=== PATIENT | male | born 1935 | race Caucasian/White ===

== ENCOUNTER 2017-11-04 14:54 | Inpatient (IN) | payer MEDICARE, SELFPAY ==
[2017-11-04] VITALS (9 sets, daily range): BP systolic 101–121; BP diastolic 47–55; PULSE 63–74; RESP 11–18; TEMP 36.3–37.2; O2SAT 91–98; BMI 31.4; BMI 31.3
--- NOTE | 2017-11-04 15:20 | EKG12_ITS ---
Test Reason : Blood Pressure : / mmHG Vent. Rate : 065 BPM Atrial Rate : 061 BPM P-R Int : 000 ms QRS Dur : 122 ms QT Int : 484 ms P-R-T Axes : 000 068 094 degrees QTc Int : 503 ms Atrial fibrillation with frequent ventricular-paced complexes T wave abnormality, consider anterior ischemia Abnormal ECG Confirmed by YAJAIRA MAGAÑA, BYRON ([id number]), editor dictionary SCOOTER KRAUS ([id number]) on 11/09/2017 9:04:42 AM Referred By: KIKI Confirmed By:BYRON GATES MD
--- NOTE | 2017-11-04 15:21 | RAD_ITS ---
STUDY: X-RAY CHEST REASON FOR EXAM: Male, 82 years old. Dyspnea. TECHNIQUE: Frontal and lateral views of the chest. COMPARISON: 09/03/2017. FINDINGS: Normal lung volumes. Very slight prominence of interstitial markings some of which was present previously. Possible combination of some fibrosis along with mild congestion/interstitial edema. In the lung bases, there is probable mild atelectasis. Infiltrate is not excluded. Small pleural effusions bilaterally. Moderate cardiomegaly status post CABG. Pacer lead terminates in the right ventricle. Normal mediastinum and zofia. Normal visualized pulmonary arteries. Normal visualized aortic arch and descending thoracic aorta. Degenerative changes seen throughout the skeletal structures. There is no demonstrated abnormality of the visualized soft tissue structures of the upper abdomen. RAD/Chest PA and Lateral IMPRESSION: Probable mild congestion and interstitial edema. Mild bilateral atelectasis and small effusions. Electronically Signed: Matheus Hayden MD at 16:46 EST , Service support ,
--- NOTE | 2017-11-04 15:27 | VDLE_ITS ---
Reason For Study: LEG SWELLING Procedure LEFT Exam performed portable in ED. GSV is normal. A preliminary report was called and/or faxed CFV is compressible, spontaneous, phasic, to Dr. Black. competent, and demonstrates normal augmentation. FV is compressible, spontaneous, phasic, competent and demonstrates normal augmentation. POP V is compressible, spontaneous, phasic, competent and demonstrates normal augmentation. T/P Trunk is compressible. PTV is compressible. LT PerV is compressible. Interpretation Summary There is no evidence of left lower extremity deep vein thrombosis. Left greater saphenous vein appears patent and compressible segmentally. Ordering Physician: Varun Black Referring Physician: Bijan Zheng M.D. Performed By: Nedra Price RVT
[2017-11-04 16:11] LABS: Absolute Lymphocyte Count 0.27 X10^3/ul (0.83-4.51); Absolute Neutrophil Count 4.6 X10^3/uL (2.0-7.7); Basophil% 0.2 % (0-1); Eosinophils% 1.9 % (0-5); Hematocrit 23.2 % (40-54); Hemoglobin 7.4 g/dl (13.0-16.5); Lymphocyte # 0.27 X10^3/ul (4.0); Lymphocyte % 5.1 % (19-41); Mean Corp Hgb Conc 31.9 g/gl (32-36); Mean Corpuscular Hgb 35.7 pg (27.0-32.0); Mean Corpuscular Volume 112.1 fL (80-94); Mean Platelet Vol. 10.4 fl (6.2-12.0); Monocyte# 0.36 X10^3/uL; Monocyte% 6.8 % (0-10); Neutrophil # 4.56 X10^3/uL (2.7-7.7); Neutrophil % 85.4 % (47-70); Platelet Count 108 K/mm3 (150-450); Red Blood Count 2.07 M/mm3 (4.6-6.2); White Blood Count 5.3 K/mm3 (4.4-11.0)
[2017-11-04 16:12] LABS: Basophil# 0.01 X10^3/uL; Differential Indicated SCAN CRITERIA MET; POSITIVE COUNT NO; POSITIVE DIFFERENTIAL YES; POSITIVE MORPHOLOGY YES
[2017-11-04 16:25] LABS: Lactic Acid 0.9 mmol/L (0.4-2.0)
[2017-11-04 16:27] LABS: AST(SGOT) 32 U/L (15-37); Alanine Aminotransfer ALT/SGPT 19 U/L (12-78); Albumin, Serum 3.5 g/dL (3.4-5.0); Alkaline Phosphatase 52 U/L (45-117); Anion Gap 8 (5-15); BUN 92 mg/dL (7-18); BUN/Creat Ratio 31.8 RATIO (10-20); Bilirubin, Direct 0.29 mg/dL (0.00-0.30); Calcium,Total 8.1 mg/dL (8.5-10.1); Chloride 101 mmol/L (98-107); Creatinine, Serum 2.89 mg/dL (0.70-1.30); EST Glomerular Filtration Rate 22 mL/min (>60); Est Glom Filt Rate - Afr Amer 27 mL/min (>60); Estimated Creatinine Clearance 22.38 ml/min; Globulin 3.6 g/dL (2.2-4.2); Glucose 192 mg/dL (70-110); Potassium 3.1 mmol/L (3.5-5.1); Protein, Total 7.1 g/dL (6.4-8.2); Sodium Level 139 mmol/L (136-145)
[2017-11-04 16:32] LABS: Anisocytosis 1+; Differential Comment SCAN; Hypochromasia 1+; Microcytosis 1+; Polychromasia 1+
[2017-11-04] MEDS: Bumetanide 1 MG/4 ML Vial 2 MG IV (16:48)
[2017-11-04 16:50] LABS: International Normalized Ratio 1.4; Prothrombin Time (Protime)PT. 16.5 SECONDS (11.7-14.9)
[2017-11-04 16:52] LABS: BNP,B-Type NATRIURETIC PEPTIDE 317.9 pg/mL (0-100)
--- NOTE | 2017-11-04 17:04 | PCM.HP.STD ---
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 The patient is a 82 year old M who presents to the emergency room lower extremity and abdominal edema, weight gain and shortness of breath which have been ongoing for approximately 1 month. Patient states he has gained approximately 20 pounds in the past month. He went for a routine visit with Dr. 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 He states Dr. aGn completed an echocardiogram and referred him to the emergency room. Patient denies chest pain. Denies fever, chills. Denies other complaints. Patient recently underwent cystoscopy right retrograde pyelogram due to right ureteral stricture obstruction 10/28/[address] Thomas. Stent placement was attempted but not able to be performed. Patient was sent to [place] where patient reports Dr. Fernandez placed right stent and nephrostomy tube. Nephrostomy tube with bloody drainage. He is to have tube removed this coming 11/09/2017. He has a past medical history of type 2 diabetes mellitus, hypertension, BPH, chronic anemia, chronic atrial fibrillation, anxiety, GERD, chronic thrombocytopenia, chronic constipation, hyperlipidemia, gout, CHF, history of CVA/TIA, status post pacemaker, tricuspid valvuloplasty. He was taken off his Coumadin approximately 12 days ago. He was instructed to begin taking aspirin tomorrow and reevaluate continuing Coumadin after nephrostomy tube removal. 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) Constipation (Chronic) Hyperlipidemia (Chronic) Gout (Chronic) Allergies hydrocodone bitartrate [From Vicodin] Allergy (Verified 11/04/17 14:57) Unknown Iodinated Contrast- Oral and IV Dye [DYEE] Allergy (Verified 11/04/17 14:57) Unknown oxycodone HCl [From Percocet] Adverse Reaction (Verified 11/04/17 14:57) Itching Sulfa (Sulfonamide Antibiotics) Adverse Reaction (Verified 11/04/17 14:57) Unknown Home Medications: Ambulatory Orders Medication Instructions Recorded Aspirin [Aspirin, Baby] 81 mg PO QODAY 05/14/14 Finasteride [Proscar] 5 mg PO DAILY 05/14/14 Multivit-Min/FA/Lycopene/Lut 1 each PO DAILY 05/14/14 [Centrum Silver Tablet] Vit A/Vit C/Vit E/Zinc/Copper 1 each PO BID 05/14/14 [Preservision Areds Softgel] Acetaminophen [Pain Reliever] 1,000 mg PO Q6H PRN PRN 09/25/16 Cyanocobalamin (Vitamin B-12) 2 tab PO DAILY 10/16/16 [Vitamin B-12] Lorazepam [Ativan] 0.5 mg PO BID PRN PRN 10/16/16 Simvastatin [Zocor] 5 mg PO QHS 10/16/16 Atenolol [Tenormin (beta yosef)] 25 mg PO DAILY 09/03/17 Bumetanide [Bumex] 2 mg PO DAILY 09/03/17 Metolazone [Zaroxolyn] 5 mg PO DAILY 09/03/17 Insulin Glargine [Lantus (BKC)] 15 units SC QHS 10/25/17 Polyethylene Glycol 3350 [Miralax] 17 gm PO DAILY PRN 10/25/17 Warfarin [Coumadin] 7.5 mg PO SUTUTHSA 10/25/17 Allopurinol 100 mg PO DAILY 11/04/17 Glipizide [Glipizide ER] 7.5 mg PO BREAKFAST 11/04/17 Warfarin [Coumadin (PBKC)] 5 mg PO MOWEFR 11/04/17 Surgical History: colectomy - S/P [place] OF COLOSTOMY, herniorrhaphy, pacemaker implantation, total hip arthroplasty, total knee arthroplasty, tonsillectomy, - Psychiatric History: No pertinent psych hx Smoking Status: Former smoker Alcohol: None Drugs: None - *Family History Maternal History Items: Diabetes Paternal History Items: Seizures Offspring History Items: Diabetes Review of Systems Constitutional: Reports: Weight Change - +20 lb in one month. Denies: Chills, Fever HEENT: Denies: Head Aches, Sinus Congestion, Sinus Drainage Cardiovascular: Denies: Chest Pain, Palpitations Respiratory: Reports: Shortness of breath upon exertion. Denies: Cough, Shortness of breath at rest, Sputum production Gastrointestinal: Denies: Abdominal Pain, Nausea, Vomiting Genitourinary: Reports: Hematuria. Denies: Dysuria Musculoskeletal: Denies: Joint Pain, Joint Tenderness Skin: Denies: Rash, Wounds Neurological: Denies: Numbness, Tingling, Focal weakness Psychiatric: Reports: Anxiety Hematologic/ Lymphatic: Denies: Easy Bruising, Easy Bleeding VTE Information - Inpt Only VTE Present on Admission: No VTE Mechan Device Prophylaxis: SCD's VTE Pharm Prophylaxis ordered?: No Reason prophylaxis not ordered:: Medical Contraindication - Physical Exam General: Alert, Oriented x3, Cooperative, No apparent distress HEENT: Atraumatic, PERRLA, EOMI, Normocephalic Neck: Supple, No JVD, Negative Carotid Bruits Lungs: Diminished, Rales Cardiovascular: Regular rate, Normal S1, Normal S2, Murmur, - Abdomen: Bowel Sounds Present, Soft, Non Tender, Obese Extremities: No clubbing, No cyanosis, Edema - +2 BLLE up to thighs, abdomen Skin: No rashes, No breakdown, - - Right nephrostomy tube, dressing saturated with bloody drainage. Chronic lower extremity hyperpigmentation/skin changes. Musculoskeletal: No Tenderness to Palpation of Joints or Extremities Neurological: Cranial nerves II-XII grossly intact, Neuro grossly intact Psych/Mental Status: Normal Affect, Appropriate Vital Signs Temp Pulse Resp BP Pulse Ox 97.4 F L 68 16 101/48 L 91 11/04/17 14:55 11/04/17 16:21 11/04/17 16:21 11/04/17 16:21 11/04/17 16:21 Oxygen Delivery Method Room Air Weight: 105.233 kg Body Mass Index (BMI) 31.4 Finger Stick Blood Glucose 143 Laboratory Tests Past 24 Hrs 11/04/17 11/04/17 11/04/17 15:45 15:45 15:45 WBC 5.3 RBC 2.07 L Hgb 7.4 L Hct 23.2 L MCV 112.1 H MCH 35.7 H MCHC 31.9 L RDW 18.0 H RDW Differential 69.0 H Plt Count 108 L MPV 10.4 Immature Gran % (Auto) 0.600 Neut % (Auto) 85.4 H Lymph % (Auto) 5.1 L Ford % (Auto) 6.8 Eos % (Auto) 1.9 Baso % (Auto) 0.2 Absolute Neuts (auto) 4.6 Absolute Lymphs (auto) 0.27 L Total Counted Not Reportable Differential Comment SCAN Polychromasia 1+ Hypochromasia 1+ Anisocytosis 1+ Microcytosis 1+ PT INR Sodium 139 Potassium 3.1 L Chloride 101 Carbon Dioxide 30.0 Anion Gap 8 BUN 92 H Creatinine 2.89 H Estim Creat Clear Calc 22.38 Est GFR (MDRD) Af Amer 27 L Est GFR (MDRD) Non-Af 22 L BUN/Creatinine Ratio 31.8 H Glucose 192 H Lactic Acid 0.9 Calcium 8.1 L Total Bilirubin 0.70 Direct Bilirubin 0.29 AST 32 ALT 19 Alkaline Phosphatase 52 Troponin I < 0.02 B-Natriuretic Peptide Total Protein 7.1 Albumin 3.5 Globulin 3.6 11/04/17 11/04/17 15:45 15:45 WBC RBC Hgb Hct MCV MCH MCHC RDW RDW Differential Plt Count MPV Immature Gran % (Auto) Neut % (Auto) Lymph % (Auto) Ford % (Auto) Eos % (Auto) Baso % (Auto) Absolute Neuts (auto) Absolute Lymphs (auto) Total Counted Differential Comment Polychromasia Hypochromasia Anisocytosis Microcytosis PT 16.5 H INR 1.4 Sodium Potassium Chloride Carbon Dioxide Anion Gap BUN Creatinine Estim Creat Clear Calc Est GFR (MDRD) Af Amer Est GFR (MDRD) Non-Af BUN/Creatinine Ratio Glucose Lactic Acid Calcium Total Bilirubin Direct Bilirubin AST ALT Alkaline Phosphatase Troponin I B-Natriuretic Peptide 317.9 H Total Protein Albumin Globulin Assessment/Plan 1. Acute on chronic diastolic CHF exacerbation-associated anasarca. Patient's reports a 20 pound weight gain in the past month. Most recent echocardiogram in [facility] is on 12/17/2013 which showed an estimated ejection fraction of 55% mild mitral valve insufficiency, moderately severe tricuspid valve insufficiency, mild pulmonary hypertension. Patient states he had echocardiogram completed and Dr. Gan's office this morning. Request records. Patient is on metolazone and bumetanide at home. Strict I&O. 1500 FR. Lower extremity ultrasound was completed in the emergency room and showed no evidence of left lower extremity DVT. EKG shows A. fib with nonspecific ST-T wave changes. Chest x-ray consistent with CHF. Cycle enzymes. Discontinue home oral diuretics. IV lasix 40mg Q8. 2. Elevated creatinine secondary to recent right ureteral stricture obstruction. Patient underwent cystoscopy with Dr. Thomas. Stent placement was not able to be performed and patient was transferred to [place] for stent placement and patient was discharged with right nephrostomy. This is to be discontinued this coming 11/09/2017. Creatinine 2.89. Prior to August this year, patient did not have chronically elevated creatinine. Dr. Aguero consulted. Patient is having kwadwo bloody drainage from nephrostomy tube. Urology aware. 3. Hypertension-stable, continue home medication. 4. Type 2 diabetes mellitus-associated peripheral neuropathy. Accu-Cheks before meals at bedtime. ADA diet. Continue home Lantus regimen. Hold oral home regimen. Sliding scale NovoLog. 5. BPH-continue proscar. 6. Acute on chronic anemia-continue iron supplementation. Monitor CBC. Hemoglobin 7.4. May need transfusion if no improvement with diuresis. Suspect secondary to fluid overload and acute blood loss from right nephrostomy site. 7. Chronic atrial fibrillation-rate controlled. Coumadin on hold. Continue aspirin beginning tomorrow. 8. GERD-continue PPI. 9. Hyperlipidemia-continue statin. 10. Gout-allopurinol on hold given kidney function. 11. History of CVA/TIA-Patient to begin aspirin tomorrow. Continue statin. Coumadin on hold given recent surgery. No residual deficits. 12. Anxiety- continue ativan PRN. 13. Chronic constipation-continue home bowel regimen. 14. S/P pacemaker- follows with Dr. Gan and has routine pacer checks. 15. History of tricuspid valvuloplasty-approximately 1 year ago. DVT prophylaxis-SCDs. Pharmacological prophylaxis contraindicated given recent surgery. <Aiden Berrios E - Last Filed: 11/04/17 19:02> Problem List (1) Diabetes mellitus Status: Chronic Qualifiers: Diabetes mellitus type: type 2 (2) Hypertension Status: Chronic (3) Benign prostatic hypertrophy Status: Chronic (4) Anemia Status: Chronic Qualifiers: Anemia type: iron deficiency (5) Atrial fibrillation Status: Chronic (6) GERD (gastroesophageal reflux disease) Status: Chronic (7) Thrombocytopenia Status: Chronic (8) Hyperlipidemia Status: Chronic (9) Gout Status: Chronic (10) CHF exacerbation Status: Acute Qualifiers: History of Present Illness The patient is a 82 year old M [] Past Medical History Allergies hydrocodone bitartrate [From Vicodin] Allergy (Verified 11/04/17 14:57) Unknown Iodinated Contrast- Oral and IV Dye [DYEE] Allergy (Verified 11/04/17 14:57) Unknown oxycodone HCl [From Percocet] Adverse Reaction (Verified 11/04/17 14:57) Itching Sulfa (Sulfonamide Antibiotics) Adverse Reaction (Verified 11/04/17 14:57) Unknown - Physical Exam Vital Signs Temp Pulse Resp BP Pulse Ox 97.4 F L 68 16 103/53 L 93 11/04/17 14:55 11/04/17 18:00 11/04/17 18:00 11/04/17 18:00 11/04/17 18:00 Oxygen Delivery Method Room Air Weight: 231 lb 4.8 oz Body Mass Index (BMI) 31.3 Assessment/Plan Hospitalist note: I am seeing this patient in conjunction with Negin Nagel. I independently seen and examined the patient. History and physical, laboratory data and imaging studies reviewed. I agree with above admission and treatment plan. Patient was sent from Dr. Nunez's office for worsening bilateral leg edema, weight gain and mild shortness of breath. His symptoms has been going on for almost 1 month with gradually increasing bilateral leg edema, associated with mild shortness of breath as well as abdominal distention. He denied chest pain, palpitation, dizziness or lightheadedness. He denied cough or sputum production. One week ago, he underwent cystoscopy with right retrograde pyelogram due to a right ureteral stricture by Dr. Thomas which failed attempt to place a right ureteral stent. Patient was sent to [facility] and he had nephrostomy tube and right ureteral stent placed this past Tuesday. Patient's family mentioned that the drainage of the right nephrostomy tube was dark but since today morning, has been kwadwo blood. Patient denied any right flank pain. He has been having urine coming out from the insertion of the right nephrostomy tube. Patient denies any fever chills. At this time, his vital signs are stable. - Physical Exam General: Alert, Oriented x3, Cooperative, No apparent distress. HEENT: Atraumatic, PERRLA, EOMI. Neck: Supple, No JVD, Negative Carotid Bruits, Trachea Midline, Thyroid Normal. Lungs: Decreased breath sounds bilateral, faint basilar crackles, No rhonchi, No wheeze. Cardiovascular: Regular rate, Regular Rhythm, Normal S1, Normal S2, PMI Normal. Abdomen: Bowel Sounds Present, Soft, Non Tender, Distended, No Hepato-splenomegaly. Extremities: No clubbing, No cyanosis, ++ edema up to his thighs Skin: No rashes, No breakdown Neurological: Neuro grossly intact Vital Signs are stable. Assessment and plan: #1 acute on chronic CHF: Probably diastolic. And probably due to worsening kidney function, cardiorenal syndrome. Patient has been on diuretics and his kidney function has been worsening due to right ureteral stricture although he had recent right ureteral stent placed. EKG revealed A. fib with nonspecific ST, T-wave changes. One is negative. It was reported that his ejection fraction today was 58% on echocardiogram done at Dr. Nunez's office. BNP is elevated. Venous Doppler of the both lower extremities showed no evidence of acute DVT. Chest x-ray showed mild pulmonary vascular congestion with small effusions. Plan for diuresis with IV Lasix, continue atenolol, input output chart, repeat BMP tomorrow morning. He is not on JOCELYN inhibitor because of worsening kidney function. #2 right ureteral stricture, status post stent and nephrostomy tube on the right. Nephrostomy tube is draining bright red blood. Patient denies any flank pain. I spoke with Dr. Aguero and he agreed to keep the patient here and he will see him more in consultation. #3 acute on chronic anemia: Admission hemoglobin is 7.4 g/dL. It is probably multifactorial secondary to acute blood loss through the nephrostomy tube as well as fluid retention leading to hemodilution. Plan for transfuse 1 bag of blood, repeat CBC tomorrow morning. #4 renal failure: It is fairly acute. His kidney function has been worsening since beginning of this month. His creatinine was 1.46 on August,, was 2.27 on October 18 and today, it is 2.89. it is steadily worsening. Expect kidney function to worsen with IV Lasix. Urology consulted as above. #5 other chronic medical problems: Continue current treatment as above. This note was generated with [employer] dictation software. It may contain incorrect words, spelling, and punctuation that were not noted in checking the note before signing. Code Visit Inpatient E&M: 62725 Init Hosp L3
--- NOTE | 2017-11-04 17:22 | ED.DCSUM_ITS ---
- ER Visit Summary Date of Service: 11/04/17 Chief Complaint: Drainage from nephrostomy site History of Present Illness: The patient is a [address] Nunez and sent to the ER because of anasarca. A transthoracic echo was performed and conclusions read: 1. Technically difficult exam due to suboptimal positioning body habitus 2. Indication congestive heart failure 3. Left bundle trickle is normal in size. Left ventricle systolic function is normal, EF approximately 58% ?5% (2D 4-CH.) Left ventricular diastolic function was not evaluated due to atrial fibrillation. 4. The right ventricle is dilated and ventricular systolic function is low normal. 5. The left atrial cavity is severely dilated 6. The right atrial cavity is dilated 7. There is moderately severe 3+ tricuspid valve regurgitation with peak gradient 8 mmHg and mean gradient 4 mmHg. 8. Estimated right ventricular systolic pressure is 71 mmHg consistent with moderately severe pulmonary hypertension. Estimated right atrial pressure is 15 mmHg Patient reports increased swelling of his legs. Increased shortness of breath at rest, with activity and he sleeps in a lazy boy. Attempt at right ureteral stent was unsuccessful necessitating transfer to [facility] and placement of right nephrostomy tube. He has serous drainage from the nephrostomy tube site placement. He denies fever, chills night sweats. He does report weight gain and his pants feeling very tight. He denies rhinorrhea, earache or sore throat. He denies chest discomfort. He states 3 weeks ago he had difficulty swimming. He was normally able to swim 7 laps. Starting 3 weeks ago he is only able to swim 1 lap. Physical Examination: Vital signs are noted. Pulse ox on room air is 91% which is marginal. Head is atraumatic normocephalic. Pupils are equal round reactive. Extraocular muscles are intact. TMs are pearly white with landmarks noted. Nares patent with no drainage. Posterior pharynx without erythema or exudate. Uvula is midline. There is no dysphonia or dysphasia. Trachea is midline. There is no stridor with auscultation of the neck. Heart is irregularly irregular with systolic murmur heard best over the right sternal border. There is no JVD noted. Lungs revealed diminished breath sounds on the left and rales bilaterally. Left lower extremity is discolored and severely swollen comparison to the right. He has tenderness along the distribution deep venous system. Difficult to assess for distal pulses in the lower extremity secondary to his edema. He is hard of hearing. Neuro exam is nonfocal. Test Results: EKG atrial fibrillation rate is [address]-T wave changes. Chest x-ray reveals borderline cardiomegaly, congestive heart failure with small pleural effusion on the left. Pacemaker noted right subclavian, dual wire. Hemoglobin is 7.4 with hematocrit of 23.8 which is unchanged from October 31. BUN and creatinine are 92 and 2.59 which is slightly elevated compared to October 31. Troponin is normal. Emergency Department Course and Treatment: Workup was undertaken to determine allergy of his anasarca. The echo report was not available when he was initially seen. Differential includes cardiac ischemia, noncompliance with medication or food, worsening renal failure. Workup included EKG, chest x-ray and appropriate blood work. Since he is on Bumex he received 2 mg of Bumex IV push. Treatment Plan: Continued care in the hospital with aggressive diuresis Disposition: Admit monitored unit Impression: 1. Exacerbation of congestive heart failure 2. Small left pleural effusion 3. Anasarca 4. Chronic anemia 5. End-stage renal disease, chronic 6. Atrial fibrillation, chronic This note was generated with G-mode dictation software. It may contain incorrect words, spelling, and punctuation that were not noted in review of the chart prior to signing ED Disposition - Plan for ED Patient: Chief Complaint: General Illness Referrals: Bijan Zheng MD [Primary Care Provider] -
[2017-11-04 20:06] LABS: Prealbumin 17.2 mg/dL (20.0-40.0)
[2017-11-04] MEDS: Atorvastatin Calcium 10 MG Tablet 5 MG PO (22:18)
[2017-11-04] MEDS: Furosemide 40 MG/4 ML Vial IV (22:24)
[2017-11-04 23:36] LABS: Bedside Glucose 162 mg/dL (70-110)
[2017-11-05] VITALS (25 sets, daily range): BP systolic 96–135; BP diastolic 40–62; PULSE 60–98; RESP 12–19; TEMP 36–37.6; O2SAT 91–99
--- NOTE | 2017-11-05 07:36 | PCM.PROGNOTE ---
Subjective: Patient is an 82-year-old male with a past medical history of diabetes mellitus type 2, hypertension, BPH, diverticulosis, atrial fibrillation, anxiety, GERD, diabetic peripheral polyneuropathy, thrombocytopenia, remote ischemic CVA, hyperlipidemia, PM, R nephrostomy tube, chronic anticoagulation with Coumadin, history of tricuspid valvuloplasty, right ureteral stenosis with failed attempt at stent placement(now with R nephrostomy tube), hyperuricemia, gout, biatrial enlargement, LVH, dilated right ventricle with global right ventricular systolic dysfunction, pulmonary hypertension, congestive heart failure, and chronic constipation who presented to the emergency room complaining of increased lower extremity edema and increased abdominal girth. He stated that he gained 20 pounds in the past month. He was admitted for acute exacerbation of congestive heart failure in early October. Follows with Dr. Dion Nunez. He is scheduled for removal of the nephrostomy tube on 11/[address] Fernandez at [facility]. Drainage from the nephrostomy tube is bloody and Coumadin was stopped almost 2 weeks ago. In the emergency room he had a venous ultrasound that showed no DVT. Chest x-ray showed increased vascular congestion and small pleural effusions. Labs shows a normal white blood cell count at 5.3 with low platelets of 108,000. His hemoglobin is 7.4 the MCV is 112. Has microcytosis, hypochromasia and anisocytosis. INR was 1.4. Potassium was low at 3.1. The BUN was 92 and the creatinine was 2.89. On 10/17 the creatinine was 1.04. BNP was 317. Had 1 unit of blood yesterday. - Physical Exam General: Alert, Oriented x3, Cooperative, No apparent distress, Well developed, Well nourished HEENT: Atraumatic, PERRLA, EOMI, Normocephalic Oral: Moist Mucosa Neck: Trachea Midline Lungs: Clear to auscultation - anterior and lateral, No rhonchi, No wheeze, No rales Cardiovascular: Normal S1, Normal S2, Irregular Rate - with controlled ventricular, Murmur - sys at the LLS border and 1-2+ at the second RICS, No rub noted, No Gallop Abdomen: Bowel Sounds Present, Soft, Non Tender, Distended - and hypertympanic, last BM was yesterday and it was normal, denies N/V/abdominal, - - he has pitting edema in the flanks Extremities: No cyanosis, Edema - BL lower extremities, Tenderness - R calf Skin: - - there is hyperpigmentation of the distal LE's BL due to chronic venous insufficiency Musculoskeletal: Arthritic Changes Neurological: Cranial nerves II-XII grossly intact, Neuro grossly intact Psych/Mental Status: Normal Affect, Appropriate Vital Signs Temp Pulse Resp BP Pulse Ox 98.4 F 75 12 100/49 L 93 11/05/17 04:32 11/05/17 04:32 11/05/17 04:32 11/05/17 04:32 11/05/17 04:32 Oxygen Delivery Method Room Air Weight: 231 lb 4.8 oz Body Mass Index (BMI) 31.3 Intake and Output for Last 24 Hours 11/03/17 11/04/17 11/05/17 23:59 23:59 23:59 Intake Total 651 / 651 1376 / 1376 Output Total 1025 / 1025 1385 / 1385 Balance -374 / -374 -9 / -9 Laboratory Tests Past 24 Hrs 11/04/17 11/04/17 11/04/17 19:09 19:53 21:26 Troponin I < 0.02 < 0.02 Prealbumin 17.2 L Blood Type A POSITIVE Antibody Screen NEGATIVE Crossmatch See Detail 11/05/17 01:36 Troponin I < 0.02 Prealbumin Blood Type Antibody Screen Crossmatch POC Glucose 11/04/17 22:10 POC Glucose 162 H Assessment/Plan Impressions 1. acute on chronic cor pulmonale 2. moderate to severe pulmonary HTN 3. recent tricuspid valvuloplasty 4. Hx of 3+ TR with a normal EF in 2013.....last ECHO we have on file 5. CAF - rate controlled 6. S/P PM 7. OMAIRA due to R ureteral stenosis - Stent placement failed and he now has a R nephrostomy tube and the urine is bloody 8. acute on chronic anemia due to acute blood loss 9. Diabetes mellitus type 2 10. Hypertension 11. BPH 12. History of diverticulosis status post partial colectomy- 13. GERD 14. Diabetic peripheral polyneuropathy 15. Hyperlipidemia 16. Hyperuricemia/gout 17. Hypokalemia 18. Thrombocytopenia-chronic Serial troponins are negative CBC not resulted yet...transfused with 1 unit of PRBC's at admission Continue Lasix Q 8 H Iron studies, B12, folate, reticulocyte count TSH was normal within the past year Await the results of today's lab work. Echocardiogram today - need results in the computer and he has not had an ECHO since 2013 at [facility].....multiple admissions for cor pulmonale After Laci is on consult Coumadin has been on hold for past 13 days..... Renew ASA 81 mg daily Code Visit Inpatient E&M: 57842 Subs Hosp L3
--- NOTE | 2017-11-05 07:57 | ECHOD_ITS ---
Reason For Study: CHF Procedure This was a 2D Doppler, Color Flow transthoracic echocardiogram. Exam performed portable in patient room. Left Ventricle Normal LV size. Left ventricular systolic function is normal. The estimated ejection fraction is 55 %. Paced septal motion. No regional wall motion abnormalities noted. Right Ventricle ICD or pacer leads identified within the right ventricle. Mildly dilated right ventricle. Normal systolic function. Atria The left atrium is severely enlarged. The right atrium is moderately enlarged. Mitral Valve Normal mitral valve. Mild (1+) eccentric mitral valve insufficiency. Tricuspid Valve Normal tricuspid valve. Moderate (2+) tricuspid valve insufficiency. Pulmonary artery systolic pressure is 69 mmHg. Severe pulmonary hypertension. Aortic Valve Normal aortic valve. Pulmonic Valve The pulmonic valve is not well visualized. Great Vessels Normal aortic root. The pulmonary artery is normal size. and does not collapse. Pericardium/Pleural No pericardial effusion. MMode/2D Measurements & Calculations LVIDd: 5.5 cm IVSd: 1.1 cm Ao root diam: 3.1 cm LVIDs: 3.5 cm LVPWd: 1.3 cm LA dimension: 5.6 cm RVDd: 3.9 cm FS: 36.3 % LAV(MOD-sp4): 168.5 ml LA A4 area: 38.8 cm2 RA A4 area: 33.3 cm2 Time Measurements MV dec time: 0.16 sec Doppler Measurements & Calculations MV E max eduardo: 112.8 cm/sec Ao V2 max: 186.6 cm/sec LV V1 max: 124.5 cm/sec MV A max eduardo: 38.2 cm/sec Ao max P.0 mmHg LV V1 max P.2 mmHg MV E/A: 3.0 Ao V2 mean: 125.8 cm/sec LV V1 mean P.7 mmHg Ao mean P.1 mmHg LV V1 mean: 73.9 cm/sec Ao V2 VTI: 37.2 cm LV V1 VTI: 24.5 cm PA V2 max: 125.2 cm/sec TR max eduardo: 391.5 cm/sec TR max P.3 mmHg Interpretation Summary Normal LV size. Left ventricular systolic function is normal. The estimated ejection fraction is 55 %. The left atrium is severely enlarged. Severe pulmonary hypertension. Paced septal motion. Ordering Physician: Berta Marie Referring Physician: Bijan Zheng M.D. Performed By: Bertin Blackburn RCS
[2017-11-05 08:01] LABS: Bedside Glucose 79 mg/dL (70-110)
--- NOTE | 2017-11-05 08:04 | PN_ITS ---
Subjective: Patient is an 82-year-old male with a past medical history of diabetes mellitus type 2, hypertension, BPH, diverticulosis, atrial fibrillation, anxiety, GERD, diabetic peripheral polyneuropathy, thrombocytopenia, remote ischemic CVA, hyperlipidemia, PM, R nephrostomy tube, chronic anticoagulation with Coumadin, history of tricuspid valvuloplasty, right ureteral stenosis with failed attempt at stent placement(now with R nephrostomy tube), hyperuricemia, gout, biatrial enlargement, LVH, dilated right ventricle with global right ventricular systolic dysfunction, pulmonary hypertension, congestive heart failure, and chronic constipation who presented to the emergency room complaining of increased lower extremity edema and increased abdominal girth. He stated that he gained 20 pounds in the past month. He was admitted for acute exacerbation of congestive heart failure in early October. Follows with Dr. Dion Nunez. He is scheduled for removal of the nephrostomy tube on 11/[address] Fernandez at [facility]. Drainage from the nephrostomy tube is bloody and Coumadin was stopped almost 2 weeks ago. In the emergency room he had a venous ultrasound that showed no DVT. Chest x- ray showed increased vascular congestion and small pleural effusions. Labs shows a normal white blood cell count at 5.3 with low platelets of 108, 000. His hemoglobin is 7.4 the MCV is 112. Has microcytosis, hypochromasia and anisocytosis. INR was 1.4. Potassium was low at 3.1. The BUN was 92 and the creatinine was 2.89. On 10/17 the creatinine was 1.04. BNP was 317. Had 1 unit of blood yesterday. - Physical Exam General: Alert, Oriented x3, Cooperative, No apparent distress, Well developed, Well nourished HEENT: Atraumatic, PERRLA, EOMI, Normocephalic Oral: Moist Mucosa Neck: Trachea Midline Lungs: Clear to auscultation - anterior and lateral, No rhonchi, No wheeze, No rales Cardiovascular: Normal S1, Normal S2, Irregular Rate - with controlled ventricular, Murmur - sys at the LLS border and 1-2+ at the second RICS, No rub noted, No Gallop Abdomen: Bowel Sounds Present, Soft, Non Tender, Distended - and hypertympanic, last BM was yesterday and it was normal, denies N/V/abdominal, - - he has pitting edema in the flanks Extremities: No cyanosis, Edema - BL lower extremities, Tenderness - R calf Skin: - - there is hyperpigmentation of the distal LE's BL due to chronic venous insufficiency Musculoskeletal: Arthritic Changes Neurological: Cranial nerves II-XII grossly intact, Neuro grossly intact Psych/Mental Status: Normal Affect, Appropriate Vital Signs Temp Pulse Resp BP Pulse Ox 98.4 F 75 12 100/49 L 93 11/05/17 04:32 11/05/17 04:32 11/05/17 04:32 11/05/17 04:32 11/05/17 04:32 Oxygen Delivery Method Room Air Weight: 231 lb 4.8 oz Body Mass Index (BMI) 31.3 Intake and Output for Last 24 Hours 11/03/17 11/04/17 11/05/17 23:59 23:59 23:59 Intake Total 651 / 651 1376 / 1376 Output Total 1025 / 1025 1385 / 1385 Balance -374 / -374 -9 / -9 Laboratory Tests Past 24 Hrs 11/04/17 11/04/17 11/04/17 19:09 19:53 21:26 Troponin I < 0.02 < 0.02 Prealbumin 17.2 L Blood Type A POSITIVE Antibody Screen NEGATIVE Crossmatch See Detail 11/05/17 01:36 Troponin I < 0.02 Prealbumin Blood Type Antibody Screen Crossmatch POC Glucose 11/04/17 22:10 POC Glucose 162 H Assessment/Plan Impressions 1. acute on chronic cor pulmonale 2. moderate to severe pulmonary HTN 3. recent tricuspid valvuloplasty 4. Hx of 3+ TR with a normal EF in 2013.....last ECHO we have on file 5. CAF - rate controlled 6. S/P PM 7. OMAIRA due to R ureteral stenosis - Stent placement failed and he now has a R nephrostomy tube and the urine is bloody 8. acute on chronic anemia due to acute blood loss 9. Diabetes mellitus type 2 10. Hypertension 11. BPH 12. History of diverticulosis status post partial colectomy- 13. GERD 14. Diabetic peripheral polyneuropathy 15. Hyperlipidemia 16. Hyperuricemia/gout 17. Hypokalemia 18. Thrombocytopenia-chronic Serial troponins are negative CBC not resulted yet...transfused with 1 unit of PRBC's at admission Continue Lasix Q 8 H Iron studies, B12, folate, reticulocyte count TSH was normal within the past year Await the results of today's lab work. Echocardiogram today - need results in the computer and he has not had an ECHO since 2013 at [facility].....multiple admissions for cor pulmonale After Laci is on consult Coumadin has been on hold for past 13 days..... Renew ASA 81 mg daily Code Visit Inpatient E&M: 05396 Subs Hosp L3
[2017-11-05 08:22] LABS: Hematocrit 23.2 % (40-54); Hemoglobin 7.3 g/dl (13.0-16.5); Mean Corp Hgb Conc 31.5 g/gl (32-36); Mean Corpuscular Hgb 33.6 pg (27.0-32.0); Mean Corpuscular Volume 106.9 fL (80-94); Mean Platelet Vol. 10.3 fl (6.2-12.0); Platelet Count 104 K/mm3 (150-450); RBC Distribution Width CV 20.5 % (11.6-14.6); RBC Distribution Width SD 78.5 fl (35.1-43.9); Red Blood Count 2.17 M/mm3 (4.6-6.2); White Blood Count 4.1 K/mm3 (4.4-11.0)
[2017-11-05 08:29] LABS: Scan Indicated on CBC? Y/N YES- FLAGS NOTED
[2017-11-05 08:31] LABS: International Normalized Ratio 1.4; Prothrombin Time (Protime)PT. 16.3 SECONDS (11.7-14.9)
[2017-11-05 08:33] LABS: Anion Gap 8 (5-15); BUN 90 mg/dL (7-18); BUN/Creat Ratio 32.6 RATIO (10-20); Calcium,Total 8.5 mg/dL (8.5-10.1); Chloride 100 mmol/L (98-107); Creatinine, Serum 2.76 mg/dL (0.70-1.30); EST Glomerular Filtration Rate 24 mL/min (>60); Est Glom Filt Rate - Afr Amer 29 mL/min (>60); Estimated Creatinine Clearance 23.43 ml/min; Glucose 66 mg/dL (70-110); Sodium Level 138 mmol/L (136-145)
--- NOTE | 2017-11-05 08:54 | RAD_ITS ---
STUDY: X-RAY - ABDOMEN/PELVIS REASON FOR EXAM: Male, 82 years old. Abdominal pain and distention. TECHNIQUE: Two AP supine views of the abdomen and pelvis. COMPARISON: CT of the abdomen and pelvis, October 18, 2017. FINDINGS: The lung bases bases not included. There is a pigtail catheter with its tip in the right midabdomen the expected position of the right kidney. This is thought to represent a nephrostomy tube. There is a ureteral calculus with its upper loop at the level of L4 and its lower loop in long the left lateral wall of the bladder. This is thought to be in the right ureter. There is an unremarkable bowel gas pattern. There is no demonstrated free abdominal air. The visualized liver, spleen and kidneys are grossly normal in size and morphology. There is no suspicious calcifications or masses. Normal soft tissue structures. Again seen is fusion of the lumbar spine and left hip arthroplasty. RAD/Abdomen Single View IMPRESSION: 1. Right nephrostomy tube. 2. Right ureteral catheter which appears to lie in the mid to distal ureter and extends into the bladder. 3. No evidence of acute intra-abdominal process. Electronically Signed: Blaine Bolton DO at 11:11 EST Tel [phone], Service support ,
--- NOTE | 2017-11-05 08:56 | PCM.CONS.U ---
Problem List (1) Ureteral stricture, right Status: Acute Reason for Consult Date of Consultation: 11/05/17 Reason for Consultation: 82 yo male with h/o R ureteral stricture. s/p antegrade stent and R nephrostomy tube placement. urine is bloody from nephrostomy tube. 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) Constipation (Chronic) Hyperlipidemia (Chronic) Gout (Chronic) Allergies hydrocodone bitartrate [From Vicodin] Allergy (Verified 11/04/17 14:57) Unknown Iodinated Contrast- Oral and IV Dye [DYEE] Allergy (Verified 11/04/17 14:57) Unknown oxycodone HCl [From Percocet] Adverse Reaction (Verified 11/04/17 14:57) Itching Sulfa (Sulfonamide Antibiotics) Adverse Reaction (Verified 11/04/17 14:57) Unknown Home Medications: Ambulatory Orders Medication Instructions Recorded Aspirin [Aspirin, Baby] 81 mg PO QODAY 05/14/14 Finasteride [Proscar] 5 mg PO DAILY 05/14/14 Multivit-Min/FA/Lycopene/Lut 1 each PO DAILY 05/14/14 [Centrum Silver Tablet] Vit A/Vit C/Vit E/Zinc/Copper 1 each PO BID 05/14/14 [Preservision Areds Softgel] Acetaminophen [Pain Reliever] 1,000 mg PO Q6H PRN PRN 09/25/16 Cyanocobalamin (Vitamin B-12) 2 tab PO DAILY 10/16/16 [Vitamin B-12] Lorazepam [Ativan] 0.5 mg PO BID PRN PRN 10/16/16 Simvastatin [Zocor] 5 mg PO QHS 10/16/16 Atenolol [Tenormin (beta yosef)] 25 mg PO DAILY 09/03/17 Bumetanide [Bumex] 2 mg PO DAILY 09/03/17 Metolazone [Zaroxolyn] 5 mg PO DAILY 09/03/17 Insulin Glargine [Lantus (BKC)] 15 units SC QHS 10/25/17 Polyethylene Glycol 3350 [Miralax] 17 gm PO DAILY PRN 10/25/17 Warfarin [Coumadin] 7.5 mg PO SUTUTHSA 10/25/17 Allopurinol 100 mg PO DAILY 11/04/17 Glipizide [Glipizide ER] 7.5 mg PO BREAKFAST 11/04/17 Warfarin [Coumadin (PBKC)] 5 mg PO MOWEFR 11/04/17 Surgical History: colectomy - S/P [place] COLOSTOMY, herniorrhaphy, pacemaker implantation, total hip arthroplasty, total knee arthroplasty, tonsillectomy, - Psychiatric History: No pertinent psych hx Smoking Status: Former smoker Alcohol: None Drugs: None - *Family History Maternal History Items: Diabetes Paternal History Items: Seizures Offspring History Items: Diabetes Review of Systems Constitutional: Denies: Chills, Fever, Weight Change HEENT: Denies: Head Aches, Sinus Congestion, Sinus Drainage Cardiovascular: Denies: Chest Pain, Palpitations Respiratory: Reports: Shortness of Breath. Denies: Cough, Shortness of breath at rest, Sputum production Gastrointestinal: Denies: Abdominal Pain, Nausea, Vomiting Genitourinary: Reports: Hematuria. Denies: Dysuria Musculoskeletal: Denies: Joint Pain, Joint Tenderness Skin: Denies: Rash, Wounds Neurological: Denies: Numbness, Tingling, Focal weakness Psychiatric: Denies: Anxiety, Depression, Homicidal Ideations, Suicidal Ideations Physical Exam - Physical Exam Vital Signs Temp 98.4 F 11/05/17 04:32 Pulse 65 11/05/17 07:22 Resp 12 11/05/17 04:32 BP 100/49 L 11/05/17 04:32 Pulse Ox 93 11/05/17 04:32 Intake & Output 11/03/17 11/04/17 11/05/17 23:59 23:59 23:59 Intake Total 651 / 651 1376 / 1376 Output Total 1025 / 1025 1385 / 1385 Balance -374 / -374 -9 / -9 Weight: 104.916 kg Intake: Oral 462 / 462 840 / 840 Blood Product 189 / 189 536 / 536 Leuko-Reduced Red Blood Cells 0 / 0 347 / 347 Unit [id number] Output: Urine 1025 / 1025 1385 / 1385 General: Alert, Oriented x3 HEENT: Atraumatic Oral: Moist Mucosa Neck: Supple Lungs: Normal air movement Extremities: Edema Skin: No rashes Laboratory Tests Past 24 Hrs 11/04/17 11/04/17 11/04/17 19:09 19:53 21:26 WBC RBC Hgb Hct MCV MCH MCHC RDW RDW Differential Plt Count MPV Differential Comment PT INR Sodium Potassium Chloride Carbon Dioxide Anion Gap BUN Creatinine Estim Creat Clear Calc Est GFR (MDRD) Af Amer Est GFR (MDRD) Non-Af BUN/Creatinine Ratio Glucose Calcium Troponin I < 0.02 < 0.02 Prealbumin 17.2 L Blood Type A POSITIVE Antibody Screen NEGATIVE Crossmatch See Detail 11/05/17 11/05/17 11/05/17 01:36 07:37 07:37 WBC 4.1 L RBC 2.17 L Hgb 7.3 L Hct 23.2 L MCV 106.9 H MCH 33.6 H MCHC 31.5 L RDW 20.5 H RDW Differential 78.5 H Plt Count 104 L MPV 10.3 Differential Comment PT 16.3 H INR 1.4 Sodium Potassium Chloride Carbon Dioxide Anion Gap BUN Creatinine Estim Creat Clear Calc Est GFR (MDRD) Af Amer Est GFR (MDRD) Non-Af BUN/Creatinine Ratio Glucose Calcium Troponin I < 0.02 Prealbumin Blood Type Antibody Screen Crossmatch 11/05/17 11/05/17 07:37 07:37 WBC RBC Hgb Hct MCV MCH MCHC RDW RDW Differential Plt Count MPV Differential Comment PT INR Sodium 138 Potassium 3.0 L Chloride 100 Carbon Dioxide 30.0 Anion Gap 8 BUN 90 H Creatinine 2.76 H Estim Creat Clear Calc 23.43 Est GFR (MDRD) Af Amer 29 L Est GFR (MDRD) Non-Af 24 L BUN/Creatinine Ratio 32.6 H Glucose 66 L Calcium 8.5 Troponin I < 0.02 Prealbumin Blood Type Antibody Screen Crossmatch Assessment/Plan Active and Suspected Problems Ureteral stricture, right (Acute) 82 yo male has nephrostomy tube plan to check KUB today continue to flush nephrostomy tube he has appt next week in [place] to remove nephrostomy tube. will check KuB, supposedly has antegrade stent can follow up with urology as outpatient.
[2017-11-05 09:30] LABS: Immature Platelet Fraction 3.9 % (1.0-7.9); RET-HE 25.7 pg (30-35)
[2017-11-05 09:40] LABS: Ferritin 218 ng/mL (26-388); Iron 45 ug/dL (65-175); Iron Binding Capacity,Total 219 ug/dL (250-450); PERCENT IRON SATURATION 20.5 % (15.0-55.0)
--- NOTE | 2017-11-05 10:03 | CASEMGMT ---
Insurance reviewed for In-Network providers if transfer is recommended. Per [employer] [facility] Website, using patient's insurance designation, the following facilities are In-Network: - [facility] - [facility]) - [facility] - [facility] - [facility] - [facility] Ramesh VASQUEZ, RN CM
[2017-11-05] MEDS: Multivitamins,Ther W-Minerals Tablet 1 TABLET PO (10:21)
[2017-11-05] MEDS: Furosemide 40 MG/4 ML Vial IV ×3 (10:22→21:58)
[2017-11-05] MEDS: Aspirin 81 MG TAB.CHEW PO (10:24)
[2017-11-05] MEDS: Cyanocobalamin 500 MCG Tablet 1000 MCG PO (10:24)
[2017-11-05] MEDS: Finasteride 5 MG Tablet PO (10:25)
[2017-11-05] MEDS: Atenolol 25 MG Tablet PO (10:25)
[2017-11-05 11:40] LABS: Bedside Glucose 149 mg/dL (70-110)
--- NOTE | 2017-11-05 12:07 | CASEMGMT ---
See RN CM Assessment Link. DC Plan: pt plans to return home. [employer] can assist. Pt does not drive, but is ambulatory and anticipates will be able to return home. Brandon WANGN RN ACM
[2017-11-05] MEDS: Ferrous Sulfate 325 MG Tablet PO ×2 (13:05→17:06)
[2017-11-05 16:51] LABS: Bedside Glucose 218 mg/dL (70-110)
[2017-11-05] MEDS: Atorvastatin Calcium 10 MG Tablet 5 MG PO (21:58)
[2017-11-05] MEDS: LORazepam 0.5 MG Tablet PO (22:09)
[2017-11-05 22:26] LABS: Bedside Glucose 165 mg/dL (70-110)
[2017-11-06] VITALS (10 sets, daily range): BP systolic 103–118; BP diastolic 51–72; PULSE 66–86; RESP 14–19; TEMP 36.8–37.4; O2SAT 92–96
[2017-11-06 03:25] LABS: Bacteria 0 SEEN /hpf (None Seen); Mucous, Urine 0 SEEN /hpf (<or=2+); Squamous Epithelial Cells - UA 0 SEEN /hpf (0-5)
[2017-11-06 03:46] LABS: Color, Urine Red (Yellow); Glucose, Dipstick Normal (Normal); Ketone-Dipstick Negative (Negative); Leukocyte Esterase-Dipstick 100 /ul (Negative); Nitrite-Dipstick Negative (Negative); Occult Blood-Urine 250 /ul (Negative); Protein-Dipstick 100 mg/dl (Negative); Urine Bilirubin Dipstick Negative (Negative); Urine Clarity Cloudy (Clear); Urine Urobilinogen Normal (Normal)
[2017-11-06 03:56] LABS: Red Blood Cells-Urine > 100 SEEN /hpf (0-5); White Blood Cells 5-10 SEEN /hpf (0-5)
[2017-11-06] MEDS: Furosemide 40 MG/4 ML Vial IV (07:00)
[2017-11-06 09:18] LABS: Bedside Glucose 138 mg/dL (70-110)
--- NOTE | 2017-11-06 10:24 | PCM.DC.SUM ---
Discharge Date and Diagnosis - Problem List Patient Problems: Active and Suspected Problems Ureteral stricture, right (Acute) Date of Admission: 11/04/17 Date of Discharge: 11/06/17 - Primary Discharge Diagnosis Active and Suspected Problems acute on chronic diastolic CHF hematuria acute on chronic anemia secondary to blood loss recent tricuspid valvuloplasty - Secondary Discharge Diagnosis Chronic Problems Diabetes mellitus 2 (Chronic) Hypertension (Chronic) Benign prostatic hypertrophy (Chronic) Diverticular disease (Chronic) Anemia (Chronic) Atrial fibrillation (Chronic) Anxiety (Chronic) GERD (gastroesophageal reflux disease) (Chronic) Peripheral neuropathy (Chronic) Thrombocytopenia (Chronic) 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 Mild bilateral atelectasis and small effusions. Electronically Signed: Matheus Hayden MD at 16:46 EST , Service support , KUB X-Ray 11/05/17 08:54 IMPRESSION: 1. Right nephrostomy tube. 2. Right ureteral catheter which appears to lie in the mid to distal ureter and extends into the bladder. 3. No evidence of acute intra-abdominal process. Electronically Signed: Blaine Bolton DO at 11:11 EST Tel [phone], Service support , Dr. Kirill Aguero-urology Operations: None Procedures: 2-D Echocardiogram, Blood transfusion Summary of Care Provided: Patient is an 82-year-old male with a past medical history of diabetes mellitus type 2, hypertension, BPH, diverticulosis, atrial fibrillation, anxiety, GERD, diabetic peripheral polyneuropathy, thrombocytopenia, remote ischemic CVA, hyperlipidemia, PM, R nephrostomy tube, chronic anticoagulation with Coumadin, history of recent tricuspid valvuloplasty, right ureteral stenosis with failed attempt at retrograde stent placement on 10/28/17(now with R nephrostomy tube placed by Dr. Fernandez at [facility]), hyperuricemia, gout, biatrial enlargement, LVH, dilated right ventricle with global right ventricular systolic dysfunction, severe pulmonary hypertension, congestive heart failure, and chronic constipation who presented to the emergency room complaining of increased lower extremity edema and increased abdominal girth. He stated that he gained 20 pounds in the past month. He was admitted for acute exacerbation of diastolic CHF in early October. He Follows with Dr. Dion Nunez for cardiology and it is Dr. Gan who sent him to the ER from his office. On 10/28/17 Dr. Thomas from urology attempted a R retrograde ureteral stent bu the stent placement failed. He was transferred to [facility] and had a R antegrade ureteral stent placed by Dr. Fernandez. He is scheduled for removal of the nephrostomy tube on 11/[address] Fernandez at [facility]. Drainage from the nephrostomy tube was very bloody at admission and when he urinates the urine is cranberry colored. Coumadin was stopped 2 weeks prior to admission. In the emergency room he had a venous ultrasound of the LE's for swelling and it showed no DVT. Chest x-ray showed increased vascular congestion and small pleural effusions. Labs showed a normal white blood cell count at 5.3 with low platelets of 108,000. The thrombocytopenia is chronic. Hemoglobin was 7.4 with an MCV of 112. He has microcytosis, hypochromasia and anisocytosis. Iron studies showed a serum iron of 45, TIBC of 219 and a ferritin of 218. INR was 1.4. Potassium was low at 3.1. The BUN was 92 and the creatinine was 2.89. On 09/03/17 the creatinine was 1.46 and on 10/17/16 it was 1.04. BNP was 317 and the diastolic CHF is primarily R heart failure. He was admitted to the hospital and started on Lasix 40 mg IV Q 8 hours. He was transfused with 1 unit of PRBC's and HGB only came up to 7.4. On 11/05 he complained of shortness of breath and he was transfused with an additional 3 units. The computers crashed on 11/06 and we have no HGB for today. He was seen in consultation by Dr. Aguero from urology and he recommended that the patient be transferred back to [facility] if hematuria continued. On 11/06 the temp was 99F with a pulse rate of 77, blood pressure of 118/55, respiratory rate of 14 and he was 96% saturated on room air. He denied abdominal pain or flank pain. He denied lightheadedness and also denied chest pain. He stated the shortness of breath had improved following transfusion. His legs were much less edematous. He has had good diuresis with the Lasix. There is considerable leakage around the right nephrostomy tube of urine/serosanguineous fluid. The nephrostomy tube and the urine from the penis are both cranberry colored. CBC and BMP are pending. A call was placed to [facility] and Dr. Henry from the hospitalist service has agreed to accept transfer and Dr. Deleon from Urology and Dr. Fernandez from interventional radiology with be consulted. Home Medications: Medications to take at Discharge Aspirin [Aspirin, Baby] 81 mg PO QODAY 05/14/14 Finasteride [Proscar] 5 mg PO DAILY 05/14/14 Multivit-Min/FA/Lycopene/Lut [Centrum Silver Tablet] 1 each PO DAILY 05/14/14 Vit A/Vit C/Vit E/Zinc/Copper [Preservision Areds Softgel] 1 each PO BID 05/14/14 Acetaminophen [Pain Reliever] 1,000 mg PO Q6H PRN PRN 09/25/16 Cyanocobalamin (Vitamin B-12) [Vitamin B-12] 2 tab PO DAILY 10/16/16 Lorazepam [Ativan] 0.5 mg PO BID PRN PRN 10/16/16 Simvastatin [Zocor] 5 mg PO QHS 10/16/16 Atenolol [Tenormin (beta yosef)] 25 mg PO DAILY 09/03/17 Bumetanide [Bumex] 2 mg PO DAILY 09/03/17 Metolazone [Zaroxolyn] 5 mg PO DAILY 09/03/17 Insulin Glargine [Lantus (BKC)] 15 units SC QHS 10/25/17 Polyethylene Glycol 3350 [Miralax] 17 gm PO DAILY PRN 10/25/17 Warfarin [Coumadin] 7.5 mg PO SUTUTHSA 10/25/17 Allopurinol 100 mg PO DAILY 11/04/17 Glipizide [Glipizide ER] 7.5 mg PO BREAKFAST 11/04/17 Warfarin [Coumadin (PBKC)] 5 mg PO MOWEFR 11/04/17 Primary Care Physician: Bijan Zheng MD [Primary Care Provider] - Minutes spent on discharge:: 50 Patient Condition:: Guarded Meaningful Use Info Meaningful Use Diagnoses (Choose all that apply): CHF - CHF JOCELYN/ARB ordered at discharge?: No Reason JOCELYN/ARB not ordered?: Worsening renal dysfunctn Documented LVEF (%): 55 Code Visit Inpatient E&M: 76061 Disch Hosp
[2017-11-06] MEDS: Cyanocobalamin 500 MCG Tablet 1000 MCG PO (10:52)
[2017-11-06] MEDS: Finasteride 5 MG Tablet PO (10:53)
[2017-11-06] MEDS: Multivitamins,Ther W-Minerals Tablet 1 TABLET PO (10:53)
[2017-11-06] MEDS: Atenolol 25 MG Tablet PO (10:54)
[2017-11-06] MEDS: Ferrous Sulfate 325 MG Tablet PO (10:54)
--- NOTE | 2017-11-06 10:54 | DS.PCM_ITS ---
Discharge Date and Diagnosis - Problem List Patient Problems: Active and Suspected Problems Ureteral stricture, right (Acute) Date of Admission: 11/04/17 Date of Discharge: 11/06/17 - Primary Discharge Diagnosis Active and Suspected Problems acute on chronic diastolic CHF hematuria acute on chronic anemia secondary to blood loss recent tricuspid valvuloplasty - Secondary Discharge Diagnosis Chronic Problems Diabetes mellitus 2 (Chronic) Hypertension (Chronic) Benign prostatic hypertrophy (Chronic) Diverticular disease (Chronic) Anemia (Chronic) Atrial fibrillation (Chronic) Anxiety (Chronic) GERD (gastroesophageal reflux disease) (Chronic) Peripheral neuropathy (Chronic) Thrombocytopenia (Chronic) 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 Mild bilateral atelectasis and small effusions. Electronically Signed: Matheus Hayden MD at 16:46 EST , Service support , KUB X-Ray 11/05/17 08:54 IMPRESSION: 1. Right nephrostomy tube. 2. Right ureteral catheter which appears to lie in the mid to distal ureter and extends into the bladder. 3. No evidence of acute intra-abdominal process. Electronically Signed: Blaine Bolton DO at 11:11 EST Tel [phone], Service support , Dr. Kirill Aguero-urology Operations: None Procedures: 2-D Echocardiogram, Blood transfusion Summary of Care Provided: Patient is an 82-year-old male with a past medical history of diabetes mellitus type 2, hypertension, BPH, diverticulosis, atrial fibrillation, anxiety , GERD, diabetic peripheral polyneuropathy, thrombocytopenia, remote ischemic CVA, hyperlipidemia, PM, R nephrostomy tube, chronic anticoagulation with Coumadin, history of recent tricuspid valvuloplasty, right ureteral stenosis with failed attempt at retrograde stent placement on 10/28/17(now with R nephrostomy tube placed by Dr. Fernandez at [facility]), hyperuricemia, gout, biatrial enlargement, LVH, dilated right ventricle with global right ventricular systolic dysfunction, severe pulmonary hypertension, congestive heart failure, and chronic constipation who presented to the emergency room complaining of increased lower extremity edema and increased abdominal girth. He stated that he gained 20 pounds in the past month. He was admitted for acute exacerbation of diastolic CHF in early October. He Follows with Dr. Dion Nunez for cardiology and it is Dr. Gan who sent him to the ER from his office. On 10/28/17 Dr. Thomas from urology attempted a R retrograde ureteral stent bu the stent placement failed. He was transferred to [facility] and had a R antegrade ureteral stent placed by Dr. Fernandez. He is scheduled for removal of the nephrostomy tube on 11/[address] Fernandez at [facility]. Drainage from the nephrostomy tube was very bloody at admission and when he urinates the urine is cranberry colored. Coumadin was stopped 2 weeks prior to admission. In the emergency room he had a venous ultrasound of the LE's for swelling and it showed no DVT. Chest x-ray showed increased vascular congestion and small pleural effusions. Labs showed a normal white blood cell count at 5.3 with low platelets of 108,000. The thrombocytopenia is chronic. Hemoglobin was 7.4 with an MCV of 112. He has microcytosis, hypochromasia and anisocytosis. Iron studies showed a serum iron of 45, TIBC of 219 and a ferritin of 218. INR was 1.4. Potassium was low at 3.1. The BUN was 92 and the creatinine was 2.89. On 09/03/17 the creatinine was 1.46 and on 10/17/16 it was 1.04. BNP was 317 and the diastolic CHF is primarily R heart failure. He was admitted to the hospital and started on Lasix 40 mg IV Q 8 hours. He was transfused with 1 unit of PRBC's and HGB only came up to 7.4. On 11/05 he complained of shortness of breath and he was transfused with an additional 3 units. The computers crashed on 11/06 and we have no HGB for today. He was seen in consultation by Dr. Aguero from urology and he recommended that the patient be transferred back to [facility] if hematuria continued. On the temp was 99F with a pulse rate of 77, blood pressure of 118/55, respiratory rate of 14 and he was 96% saturated on room air. He denied abdominal pain or flank pain. He denied lightheadedness and also denied chest pain. He stated the shortness of breath had improved following transfusion. His legs were much less edematous. He has had good diuresis with the Lasix. There is considerable leakage around the right nephrostomy tube of urine/ serosanguineous fluid. The nephrostomy tube and the urine from the penis are both cranberry colored. CBC and BMP are pending. A call was placed to [facility] and Dr. Henry from the hospitalist service has agreed to accept transfer and Dr. Deleon from Urology and Dr. Fernandez from interventional radiology with be consulted. Home Medications: Medications to take at Discharge Aspirin [Aspirin, Baby] 81 mg PO QODAY 05/14/14 Finasteride [Proscar] 5 mg PO DAILY 05/14/14 Multivit-Min/FA/Lycopene/Lut [Centrum Silver Tablet] 1 each PO DAILY 05/14/14 Vit A/Vit C/Vit E/Zinc/Copper [Preservision Areds Softgel] 1 each PO BID Acetaminophen [Pain Reliever] 1,000 mg PO Q6H PRN PRN 09/25/16 Cyanocobalamin (Vitamin B-12) [Vitamin B-12] 2 tab PO DAILY 10/16/16 Lorazepam [Ativan] 0.5 mg PO BID PRN PRN 10/16/16 Simvastatin [Zocor] 5 mg PO QHS 10/16/16 Atenolol [Tenormin (beta yosef)] 25 mg PO DAILY 09/03/17 Bumetanide [Bumex] 2 mg PO DAILY 09/03/17 Metolazone [Zaroxolyn] 5 mg PO DAILY 09/03/17 Insulin Glargine [Lantus (BKC)] 15 units SC QHS 10/25/17 Polyethylene Glycol 3350 [Miralax] 17 gm PO DAILY PRN 10/25/17 Warfarin [Coumadin] 7.5 mg PO SUTUTHSA 10/25/17 Allopurinol 100 mg PO DAILY 11/04/17 Glipizide [Glipizide ER] 7.5 mg PO BREAKFAST 11/04/17 Warfarin [Coumadin (PBKC)] 5 mg PO MOWEFR 11/04/17 Primary Care Physician: Bijan Zheng MD [Primary Care Provider] - Minutes spent on discharge:: 50 Patient Condition:: Guarded Meaningful Use Info Meaningful Use Diagnoses (Choose all that apply): CHF - CHF JOCELYN/ARB ordered at discharge?: No Reason JOCELYN/ARB not ordered?: Worsening renal dysfunctn Documented LVEF (%): 55 Code Visit Inpatient E&M: 77838 Disch Hosp
[2017-11-06 11:04] LABS: Hematocrit 28.7 % (40-54); Hemoglobin 9.2 g/dl (13.0-16.5); Mean Corp Hgb Conc 32.1 g/gl (32-36); Mean Corpuscular Hgb 33.7 pg (27.0-32.0); Mean Corpuscular Volume 105.1 fL (80-94); Mean Platelet Vol. 9.8 fl (6.2-12.0); Platelet Count 98 K/mm3 (150-450); RBC Distribution Width CV 22.4 % (11.6-14.6); RBC Distribution Width SD 81.3 fl (35.1-43.9); Red Blood Count 2.73 M/mm3 (4.6-6.2); Scan Indicated on CBC? Y/N YES- FLAGS NOTED
[2017-11-06 11:56] LABS: Bedside Glucose 182 mg/dL (70-110)
--- NOTE | 2017-11-06 13:37 | NURSING ---
Order received to transfer pt to [facility] to follow up regarding R nephrostomy tube. Pt and pt family updated on POC. Report called to receiving LILIANA Duval at [facility]. Jennifer FORD
[2017-11-09 10:23] LABS: Vitamin B12 1535 pg/mL (211-911)
[2017-11-11 10:04] LABS: Folate, Hemolysate Test 525.8 ng/mL (Not Estab.); Folate, RBC (Hct) Test 21.5 % (37.5-51.0)
[2017-11-11 13:12] LABS: Folates, RBC Test 2446 ng/mL (>498)
== END 2017-11-06 14:20 | disposition short-term general hospital (02) | DRG 689 ==
LOC: ED 17:20 → PCU 17:45
PROVIDERS: Family Medicine; Nurse Practitioner Family; Admitting Provider Hospitalist; Emergency Provider Emergency Medicine; Family Provider Internal Medicine; PCP Internal Medicine; Visit Provider Internal Medicine
DX: N13.5 Crossing vessel and stricture of ureter without hydronephrosis (principal); I50.33 Acute on chronic diastolic (congestive) heart failure; D69.6 Thrombocytopenia, unspecified; E11.42 Type 2 diabetes mellitus with diabetic polyneuropathy; I27.29 Other secondary pulmonary hypertension; D62 Acute posthemorrhagic anemia; R31.9 Hematuria, unspecified; E87.6 Hypokalemia; I48.2 Chronic atrial fibrillation; N99.528 Other complication of incontinent external stoma of urinary tract; I10 Essential (primary) hypertension; I27.81 Cor pulmonale (chronic); N40.0 Benign prostatic hyperplasia without lower urinary tract symptoms; F41.9 Anxiety disorder, unspecified; K21.9 Gastro-esophageal reflux disease without esophagitis; E78.5 Hyperlipidemia, unspecified; K59.00 Constipation, unspecified; Z86.73 Personal history of transient ischemic attack (TIA), and cerebral infarction without residual deficits; Z79.82 Long term (current) use of aspirin; Z87.891 Personal history of nicotine dependence; Z90.49 Acquired absence of other specified parts of digestive tract; Z79.4 Long term (current) use of insulin
CPT/HCPCS: 36415; 71020; 74000; 80048; 80076; 81001; 82607; 82728; 82747; 82962; 83540; 83550; 83605; 83880; 84134; 84484; 85014; 85025; 85027; 85045; 85610; 86850; 86900; 86920; 86922; 87086; 87088; 93005; 93306; 93971; 97162; 97166; 97802; 99285; J7040; J7050; P9016; P9040; Q9957; A4216; J1940

== ENCOUNTER → 2018-01-10 11:43 | Outpatient (CLI) | payer MEDICARE, SELFPAY ==
--- NOTE | 2018-01-10 11:58 | RAD_ITS ---
STUDY: Antegrade nephrostogram. REASON FOR EXAM: Male, 82 years old. Assessment of the nephrostomy tube. FLUOROSCOPY TIME (if supplied): (0:34) minutes/seconds TECHNIQUE: Contrast was injected into the indwelling nephrostomy catheter. Contrast is seen within the ureter. A double-J stent catheter is present. COMPARISON: None. FINDINGS: Following this, the urologist remove the nephrostomy tube. RAD/Urography Antegrade Nephrostog IMPRESSION: Removal of the nephrostomy tube. Electronically Signed: Perez Arevalo MD at 13:40 EST Tel [phone], Service support ,
--- NOTE | 2018-01-10 12:22 | PCM.OPRPT ---
Problem List (1) Ureteral stricture, right Status: Acute Report of Operation Date of Procedure: 01/10/18 Pre-Operative Diagnosis: Right ureteral stricture status post stent placement and nephrostomy tube placement Post-Operative Diagnosis: Same Surgery/Procedure Performed:: Nephrostogram and removal of right nephrostomy tube right stent left in place. Description of Surgical Findings:: On the fluoroscopy table the patient side was prepped I performed a nephrostogram that demonstrated the renal anatomy and both the stent in place and the nephrostomy tube in place I then removed the nephrostomy tube without any difficulty the stent stayed in place image was saved. Patient was given instructions postop I will see him in 6 weeks for follow-up he will need a stent change by me in 6 weeks. Type of Anesthesia:: General Drains: nephrostomy tube removed. - Admit VTE Documentation VTE Present on Admission: No VTE Mechan Device Prophylaxis: SCD's VTE Pharm Prophylaxis ordered?: No
== END ==
PROVIDERS: Family Provider Internal Medicine; PCP Internal Medicine; Visit Provider Urology
DX: N35.9 Urethral stricture, unspecified (principal)
CPT/HCPCS: 74425; Q9965

== ENCOUNTER → 2018-01-26 11:51 | Outpatient (CLI) | payer MEDICARE, SELFPAY ==
[2018-01-26 14:25] LABS: Hematocrit 30.1 % (40-54); Hemoglobin 9.8 g/dl (13.0-16.5); Mean Corp Hgb Conc 32.6 g/gl (32-36); Mean Corpuscular Hgb 34.5 pg (27.0-32.0); Platelet Count 107 K/mm3 (150-450); RBC Distribution Width CV 16.2 % (11.6-14.6); RBC Distribution Width SD 61.7 fl (35.1-43.9); Red Blood Count 2.84 M/mm3 (4.6-6.2)
[2018-01-26 14:26] LABS: Creatinine, Urine (random) < 13.00 mg/dL (NO RANGE EST.); Protein, Urine (Random) 7.3 mg/dL (<11.9)
[2018-01-26 14:32] LABS: Albumin, Serum 4.2 g/dL (3.2-5.0); BUN 55 mg/dL (7-18); BUN/Creat Ratio 38.5 RATIO (10-20); Calcium,Total 8.8 mg/dL (8.5-10.1); Chloride 101 mmol/L (98-107); Creatinine, Serum 1.43 mg/dL (0.70-1.30); EST Glomerular Filtration Rate 51 mL/min (>60); Est Glom Filt Rate - Afr Amer 61 mL/min (>60); Glucose 100 mg/dL (74-106); Phosphorus 3.5 mg/dL (2.5-4.9); Potassium 3.7 mmol/L (3.5-5.1); Sodium Level 138 mmol/L (136-145)
[2018-01-26 14:37] LABS: Scan Indicated on CBC? Y/N NO
[2018-01-27 09:49] LABS: PTHIN 75.5 pg/mL (18.4-80.1)
== END ==
PROVIDERS: Family Provider Internal Medicine; PCP Internal Medicine; Visit Provider Internal Medicine Nephrology
DX: E11.9 Type 2 diabetes mellitus without complications (principal); N18.3 Chronic kidney disease, stage 3 (moderate); D63.8 Anemia in other chronic diseases classified elsewhere
CPT/HCPCS: 36415; 80069; 82570; 83970; 84156; 85027

== ENCOUNTER → 2018-04-03 16:02 | Outpatient (CLI) | payer MEDICARE, SELFPAY ==
[2018-04-03 17:36] LABS: Anion Gap 8 (5-15); BUN 49 mg/dL (7-18); BUN/Creat Ratio 25.3 RATIO (10-20); Calcium,Total 8.5 mg/dL (8.5-10.1); Chloride 105 mmol/L (98-107); Creatinine, Serum 1.94 mg/dL (0.70-1.30); EST Glomerular Filtration Rate 36 mL/min (>60); Est Glom Filt Rate - Afr Amer 43 mL/min (>60); Glucose 123 mg/dL (74-106); PSA,Total - Annual Screen < 0.01 ng/mL (0.00-4.00); Potassium 4.2 mmol/L (3.5-5.1); Sodium Level 144 mmol/L (136-145)
== END ==
PROVIDERS: Family Provider Internal Medicine; PCP Internal Medicine; Visit Provider Urology
DX: N13.5 Crossing vessel and stricture of ureter without hydronephrosis (principal)
CPT/HCPCS: 36415; 80048; 84153; G0103

== ENCOUNTER → 2018-04-19 04:44 | Outpatient (CLI) | payer MEDICARE, SELFPAY ==
--- NOTE | 2018-04-19 04:44 | DT_ITS ---
This patient was seen during an EMR downtime April 17, 2018 - April 24, 2018. This patient may have a combination of paper and electronic documentation or all paper documentation. All documentation is viewable within the e-chart portion of [employer] for each patient visit.
[2018-04-24 15:49] LABS: BUN 61 mg/dL (7-18); Glucose 123 mg/dL (74-106)
[2018-04-24 15:50] LABS: Anion Gap 11 (5-15); BUN/Creat Ratio 26.8 RATIO (10-20); Calcium,Total 8.5 mg/dL (8.5-10.1); Chloride 101 mmol/L (98-107); Creatinine, Serum 2.28 mg/dL (0.70-1.30); EST Glomerular Filtration Rate 30 mL/min (>60); Est Glom Filt Rate - Afr Amer 36 mL/min (>60); Potassium 3.6 mmol/L (3.5-5.1); Sodium Level 142 mmol/L (136-145)
== END ==
PROVIDERS: Family Provider Internal Medicine; PCP Internal Medicine; Visit Provider Urology
DX: N28.9 Disorder of kidney and ureter, unspecified (principal)
CPT/HCPCS: 36415; 80048

== ENCOUNTER → 2018-05-01 11:12 | Outpatient (CLI) | payer MEDICARE, SELFPAY | PROVIDERS: Family Provider Internal Medicine; PCP Internal Medicine; Visit Provider Urology | DX: R31.9 Hematuria, unspecified (principal) | CPT/HCPCS: 87077; 87086; 87088; 87186 ==

== ENCOUNTER 2018-05-14 09:40 | Emergency (ER) | payer MEDICARE, SELFPAY ==
[2018-05-14 09:41] VITALS: BP 108/55; BP 115/52; PULSE 77; RESP 12; TEMP 36.7; O2SAT 95; O2SAT 96; BMI 27.8
--- NOTE | 2018-05-14 09:53 | EKG12_ITS ---
Test Reason : FALL Blood Pressure : / mmHG Vent. Rate : 073 BPM Atrial Rate : 078 BPM P-R Int : 000 ms QRS Dur : 126 ms QT Int : 452 ms P-R-T Axes : 000 062 -22 degrees QTc Int : 497 ms Atrial fibrillation with premature ventricular or aberrantly conducted complexes Non-specific intra-ventricular conduction block T wave abnormality, consider anterior ischemia Abnormal ECG Confirmed by YAJAIRA MAGAÑA, BYRON ([id number]), features editor SCOOTER KRAUS ([id number]) on 05/18/2018 3:46:33 PM Referred By: MONROE/BRENDA Confirmed By:BYRON GATES MD
--- NOTE | 2018-05-14 09:53 | CT_ITS ---
STUDY: CT BRAIN WITHOUT CONTRAST REASON FOR EXAM: Male, 82 years old. Tripped on chair and fell RADIATION DOSAGE (If Supplied By Facility): CTDIvol = ( 44.99 ) mGy, DLP = ( 829.85 ) mGycm TECHNIQUE: Transaxial CT imaging of the brain was performed without administration of intravenous contrast material. Individualized dose optimization techniques were used for this CT. COMPARISON: None. FINDINGS: Normal soft tissue structures. Normal calvarium. There is mild cerebral atrophy with widening of the extra-axial spaces and ventricular dilatation. Normal white matter tracts of the cerebral hemispheres. Normal basal ganglia and thalami. Normal brainstem. There is mild cerebellar atrophy. There is no intracranial hemorrhage. There are no findings of an acute ischemic infarction. Normal visualized paranasal sinuses. CT/Brain/Head without Contrast IMPRESSION: Mild atrophy, no visualized evidence of acute hemorrhage infarct or edema. Electronically Signed: Patricia Varghese MD at 10:56 EDT Tel , Service support ,
--- NOTE | 2018-05-14 09:59 | ED.VISSUMM ---
- ER Visit Summary Date of Service: 05/14/18 Chief Complaint: Fall History of Present Illness: The patient is a 82 M who states that he took a couple Tylenol with codeine last night before bed to do chronic pain in his back. He states he said had a good nights rest. He woke around 8:00 this morning and needed to urinate. He states that on his way to the bathroom he must have tripped over the rocking chair. He states that he fell to the ground causing some skin tears to his arms. He does not believe he had his head. He crawled to the bathroom and called for help. Patient laid on the ground for only approximately 15 minutes per him. Patient denies any pain other than his chronic pain. EMS noted blood pressure 99/61 and gave him just about a liter of fluids. He is on Coumadin for chronic A. fib. Physical Examination: Afebrile vital signs are stable blood pressure 115/52 Gen: Well-nourished well-developed Head: Normocephalic atraumatic Eyes: Perrl EOMI ENT: TMs clear no rhinorrhea moist mucous membranes Neck: Supple no lymphadenopathy no JVD nontender CVS: Regular rate rhythm no murmurs normal S1-S2 Respiratory: No distress clear to auscultation bilaterally chest nontender Abdomen: Soft nontender nondistended normal bowel sounds no masses Back: Nontender Extremity: Nontender no edema Skin: Normal color no rash the left anterior forearm demonstrates a 6 cm skin tear. The right forearm the posterior aspect demonstrates a 4 cm skin tear and a 2 cm skin tear. Neuro: alert orientated ?3 CN II-XII intact normal strength sensation reflexes cerebellar Psych: Normal affect normal mood Test Results: White count 3.8, hemoglobin 7.8, platelets of 83. BUN of 96 with a creatinine of 2.55. INR 2.6. EKG showed atrial fibrillation that is rate controlled. CT brain negative. Emergency Department Course and Treatment: Patient has been eating here in the department. He has been up walking. He states he is good to go home. He has an upcoming surgery to have a ureteral stent changed out. I did speak with Dr. Aguero who is performing the procedure and reviewed his labs. I spoke with family and they note the chronic kidney disease and chronic anemia. Have not seen hematology. I recommend that they follow up with her family doctor and review his CBC. He is to see his retort condenser attendant for his chronic kidney disease. Wounds were cleansed and dressed. Impression: 1. Fall 2. Skin tear of the upper extremities (multiple) - 6 cm, 4 cm, and 2 cm. This note was generated with [employer] dictation software. It may contain incorrect words, spelling, and punctuation that were not noted in review of the chart prior to signing ED Disposition - Plan for ED Patient: Disposition: Home or Assisted Living Chief Complaint: Fall Instructions: ED Anemia Type Not Specified, ED Renal Failure Chronic Referrals: Bijan Zheng MD [Primary Care Provider] - 3-5 Days
[2018-05-14 10:00] LABS: Bacteria 0 SEEN /hpf (None Seen); Mucous, Urine 0 SEEN /hpf (<or=2+); Red Blood Cells-Urine 0 SEEN /hpf (0-5); Squamous Epithelial Cells - UA 0 SEEN /hpf (0-5)
[2018-05-14 10:01] LABS: Color, Urine Yellow (Yellow); Glucose, Dipstick Normal (Normal); Ketone-Dipstick Negative (Negative); Leukocyte Esterase-Dipstick 500 /ul (Negative); Nitrite-Dipstick Negative (Negative); Occult Blood-Urine 50 /ul (Negative); Protein-Dipstick 15 mg/dl (Negative); Specific Gravity, Urine 1.005 (1.002-1.030); Urine Bilirubin Dipstick Negative (Negative); Urine Clarity Clear (Clear); Urine Urobilinogen Normal (Normal)
[2018-05-14 10:08] LABS: White Blood Cells 25-50 SEEN /hpf (0-5)
[2018-05-14 10:18] LABS: Absolute Lymphocyte Count 0.65 X10^3/ul (0.83-4.51); Absolute Neutrophil Count 2.9 X10^3/uL (2.0-7.7); Eosinophil# 0.05 X10^3/uL; Eosinophils% 1.3 % (0-5); Hematocrit 24.8 % (40-54); Hemoglobin 7.8 g/dl (13.0-16.5); Lymphocyte # 0.65 X10^3/ul (4.0); Lymphocyte % 17.3 % (19-41); Mean Corp Hgb Conc 31.5 g/gl (32-36); Mean Corpuscular Hgb 32.6 pg (27.0-32.0); Mean Corpuscular Volume 103.8 fL (80-94); Mean Platelet Vol. 10.1 fl (6.2-12.0); Monocyte# 0.19 X10^3/uL; Monocyte% 5.1 % (0-10); Neutrophil # 2.85 X10^3/uL (2.7-7.7); POSITIVE COUNT NO; POSITIVE DIFFERENTIAL NO; POSITIVE MORPHOLOGY NO; Platelet Count 83 K/mm3 (150-450); RBC Distribution Width CV 16.8 % (11.6-14.6); RBC Distribution Width SD 63.2 fl (35.1-43.9); Red Blood Count 2.39 M/mm3 (4.6-6.2); White Blood Count 3.8 K/mm3 (4.4-11.0)
[2018-05-14 10:24] LABS: International Normalized Ratio 2.6; Prothrombin Time (Protime)PT. 27.7 SECONDS (11.7-14.9)
[2018-05-14 10:30] LABS: Anion Gap 10 (5-15); BUN 96 mg/dL (7-18); BUN/Creat Ratio 37.6 RATIO (10-20); Calcium,Total 8.5 mg/dL (8.5-10.1); Chloride 100 mmol/L (98-107); Creatinine, Serum 2.55 mg/dL (0.70-1.30); EST Glomerular Filtration Rate 26 mL/min (>60); Est Glom Filt Rate - Afr Amer 31 mL/min (>60); Estimated Creatinine Clearance 25.36 ml/min; Glucose 100 mg/dL (74-106); Potassium 3.2 mmol/L (3.5-5.1); Sodium Level 141 mmol/L (136-145)
[2018-05-14 12:19] VITALS: BP 108/49; PULSE 65
[2018-05-14 13:05] VITALS: BP 105/46; PULSE 69; RESP 16; O2SAT 96
[2018-05-14 13:15] VITALS: BP 94/35; PULSE 78; RESP 15; O2SAT 98
== END 2018-05-14 13:15 | disposition home or self-care (01) ==
PROVIDERS: Emergency Provider Emergency Medicine; Family Provider Internal Medicine; PCP Internal Medicine
DX: S51.812A Laceration without foreign body of left forearm, initial encounter (principal); S51.811A Laceration without foreign body of right forearm, initial encounter; W18.09XA Striking against other object with subsequent fall, initial encounter; Y93.9 Activity, unspecified; Y92.009 Unspecified place in unspecified non-institutional (private) residence as the place of occurrence of the external cause; Y99.9 Unspecified external cause status; G89.29 Other chronic pain; D61.818 Other pancytopenia; I48.2 Chronic atrial fibrillation; N18.9 Chronic kidney disease, unspecified; M54.9 Dorsalgia, unspecified; M54.2 Cervicalgia; E11.9 Type 2 diabetes mellitus without complications; E78.00 Pure hypercholesterolemia, unspecified; I25.10 Atherosclerotic heart disease of native coronary artery without angina pectoris; I73.9 Peripheral vascular disease, unspecified; Z87.891 Personal history of nicotine dependence; Z79.01 Long term (current) use of anticoagulants
CPT/HCPCS: 70450; 80048; 81001; 85025; 85610; 93005; 99285; A4216

== ENCOUNTER 2018-05-15 18:13 | Inpatient (IN) | payer MEDICARE, SELFPAY ==
[2018-05-15 13:20] VITALS: BP 105/58; PULSE 74; RESP 16; TEMP 36.8; O2SAT 98; BMI 27.8
--- NOTE | 2018-05-15 14:16 | EKG12_ITS ---
Test Reason : DYSRHYTHMIA Blood Pressure : / mmHG Vent. Rate : 070 BPM Atrial Rate : 056 BPM P-R Int : 000 ms QRS Dur : 124 ms QT Int : 464 ms P-R-T Axes : 000 059 -89 degrees QTc Int : 501 ms Atrial fibrillation with occasional ventricular-paced complexes ST & T wave abnormality, consider anterolateral ischemia Abnormal ECG Confirmed by YAJAIRA MAGAÑA, BYRON ([id number]), continuity editor SCOOTER KRAUS ([id number]) on 05/18/2018 2:54:11 PM Referred By: MONROE Confirmed By:BYRON GATES MD
--- NOTE | 2018-05-15 14:16 | CT_ITS ---
STUDY: CT BRAIN WITHOUT CONTRAST REASON FOR EXAM: Male, 82 years old. Confusion following a recent fall. RADIATION DOSAGE (If Supplied By Facility): CTDIvol = ( 44.99 ) mGy, DLP = ( 846.73 ) mGycm TECHNIQUE: Transaxial CT imaging of the brain was performed without administration of intravenous contrast material. Individualized dose optimization techniques were used for this CT. COMPARISON: Comparison is made with prior study dated May 14, 2018. FINDINGS: Normal soft tissue structures. Normal calvarium. There is mild cerebral atrophy with widening of the extra-axial spaces and ventricular dilatation. Normal white matter tracts of the cerebral hemispheres. Normal basal ganglia and thalami. Normal brainstem. Normal cerebellum. There is no intracranial hemorrhage. There are no findings of an acute ischemic infarction. Normal visualized paranasal sinuses. CT/Brain/Head without Contrast IMPRESSION: Chronic involutional changes of the brain. Electronically Signed: Perez Arevalo MD at 15:45 EDT Tel [phone], Service support ,
[2018-05-15] MEDS: 0.9% Normal Saline 1,000 ML 150 ML IV (15:13)
[2018-05-15 15:18] LABS: Bacteria 0 SEEN /hpf (None Seen); Mucous, Urine 0 SEEN /hpf (<or=2+)
[2018-05-15 15:21] LABS: Color, Urine Yellow (Yellow); Glucose, Dipstick Normal (Normal); Ketone-Dipstick Negative (Negative); Leukocyte Esterase-Dipstick 500 /ul (Negative); Nitrite-Dipstick Negative (Negative); Occult Blood-Urine 250 /ul (Negative); Protein-Dipstick 30 mg/dl (Negative); Urine Bilirubin Dipstick Negative (Negative); Urine Clarity Sl. Cloudy (Clear); Urine Urobilinogen Normal (Normal); Urine pH 6.5 (5.0 - 8.0)
[2018-05-15 15:24] VITALS: BP 117/55; PULSE 60; RESP 10; O2SAT 99
[2018-05-15 15:35] LABS: Red Blood Cells-Urine 5-10 SEEN /hpf (0-5); Squamous Epithelial Cells - UA 5-10 SEEN /hpf (0-5); White Blood Cells 10-25 SEEN /hpf (0-5)
[2018-05-15 15:35] LABS: Anion Gap 8 (5-15); BUN 87 mg/dL (7-18); BUN/Creat Ratio 39.4 RATIO (10-20); Calcium,Total 8.7 mg/dL (8.5-10.1); Chloride 106 mmol/L (98-107); Creatinine, Serum 2.21 mg/dL (0.70-1.30); EST Glomerular Filtration Rate 31 mL/min (>60); Est Glom Filt Rate - Afr Amer 37 mL/min (>60); Estimated Creatinine Clearance 29.26 ml/min; Glucose 119 mg/dL (74-106); Potassium 3.1 mmol/L (3.5-5.1); Sodium Level 146 mmol/L (136-145)
[2018-05-15 15:42] LABS: Absolute Lymphocyte Count 0.37 X10^3/ul (0.83-4.51); Absolute Neutrophil Count 2.6 X10^3/uL (2.0-7.7); Basophil# 0.01 X10^3/uL; Basophil% 0.3 % (0-1); Eosinophil# 0.03 X10^3/uL; Eosinophils% 0.9 % (0-5); Hematocrit 25.9 % (40-54); International Normalized Ratio 2.7; Lymphocyte # 0.37 X10^3/ul (4.0); Mean Corp Hgb Conc 30.9 g/gl (32-36); Mean Corpuscular Hgb 33.3 pg (27.0-32.0); Mean Corpuscular Volume 107.9 fL (80-94); Monocyte# 0.32 X10^3/uL; Monocyte% 9.5 % (0-10); Neutrophil # 2.61 X10^3/uL (2.7-7.7); Neutrophil % 77.4 % (47-70); Platelet Count 87 K/mm3 (150-450); Prothrombin Time (Protime)PT. 29.2 SECONDS (11.7-14.9); RBC Distribution Width CV 16.4 % (11.6-14.6); RBC Distribution Width SD 60.9 fl (35.1-43.9); White Blood Count 3.4 K/mm3 (4.4-11.0)
[2018-05-15 15:43] LABS: Differential Indicated SCAN CRITERIA MET; POSITIVE COUNT NO; POSITIVE DIFFERENTIAL YES; POSITIVE MORPHOLOGY NO
[2018-05-15 16:11] LABS: Differential Comment SCANNED
--- NOTE | 2018-05-15 16:25 | ED.VISSUMM ---
- ER Visit Summary Date of Service: 05/15/18 Chief Complaint: Confusion History of Present Illness: The patient is a 82 M who was seen yesterday for mechanical fall. He had skin tears to his arms. Remainder of workup revealed pancytopenia. Patient was ambulatory in the emergency room and he was discharged to home. Patient returns with family today. They state after discharge home is been very unsteady on his feet. He missed the commode last night and slid to the floor. His legs gave out when his son was trying to walk him today. He states that his hands have been somewhat shaky, which the patient is now complaining of stating it is been ongoing for the last while. Patient denies headache or vision changes. He has not had cough, nausea, vomiting, or diarrhea. Physical Examination: Vital signs are unremarkable. Patient's lying in bed no acute distress. Head neck examination was no external sign of trauma. Heart is regular rate and rhythm. Lung sounds are clear. There is no chest wall tenderness. Abdomen is soft nontender. Extremity examination reveals skin tears to both forearms with dressings in place. Neuro exam reveals mild tremor to his hands that are intermittent. He has good strength and sensation throughout. Test Results: Head CT shows chronic involutional changes. EKG is A. fib at 70 with occasional PVCs. This is unchanged compared to prior. CBC reveals pancytopenia with a white count 3.4, hemoglobin 8.0, hematocrit 25.9, platelet count of 87,000. Chemistry studies reveal a sodium of 146, potassium 3.1, BUN is 87, creatinine is 2.21. INR is 2.7. Urinalysis shows 10-25 white blood cells but 0 bacteria. Emergency Department Course and Treatment: Patient was given gentle IV fluids. He will be given oral potassium replacement. Patient will be admitted due to increased weakness. Treatment Plan: [] Disposition: Admit Impression: 1. Generalized weakness 2. Pancytopenia 3. Hypokalemia This note was generated with [employer] dictation software. It may contain incorrect words, spelling, and punctuation that were not noted in review of the chart prior to signing ED Disposition - Plan for ED Patient: Chief Complaint: Confusion Referrals: Bijan Zheng MD [Primary Care Provider] -
--- NOTE | 2018-05-15 18:01 | HP.PCM_ITS ---
Addendum entered and electronically signed by TI Gray 05/15/18 18:28: Code Visit Addendum: -no MRI with pacemaker -problem list - DMt2 - hold glipizide add SSI Original Note: Problem List (1) Altered mental status Status: Acute (2) Pancytopenia Status: Chronic (3) Debility Status: Chronic (4) CHF (congestive heart failure) Status: Chronic (5) Sick sinus syndrome Status: Chronic (6) Presence of cardiac pacemaker Status: Chronic (7) Ureteral stricture, right Status: Chronic (8) Diabetes mellitus Status: Chronic (9) Hypertension Status: Chronic (10) Benign prostatic hypertrophy Status: Chronic (11) Atrial fibrillation Status: Chronic (12) Anxiety Status: Chronic (13) GERD (gastroesophageal reflux disease) Status: Chronic (14) Old lacunar stroke without late effect Status: Chronic (15) Constipation Status: Chronic (16) Hyperlipidemia Status: Chronic (17) Gout Status: Chronic History of Present Illness Date of Admission: 05/15/18 Chief Complaint: falling The patient is a 82 year old M with a hx of CHF, chronic AF s/p pacemaker, ureteral stricture s/p right nephrostomy, DMt2, nonhealing feet wounds, CAD, pulmonary htn, 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 He and his two sons state that functionally he has been doing well at home until 2 days ago. He was recently in senior care for 10 days at [facility] and did so well that he did not qualify for further care. He normally uses a cane and walker to get around. He felt week in his knees and hands yesterday and fell while ambulating without any lightheadedness or dizziness, states he just became weak. He came to the ER and had a negative CT brain. was able to be ambulated and was discharged home. Last night he became weaker and fell while trying to get on the toilet stating that he did not get close enough before trying to sit. At home he also started having increased weakness on his left side, and began dropping things that he was picking up. He has also developed tremor in his upper extremities. He denies headache, dizziness, double vision, LH, SOB, CP, leg swelling. His sons say he is a little slower to answer questions but he is not forgetful. He states he has a prior TIA and records indicate he has had an old lacunar infarct. CT brain was repeated today and is negative. 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) Constipation (Chronic) Hyperlipidemia (Chronic) Gout (Chronic) Allergies hydrocodone bitartrate [From Vicodin] Allergy (Verified 05/11/18 08:06) Unknown Iodinated Contrast- Oral and IV Dye [DYEE] Allergy (Verified 05/11/18 08:06) Unknown oxycodone HCl [From Percocet] Adverse Reaction (Verified 05/11/18 08:06) Itching Sulfa (Sulfonamide Antibiotics) Adverse Reaction (Verified 05/11/18 08:06) Unknown Home Medications: Ambulatory Orders Medication Instructions Recorded Finasteride [Proscar] 5 mg PO DAILY 05/14/14 Multivit-Min/FA/Lycopene/Lut 1 each PO DAILY 05/14/14 [Centrum Silver Tablet] Acetaminophen [Pain Reliever] 500 mg PO Q6H PRN PRN 09/25/16 Lorazepam [Ativan] 0.5 mg PO BID PRN PRN 10/16/16 Simvastatin [Zocor] 5 mg PO QHS 10/16/16 Atenolol [Tenormin (beta yosef)] 25 mg PO DAILY 09/03/17 Bumetanide [Bumex] 2 mg PO BID 09/03/17 Metolazone [Zaroxolyn] 2.5 mg PO QODAY 09/03/17 Insulin Glargine [Lantus (BKC)] 15 units SC QHS 10/25/17 Polyethylene Glycol 3350 [Miralax] 17 gm PO DAILY 10/25/17 Warfarin [Coumadin] 7.5 mg PO MOWE 10/25/17 Allopurinol 100 mg PO DAILY 11/04/17 Glipizide [Glipizide ER] 2.5 mg PO BREAKFAST 11/04/17 Warfarin [Coumadin (PBKC)] 5 mg PO SUTUTHFRSA 11/04/17 Acetaminophen/Codeine #3 1 tablet PO DAILY 05/14/18 [Tylenol#3] Colchicine 0.6 mg PO X1 05/14/18 Ferrous Sulfate 325 mg PO DAILY@0800 05/14/18 Pregabalin [Lyrica] 50 mg PO TID 05/14/18 Vit C/E/Zn/Coppr/Lutein/Zeaxan 1 each PO DAILY 05/14/18 [Preservision Areds 2 Softgel] Surgical History: colectomy - S/P [place] OF COLOSTOMY, herniorrhaphy, pacemaker implantation, total hip arthroplasty, total knee arthroplasty, tonsillectomy, - Psychiatric History: No pertinent psych hx Lives: Alone Smoking Status: Former smoker Tobacco Use: Non-smoker Alcohol: None Drugs: None - *Family History Maternal History Items: Diabetes Paternal History Items: Seizures Offspring History Items: Diabetes Review of Systems Constitutional: Reports: Weakness. Denies: Chills, Fever, Weight Change HEENT: Denies: Head Aches, Sinus Congestion, Sinus Drainage Cardiovascular: Denies: Chest Pain, Palpitations Respiratory: Denies: Cough, Shortness of breath at rest, Sputum production Gastrointestinal: Denies: Abdominal Pain, Nausea, Vomiting Genitourinary: Denies: Dysuria Musculoskeletal: Denies: Joint Pain, Joint Tenderness Skin: Denies: Rash, Wounds Neurological: Denies: Numbness, Tingling, Focal weakness Psychiatric: Denies: Anxiety, Depression, Homicidal Ideations, Suicidal Ideations Hematologic/ Lymphatic: Denies: Easy Bruising, Easy Bleeding VTE Information - Inpt Only VTE Present on Admission: No VTE Mechan Device Prophylaxis: None VTE Pharm Prophylaxis ordered?: Yes Patient Problems: Active and Suspected Problems Altered mental status (Acute) - Physical Exam General: Alert, Oriented x3, Cooperative HEENT: Atraumatic, PERRLA, EOMI, Normocephalic Neck: Supple, No JVD, Negative Carotid Bruits Lungs: Clear to auscultation, Normal air movement Cardiovascular: Regular rate, No murmurs Abdomen: Bowel Sounds Present, Soft, Non Tender Extremities: No edema, Capillary Refill Less than 3 Seconds Skin: - - chronic venous changes BLE Musculoskeletal: No Tenderness to Palpation of Joints or Extremities Neurological: Cranial nerves II-XII grossly intact, - - no pronator drift. Senior [employer] Systems [employer] strength equal, right upper extremity tremor. Point to point test difficulty bilateral upper extremities.. Psych/Mental Status: Normal Affect, Appropriate, Alert and oriented to time, place, person, mood and affect Vital Signs Temp Pulse Resp BP Pulse Ox 98.2 F 60 10 L 117/55 L 99 05/15/18 13:20 05/15/18 15:24 05/15/18 15:24 05/15/18 15:24 05/15/18 15:24 Oxygen Delivery Method Room Air Weight: 92.986 kg Body Mass Index (BMI) 27.8 Finger Stick Blood Glucose 143 Laboratory Tests Past 24 Hrs 05/15/18 05/15/18 05/15/18 14:55 14:55 14:55 WBC 3.4 L RBC 2.40 L Hgb 8.0 L Hct 25.9 L MCV 107.9 H MCH 33.3 H MCHC 30.9 L RDW 16.4 H RDW Differential 60.9 H Plt Count 87 L MPV 11.0 Immature Gran % (Auto) 0.900 Neut % (Auto) 77.4 H Lymph % (Auto) 11.0 L [place]ink[place] % (Auto) 9.5 Eos % (Auto) 0.9 Baso % (Auto) 0.3 Absolute Neuts (auto) 2.6 Absolute Lymphs (auto) 0.37 L Total Counted Not Reportable Differential Comment SCANNED PT 29.2 H INR 2.7 Sodium 146 H Potassium 3.1 L Chloride 106 Carbon Dioxide 32.0 Anion Gap 8 BUN 87 H Creatinine 2.21 H Estim Creat Clear Calc 29.26 Est GFR (MDRD) Af Amer 37 L Est GFR (MDRD) Non-Af 31 L BUN/Creatinine Ratio 39.4 H Glucose 119 H Calcium 8.7 Urine Color Urine Clarity Urine pH Ur Specific Fortine Urine Protein Urine Glucose (UA) Urine Ketones Urine Occult Blood Urine Nitrite Urine Bilirubin Urine Urobilinogen Ur Leukocyte Esterase Urine RBC Urine WBC Ur Squamous Epith Cells Urine Bacteria Urine Mucus 05/15/18 15:10 WBC RBC Hgb Hct MCV MCH MCHC RDW RDW Differential Plt Count MPV Immature Gran % (Auto) Neut % (Auto) Lymph % (Auto) [place] % (Auto) Eos % (Auto) Baso % (Auto) Absolute Neuts (auto) Absolute Lymphs (auto) Total Counted Differential Comment PT INR Sodium Potassium Chloride Carbon Dioxide Anion Gap BUN Creatinine Estim Creat Clear Calc Est GFR (MDRD) Af Amer Est GFR (MDRD) Non-Af BUN/Creatinine Ratio Glucose Calcium Urine Color Yellow Urine Clarity Sl. Cloudy Urine pH 6.5 Ur Specific Fortine 1.010 Urine Protein 30 H Urine Glucose (UA) Normal Urine Ketones Negative Urine Occult Blood 250 H Urine Nitrite Negative Urine Bilirubin Negative Urine Urobilinogen Normal Ur Leukocyte Esterase 500 H Urine RBC 5-10 SEEN Urine WBC 10-25 SEEN Ur Squamous Epith Cells 5-10 SEEN Urine Bacteria 0 SEEN Urine Mucus 0 SEEN Assessment/Plan All Active Problems Altered mental status (Acute) CHF exacerbation (Acute) 1. Functional decline, debility, falling at home with weakness BL upper and lower extremities left > right, new onset BL tremors upper extremities - hx stroke/tia. Consult neuro. Obtain MRI brain. CT brain neg x 2. UA neg. Check TSH B12. Possibly related to pancytopenia. Also possibly related to Tylenol with Codeine use. physical exam revealed tremor and difficulty with point to point. CN and strength testing intact. 2. Elevated BUN/creatinine - baseline is unclear, improved from yesterday in the ER. suspect OMAIRA. has been trending up on our past records, it does not appear that he has seen nephrology. C/s nephrology. Tremor may be 2/2 uremia. Hold lasix at least 1 day, it does not appear that he has any volume overload at this time. 3. Ureteral stricture s/p nephrostomy - was done at [facility] and reportedly this was supposed to be taken out this week. Has also seen Laci here. 4. Hypokalemia - repleted in ER, recheck in AM. 5. Pancytopenia - etiology unclear - no indication for transfusion at this time. Consult Oncology. Check hemoccult. Check B12. 6. Chronic AF s/p pacemaker - rate controlled. AF on EKG. Warfarin therapeutic. Follow INR. 7. Chronic diastolic CHF - hold diuretics for at least tonight. Trend Renal function. DVT ppx: Warfarin DC planning: PTOT evals This patient was seen by Jose Nicholas PA-C under the supervision of Doctor Marie.
[2018-05-15 18:58] VITALS: BMI 27.3
[2018-05-15 18:59] VITALS: BP 126/47; PULSE 63; RESP 17; TEMP 36.6; O2SAT 98
[2018-05-15 19:12] VITALS: PULSE 64
[2018-05-15 19:38] LABS: Thyroid Stim Hormone (TSH) 1.14 uIU/mL (0.358-3.74)
[2018-05-15 19:44] VITALS: BMI 27.4
[2018-05-15] MEDS: 0.9% Normal Saline 1,000 ML 75 ML IV (20:01)
[2018-05-15] MEDS: LORazepam 0.5 MG Tablet PO (22:37)
[2018-05-15] MEDS: Atorvastatin Calcium 10 MG Tablet 5 MG PO (22:37)
[2018-05-15] MEDS: Pregabalin 50 MG Capsule PO (22:37)
[2018-05-15] MEDS: Acetaminophen 325 MG Tablet 650 MG PO (22:42)
[2018-05-15 22:51] LABS: Bedside Glucose 134 mg/dL (70-110)
[2018-05-15 23:27] LABS: Vitamin B12 881 pg/mL (211-911)
[2018-05-15 23:37] VITALS: PULSE 70
[2018-05-16] VITALS (13 sets, daily range): BP systolic 94–123; BP diastolic 44–71; PULSE 65–126; RESP 16–18; TEMP 36.8–38.4; O2SAT 96–98
[2018-05-16 05:15] LABS: Absolute Lymphocyte Count 0.58 X10^3/ul (0.83-4.51); Absolute Neutrophil Count 2.7 X10^3/uL (2.0-7.7); Eosinophil# 0.05 X10^3/uL; Eosinophils% 1.4 % (0-5); Hematocrit 25.3 % (40-54); Hemoglobin 7.9 g/dl (13.0-16.5); Lymphocyte # 0.58 X10^3/ul (4.0); Lymphocyte % 16.6 % (19-41); Mean Corp Hgb Conc 31.2 g/gl (32-36); Mean Corpuscular Hgb 32.8 pg (27.0-32.0); Mean Platelet Vol. 10.1 fl (6.2-12.0); Monocyte# 0.15 X10^3/uL; Monocyte% 4.3 % (0-10); Neutrophil % 77.1 % (47-70); Platelet Count 81 K/mm3 (150-450); RBC Distribution Width CV 16.6 % (11.6-14.6); RBC Distribution Width SD 63.5 fl (35.1-43.9); Red Blood Count 2.41 M/mm3 (4.6-6.2); White Blood Count 3.5 K/mm3 (4.4-11.0)
[2018-05-16 05:18] LABS: International Normalized Ratio 2.9; Prothrombin Time (Protime)PT. 30.1 SECONDS (11.7-14.9)
[2018-05-16 05:24] LABS: Differential Indicated SCAN CRITERIA MET; POSITIVE COUNT NO; POSITIVE DIFFERENTIAL YES; POSITIVE MORPHOLOGY NO
[2018-05-16 05:28] LABS: Anion Gap 7 (5-15); BUN 66 mg/dL (7-18); Calcium,Total 8.6 mg/dL (8.5-10.1); Chloride 109 mmol/L (98-107); Creatinine, Serum 1.61 mg/dL (0.70-1.30); EST Glomerular Filtration Rate 44 mL/min (>60); Est Glom Filt Rate - Afr Amer 53 mL/min (>60); Estimated Creatinine Clearance 40.17 ml/min; Glucose 99 mg/dL (74-106); Potassium 3.4 mmol/L (3.5-5.1); Sodium Level 146 mmol/L (136-145)
[2018-05-16 05:40] LABS: Platelet Estimate ADEQUATE (ADEQ)
[2018-05-16 05:41] LABS: Anisocytosis 1+; Macrocytosis 1+
[2018-05-16] MEDS: Pregabalin 50 MG Capsule PO (06:38)
[2018-05-16 06:55] LABS: Bedside Glucose 98 mg/dL (70-110)
[2018-05-16] MEDS: Finasteride 5 MG Tablet PO (07:52)
[2018-05-16] MEDS: Atenolol 25 MG Tablet PO (07:52)
[2018-05-16] MEDS: Allopurinol 100 MG Tablet PO (07:52)
[2018-05-16] MEDS: Ferrous Sulfate 325 MG Tablet PO (07:52)
[2018-05-16] MEDS: Acetaminophen 325 MG Tablet 650 MG PO ×3 (07:59→22:39)
--- NOTE | 2018-05-16 08:23 | EKG12_ITS ---
Test Reason : RHYTHM Blood Pressure : / mmHG Vent. Rate : 133 BPM Atrial Rate : 042 BPM P-R Int : 000 ms QRS Dur : 106 ms QT Int : 352 ms P-R-T Axes : 000 087 058 degrees QTc Int : 523 ms Atrial fibrillation Nonspecific ST and T wave abnormality Abnormal ECG When compared with ECG of 15-MAY-2018 14:24, MANUAL COMPARISON REQUIRED, DATA IS UNCONFIRMED Confirmed by YAJAIRA MAGAÑA, BYRON ([id number]), news editor SCOOTER KRAUS ([id number]) on 05/23/2018 1:14:18 PM Referred By: Confirmed By:BYRON GATES MD
--- NOTE | 2018-05-16 09:28 | CON.PCM_ITS ---
Consultation - Renal 05/16/18 PCP/ Referring MD: Requesting physician: [] Primary care physician: Bijan Zheng Reason for Consultation:: Toni on CKD stage 3 - History of Present Illness History of Present Illness: The patient is a 82 year old M known to me with CKD stage 3 with baseline SCr 1.4 in January 2018 when last seen in my office, presents with generalized weakness sudden event past several days, FTT debilitation. He was seen in ER on 05/14 for weakness then discharged to home with negative CT head. He returns with continued weakness, fell in bathroom after missing the toilet seat. He denied nausea, vomiting. He is generally weak at baseline but has been able to do his ADLs and yard work, mowing the yard up until few days ago according to the pt and his son present at bedside. He has been at [facility] for 10 days early this year and discharged to home in November. He has noticed increase tremor, unsteady gait. He was suppose to f/u with a neurologist for evaluation as outpt. He is anemic with pancytopenia. He has been on oral iron with dark stools from the iron. Creatinine increased to 2.55 on May 14 improved to 1.6 today with iv hydration. His bumex was recently increased to twice daily by cardiology for leg swelling that resolved. Currently taken off all diuretics. He has a history of obstructive uropathy requiring multiple attempts for a ureteral stent placement , PNTs in right kidney. - Allergies Allergies: Allergies hydrocodone bitartrate [From Vicodin] Allergy (Verified 05/11/18 08:06) Unknown Iodinated Contrast- Oral and IV Dye [DYEE] Allergy (Verified 05/11/18 08:06) Unknown oxycodone HCl [From Percocet] Allergy (Verified 05/15/18 18:26) Itching Sulfa (Sulfonamide Antibiotics) Adverse Reaction (Verified 05/11/18 08:06) Unknown - Current Medications Current Medications: Current Medications Acetaminophen (Tylenol) 650 mg PO Q6H PRN PRN PRN Reason: PAIN Last Admin: 05/16/18 07:59 Dose: 650 mg Allopurinol (Zyloprim) 100 mg PO DAILY ANTHONY Last Admin: 05/16/18 07:52 Dose: 100 mg Atenolol (Tenormin (Beta Rajani)) 25 mg PO DAILY ANTHONY Last Admin: 05/16/18 07:52 Dose: 25 mg Atorvastatin Calcium (Lipitor) 5 mg PO QHS [facility] Last Admin: 05/15/18 22:37 Dose: 5 mg Colchicine (Colchicine) 0.6 mg PO DAILY [facility] Ferrous Sulfate (Ferrous Sulfate) 325 mg PO DAILY@0800 [facility] Last Admin: 05/16/18 07:52 Dose: 325 mg Finasteride (Proscar) 5 mg PO DAILY [facility] Last Admin: 05/16/18 07:52 Dose: 5 mg Sodium Chloride () 1,000 mls @ 75 mls/hr IV .[id number] [facility] Stop: 05/16/18 20:59 Last Admin: 05/15/18 20:01 Dose: 75 mls/hr Insulin Glargine (Lantus (Bkc)) 15 units SC QHS [facility] Last Admin: 05/15/18 22:36 Dose: 15 u Insulin Human Lispro (Humalog Kwikpen (Bk)) 0 unit SC ACHS [facility] PRN Reason: Protocol Last Admin: 05/16/18 07:18 Dose: Not Given Lorazepam (Ativan) 0.5 mg PO BID PRN PRN PRN Reason: ANXIETY Last Admin: 05/15/18 22:37 Dose: 0.5 mg Multivitamins/Minerals (Ocuvite) 1 tablet PO DAILY@0800 [facility] Last Admin: 05/16/18 07:52 Dose: 1 tablet Nutritional Formula (Lactose Free) (Glucerna Shake) 120 ml PO 4X/DAY [facility] Last Admin: 05/15/18 22:29 Dose: Not Given Polyethylene Glycol (Miralax) 17 gm PO DAILY PRN PRN Reason: Constipation Pregabalin (Lyrica) 50 mg PO TID [facility] Last Admin: 05/16/18 06:38 Dose: 50 mg Sodium Chloride () 5 - 30 ml IV UD PRN PRN Reason: SALINE FLUSH Warfarin Sodium (Coumadin (Pbkc)) 5 mg PO SUTUTHFRSA [facility] Warfarin Sodium (Coumadin (Pbkc)) 7.5 mg PO MOWE [facility] - 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) Constipation (Chronic) Hyperlipidemia (Chronic) Gout (Chronic) - Past Surgical History Surgical History: colectomy - S/P [place] OF COLOSTOMY, herniorrhaphy, pacemaker implantation, total hip arthroplasty, total knee arthroplasty, tonsillectomy, - - valvuloplasty TV, spinal fusion, PNT, rt ureteral stent - Social History Smoking Status: Former smoker Alcohol: None Drugs: None - Family History Maternal History Items: Diabetes Paternal History Items: Seizures Offspring History Items: Diabetes Review of Systems Constitutional: Reports: Anorexia, Malaise, Weakness, Fatigue. Denies: Chills, Fever Eyes: Denies: Vision Change HEENT: Denies: Head Aches Cardiovascular: Reports: Light Headedness. Denies: Chest Pain, Syncope Respiratory: Denies: Cough, Shortness of Breath Gastrointestinal: Reports: - - dark stools on iron. Denies: Abdominal Pain, Diarrhea, Hematemesis, Hematochezia, Nausea, Vomiting Musculoskeletal: Reports: - - leg weakness. Denies: Back Pain Neurological: Reports: Balance problems, Incoordination, Tremor, - - diffuse weakness. Denies: Seizures Psychiatric: Reports: Depression Hematologic/ Lymphatic: Reports: Anemia Patient Problems: Active and Suspected Problems Weakness (Acute) Chronic anticoagulation (Acute) Altered mental status (Acute) - Physical Exam General: Alert, Oriented x3, Cooperative, - - weak HEENT: PERRLA, EOMI Oral: Dry Mucosa Neck: Supple Lungs: Clear to auscultation Cardiovascular: Irregular Rate, Murmur Abdomen: Bowel Sounds Present, Soft, Non Tender, Non-Distended Extremities: No edema Skin: No rashes Musculoskeletal: Cachexia, Muscle Wasting Neurological: - - generalized weakness, senile debility, tremor Psych/Mental Status: Depressed, Alert and oriented to time, place, person, mood and affect Vital Signs Temp Pulse Resp BP Pulse Ox 99.1 F 119 H 17 123/58 H 96 05/16/18 07:48 05/16/18 07:48 05/16/18 07:48 05/16/18 07:48 05/16/18 07:48 Oxygen Delivery Method Room Air Weight: 91.7 kg Body Mass Index (BMI) 27.3 Intake and Output for Last 24 Hours 05/14/18 05/15/18 05/16/18 23:59 23:59 23:59 Intake Total 1013 / 1013 Output Total 750 / 750 825 / 825 Balance -750 / -750 188 / 188 Laboratory Tests Past 24 Hrs 05/16/18 05/16/18 05/16/18 04:55 04:55 04:55 WBC 3.5 L RBC 2.41 L Hgb 7.9 L Hct 25.3 L MCV 105.0 H MCH 32.8 H MCHC 31.2 L RDW 16.6 H RDW Differential 63.5 H Plt Count 81 L MPV 10.1 Immature Gran % (Auto) 0.600 Neut % (Auto) 77.1 H Lymph % (Auto) 16.6 L [place] % (Auto) 4.3 Eos % (Auto) 1.4 Baso % (Auto) 0.0 Absolute Neuts (auto) 2.7 Absolute Lymphs (auto) 0.58 L Total Counted Not Reportable Differential Comment SEE COMMENT Platelet Estimate ADEQUATE Anisocytosis 1+ Macrocytosis 1+ PT 30.1 H INR 2.9 Sodium 146 H Potassium 3.4 L Chloride 109 H Carbon Dioxide 30.0 Anion Gap 7 BUN 66 H Creatinine 1.61 H Estim Creat Clear Calc 40.17 Est GFR (MDRD) Af Amer 53 L Est GFR (MDRD) Non-Af 44 L BUN/Creatinine Ratio 41.0 H Glucose 99 Calcium 8.6 Total Protein (PEP) Urine Total Protein Urine Albumin U Yjddp-[id number] U Nqyqw-9-Ieapcnwg U Beta Globulin U Gamma Globulin U PEP M-Baron IgG IgA IgM Albumin (SHEN) Albumin/Globulin (SHEN) Iwpnf-[id number]-Fxpuwkkay SHEN Pwksq-8-Xxzjwcmpp SHEN Beta-Globulins (SHEN) Gamma Globulins (SHEN) SHEN M-Baron 05/16/18 04:55 WBC RBC Hgb Hct MCV MCH MCHC RDW RDW Differential Plt Count MPV Immature Gran % (Auto) Neut % (Auto) Lymph % (Auto) [place] % (Auto) Eos % (Auto) Baso % (Auto) Absolute Neuts (auto) Absolute Lymphs (auto) Total Counted Differential Comment Platelet Estimate Anisocytosis Macrocytosis PT INR Sodium Potassium Chloride Carbon Dioxide Anion Gap BUN Creatinine Estim Creat Clear Calc Est GFR (MDRD) Af Amer Est GFR (MDRD) Non-Af BUN/Creatinine Ratio Glucose Calcium Total Protein (PEP) Pending Urine Total Protein Pending Urine Albumin Pending U Vpnlv-[id number]-Zcodazyi Pending U Klfcs-8-Eiotiuzr Pending U Beta Globulin Pending U Gamma Globulin Pending U PEP M-Baron Pending IgG Pending IgA Pending IgM Pending Albumin (SHEN) Pending Albumin/Globulin (SHEN) Pending Uaeee-3-Djrgiyehy SHEN Pending Stkmc-5-Ruxcshkcq SHEN Pending Beta-Globulins (SHEN) Pending Gamma Globulins (SHEN) Pending SHEN M-Baron Pending POC Glucose 05/16/18 05/15/18 06:46 22:29 POC Glucose 98 134 H Clinical Impression(s) from Imaging Studies Brain CT 05/15/18 14:16 IMPRESSION: Chronic involutional changes of the brain. Electronically Signed: Perez Arevalo MD at 15:45 EDT Tel [phone], Service support , Assessment/Plan All Active Problems Weakness (Acute) Chronic anticoagulation (Acute) Altered mental status (Acute) CHF exacerbation (Acute) 1. Acute on CKD stage 3 due to prerenal azotemia, dehydration from diuretics. baseline creatinine 1.4 in January 2018 increased to 2.55 on 05/14 improved to 1.6. Hx obstructive nephropathy s/p multiple PNT, ureteral stents rit kidney. 2. Weakness, frequent falls with tremor. Consider parkinsons in differential. Neurology consult. CT head no acute findings. 3. HTN stable 4. Afib stable rate 5. Anemia, pancytopenia hematology consult 6. Splenomegaly 7. Pulmonary hypertension, mod-severe TR 8. DMT2
--- NOTE | 2018-05-16 09:42 | PCM.PN.HOSP ---
Patient Problems: Active and Suspected Problems Chronic anticoagulation (Acute) Altered mental status (Acute) Subjective: Patient is an 82-year-old male was admitted after he fell at home. Patient stated that his leg simply got weak and gave out and he fell twice. Per history obtained from his sinus patient was a poor historian, he had recently been given a prescription for Tylenol with codeine and subsequently started falling. Vitals and labs done in the ED were only significant for failure count of 87,000, white cell count of 3.4 and hemoglobin of 8. Thrombocytopenia was chronic since 714. CT done was negative for any acute findings. He was admitted and managed for general weakness and falls with mild altered mental status likely drug-induced from Tylenol with codeine. He remained stable. Patient seen and examined this morning. He has no complaints this morning. Still states he feels weak but is much better than when he was at home. He denies any fever or chills, any chest pain or shortness of breath, any abdominal pain, any diarrhea vomiting. Review of systems otherwise negative. Of note, patient states that he has a kidney stent that was was removed by the urologist in a week or so and was supposed to be off his Coumadin for the duration. I brought up the possibility of SNF placement with patient but he was adamant that he wanted to go home. Patient states he lives alone and his son checks on him regularly. He is amenable to home health aide coming into help him daily but absolutely refuses SNF placement. Vitals/I&O's: Vital Signs Temp Pulse Resp BP Pulse Ox 99.1 F 119 H 17 123/58 H 96 05/16/18 07:48 05/16/18 07:48 05/16/18 07:48 05/16/18 07:48 05/16/18 07:48 Oxygen Delivery Method Room Air Weight: 202 lb 2.622 oz Body Mass Index (BMI) 27.3 Intake and Output for Last 24 Hours 05/14/18 05/15/18 05/16/18 23:59 23:59 23:59 Intake Total 1013 / 1013 Output Total 750 / 750 825 / 825 Balance -750 / -750 188 / 188 General: Alert, Oriented x3, Cooperative, No apparent distress HEENT: Atraumatic, PERRLA, EOMI, Normocephalic Oral: Moist Mucosa Neck: Supple, No JVD, Negative Carotid Bruits Lungs: Clear to auscultation, Normal air movement, No rhonchi, No wheeze, No rales Cardiovascular: Regular Rhythm, Normal S1, Normal S2, Tachycardic - He is to take his atenolol this morning Abdomen: Bowel Sounds Present, Soft, Non Tender, Non-Distended, No Hepato-splenomegaly Extremities: No clubbing, No cyanosis, No edema, Capillary Refill Less than 3 Seconds Skin: No rashes, No breakdown Musculoskeletal: No Tenderness to Palpation of Joints or Extremities Lymphatic: No Cervical, Supraclavicular, or Inguinal Adenopathy Neurological: Cranial nerves II-XII grossly intact, Motor Exam 5/5 strength throughout Psych/Mental Status: Normal Affect, Appropriate, Alert and oriented to time, place, person, mood and affect Laboratory Results 05/15/18 22:29: POC Glucose 134 H 05/16/18 04:55: WBC 3.5 L, RBC 2.41 L, Hgb 7.9 L, Hct 25.3 L, MCV 105.0 H, MCH 32.8 H, MCHC 31.2 L, RDW 16.6 H, RDW Differential 63.5 H, Plt Count 81 L, MPV 10.1, Immature Gran % (Auto) 0.600, Neut % (Auto) 77.1 H, Lymph % (Auto) 16.6 L, [place] % (Auto) 4.3, Eos % (Auto) 1.4, Baso % (Auto) 0.0, Absolute Neuts (auto) 2.7, Absolute Lymphs (auto) 0.58 L, Total Counted Not Reportable, Differential Comment SEE COMMENT, Platelet Estimate ADEQUATE, Anisocytosis 1+, Macrocytosis 1+ 05/16/18 04:55: PT 30.1 H, INR 2.9 05/16/18 04:55: Sodium 146 H, Potassium 3.4 L, Chloride 109 H, Carbon Dioxide 30.0, Anion Gap 7, BUN 66 H, Creatinine 1.61 H, Estim Creat Clear Calc 40.17, Est GFR (MDRD) Af Amer 53 L, Est GFR (MDRD) Non-Af 44 L, BUN/Creatinine Ratio 41.0 H, Glucose 99, Calcium 8.6 05/16/18 04:55: Total Protein (PEP) Pending, Urine Total Protein Pending, Urine Albumin Pending, U Ctgiv-5-Qgugurgl Pending, U Lscxc-3-Nrvnmtvy Pending, U Beta Globulin Pending, U Gamma Globulin Pending, U PEP M-Baron Pending, IgG Pending, IgA Pending, IgM Pending, Albumin (SHEN) Pending, Albumin/Globulin (SHEN) Pending, Wovam-5-Ipoflybmy SHEN Pending, Omacl-3-Wiroqksvk SHEN Pending, Beta-Globulins (SHEN) Pending, Gamma Globulins (SHEN) Pending, SHEN M-Baron Pending 05/16/18 06:46: POC Glucose 98 Current Medications Acetaminophen (Tylenol) 650 mg PO Q6H PRN PRN PRN Reason: PAIN Last Admin: 05/16/18 07:59 Dose: 650 mg Allopurinol (Zyloprim) 100 mg PO DAILY [facility] Last Admin: 05/16/18 07:52 Dose: 100 mg Atenolol (Tenormin (Beta Rajani)) 25 mg PO DAILY [facility] Last Admin: 05/16/18 07:52 Dose: 25 mg Atorvastatin Calcium (Lipitor) 5 mg PO QHS [facility] Last Admin: 05/15/18 22:37 Dose: 5 mg Colchicine (Colchicine) 0.6 mg PO DAILY [facility] Ferrous Sulfate (Ferrous Sulfate) 325 mg PO DAILY@0800 [facility] Last Admin: 05/16/18 07:52 Dose: 325 mg Finasteride (Proscar) 5 mg PO DAILY [facility] Last Admin: 05/16/18 07:52 Dose: 5 mg Sodium Chloride () 1,000 mls @ 75 mls/hr IV .[id number] [facility] Stop: 05/16/18 20:59 Last Admin: 05/15/18 20:01 Dose: 75 mls/hr Insulin Glargine (Lantus (Bkc)) 15 units SC QHS [facility] Last Admin: 05/15/18 22:36 Dose: 15 u Insulin Human Lispro (Humalog Kwikpen (Bk)) 0 unit SC ACHS [facility] PRN Reason: Protocol Last Admin: 05/16/18 07:18 Dose: Not Given Lorazepam (Ativan) 0.5 mg PO BID PRN PRN PRN Reason: ANXIETY Last Admin: 05/15/18 22:37 Dose: 0.5 mg Multivitamins/Minerals (Ocuvite) 1 tablet PO DAILY@0800 [facility] Last Admin: 05/16/18 07:52 Dose: 1 tablet Nutritional Formula (Lactose Free) (Glucerna Shake) 120 ml PO 4X/DAY [facility] Last Admin: 05/15/18 22:29 Dose: Not Given Polyethylene Glycol (Miralax) 17 gm PO DAILY PRN PRN Reason: Constipation Pregabalin (Lyrica) 50 mg PO TID [facility] Last Admin: 05/16/18 06:38 Dose: 50 mg Sodium Chloride () 5 - 30 ml IV UD PRN PRN Reason: SALINE FLUSH Warfarin Sodium (Coumadin (Pbkc)) 5 mg PO SUTUTHFRSA [facility] Warfarin Sodium (Coumadin (Pbkc)) 7.5 mg PO MOWE [facility] Medical Necessity - Tobacco Use Smoking Status: Former smoker Tobacco Use: Non-smoker Assessment/Plan All Active Problems Chronic anticoagulation (Acute) Altered mental status (Acute) CHF exacerbation (Acute) 10-year-old male with a history of heart failure, chronic atrial fibrillation, and pancytopenia was admitted with a complaint of falls. He also had slight altered mental status which was thought to be medication induced. 1. Recurrent falls likely medication induced improving. TYlenol with codeine on hold. Was thought to be likely cause of falls CT head was negative has minor tremors of UEs, but has no focal deficit. He has a history of stroke and TIA. However, I think this is less due to stroke/TIA and more likely medication induced. PT/OT on board; will benefit from physical therapy absolutely refuses SNF placement, and is ok with home health aide coming in to check on him daily. Says son also checks on him daily orthostatics was positive; will give IVF NS bolus of 500cc, and continue with IVF NS @ 125cc/hr. Will hold finasteride and review tomorrow. 2. Hypernatremia: Na is 146, as it was on admission. Also has hyperchloremia with chloride of 109. Therefore this is likely due to IV fluid hydration. WIll continue monitroing 3. hypokalemia: K was 3.1 on admission; is 3.4 today. Will replace and monitor. 4. OMAIRA on CKD: Cr was 2.2 on admission; is 1.61 today. Will encourage oral IVF intake. Nephrology consulted. Will await rec's 5. Chronic AF s/p pacemaker insertion is rate controlled. Was tachycardic this morning (110-120); hadnt received his meds yet this morning. On coumadin. INR was 2.7 on admission. INR today is 2.9. In light of patient's advanced age and falls, may need to evaluate coumadin usage and consider stopping it. will hold coumadin for now, in light of stent removal on Tuesday. 6. Chronic HFpEF; stable. diuretics held on admission due to Omaira-on-CKD. Cr trending down today. Will monitor and consider resuming diuretics will check orthostatics as that could also have contributed to falls, before resuming diuretics 7. Ureteral stricture s/p nephrostomy Nephrostomy tube placed in [facility] and was due to be taken out this week. He said he was supposed to be off his Coumadin before was taken out. Patient has however been taking the Coumadin at home. INR was 2.7. Has seen Dr. Aguero here. spoke to Dr Aguero on phone. Patient was scheduled to have stent removed on Tuesday. Will hold coumadin from now till Tuesday. If patient is ok to be ut'ed prior to then, will have stent removal on outpatient basis 8. Diabetes mellitus: on lantus 15IU qhs and ISS. Blood sugar is 98 this morning. Will monitor 8. DVt prophylaxis: on coumadin for Afib Code status: Full code This note was generated with [employer] dictation software. It may contain incorrect words, spelling, and punctuation that were not noted in checking the note before signing. Code Visit Inpatient E&M: 822[address] [facility] L[facility]
--- NOTE | 2018-05-16 09:48 | ONC.CONS.INP ---
Consult Referring Physician: Hospitalist service Subjective Date of Service:: 05/16/18 Chief Complaint: Pancytopenia History of Present Illness: Mr. Gabino Jernigan is a pleasant 82 year man with an extensive PMH inclusive of DM, BPH, cardiac arrhythmias, CHF and ureteral stricture requiring stent placement. Has been on warfarin forever and often told his platelets are low, however INR has been therapeutic. Reports he was in his usual state of health until approximately 2 weeks ago, when he noted dark, malodorous urine. He was evaluated by his urologist, Dr. Aguero and is tentatively scheduled for stent removal and replacement on 05/19/18. Further states he suffers from chronic back pain, however reports increase in right sided lower back pain x 2 weeks. As a result, underwent plain films at [facility] per his pcp, Dr. Zheng and was in the process of being referred to pain management. He was given Tylenol with codeine to use in the interim. Subsequently, experienced to falls in his home, 05/14/18 & 05/15/18, which resulted in his presentation to [facility] ED on 05/15/18. Admitted for findings of pancytopenia. Last colonoscopy 2013 under the care of Dr. Munroe. 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 Denies fatigue, dizziness, CP, palpitations, constipation, diarrhea, abd pain, melena/hematochezia and any new onset bone pain. With the exception of the aforementioned Tylenol #3 patient has not started any new medications. No family history of hematologic aberrancies. 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) Constipation (Chronic) Hyperlipidemia (Chronic) Gout (Chronic) Past Medical/Surgical History: Past Medical History - Most Recent Inpatient Visit Past Medical History Start: 05/15/18 18:58 Text: Status: Complete Freq: ONCE Protocol: Document 05/15/18 19:44 ZZB (Rec: 05/15/18 19:51 ZB [id number]) BMI Required to complete PMH What is Patient's BMI 27.4 Past Medical History Unable History Recalled Yes Query Text:Pt Unable/Family Not Present Neurologic Medical History Hx Stroke/TIA Yes: TIA Hx Dementia/Alzheimer's No Hx Parkinson's Disease No Hx Seizures No Hx Multiple Sclerosis No Hx Migraines No Cardiac Medical History VTE Present on Admission No Hx of Deep Vein Thrombosis/VTE/PE No Hx Hypertension No: CONTROLLED WITH MED/ PULMONARY HTN Hx Chest Pain/Angina No Hx Heart Attack No Hx Cardiac Surgery/Stents/Etc. Yes: AORTIC VALVE REPAIR 2015 Hx Heart Failure Yes Hx Pacemaker/AICD Yes Hx Irregular Heartbeat and/or Afib Yes: A FIB. DR APARICIO,LAST VISIT JANUARY 2018 Hx Anticoagulant Therapy Yes: coumadin Query Text:(Coumadin, Aspirin, Plavix, Xarelto, etc.) Hx Pain in Legs when Walking/Leg Cramps Yes: LEG CRAMPS Respiratory Medical History Hx COPD No Hx Emphysema No Hx Smoking Yes: QUIT 2012 Smoking Status Former smoker Tobacco Use Non-smoker Hx Smoking Cessation Counseling No Hx Smoking Exposure No Hx Tobacco Use in last 12 months No Hx of Pipe Smoking No Hx Sleep Apnea Yes: CPAP CPAP Yes: . BIPAP No STOP Results Positive GI Medical History Hx Ulcer No Hx Hepatitis No Hx Cirrhosis No Hx GI Bleed No Hx Unplanned Weight Loss No Genitourinary Medical History Indwelling Catheter in Place on Arrival/ No Admission Hx Renal Disease Yes: ENLARGED PROSTATE Hx Dialysis No Musculoskeletal History Hx Arthritis Yes Hx Rheumatoid Arthritis No Endocrine Medical History Hx Diabetes Yes: IDDM Hx Thyroid Disease No Hematologic Medical History Hx of Blood Transfusion Yes Hx of Transfusion in last 3 Months No Ever experience any problems with No transfusion(s)? Hx of Preganancy in last 3 Months N/A Nurse Filling Out Transfusion & ZBEAM Questions: Date: 05/15/18 Time: 19:49 Psycho/Social Medical History Hx Depression Yes Hx Anxiety No Hx Behavior Disorder No Hx Alcohol Use No Hx Substance Use No Other Medical History Hx Blood Disorders Yes: THROMPOCYTOPENIA PER HX Hx Anemia Yes: . Hx Cancer Yes: SKIN CA Hx Drug Resistant Organism No Wound/Pressure Injury Present on Arrival Yes /Admission Query Text:If yes, chart assessment in Shift/Clinical Findings Central Line/PICC/VAD Present on Arrival No /Admission Antibiotics within last 7 days? Yes Risk for Readmission Number of Risk Factors 9 At Risk for Readmission Patient is At Risk For Readmission Patient is eligible for Call Back Y Maternal Family History: Diabetes Paternal Family History: Seizures Offspring Family History: Diabetes - Social History Lives: Alone Smoking Status: Former smoker Tobacco Use: Non-smoker Alcohol: None Drugs: None Allergies/Adverse Reactions: Allergy/AdvReac Type Severity Reaction Status Date / Time hydrocodone bitartrate Allergy Unknown Verified 05/11/18 08:06 [From Vicodin] Iodinated Contrast- Oral and Allergy Unknown Verified 05/11/18 08:06 IV Dye [DYEE] oxycodone HCl [From Percocet] Allergy Itching Verified 05/15/18 18:26 Sulfa (Sulfonamide AdvReac Unknown Verified 05/11/18 08:06 Antibiotics) Review of Systems Constitutional:: Reports: Weakness. Denies: Fever, Sweats, Weight loss, Appetite change, Chills Cardiovascular:: Denies: Chest pain, Palpitations, Dyspnea on exertion, Orthopnea, PND, Shortness of breath Respiratory: Denies: Cough, Hemoptysis, Shortness of Breath, Wheezing Gastrointestinal:: Reports: Reflux - occasionally. Denies: Abdominal pain, Nausea, Vomiting, Diarrhea, Constipation, Melena, Hematochezia, Hemorrhoids Genitourinary: Reports: Urinary frequency, Nocturia. Denies: Dysuria, Hematuria, Flank pain Musculoskeletal:: Reports: Muscle weakness, Back pain. Denies: Myalgia, Arthralgia Skin: Denies: Rash, Skin Changes, Wounds Neurological:: Denies: Headache, Dizziness, Numbness, Tingling, Visual changes, Tinnitus, Hearing loss Psychiatric: Denies: Anxiety, Depression, Homicidal Ideations, Suicidal Ideations Vital Signs Height 6 ft Weight: 202 lb 2.622 oz Weight in Pounds 202.2 lbs Pulse Ox 96 Temperature 99.1 F Pulse Rate 119 Respiratory Rate 17 Blood Pressure 123/58 Blood Pressure Position Semi-Fowlers - Physical Exam General: Alert, Oriented x3, No apparent distress HEENT: Atraumatic, Normocephalic, - - wears glasses Oropharynx:: Negative for: Dry mucosa, Ulcerated lesions Neck:: Supple, Trachea midline. Negative for: JVD, bilateral Cardiac:: Regular rate, Regular rhythm, Normal S1, Normal S2. Negative for: Murmur Lungs: Clear to auscultation, Excusion symmetrical. Negative for: Rhonchi, Wheezes Abdomen:: Bowel sounds x 4, Soft, Non-tender, Non-distended, Hernia. Negative for: Hepatosplenomegaly Extremities:: Negative for: Cyanosis, Edema Neurological: Neuro grossly intact Skin:: - - BLE luis enrique. Negative for: Lesions, Rash, Petechiae, Ecchymosis Psychiatric:: Appropriate affect, Euthymic Lymphatics:: Negative for: Cervical lymphadenopathy, Supraclavicular lymphadenopathy, Axillary lymphadenopathy Laboratory Data: Laboratory Tests 05/16/18 05/16/18 05/16/18 Range/Units 06:46 04:55 04:55 WBC (4.4-11.0) K/mm3 RBC (4.6-6.2) M/mm3 Hgb (13.0-16.5) g/dl Hct (40-54) % MCV (80-94) fL MCH (27.0-32.0) pg MCHC (32-36) g/gl RDW (11.6-14.6) % RDW Differential (35.1-43.9) fl Plt Count (150-450) K/mm3 MPV (6.2-12.0) fl Immature Gran % (Auto) (0.0-0.9) % Neut % (Auto) (47-70) % Lymph % (Auto) (19-41) % [place] % (Auto) (0-10) % Eos % (Auto) (0-5) % Baso % (Auto) (0-1) % Absolute Neuts (auto) (2.0-7.7) X10^3/uL Absolute Lymphs (auto) (0.83-4.51) X10^3/ul Total Counted Differential Comment Platelet Estimate (ADEQ) Anisocytosis Macrocytosis PT 30.1 H (11.7-14.9) SECONDS INR 2.9 Sodium 146 H (136-145) mmol/L Potassium 3.4 L (3.5-5.1) mmol/L Chloride 109 H (98-107) mmol/L Carbon Dioxide 30.0 (21.0-32.0) mmol/L Anion Gap 7 (5-15) BUN 66 H (7-18) mg/dL Creatinine 1.61 H (0.70-1.30) mg/dL Estim Creat Clear Calc 40.17 ml/min Est GFR (MDRD) Af Amer 53 L (>60) mL/min Est GFR (MDRD) Non-Af 44 L (>60) mL/min BUN/Creatinine Ratio 41.0 H (10-20) RATIO Glucose 99 (74-106) mg/dL Calcium 8.6 (8.5-10.1) mg/dL POC Glucose 98 (70-110) mg/dL 05/16/18 05/15/18 Range/Units 04:55 22:29 WBC 3.5 L (4.4-11.0) K/mm3 RBC 2.41 L (4.6-6.2) M/mm3 Hgb 7.9 L (13.0-16.5) g/dl Hct 25.3 L (40-54) % MCV 105.0 H (80-94) fL MCH 32.8 H (27.0-32.0) pg MCHC 31.2 L (32-36) g/gl RDW 16.6 H (11.6-14.6) % RDW Differential 63.5 H (35.1-43.9) fl Plt Count 81 L (150-450) K/mm3 MPV 10.1 (6.2-12.0) fl Immature Gran % (Auto) 0.600 (0.0-0.9) % Neut % (Auto) 77.1 H (47-70) % Lymph % (Auto) 16.6 L (19-41) % [place] % (Auto) 4.3 (0-10) % Eos % (Auto) 1.4 (0-5) % Baso % (Auto) 0.0 (0-1) % Absolute Neuts (auto) 2.7 (2.0-7.7) X10^3/uL Absolute Lymphs (auto) 0.58 L (0.83-4.51) X10^3/ul Total Counted Not Reportable Differential Comment SEE COMMENT Platelet Estimate ADEQUATE (ADEQ) Anisocytosis 1+ Macrocytosis 1+ PT (11.7-14.9) SECONDS INR Sodium (136-145) mmol/L Potassium (3.5-5.1) mmol/L Chloride (98-107) mmol/L Carbon Dioxide (21.0-32.0) mmol/L Anion Gap (5-15) BUN (7-18) mg/dL Creatinine (0.70-1.30) mg/dL Estim Creat Clear Calc ml/min Est GFR (MDRD) Af Amer (>60) mL/min Est GFR (MDRD) Non-Af (>60) mL/min BUN/Creatinine Ratio (10-20) RATIO Glucose (74-106) mg/dL Calcium (8.5-10.1) mg/dL POC Glucose 134 H (70-110) mg/dL Diagnostic Data: Diagnostic Data Brain CT 05/15/18 14:16 IMPRESSION: Chronic involutional changes of the brain. Electronically Signed: Perez Arevalo MD at 15:45 EDT Tel [phone], Service support , Assessment and Plan 1. Pancytopenia- as evidenced by lymphopenia, macrocytic anemia and platelet count of 81,000. Does not meet criteria for transfusion, nor to hold anticoagulation. In careful review of his chart, mild thrombocytopenia and mild lymphopenia are not new findings as first noted as far back as 05/2012. Some causes of hypoproliferative pancytopenia such as ETOH and reaction to medications have been discounted. Anemia is likely multifactorial given h/o CKD and possibility of hematuria r/t ureteral stent. Need stool for FOB. Will obtain peripheral blood smear, retic count, ESR, LFTs, hepatitis panel. TSH is within normal limits. Will obtain LDH, direct bili and haptoglobin to assess for hemolysis and iron studies, folate. It appears UPEP, SPEP and immunoglobulins have already been ordered, results pending. May be of benefit to request recent report of low back plain films from [facility] to assure no skeletal lesions were observed in the area in which patient is endorsing pain. 2. Chronic anticoagulation with warfarin, management of chronic Afib- as expected PT elevated. INR therapeutic. Veena Esposito, MSN, [employer] SUPERVISOR, AOCNP Medications: Medications Added to Medication List This Visit Category Date Time Status 0.9% Saline Lock Med 05/16/18 06:25 Active 5 - 30 ml IV UD PRN Allopurinol [Zyloprim] Med 05/16/18 10:00 Active 100 mg PO DAILY Atenolol [Tenormin (beta Rajani)] Med 05/16/18 10:00 Active 25 mg PO DAILY Colchicine Med 05/16/18 10:00 Active 0.6 mg PO DAILY Ferrous Sulfate Med 05/16/18 08:00 Active 325 mg PO DAILY@0800 Finasteride [Proscar] Med 05/16/18 10:00 Active 5 mg PO DAILY Multivitamin (Ocuvite) [Ocuvite] Med 05/16/18 08:00 Active 1 tablet PO DAILY@0800 Warfarin [Coumadin (PBKC)] Med 05/16/18 17:00 Active 5 mg PO SUTUTHFRSA Warfarin [Coumadin (PBKC)] Med 05/17/18 17:00 Active 7.5 mg PO MOWE Primary Care Provider: Bijan Zheng Referring Provider:
[2018-05-16] MEDS: 0.9% Normal Saline 1,000 ML 75 ML IV (09:50)
--- NOTE | 2018-05-16 09:56 | PN_ITS ---
Patient Problems: Active and Suspected Problems Chronic anticoagulation (Acute) Altered mental status (Acute) Subjective: Patient is an 82-year-old male was admitted after he fell at home. Patient stated that his leg simply got weak and gave out and he fell twice. Per history obtained from his sinus patient was a poor historian, he had recently been given a prescription for Tylenol with codeine and subsequently started falling. Vitals and labs done in the ED were only significant for failure count of 87,000, white cell count of 3.4 and hemoglobin of 8. Thrombocytopenia was chronic since 714. CT done was negative for any acute findings. He was admitted and managed for general weakness and falls with mild altered mental status likely drug-induced from Tylenol with codeine. He remained stable. Patient seen and examined this morning. He has no complaints this morning. Still states he feels weak but is much better than when he was at home. He denies any fever or chills, any chest pain or shortness of breath, any abdominal pain, any diarrhea vomiting. Review of systems otherwise negative. Of note, patient states that he has a kidney stent that was was removed by the urologist in a week or so and was supposed to be off his Coumadin for the duration. I brought up the possibility of SNF placement with patient but he was adamant that he wanted to go home. Patient states he lives alone and his son checks on him regularly. He is amenable to home health aide coming into help him daily but absolutely refuses SNF placement. Vitals/I&O's: Vital Signs Temp Pulse Resp BP Pulse Ox 99.1 F 119 H 17 123/58 H 96 05/16/18 07:48 05/16/18 07:48 05/16/18 07:48 05/16/18 07:48 05/16/18 07:48 Oxygen Delivery Method Room Air Weight: 202 lb 2.622 oz Body Mass Index (BMI) 27.3 Intake and Output for Last 24 Hours 05/14/18 05/15/18 05/16/18 23:59 23:59 23:59 Intake Total 1013 / 1013 Output Total 750 / 750 825 / 825 Balance -750 / -750 188 / 188 General: Alert, Oriented x3, Cooperative, No apparent distress HEENT: Atraumatic, PERRLA, EOMI, Normocephalic Oral: Moist Mucosa Neck: Supple, No JVD, Negative Carotid Bruits Lungs: Clear to auscultation, Normal air movement, No rhonchi, No wheeze, No rales Cardiovascular: Regular Rhythm, Normal S1, Normal S2, Tachycardic - He is to take his atenolol this morning Abdomen: Bowel Sounds Present, Soft, Non Tender, Non-Distended, No Hepato- splenomegaly Extremities: No clubbing, No cyanosis, No edema, Capillary Refill Less than 3 Seconds Skin: No rashes, No breakdown Musculoskeletal: No Tenderness to Palpation of Joints or Extremities Lymphatic: No Cervical, Supraclavicular, or Inguinal Adenopathy Neurological: Cranial nerves II-XII grossly intact, Motor Exam 5/5 strength throughout Psych/Mental Status: Normal Affect, Appropriate, Alert and oriented to time, place, person, mood and affect Laboratory Results 05/15/18 22:29: POC Glucose 134 H 05/16/18 04:55: WBC 3.5 L, RBC 2.41 L, Hgb 7.9 L, Hct 25.3 L, MCV 105.0 H, MCH 32.8 H, MCHC 31.2 L, RDW 16.6 H, RDW Differential 63.5 H, Plt Count 81 L, MPV 10.1, Immature Gran % (Auto) 0.600, Neut % (Auto) 77.1 H, Lymph % (Auto) 16.6 L , [place] % (Auto) 4.3, Eos % (Auto) 1.4, Baso % (Auto) 0.0, Absolute Neuts (auto) 2.7, Absolute Lymphs (auto) 0.58 L, Total Counted Not Reportable, Differential Comment SEE COMMENT, Platelet Estimate ADEQUATE, Anisocytosis 1+, Macrocytosis 1 + 05/16/18 04:55: PT 30.1 H, INR 2.9 05/16/18 04:55: Sodium 146 H, Potassium 3.4 L, Chloride 109 H, Carbon Dioxide 30.0, Anion Gap 7, BUN 66 H, Creatinine 1.61 H, Estim Creat Clear Calc 40.17, Est GFR (MDRD) Af Amer 53 L, Est GFR (MDRD) Non-Af 44 L, BUN/Creatinine Ratio 41.0 H, Glucose 99, Calcium 8.6 05/16/18 04:55: Total Protein (PEP) Pending, Urine Total Protein Pending, Urine Albumin Pending, U Erkvl-[id number] Pending, U Wkwjf-7-Mcvrnwyd Pending, U Beta Globulin Pending, U Gamma Globulin Pending, U PEP M-Baron Pending, IgG Pending, IgA Pending, IgM Pending, Albumin (SHEN) Pending, Albumin/Globulin (SHEN) Pending , Xnvjl-9-Lirtnrtbi SHEN Pending, Tvmyk-0-Rbeezrvwf SHEN Pending, Beta-Globulins ( SHEN) Pending, Gamma Globulins (SHEN) Pending, SHEN M-Baron Pending 05/16/18 06:46: POC Glucose 98 Current Medications Acetaminophen (Tylenol) 650 mg PO Q6H PRN PRN PRN Reason: PAIN Last Admin: 05/16/18 07:59 Dose: 650 mg Allopurinol (Zyloprim) 100 mg PO DAILY [facility] Last Admin: 05/16/18 07:52 Dose: 100 mg Atenolol (Tenormin (Beta Rajani)) 25 mg PO DAILY [facility] Last Admin: 05/16/18 07:52 Dose: 25 mg Atorvastatin Calcium (Lipitor) 5 mg PO QHS [facility] Last Admin: 05/15/18 22:37 Dose: 5 mg Colchicine (Colchicine) 0.6 mg PO DAILY [facility] Ferrous Sulfate (Ferrous Sulfate) 325 mg PO DAILY@0800 [facility] Last Admin: 05/16/18 07:52 Dose: 325 mg Finasteride (Proscar) 5 mg PO DAILY [facility] Last Admin: 05/16/18 07:52 Dose: 5 mg Sodium Chloride () 1,000 mls @ 75 mls/hr IV .[id number] [facility] Stop: 05/16/18 20:59 Last Admin: 05/15/18 20:01 Dose: 75 mls/hr Insulin Glargine (Lantus (Bkc)) 15 units SC QHS [facility] Last Admin: 05/15/18 22:36 Dose: 15 u Insulin Human Lispro (Humalog Kwikpen (Bk)) 0 unit SC ACHS [facility] PRN Reason: Protocol Last Admin: 05/16/18 07:18 Dose: Not Given Lorazepam (Ativan) 0.5 mg PO BID PRN PRN PRN Reason: ANXIETY Last Admin: 05/15/18 22:37 Dose: 0.5 mg Multivitamins/Minerals (Ocuvite) 1 tablet PO DAILY@0800 [facility] Last Admin: 05/16/18 07:52 Dose: 1 tablet Nutritional Formula (Lactose Free) (Glucerna Shake) 120 ml PO 4X/DAY [facility] Last Admin: 05/15/18 22:29 Dose: Not Given Polyethylene Glycol (Miralax) 17 gm PO DAILY PRN PRN Reason: Constipation Pregabalin (Lyrica) 50 mg PO TID [facility] Last Admin: 05/16/18 06:38 Dose: 50 mg Sodium Chloride () 5 - 30 ml IV UD PRN PRN Reason: SALINE FLUSH Warfarin Sodium (Coumadin (Pbkc)) 5 mg PO SUTUTHFRSA [facility] Warfarin Sodium (Coumadin (Pbkc)) 7.5 mg PO MOWE [facility] Medical Necessity - Tobacco Use Smoking Status: Former smoker Tobacco Use: Non-smoker Assessment/Plan All Active Problems Chronic anticoagulation (Acute) Altered mental status (Acute) CHF exacerbation (Acute) 10-year-old male with a history of heart failure, chronic atrial fibrillation, and pancytopenia was admitted with a complaint of falls. He also had slight altered mental status which was thought to be medication induced. 1. Recurrent falls likely medication induced * improving. TYlenol with codeine on hold. Was thought to be likely cause of falls * CT head was negative * has minor tremors of UEs, but has no focal deficit. He has a history of stroke and TIA. However, I think this is less due to stroke/TIA and more likely medication induced. * PT/OT on board; will benefit from physical therapy * absolutely refuses SNF placement, and is ok with home health aide coming in to check on him daily. Says son also checks on him daily * orthostatics was positive; will give IVF NS bolus of 500cc, and continue with IVF NS @ 125cc/hr. Will hold finasteride and review tomorrow. * 2. Hypernatremia: * Na is 146, as it was on admission. Also has hyperchloremia with chloride of 109. Therefore this is likely due to IV fluid hydration. WIll continue monitroing 3. hypokalemia: * K was 3.1 on admission; is 3.4 today. Will replace and monitor. * 4. OMAIRA on CKD: Cr was 2.2 on admission; is 1.61 today. Will encourage oral IVF intake. Nephrology consulted. Will await rec's 5. Chronic AF s/p pacemaker insertion * is rate controlled. Was tachycardic this morning (110-120); hadnt received his meds yet this morning. On coumadin. INR was 2.7 on admission. INR today is 2.9. * In light of patient's advanced age and falls, may need to evaluate coumadin usage and consider stopping it. * will hold coumadin for now, in light of stent removal on Tuesday. * 6. Chronic HFpEF; * stable. diuretics held on admission due to Omaira-on-CKD. * Cr trending down today. Will monitor and consider resuming diuretics * will check orthostatics as that could also have contributed to falls, before resuming diuretics * 7. Ureteral stricture s/p nephrostomy * Nephrostomy tube placed in [facility] and was due to be taken out this week. He said he was supposed to be off his Coumadin before was taken out. Patient has however been taking the Coumadin at home. INR was 2.7. Has seen Dr. Aguero here. * spoke to Dr Aguero on phone. Patient was scheduled to have stent removed on Tuesday. Will hold coumadin from now till Tuesday. If patient is ok to be wi'ed prior to then, will have stent removal on outpatient basis 8. Diabetes mellitus: on lantus 15IU qhs and ISS. Blood sugar is 98 this morning. Will monitor * 8. DVt prophylaxis: on coumadin for Afib Code status: Full code This note was generated with [employer] dictation software. It may contain incorrect words, spelling, and punctuation that were not noted in checking the note before signing. Code Visit Inpatient E&M: 26320 Subs Hosp L3
--- NOTE | 2018-05-16 10:06 | CON.PCM_ITS ---
Consult Referring Physician: Hospitalist service Subjective Date of Service:: 05/16/18 Chief Complaint: Pancytopenia History of Present Illness: Mr. Gabino Jernigan is a pleasant 82 year man with an extensive PMH inclusive of DM, BPH, cardiac arrhythmias, CHF and ureteral stricture requiring stent placement. Has been on warfarin forever and often told his platelets are low , however INR has been therapeutic. Reports he was in his usual state of health until approximately 2 weeks ago, when he noted dark, malodorous urine. He was evaluated by his urologist, Dr. Aguero and is tentatively scheduled for stent removal and replacement on 05/19/18. Further states he suffers from chronic back pain, however reports increase in right sided lower back pain x 2 weeks. As a result, underwent plain films at [facility] per his pcp, Dr. Zheng and was in the process of being referred to pain management. He was given Tylenol with codeine to use in the interim. Subsequently, experienced to falls in his home, 05/14/18 & 05/15/18, which resulted in his presentation to [facility] ED on 05/15/18. Admitted for findings of pancytopenia. Last colonoscopy 2013 under the care of Dr. Munroe. 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 Denies fatigue, dizziness, CP, palpitations, constipation, diarrhea, abd pain, melena/hematochezia and any new onset bone pain. With the exception of the aforementioned Tylenol #3 patient has not started any new medications. No family history of hematologic aberrancies. 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) Constipation (Chronic) Hyperlipidemia (Chronic) Gout (Chronic) Past Medical/Surgical History: Past Medical History - Most Recent Inpatient Visit Past Medical History Start: 05/15/18 18: 58 Text: Status: Complete Freq: ONCE Protocol: Document 05/15/18 19:44 ZZB (Rec: 05/15/18 19:51 ZB [id number]) BMI Required to complete PMH What is Patient's BMI 27.4 Past Medical History Unable History Recalled Yes Query Text:Pt Unable/Family Not Present Neurologic Medical History Hx Stroke/TIA Yes: TIA Hx Dementia/Alzheimer's No Hx Parkinson's Disease No Hx Seizures No Hx Multiple Sclerosis No Hx Migraines No Cardiac Medical History VTE Present on Admission No Hx of Deep Vein Thrombosis/VTE/PE No Hx Hypertension No: CONTROLLED WITH MED/ PULMONARY HTN Hx Chest Pain/Angina No Hx Heart Attack No Hx Cardiac Surgery/Stents/Etc. Yes: AORTIC VALVE REPAIR 2015 Hx Heart Failure Yes Hx Pacemaker/AICD Yes Hx Irregular Heartbeat and/or Afib Yes: A FIB. DR APARICIO,LAST VISIT JANUARY 2018 Hx Anticoagulant Therapy Yes: coumadin Query Text:(Coumadin, Aspirin, Plavix, Xarelto, etc.) Hx Pain in Legs when Walking/Leg Cramps Yes: LEG CRAMPS Respiratory Medical History Hx COPD No Hx Emphysema No Hx Smoking Yes: QUIT 2012 Smoking Status Former smoker Tobacco Use Non-smoker Hx Smoking Cessation Counseling No Hx Smoking Exposure No Hx Tobacco Use in last 12 months No Hx of Pipe Smoking No Hx Sleep Apnea Yes: CPAP CPAP Yes: . BIPAP No STOP Results Positive GI Medical History Hx Ulcer No Hx Hepatitis No Hx Cirrhosis No Hx GI Bleed No Hx Unplanned Weight Loss No Genitourinary Medical History Indwelling Catheter in Place on Arrival/ No Admission Hx Renal Disease Yes: ENLARGED PROSTATE Hx Dialysis No Musculoskeletal History Hx Arthritis Yes Hx Rheumatoid Arthritis No Endocrine Medical History Hx Diabetes Yes: IDDM Hx Thyroid Disease No Hematologic Medical History Hx of Blood Transfusion Yes Hx of Transfusion in last 3 Months No Ever experience any problems with No transfusion(s)? Hx of Preganancy in last 3 Months N/A Nurse Filling Out Transfusion & ZBEAM Questions: Date: 05/15/18 Time: 19:49 Psycho/Social Medical History Hx Depression Yes Hx Anxiety No Hx Behavior Disorder No Hx Alcohol Use No Hx Substance Use No Other Medical History Hx Blood Disorders Yes: THROMPOCYTOPENIA PER HX Hx Anemia Yes: . Hx Cancer Yes: SKIN CA Hx Drug Resistant Organism No Wound/Pressure Injury Present on Arrival Yes /Admission Query Text:If yes, chart assessment in Shift/Clinical Findings Central Line/PICC/VAD Present on Arrival No /Admission Antibiotics within last 7 days? Yes Risk for Readmission Number of Risk Factors 9 At Risk for Readmission Patient is At Risk For Readmission Patient is eligible for Call Back Y Maternal Family History: Diabetes Paternal Family History: Seizures Offspring Family History: Diabetes - Social History Lives: Alone Smoking Status: Former smoker Tobacco Use: Non-smoker Alcohol: None Drugs: None Allergies/Adverse Reactions: Allergy/AdvReac Type Severity Reaction Status Date / Time hydrocodone bitartrate Allergy Unknown Verified 05/11/18 08:06 [From Vicodin] Iodinated Contrast- Oral and Allergy Unknown Verified 05/11/18 08:06 IV Dye [DYEE] oxycodone HCl [From Percocet] Allergy Itching Verified 05/15/18 18:26 Sulfa (Sulfonamide AdvReac Unknown Verified 05/11/18 08:06 Antibiotics) Review of Systems Constitutional:: Reports: Weakness. Denies: Fever, Sweats, Weight loss, Appetite change, Chills Cardiovascular:: Denies: Chest pain, Palpitations, Dyspnea on exertion, Orthopnea, PND, Shortness of breath Respiratory: Denies: Cough, Hemoptysis, Shortness of Breath, Wheezing Gastrointestinal:: Reports: Reflux - occasionally. Denies: Abdominal pain, Nausea, Vomiting, Diarrhea, Constipation, Melena, Hematochezia, Hemorrhoids Genitourinary: Reports: Urinary frequency, Nocturia. Denies: Dysuria, Hematuria , Flank pain Musculoskeletal:: Reports: Muscle weakness, Back pain. Denies: Myalgia, Arthralgia Skin: Denies: Rash, Skin Changes, Wounds Neurological:: Denies: Headache, Dizziness, Numbness, Tingling, Visual changes, Tinnitus, Hearing loss Psychiatric: Denies: Anxiety, Depression, Homicidal Ideations, Suicidal Ideations Vital Signs Height 6 ft Weight: 202 lb 2.622 oz Weight in Pounds 202.2 lbs Pulse Ox 96 Temperature 99.1 F Pulse Rate 119 Respiratory Rate 17 Blood Pressure 123/58 Blood Pressure Position Semi-Fowlers - Physical Exam General: Alert, Oriented x3, No apparent distress HEENT: Atraumatic, Normocephalic, - - wears glasses Oropharynx:: Negative for: Dry mucosa, Ulcerated lesions Neck:: Supple, Trachea midline. Negative for: JVD, bilateral Cardiac:: Regular rate, Regular rhythm, Normal S1, Normal S2. Negative for: Murmur Lungs: Clear to auscultation, Excusion symmetrical. Negative for: Rhonchi, Wheezes Abdomen:: Bowel sounds x 4, Soft, Non-tender, Non-distended, Hernia. Negative for: Hepatosplenomegaly Extremities:: Negative for: Cyanosis, Edema Neurological: Neuro grossly intact Skin:: - - BLE luis enrique. Negative for: Lesions, Rash, Petechiae, Ecchymosis Psychiatric:: Appropriate affect, Euthymic Lymphatics:: Negative for: Cervical lymphadenopathy, Supraclavicular lymphadenopathy, Axillary lymphadenopathy Laboratory Data: Laboratory Tests 3 05/16/18 05/16/18 05/16/18 Range/Units 06:46 04:55 04:55 WBC (4.4-11.0) K/mm3 RBC (4.6-6.2) M/mm3 Hgb (13.0-16.5) g/dl Hct (40-54) % MCV (80-94) fL MCH (27.0-32.0) pg MCHC (32-36) g/gl RDW (11.6-14.6) % RDW Differential (35.1-43.9) fl Plt Count (150-450) K/mm3 MPV (6.2-12.0) fl Immature Gran % (Auto) (0.0-0.9) % Neut % (Auto) (47-70) % Lymph % (Auto) (19-41) % [place] % (Auto) (0-10) % Eos % (Auto) (0-5) % Baso % (Auto) (0-1) % Absolute Neuts (auto) (2.0-7.7) X10^3/uL Absolute Lymphs (auto) (0.83-4.51) X10^3/ul Total Counted Differential Comment Platelet Estimate (ADEQ) Anisocytosis Macrocytosis PT 30.1 H (11.7-14.9) SECONDS INR 2.9 Sodium 146 H (136-145) mmol/L Potassium 3.4 L (3.5-5.1) mmol/L Chloride 109 H (98-107) mmol/L Carbon Dioxide 30.0 (21.0-32.0) mmol/L Anion Gap 7 (5-15) BUN 66 H (7-18) mg/dL Creatinine 1.61 H (0.70-1.30) mg/dL Estim Creat Clear Calc 40.17 ml/min Est GFR (MDRD) Af Amer 53 L (>60) mL/min Est GFR (MDRD) Non-Af 44 L (>60) mL/min BUN/Creatinine Ratio 41.0 H (10-20) RATIO Glucose 99 (74-106) mg/dL Calcium 8.6 (8.5-10.1) mg/dL POC Glucose 98 (70-110) mg/dL 3 05/16/18 05/15/18 Range/Units 04:55 22:29 WBC 3.5 L (4.4-11.0) K/mm3 RBC 2.41 L (4.6-6.2) M/mm3 Hgb 7.9 L (13.0-16.5) g/dl Hct 25.3 L (40-54) % MCV 105.0 H (80-94) fL MCH 32.8 H (27.0-32.0) pg MCHC 31.2 L (32-36) g/gl RDW 16.6 H (11.6-14.6) % RDW Differential 63.5 H (35.1-43.9) fl Plt Count 81 L (150-450) K/mm3 MPV 10.1 (6.2-12.0) fl Immature Gran % (Auto) 0.600 (0.0-0.9) % Neut % (Auto) 77.1 H (47-70) % Lymph % (Auto) 16.6 L (19-41) % [place] % (Auto) 4.3 (0-10) % Eos % (Auto) 1.4 (0-5) % Baso % (Auto) 0.0 (0-1) % Absolute Neuts (auto) 2.7 (2.0-7.7) X10^3/uL Absolute Lymphs (auto) 0.58 L (0.83-4.51) X10^3/ul Total Counted Not Reportable Differential Comment SEE COMMENT Platelet Estimate ADEQUATE (ADEQ) Anisocytosis 1+ Macrocytosis 1+ PT (11.7-14.9) SECONDS INR Sodium (136-145) mmol/L Potassium (3.5-5.1) mmol/L Chloride (98-107) mmol/L Carbon Dioxide (21.0-32.0) mmol/L Anion Gap (5-15) BUN (7-18) mg/dL Creatinine (0.70-1.30) mg/dL Estim Creat Clear Calc ml/min Est GFR (MDRD) Af Amer (>60) mL/min Est GFR (MDRD) Non-Af (>60) mL/min BUN/Creatinine Ratio (10-20) RATIO Glucose (74-106) mg/dL Calcium (8.5-10.1) mg/dL POC Glucose 134 H (70-110) mg/dL Diagnostic Data: Diagnostic Data Brain CT 05/15/18 14:16 IMPRESSION: Chronic involutional changes of the brain. Electronically Signed: Perez Arevalo MD at 15:45 EDT Tel [phone], Service support , Assessment and Plan 1. Pancytopenia- as evidenced by lymphopenia, macrocytic anemia and platelet count of 81,000. Does not meet criteria for transfusion, nor to hold anticoagulation. In careful review of his chart, mild thrombocytopenia and mild lymphopenia are not new findings as first noted as far back as 05/2012. Some causes of hypoproliferative pancytopenia such as ETOH and reaction to medications have been discounted. Anemia is likely multifactorial given h/o CKD and possibility of hematuria r/t ureteral stent. Need stool for FOB. Will obtain peripheral blood smear, retic count, ESR, LFTs, hepatitis panel. TSH is within normal limits. Will obtain LDH, direct bili and haptoglobin to assess for hemolysis and iron studies, folate. It appears UPEP, SPEP and immunoglobulins have already been ordered, results pending. May be of benefit to request recent report of low back plain films from [facility] to assure no skeletal lesions were observed in the area in which patient is endorsing pain. 2. Chronic anticoagulation with warfarin, management of chronic Afib- as expected PT elevated. INR therapeutic. Veena Esposito, MSN, I&C TECHNICIAN, AOCNP Medications: Medications Added to Medication List This Visit Category Date Time Status 0.9% Saline Lock Med 05/16/18 06:25 Active 5 - 30 ml IV UD PRN Allopurinol [Zyloprim] Med 05/16/18 10:00 Active 100 mg PO DAILY Atenolol [Tenormin (beta Rajani)] Med 05/16/18 10:00 Active 25 mg PO DAILY Colchicine Med 05/16/18 10:00 Active 0.6 mg PO DAILY Ferrous Sulfate Med 05/16/18 08:00 Active 325 mg PO DAILY@0800 Finasteride [Proscar] Med 05/16/18 10:00 Active 5 mg PO DAILY Multivitamin (Ocuvite) [Ocuvite] Med 05/16/18 08:00 Active 1 tablet PO DAILY@0800 Warfarin [Coumadin (PBKC)] Med 05/16/18 17:00 Active 5 mg PO SUTUTHFRSA Warfarin [Coumadin (PBKC)] Med 05/17/18 17:00 Active 7.5 mg PO MOWE Primary Care Provider: Bijan Zheng Referring Provider:
[2018-05-16] MEDS: Glucerna Shake 120 ML LIQUID PO (10:26)
[2018-05-16 11:11] LABS: Bedside Glucose 192 mg/dL (70-110)
[2018-05-16 12:02] LABS: Immature Platelet Fraction 4.5 % (1.0-7.9); RET-HE 28.2 pg (30-35); Reticulocyte Count 2.32 % (0.5-1.5)
[2018-05-16 12:08] LABS: Erythrocyte Sedimentation Rate 68 mm/hr (0-20)
[2018-05-16] MEDS: Insulin Lispro 100 UNIT/ML INSULN.PEN SC (12:12)
[2018-05-16 13:01] LABS: AST(SGOT) 105 U/L (15-37); Alanine Aminotransfer ALT/SGPT 87 U/L (16-61); Albumin, Serum 3.1 g/dL (3.2-5.0); Alkaline Phosphatase 194 U/L (45-117); Bilirubin, Direct 0.52 mg/dL (0.00-0.30); Ferritin 778 ng/mL (26-388); Globulin 4.1 g/dL (2.2-4.2); Iron 27 ug/dL (65-175); Iron Binding Capacity,Total 144 ug/dL (250-450); LDH 531 U/L (87-241); PERCENT IRON SATURATION 18.8 % (15.0-55.0); Protein, Total 7.2 g/dL (6.4-8.2)
--- NOTE | 2018-05-16 13:26 | CASEMGMT ---
Face to Face with patient for initial transition planning/care coordination assessment. RN FANNIE introduced self and role at [facility], pt voices understanding and consents to assessment at this time. Pt is lying in bed in no distress at this time. Pt seems very tired at this time. Pt is A/O x4 at this time and answers all questions appropriately at this time. Care providers, pharmacy, and demographics verified. See attached link. Pt voices no further concerns/needs at this time. Advised pt to ask for CM if any further questions/concerns/needs arise, voices understanding. Referral to [facility] for SNF placement per pt request at this time, voices understanding. Pt states would like TCU or [facility]. PLAN: [facility] Bobbi FORD CM
--- NOTE | 2018-05-16 14:16 | PCM.CONS.GEN ---
Problem List (1) Weakness Status: Acute (2) Debility Status: Chronic Reason for Consult Date of Consultation: 05/16/18 Reason for Consultation: Generalized weakness, falls History of Present Illness: The patient is a 82 year old CM with PMH HTN, HLD, DM, CHF, AFib on Coumadin, CKD, ureteral stricture s/o right nephrostomy, SSS s/p pacer H/O lumbar fusion surgery, non healing foot ulcers, valvular heart disease admitted with weakness and falls. Per documentation patient had 2 falls in the last 2 days Per patient he was trying to sit on the commode yesterday (05/15/18) but he slid and fell, per patient he lives alone, does not drive, uses cane to ambulate, had about 4-5 falls in the past few years, denies any frequent or daily falls, does not need assistance for his ADLs, he does complaint of chronic low back pain without any radicular symptoms, had some Xray L spine done by his PCP recently and has been referred to a pain management, in the interim has been on Tylenol with codeine for pain which has helped improve his back pain per patient but was admitted with generalized weakness and falls. Per documentation he was in the NH recently, was discharged home, following which he felt weak and had a fall, later came to [facility] ED was discharged and came back with another fall, per documentation patient had generalized weakness and felt his legs gave out. Per documentation there was some AMS and patient was slow to answer questions on admission. Denies any RAMIREZ, new onset visual disturbances, speech disturbances, focal motor weakness or sensory loss, denies dizziness. Denies any neck pain, radicular symptoms. CT head done on 05/14/18 and 05/15/18 reported nothing acute. found to be pancytopenic on admission, with hypokalemia and Cr was 2.21, has altered ALT/AST. UA was abnormal with LE 500. 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) Constipation (Chronic) Hyperlipidemia (Chronic) Gout (Chronic) Allergies hydrocodone bitartrate [From Vicodin] Allergy (Verified 05/11/18 08:06) Unknown Iodinated Contrast- Oral and IV Dye [DYEE] Allergy (Verified 05/11/18 08:06) Unknown oxycodone HCl [From Percocet] Allergy (Verified 05/15/18 18:26) Itching Sulfa (Sulfonamide Antibiotics) Adverse Reaction (Verified 05/11/18 08:06) Unknown Home Medications: Ambulatory Orders Medication Instructions Recorded Finasteride [Proscar] 5 mg PO DAILY 05/14/14 Multivit-Min/FA/Lycopene/Lut 1 each PO DAILY 05/14/14 [Centrum Silver Tablet] Acetaminophen [Pain Reliever] 500 mg PO Q6H PRN PRN 09/25/16 Lorazepam [Ativan] 1 mg PO QHS 10/16/16 Simvastatin [Zocor] 5 mg PO QHS 10/16/16 Atenolol [Tenormin (beta yosef)] 25 mg PO DAILY 09/03/17 Bumetanide [Bumex] 2 mg PO BID 09/03/17 Metolazone [Zaroxolyn] 2.5 mg PO QODAY 09/03/17 Insulin Glargine [Lantus SoloStar 15 units SC QHS 10/25/17 Pen] Polyethylene Glycol 3350 [Miralax] 17 gm PO DAILY 10/25/17 Allopurinol 100 mg PO DAILY 11/04/17 Glipizide [Glipizide ER] 2.5 mg PO BREAKFAST 11/04/17 Acetaminophen/Codeine #3 1 tablet PO DAILY 05/14/18 [Tylenol#3] Colchicine 0.6 mg PO DAILY 05/14/18 Ferrous Sulfate 325 mg PO DAILY@0800 05/14/18 Pregabalin [Lyrica] 50 mg PO TID 05/14/18 Vit C/E/Zn/Coppr/Lutein/Zeaxan 1 each PO DAILY 05/14/18 [Preservision Areds 2 Softgel] Surgical History: colectomy - S/P [place] OF COLOSTOMY, herniorrhaphy, pacemaker implantation, total hip arthroplasty, total knee arthroplasty, tonsillectomy, - Lives: Alone Smoking Status: Former smoker Tobacco Use: Non-smoker Alcohol: None Drugs: None - *Family History Maternal History Items: Diabetes Paternal History Items: Seizures Offspring History Items: Diabetes Review of Systems Constitutional: Reports: - - complete ROS negative except as documented in HPI Patient Problems: Active and Suspected Problems Weakness (Acute) Guaiac positive stools (Acute) Altered mental status (Acute) - Physical Exam General: - - awake alert HEENT: EOMI, Normocephalic Neck: Supple Lungs: Normal air movement Cardiovascular: Normal S1, Normal S2 Abdomen: Bowel Sounds Present Extremities: No cyanosis Neurological: - - awake, AoAx 3, CN 2-12 grossly intact, power 5/5 both UE/LE, no sensory loss, no cerebellar sign, Asterexis present both UE, with some myoclonic jerks, Reflexes + B/L B/S/T/K/A, gait walks with wide gait, ambulates with cane and needs assistance at [employer]. No tremors, tone is normal both UE, Reflexes + B/L B/S/T/K/A. Vital Signs Temp Pulse Resp BP Pulse Ox 98.3 F 76 17 119/51 L 98 05/16/18 13:21 05/16/18 13:21 05/16/18 13:21 05/16/18 13:21 05/16/18 13:21 Oxygen Delivery Method Room Air Weight: 91.7 kg Body Mass Index (BMI) 27.3 Orthostatic Vital Signs Start: 05/16/18 10:14 Freq: q24h Status: Active Protocol: Activity Type Activity Date Activity User E-Sign Co-Sign Detail Recorded Client Recorded Date Recorded By Document 05/16/18 10:14 [facility] [id number] 05/16/18 10:25 [facility] 05/16/18 10:14 Orthostatic Vitals Standing -Blood Pressure (90/60-120/80) 94/58 L -Extremity Use Right Arm -Pulse Rate (60-100) 126 H Sitting -Blood Pressure (90/60-120/80) 97/50 L -Extremity Use Right Arm -Pulse Rate (60-100) 116 H Lying -Blood Pressure (90/60-120/80) 107/44 L -Extremity Use Right Arm -Pulse Rate (60-100) 72 Intake and Output for Last 24 Hours 05/14/18 05/15/18 05/16/18 23:59 23:59 23:59 Intake Total 2613 / 2613 Output Total 750 / 750 825 / 825 Balance -750 / -750 1788 / 1788 Laboratory Tests Past 24 Hrs 05/16/18 05/16/18 05/16/18 04:55 04:55 04:55 WBC 3.5 L RBC 2.41 L Hgb 7.9 L Hct 25.3 L MCV 105.0 H MCH 32.8 H MCHC 31.2 L RDW 16.6 H RDW Differential 63.5 H Plt Count 81 L MPV 10.1 Immature Gran % (Auto) 0.600 Neut % (Auto) 77.1 H Lymph % (Auto) 16.6 L Dillon % (Auto) 4.3 Eos % (Auto) 1.4 Baso % (Auto) 0.0 Absolute Neuts (auto) 2.7 Absolute Lymphs (auto) 0.58 L Total Counted Not Reportable Differential Comment SEE COMMENT Platelet Estimate ADEQUATE Immature Plt Fraction Anisocytosis 1+ Macrocytosis 1+ ESR Retic Count Immature Retic Fraction Retic Hgb Equivalent Haptoglobin PT 30.1 H INR 2.9 Sodium 146 H Potassium 3.4 L Chloride 109 H Carbon Dioxide 30.0 Anion Gap 7 BUN 66 H Creatinine 1.61 H Estim Creat Clear Calc 40.17 Est GFR (MDRD) Af Amer 53 L Est GFR (MDRD) Non-Af 44 L BUN/Creatinine Ratio 41.0 H Glucose 99 Calcium 8.6 Iron TIBC Iron Saturation Ferritin Total Bilirubin Direct Bilirubin AST ALT Alkaline Phosphatase Lactate Dehydrogenase Total Protein Total Protein (PEP) Albumin Globulin Folate Urine Total Protein Urine Albumin U Fnfww-0-Clnddcam U Ynyex-8-Ppaibulh U Beta Globulin U Gamma Globulin U PEP M-Baron IgG IgA IgM Albumin (SHEN) Albumin/Globulin (SHEN) Tpgsg-6-Jszyfiwxf SHEN Rjjxl-4-Sqchizyqf SHEN Beta-Globulins (SHEN) Gamma Globulins (SHEN) SHEN M-Baron Hepatitis A IgM Ab Hepatitis A Ab Total Hep Bs Antigen Hep Bs Antibody Hep B Core Total Ab Hep B Core IgM Ab Hepatitis Be Antibody Hepatitis Be Antigen Hepatitis Interpret 05/16/18 05/16/18 05/16/18 04:55 04:55 04:55 WBC RBC Hgb Hct MCV MCH MCHC RDW RDW Differential Plt Count MPV Immature Gran % (Auto) Neut % (Auto) Lymph % (Auto) Dillon % (Auto) Eos % (Auto) Baso % (Auto) Absolute Neuts (auto) Absolute Lymphs (auto) Total Counted Differential Comment Platelet Estimate Immature Plt Fraction 4.5 Anisocytosis Macrocytosis ESR 68 H Retic Count 2.32 H Immature Retic Fraction 11.10 Retic Hgb Equivalent 28.2 L Haptoglobin PT INR Sodium Potassium Chloride Carbon Dioxide Anion Gap BUN Creatinine Estim Creat Clear Calc Est GFR (MDRD) Af Amer Est GFR (MDRD) Non-Af BUN/Creatinine Ratio Glucose Calcium Iron 27 L TIBC 144 L Iron Saturation 18.8 Ferritin 778 H Total Bilirubin 0.90 Direct Bilirubin 0.52 H AST 105 H ALT 87 H Alkaline Phosphatase 194 H Lactate Dehydrogenase 531 H Total Protein 7.2 Total Protein (PEP) Pending Albumin 3.1 L Globulin 4.1 Folate 44.00 Urine Total Protein Pending Urine Albumin Pending U Fwzsi-5-Rryxeeqk Pending U Lhiik-2-Mjgtpjmb Pending U Beta Globulin Pending U Gamma Globulin Pending U PEP M-Baron Pending IgG Pending IgA Pending IgM Pending Albumin (SHEN) Pending Albumin/Globulin (SHEN) Pending Haqqn-3-Uzmgwrftb SHEN Pending Pzlzw-2-Tamumydau SHEN Pending Beta-Globulins (SHEN) Pending Gamma Globulins (SHEN) Pending SHEN M-Baron Pending Hepatitis A IgM Ab Hepatitis A Ab Total Hep Bs Antigen Hep Bs Antibody Hep B Core Total Ab Hep B Core IgM Ab Hepatitis Be Antibody Hepatitis Be Antigen Hepatitis Interpret 05/16/18 13:35 WBC RBC Hgb Hct MCV MCH MCHC RDW RDW Differential Plt Count MPV Immature Gran % (Auto) Neut % (Auto) Lymph % (Auto) Dillon % (Auto) Eos % (Auto) Baso % (Auto) Absolute Neuts (auto) Absolute Lymphs (auto) Total Counted Differential Comment Platelet Estimate Immature Plt Fraction Anisocytosis Macrocytosis ESR Retic Count Immature Retic Fraction Retic Hgb Equivalent Haptoglobin Pending PT INR Sodium Potassium Chloride Carbon Dioxide Anion Gap BUN Creatinine Estim Creat Clear Calc Est GFR (MDRD) Af Amer Est GFR (MDRD) Non-Af BUN/Creatinine Ratio Glucose Calcium Iron TIBC Iron Saturation Ferritin Total Bilirubin Direct Bilirubin AST ALT Alkaline Phosphatase Lactate Dehydrogenase Total Protein Total Protein (PEP) Albumin Globulin Folate Urine Total Protein Urine Albumin U Rkdqw-1-Owaelwip U Ekkew-9-Cusoyimh U Beta Globulin U Gamma Globulin U PEP M-Baron IgG IgA IgM Albumin (SHEN) Albumin/Globulin (SHEN) Nnwks-5-Mucvfdqaf SHEN Ovyyu-3-Hrxxhksyw SHEN Beta-Globulins (SHEN) Gamma Globulins (SHEN) SHEN M-Baron Hepatitis A IgM Ab Pending Hepatitis A Ab Total Pending Hep Bs Antigen Pending Hep Bs Antibody Pending Hep B Core Total Ab Pending Hep B Core IgM Ab Pending Hepatitis Be Antibody Pending Hepatitis Be Antigen Pending Hepatitis Interpret Pending POC Glucose 05/16/18 05/16/18 05/15/18 10:59 06:46 22:29 POC Glucose 192 H 98 134 H Assessment/Plan All Active Problems Weakness (Acute) Guaiac positive stools (Acute) Chronic anticoagulation (Acute) Altered mental status (Acute) CHF exacerbation (Acute) The patient is a 82 year old CM with PMH HTN, HLD, DM, CHF, AFib on Coumadin, CKD, ureteral stricture s/o right nephrostomy, SSS s/p pacer H/O lumbar fusion surgery, non healing foot ulcers, valvular heart disease admitted with weakness and falls. Per documentation patient had 2 falls in the last 2 days Per patient he was trying to sit on the commode yesterday (05/15/18) but he slid and fell, per patient he lives alone, does not drive, uses cane to ambulate, had about 4-5 falls in the past few years, denies any frequent or daily falls, does not need assistance for his ADLs, he does complaint of chronic low back pain without any radicular symptoms, had some Xray L spine done by his PCP recently and has been referred to a pain management, in the interim has been on Tylenol with codeine for pain which has helped improve his back pain per patient but was admitted with generalized weakness and falls. Per documentation he was in the NH recently, was discharged home, following which he felt weak and had a fall, later came to [facility] ED was discharged and came back with another fall, per documentation patient had generalized weakness and felt his legs gave out. Per documentation there was some AMS and patient was slow to answer questions on admission. Denies any RAMIREZ, new onset visual disturbances, speech disturbances, focal motor weakness or sensory loss, denies dizziness. Denies any neck pain, radicular symptoms. CT head done on 05/14/18 and 05/15/18 reported nothing acute.. found to be pancytopenic on admission, with hypokalemia and Cr was 2.21, has altered ALT/AST. UA was abnormal with LE 500. Impression Metabolic Encephalopathy Asterixis NO Parkinson's features at present clinically. Plan -CT head reported nothing acute -Patient symptoms likely due to underlying Renal issues/Altered LFTs and electrolyte disturbances -Labs reviewed. Avoid narcotics if possible. Check Ammonia -Cannot get MRI due to pacer, may check CT C and L spine w/o contrast -PT/OT -Fall precautions -GI/DVT prophylaxis -Please call with questions if any -Thank you for allowing us to participate in patient's care and management I spent 60 minutes taking history, doing physical examination, reviewing medical records, coordinating care and counseling the patient. Code Visit Inpatient E&M: [id number] Init Hosp L3
--- NOTE | 2018-05-16 14:27 | CASEMGMT ---
Per RN CM patient is in agreement with going to either [facility]. KRISTEN called Gwen in TCU and left her a voice mail. KRISTEN called [facility] and spoke with Guillermina. KRIST[facility] also [facility]. Patient will require insurance authorization before he can be discharged. [facility] pending acceptance and insurance approval. Paola SALAS MSW
--- NOTE | 2018-05-16 14:28 | CON.PCM_ITS ---
Problem List (1) Weakness Status: Acute (2) Debility Status: Chronic Reason for Consult Date of Consultation: 05/16/18 Reason for Consultation: Generalized weakness, falls History of Present Illness: The patient is a 82 year old CM with PMH HTN, HLD, DM, CHF, AFib on Coumadin, CKD, ureteral stricture s/o right nephrostomy, SSS s/p pacer H/O lumbar fusion surgery, non healing foot ulcers, valvular heart disease admitted with weakness and falls. Per documentation patient had 2 falls in the last 2 days Per patient he was trying to sit on the commode yesterday (05/15/18) but he slid and fell, per patient he lives alone, does not drive, uses cane to ambulate, had about 4- 5 falls in the past few years, denies any frequent or daily falls, does not need assistance for his ADLs, he does complaint of chronic low back pain without any radicular symptoms, had some Xray L spine done by his PCP recently and has been referred to a pain management, in the interim has been on Tylenol with codeine for pain which has helped improve his back pain per patient but was admitted with generalized weakness and falls. Per documentation he was in the NH recently, was discharged home, following which he felt weak and had a fall, later came to [facility] ED was discharged and came back with another fall, per documentation patient had generalized weakness and felt his legs gave out. Per documentation there was some AMS and patient was slow to answer questions on admission. Denies any RAMIREZ, new onset visual disturbances, speech disturbances, focal motor weakness or sensory loss, denies dizziness. Denies any neck pain, radicular symptoms. CT head done on 05/14/18 and 05/15/18 reported nothing acute. found to be pancytopenic on admission, with hypokalemia and Cr was 2.21, has altered ALT/AST. UA was abnormal with LE 500. 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) Constipation (Chronic) Hyperlipidemia (Chronic) Gout (Chronic) Allergies hydrocodone bitartrate [From Vicodin] Allergy (Verified 05/11/18 08:06) Unknown Iodinated Contrast- Oral and IV Dye [DYEE] Allergy (Verified 05/11/18 08:06) Unknown oxycodone HCl [From Percocet] Allergy (Verified 05/15/18 18:26) Itching Sulfa (Sulfonamide Antibiotics) Adverse Reaction (Verified 05/11/18 08:06) Unknown Home Medications: Ambulatory Orders Medication Instructions Recorded Finasteride [Proscar] 5 mg PO DAILY 05/14/14 Multivit-Min/FA/Lycopene/Lut 1 each PO DAILY 05/14/14 [Centrum Silver Tablet] Acetaminophen [Pain Reliever] 500 mg PO Q6H PRN PRN 09/25/16 Lorazepam [Ativan] 1 mg PO QHS 10/16/16 Simvastatin [Zocor] 5 mg PO QHS 10/16/16 Atenolol [Tenormin (beta yosef)] 25 mg PO DAILY 09/03/17 Bumetanide [Bumex] 2 mg PO BID 09/03/17 Metolazone [Zaroxolyn] 2.5 mg PO QODAY 09/03/17 Insulin Glargine [Lantus SoloStar 15 units SC QHS 10/25/17 Pen] Polyethylene Glycol 3350 [Miralax] 17 gm PO DAILY 10/25/17 Allopurinol 100 mg PO DAILY 11/04/17 Glipizide [Glipizide ER] 2.5 mg PO BREAKFAST 11/04/17 Acetaminophen/Codeine #3 1 tablet PO DAILY 05/14/18 [Tylenol#3] Colchicine 0.6 mg PO DAILY 05/14/18 Ferrous Sulfate 325 mg PO DAILY@0800 05/14/18 Pregabalin [Lyrica] 50 mg PO TID 05/14/18 Vit C/E/Zn/Coppr/Lutein/Zeaxan 1 each PO DAILY 05/14/18 [Preservision Areds 2 Softgel] Surgical History: colectomy - S/P [place] OF COLOSTOMY, herniorrhaphy, pacemaker implantation, total hip arthroplasty, total knee arthroplasty, tonsillectomy, - Lives: Alone Smoking Status: Former smoker Tobacco Use: Non-smoker Alcohol: None Drugs: None - *Family History Maternal History Items: Diabetes Paternal History Items: Seizures Offspring History Items: Diabetes Review of Systems Constitutional: Reports: - - complete ROS negative except as documented in HPI Patient Problems: Active and Suspected Problems Weakness (Acute) Guaiac positive stools (Acute) Altered mental status (Acute) - Physical Exam General: - - awake alert HEENT: EOMI, Normocephalic Neck: Supple Lungs: Normal air movement Cardiovascular: Normal S1, Normal S2 Abdomen: Bowel Sounds Present Extremities: No cyanosis Neurological: - - awake, AoAx 3, CN 2-12 grossly intact, power 5/5 both UE/LE, no sensory loss, no cerebellar sign, Asterexis present both UE, with some myoclonic jerks, Reflexes + B/L B/S/T/K/A, gait walks with wide gait, ambulates with cane and needs assistance at [employer]. No tremors, tone is normal both UE, Reflexes + B/L B/S/T/K/A. Vital Signs Temp Pulse Resp BP Pulse Ox 98.3 F 76 17 119/51 L 98 05/16/18 13:21 05/16/18 13:21 05/16/18 13:21 05/16/18 13:21 05/16/18 13:21 Oxygen Delivery Method Room Air Weight: 91.7 kg Body Mass Index (BMI) 27.3 Orthostatic Vital Signs Start: 05/16/18 10:14 Freq: q24h Status: Active Protocol: Activity Type Activity Date Activity User E-Sign Co-Sign Detail Recorded Client Recorded Date Recorded By Document 05/16/18 10:14 [facility] [id number] 05/16/18 10:25 [facility] 05/16/18 10:14 Orthostatic Vitals Standing -Blood Pressure (90/60-120/80) 94/58 L -Extremity Use Right Arm -Pulse Rate (60-100) 126 H Sitting -Blood Pressure (90/60-120/80) 97/50 L -Extremity Use Right Arm -Pulse Rate (60-100) 116 H Lying -Blood Pressure (90/60-120/80) 107/44 L -Extremity Use Right Arm -Pulse Rate (60-100) 72 Intake and Output for Last 24 Hours 05/14/18 05/15/18 05/16/18 23:59 23:59 23:59 Intake Total 2613 / 2613 Output Total 750 / 750 825 / 825 Balance -750 / -750 1788 / 1788 Laboratory Tests Past 24 Hrs 05/16/18 05/16/18 05/16/18 04:55 04:55 04:55 WBC 3.5 L RBC 2.41 L Hgb 7.9 L Hct 25.3 L MCV 105.0 H MCH 32.8 H MCHC 31.2 L RDW 16.6 H RDW Differential 63.5 H Plt Count 81 L MPV 10.1 Immature Gran % (Auto) 0.600 Neut % (Auto) 77.1 H Lymph % (Auto) 16.6 L [place] % (Auto) 4.3 Eos % (Auto) 1.4 Baso % (Auto) 0.0 Absolute Neuts (auto) 2.7 Absolute Lymphs (auto) 0.58 L Total Counted Not Reportable Differential Comment SEE COMMENT Platelet Estimate ADEQUATE Immature Plt Fraction Anisocytosis 1+ Macrocytosis 1+ ESR Retic Count Immature Retic Fraction Retic Hgb Equivalent Haptoglobin PT 30.1 H INR 2.9 Sodium 146 H Potassium 3.4 L Chloride 109 H Carbon Dioxide 30.0 Anion Gap 7 BUN 66 H Creatinine 1.61 H Estim Creat Clear Calc 40.17 Est GFR (MDRD) Af Amer 53 L Est GFR (MDRD) Non-Af 44 L BUN/Creatinine Ratio 41.0 H Glucose 99 Calcium 8.6 Iron TIBC Iron Saturation Ferritin Total Bilirubin Direct Bilirubin AST ALT Alkaline Phosphatase Lactate Dehydrogenase Total Protein Total Protein (PEP) Albumin Globulin Folate Urine Total Protein Urine Albumin U Zsvym-8-Xxdlacdx U Snjbp-6-Tzgsmrez U Beta Globulin U Gamma Globulin U PEP M-Baron IgG IgA IgM Albumin (SHEN) Albumin/Globulin (SHEN) Ecmmg-8-Zdxjxknyk SHEN Wiiob-2-Oxxmuylwi SHEN Beta-Globulins (SHEN) Gamma Globulins (SHEN) SHEN M-Baron Hepatitis A IgM Ab Hepatitis A Ab Total Hep Bs Antigen Hep Bs Antibody Hep B Core Total Ab Hep B Core IgM Ab Hepatitis Be Antibody Hepatitis Be Antigen Hepatitis Interpret 05/16/18 05/16/18 05/16/18 04:55 04:55 04:55 WBC RBC Hgb Hct MCV MCH MCHC RDW RDW Differential Plt Count MPV Immature Gran % (Auto) Neut % (Auto) Lymph % (Auto) [place] % (Auto) Eos % (Auto) Baso % (Auto) Absolute Neuts (auto) Absolute Lymphs (auto) Total Counted Differential Comment Platelet Estimate Immature Plt Fraction 4.5 Anisocytosis Macrocytosis ESR 68 H Retic Count 2.32 H Immature Retic Fraction 11.10 Retic Hgb Equivalent 28.2 L Haptoglobin PT INR Sodium Potassium Chloride Carbon Dioxide Anion Gap BUN Creatinine Estim Creat Clear Calc Est GFR (MDRD) Af Amer Est GFR (MDRD) Non-Af BUN/Creatinine Ratio Glucose Calcium Iron 27 L TIBC 144 L Iron Saturation 18.8 Ferritin 778 H Total Bilirubin 0.90 Direct Bilirubin 0.52 H AST 105 H ALT 87 H Alkaline Phosphatase 194 H Lactate Dehydrogenase 531 H Total Protein 7.2 Total Protein (PEP) Pending Albumin 3.1 L Globulin 4.1 Folate 44.00 Urine Total Protein Pending Urine Albumin Pending U Qryjp-7-Gidgaexl Pending U Sbwtf-8-Zzwttdqy Pending U Beta Globulin Pending U Gamma Globulin Pending U PEP M-Baron Pending IgG Pending IgA Pending IgM Pending Albumin (SHEN) Pending Albumin/Globulin (SHEN) Pending Mofol-2-Pshqgolcm SHEN Pending Bsaou-3-Sfkifrmmz SHEN Pending Beta-Globulins (SHEN) Pending Gamma Globulins (SHEN) Pending SHEN M-Baron Pending Hepatitis A IgM Ab Hepatitis A Ab Total Hep Bs Antigen Hep Bs Antibody Hep B Core Total Ab Hep B Core IgM Ab Hepatitis Be Antibody Hepatitis Be Antigen Hepatitis Interpret 05/16/18 13:35 WBC RBC Hgb Hct MCV MCH MCHC RDW RDW Differential Plt Count MPV Immature Gran % (Auto) Neut % (Auto) Lymph % (Auto) [place] % (Auto) Eos % (Auto) Baso % (Auto) Absolute Neuts (auto) Absolute Lymphs (auto) Total Counted Differential Comment Platelet Estimate Immature Plt Fraction Anisocytosis Macrocytosis ESR Retic Count Immature Retic Fraction Retic Hgb Equivalent Haptoglobin Pending PT INR Sodium Potassium Chloride Carbon Dioxide Anion Gap BUN Creatinine Estim Creat Clear Calc Est GFR (MDRD) Af Amer Est GFR (MDRD) Non-Af BUN/Creatinine Ratio Glucose Calcium Iron TIBC Iron Saturation Ferritin Total Bilirubin Direct Bilirubin AST ALT Alkaline Phosphatase Lactate Dehydrogenase Total Protein Total Protein (PEP) Albumin Globulin Folate Urine Total Protein Urine Albumin U Ddtpd-5-Pvdgcuih U Thrfe-1-Vwvwrzkd U Beta Globulin U Gamma Globulin U PEP M-Baron IgG IgA IgM Albumin (SHEN) Albumin/Globulin (SHEN) Xneuu-0-Vltvtnzzw SHEN Lusez-3-Simwyseva SHEN Beta-Globulins (SHEN) Gamma Globulins (SHEN) SHEN M-Baron Hepatitis A IgM Ab Pending Hepatitis A Ab Total Pending Hep Bs Antigen Pending Hep Bs Antibody Pending Hep B Core Total Ab Pending Hep B Core IgM Ab Pending Hepatitis Be Antibody Pending Hepatitis Be Antigen Pending Hepatitis Interpret Pending POC Glucose 05/16/18 05/16/18 05/15/18 10:59 06:46 22:29 POC Glucose 192 H 98 134 H Assessment/Plan All Active Problems Weakness (Acute) Guaiac positive stools (Acute) Chronic anticoagulation (Acute) Altered mental status (Acute) CHF exacerbation (Acute) The patient is a 82 year old CM with PMH HTN, HLD, DM, CHF, AFib on Coumadin, CKD, ureteral stricture s/o right nephrostomy, SSS s/p pacer H/O lumbar fusion surgery, non healing foot ulcers, valvular heart disease admitted with weakness and falls. Per documentation patient had 2 falls in the last 2 days Per patient he was trying to sit on the commode yesterday (05/15/18) but he slid and fell, per patient he lives alone, does not drive, uses cane to ambulate, had about 4- 5 falls in the past few years, denies any frequent or daily falls, does not need assistance for his ADLs, he does complaint of chronic low back pain without any radicular symptoms, had some Xray L spine done by his PCP recently and has been referred to a pain management, in the interim has been on Tylenol with codeine for pain which has helped improve his back pain per patient but was admitted with generalized weakness and falls. Per documentation he was in the NH recently, was discharged home, following which he felt weak and had a fall, later came to [facility] ED was discharged and came back with another fall, per documentation patient had generalized weakness and felt his legs gave out. Per documentation there was some AMS and patient was slow to answer questions on admission. Denies any RAMIREZ, new onset visual disturbances, speech disturbances, focal motor weakness or sensory loss, denies dizziness. Denies any neck pain, radicular symptoms. CT head done on 05/14/18 and 05/15/18 reported nothing acute.. found to be pancytopenic on admission, with hypokalemia and Cr was 2.21, has altered ALT/AST. UA was abnormal with LE 500. Impression Metabolic Encephalopathy Asterixis NO Parkinson's features at present clinically. Plan -CT head reported nothing acute -Patient symptoms likely due to underlying Renal issues/Altered LFTs and electrolyte disturbances -Labs reviewed. Avoid narcotics if possible. Check Ammonia -Cannot get MRI due to pacer, may check CT C and L spine w/o contrast -PT/OT -Fall precautions -GI/DVT prophylaxis -Please call with questions if any -Thank you for allowing us to participate in patient's care and management I spent 60 minutes taking history, doing physical examination, reviewing medical records, coordinating care and counseling the patient. Code Visit Inpatient E&M: [id number] Init Hosp L3
--- NOTE | 2018-05-16 16:04 | CASEMGMT ---
[facility] can take patient. They started the process to obtain insurance authorization. SW will let patient know. Plan: [facility] pending insurance approval. Paola TERRELL
[2018-05-16 18:00] LABS: Bedside Glucose 102 mg/dL (70-110)
[2018-05-16] MEDS: Atorvastatin Calcium 10 MG Tablet 5 MG PO (22:38)
[2018-05-17] VITALS (11 sets, daily range): BP systolic 103–128; BP diastolic 45–60; PULSE 70–129; RESP 12–20; TEMP 36.8–37.3; O2SAT 97–98
[2018-05-17 00:51] LABS: Bedside Glucose 137 mg/dL (70-110)
[2018-05-17] MEDS: Acetaminophen 325 MG Tablet 650 MG PO ×3 (05:44→21:14)
[2018-05-17 06:03] LABS: Albumin, Serum 2.9 g/dL (3.2-5.0); BUN 52 mg/dL (7-18); BUN/Creat Ratio 32.1 RATIO (10-20); Calcium,Total 8.6 mg/dL (8.5-10.1); Chloride 110 mmol/L (98-107); Creatinine, Serum 1.62 mg/dL (0.70-1.30); EST Glomerular Filtration Rate 44 mL/min (>60); Est Glom Filt Rate - Afr Amer 53 mL/min (>60); Estimated Creatinine Clearance 39.92 ml/min; Ferritin 868 ng/mL (26-388); Glucose 90 mg/dL (74-106); Iron 50 ug/dL (65-175); Phosphorus 2.3 mg/dL (2.5-4.9); Potassium 3.5 mmol/L (3.5-5.1); Sodium Level 147 mmol/L (136-145)
[2018-05-17 06:27] LABS: Absolute Lymphocyte Count 0.34 X10^3/ul (0.83-4.51); Absolute Neutrophil Count 2.7 X10^3/uL (2.0-7.7); Basophil# 0.01 X10^3/uL; Basophil% 0.3 % (0-1); Eosinophil# 0.04 X10^3/uL; Eosinophils% 1.1 % (0-5); Hematocrit 24.5 % (40-54); Hemoglobin 7.6 g/dl (13.0-16.5); Lymphocyte # 0.34 X10^3/ul (4.0); Lymphocyte % 9.6 % (19-41); Mean Corpuscular Hgb 33.5 pg (27.0-32.0); Mean Corpuscular Volume 107.9 fL (80-94); Mean Platelet Vol. 11.3 fl (6.2-12.0); Monocyte# 0.45 X10^3/uL; Monocyte% 12.7 % (0-10); Neutrophil # 2.66 X10^3/uL (2.7-7.7); Neutrophil % 75.5 % (47-70); Platelet Count 87 K/mm3 (150-450); RBC Distribution Width CV 16.2 % (11.6-14.6); RBC Distribution Width SD 61.2 fl (35.1-43.9); Red Blood Count 2.27 M/mm3 (4.6-6.2); White Blood Count 3.5 K/mm3 (4.4-11.0)
[2018-05-17 06:31] LABS: Differential Indicated SCAN CRITERIA MET; POSITIVE COUNT NO; POSITIVE DIFFERENTIAL YES; POSITIVE MORPHOLOGY NO
[2018-05-17 07:06] LABS: Bedside Glucose 96 mg/dL (70-110)
--- NOTE | 2018-05-17 07:18 | PN_ITS ---
Patient Problems: Active and Suspected Problems Weakness (Acute) Chronic anticoagulation (Acute) Altered mental status (Acute) Subjective: Patient is an 82-year-old male was admitted after he fell at home. Patient stated that his leg simply got weak and gave out and he fell twice. Per history obtained from his sinus patient was a poor historian, he had recently been given a prescription for Tylenol with codeine and subsequently started falling. Vitals and labs done in the ED were only significant for failure count of 87,000, white cell count of 3.4 and hemoglobin of 8. Thrombocytopenia was chronic since 714. CT done was negative for any acute findings. He was admitted and managed for general weakness and falls with mild altered mental status likely drug-induced from Tylenol with codeine. He remained stable. Patient seen and examined this morning. He is much more alert and responsive today. His son was at his bedside. He had no complaints this morning and denied any fever or chills, any cough or chest pain, any shortness of breath, any abdominal pain, any diarrhea vomiting. Review of systems otherwise negative. This morning patient said he is amenable to going to TCU for rehab therapy, but wouldnt want to go to any other SNF. Vitals/I&O's: Vital Signs Temp Pulse Resp BP Pulse Ox 99.2 F H 80 12 113/50 L 97 05/17/18 04:56 05/17/18 06:58 05/17/18 04:56 05/17/18 05:39 05/17/18 04:56 Oxygen Delivery Method Room Air Weight: 202 lb 2.622 oz Body Mass Index (BMI) 27.3 Orthostatic Vital Signs Start: 05/16/18 10:14 Freq: q24h Status: Active Protocol: Activity Type Activity Date Activity User E-Sign Co-Sign Detail Recorded Client Recorded Date Recorded By Document 05/17/18 05:39 [facility] [id number] 05/17/18 05:39 [facility] 05/17/18 05:39 Orthostatic Vitals Standing -Blood Pressure (90/60-120/80 mm Hg) 103/51 L -Extremity Use Right Arm -Pulse Rate (60-100 beats/min) 125 H Sitting -Blood Pressure (90/60-120/80 mm Hg) 105/57 L -Extremity Use Right Arm -Pulse Rate (60-100 beats/min) 129 H Lying -Blood Pressure (90/60-120/80 mm Hg) 113/50 L -Extremity Use Right Arm -Pulse Rate (60-100 beats/min) 81 Intake and Output for Last 24 Hours 05/15/18 05/16/18 05/17/18 23:59 23:59 23:59 Intake Total 4514 / 4514 415 / 415 Output Total 750 / 750 1560 / 1560 500 / 500 Balance -750 / -750 2954 / 2954 -85 / -85 General: Alert, Oriented x3, Cooperative, No apparent distress HEENT: Atraumatic, PERRLA, EOMI, Normocephalic Oral: Moist Mucosa Neck: Supple, No JVD, Negative Carotid Bruits Lungs: Clear to auscultation, Normal air movement Cardiovascular: Regular rate, Regular Rhythm, Normal S1, Normal S2, No murmurs Abdomen: Bowel Sounds Present, Soft, Non Tender, Non-Distended, No Hepato- splenomegaly Extremities: No clubbing, No cyanosis, No edema, Capillary Refill Less than 3 Seconds Skin: No rashes, No breakdown Musculoskeletal: No Tenderness to Palpation of Joints or Extremities Lymphatic: No Cervical, Supraclavicular, or Inguinal Adenopathy Neurological: Cranial nerves II-XII grossly intact Psych/Mental Status: Normal Affect, Appropriate, Alert and oriented to time, place, person, mood and affect Laboratory Results 05/16/18 04:55: Immature Plt Fraction 4.5, ESR 68 H, Retic Count 2.32 H, Immature Retic Fraction 11.10, Retic Hgb Equivalent 28.2 L 05/16/18 04:55: Iron 27 L, TIBC 144 L, Iron Saturation 18.8, Ferritin 778 H, Total Bilirubin 0.90, Direct Bilirubin 0.52 H, AST 105 H, ALT 87 H, Alkaline Phosphatase 194 H, Lactate Dehydrogenase 531 H, Total Protein 7.2, Albumin 3.1 L , Globulin 4.1, Folate 44.00 05/16/18 10:59: POC Glucose 192 H 05/16/18 13:35: Haptoglobin Pending, Hepatitis A IgM Ab Pending, Hepatitis A Ab Total Pending, Hep Bs Antigen Pending, Hep Bs Antibody Pending, Hep B Core Total Ab Pending, Hep B Core IgM Ab Pending, Hepatitis Be Antibody Pending, Hepatitis Be Antigen Pending, Hepatitis Interpret Pending 05/16/18 16:20: POC Glucose 102 05/16/18 22:33: POC Glucose 137 H 05/17/18 04:55: Sodium 147 H, Potassium 3.5, Chloride 110 H, Carbon Dioxide 28.0 , BUN 52 H, Creatinine 1.62 H, Estim Creat Clear Calc 39.92, Est GFR (MDRD) Af Amer 53 L, Est GFR (MDRD) Non-Af 44 L, BUN/Creatinine Ratio 32.1 H, Glucose 90, Calcium 8.6, Phosphorus 2.3 L, Iron 50 L, Ferritin 868 H, Albumin 2.9 L 05/17/18 04:55: WBC 3.5 L, RBC 2.27 L, Hgb 7.6 L, Hct 24.5 L, MCV 107.9 H, MCH 33.5 H, MCHC 31.0 L, RDW 16.2 H, RDW Differential 61.2 H, Plt Count 87 L, MPV 11.3, Immature Gran % (Auto) 0.800, Neut % (Auto) 75.5 H, Lymph % (Auto) 9.6 L, [place] % (Auto) 12.7 H, Eos % (Auto) 1.1, Baso % (Auto) 0.3, Absolute Neuts (auto ) 2.7, Absolute Lymphs (auto) 0.34 L, Total Counted Pending 05/17/18 06:56: POC Glucose 96 Current Medications Acetaminophen (Tylenol) 650 mg PO Q6H PRN PRN PRN Reason: PAIN Last Admin: 05/17/18 05:44 Dose: 650 mg Allopurinol (Zyloprim) 100 mg PO DAILY [facility] Last Admin: 05/16/18 07:52 Dose: 100 mg Atenolol (Tenormin (Beta Rajani)) 25 mg PO DAILY [facility] Last Admin: 05/16/18 07:52 Dose: 25 mg Atorvastatin Calcium (Lipitor) 5 mg PO QHS [facility] Last Admin: 05/16/18 22:38 Dose: 5 mg Colchicine (Colchicine) 0.6 mg PO DAILY [facility] Last Admin: 05/16/18 10:26 Dose: 0.6 mg Ferrous Sulfate (Ferrous Sulfate) 325 mg PO DAILY@0800 [facility] Last Admin: 05/16/18 07:52 Dose: 325 mg Insulin Glargine (Lantus (Bkc)) 15 units SC QHS [facility] Last Admin: 05/16/18 22:35 Dose: 15 u Insulin Human Lispro (Humalog Kwikpen ([facility])) 0 unit SC ACHS [facility] PRN Reason: Protocol Last Admin: 05/16/18 22:34 Dose: Not Given Lorazepam (Ativan) 0.5 mg PO BID PRN PRN PRN Reason: ANXIETY Last Admin: 05/15/18 22:37 Dose: 0.5 mg Multivitamins/Minerals (Ocuvite) 1 tablet PO DAILY@0800 [facility] Last Admin: 05/16/18 07:52 Dose: 1 tablet Polyethylene Glycol (Miralax) 17 gm PO DAILY PRN PRN Reason: Constipation Sodium Chloride () 5 - 30 ml IV UD PRN PRN Reason: SALINE FLUSH Medical Necessity - Tobacco Use Smoking Status: Former smoker Tobacco Use: Non-smoker Assessment/Plan All Active Problems Weakness (Acute) Chronic anticoagulation (Acute) Altered mental status (Acute) CHF exacerbation (Acute) 10-year-old male with a history of heart failure, chronic atrial fibrillation, and pancytopenia was admitted with a complaint of falls. He also had slight altered mental status which was thought to be medication induced. 1. Recurrent falls likely medication induced * Has not had any falls since he came to the hospital. Tylenol with codeine on hold. * CT head was negative * has minor tremors of UEs, but has no focal deficit. He has a history of stroke and TIA. However, I think this is less due to stroke/TIA and more likely medication induced. Neurology consulted and reviewed patient and think that this is likely medication induced and less likely neurologically induced. * PT/OT on board; will benefit from physical therapy * Now amenable to going to the TCU only. He does not want any other skilled nursing. Will inform top case assembler to start process. * Finasteride still on hold. * 2. Hypernatremia: * Na now up to 147, with hyperchloremia. * will give free water flushes and monitor * 3. Pancytopenia * Hb down to 7.6 today; wbc is 3.5 and platelets 87. * iron panel showed iron deficiency, but ferritin was elevated, making it more of anemia of chronic disease * vitamin B12 levels are WNL, folate levels WNL. TSH also WNL * total protein-7.2, with low albumin * has CKD, which can contribute to the anemia; * oncology on board; patient recently had back pain, for which xrays of his lower back were done by PCP from [facility] [place] * received one dose of venofer yesterday, but will not continue, in light of elevated ferritin levels * urine and serum electrophoresis ordered and pending. * will check FOBT in light of worsening anemia 3. hypokalemia: * 12. Potassium is 3.5 today. We will continue monitoring. * 4. TONI on CKD: * Cr was 2.2 on admission; is 1.62 today. * nephrology on board * 5. Chronic AF s/p pacemaker insertion * is rate controlled. Heart rate has remained in 70s. * On Coumadin. Coumadin on hold on account of kidney stent removal on Tuesday. * Blood pressure was down to around 94/58 this morning. Remains asymptomatic. Will monitor and adjust atenolol as needed. * 6. Chronic HFpEF; * stable. diuretics held on admission due to Toni-on-CKD. * The status was positive yesterday and so received a bolus of IV fluid. Still mildly orthostatic today (by pulse) but will defer on IV fluids due to risk of fluid overload. * will monitor * 7. Ureteral stricture s/p nephrostomy * Nephrostomy tube placed in [facility]. Scheduled to be taken out by Dr. Aguero this Tuesday. * coumadin on hold for procedure 8. Diabetes mellitus: on lantus 15IU qhs and ISS. * 8. DVt prophylaxis: SCDs. coumadin on hold for stent removal on tuesday. Code status: Full code This note was generated with [employer] dictation software. It may contain incorrect words, spelling, and punctuation that were not noted in checking the note before signing. Code Visit Inpatient E&M: [id number] [facility] Hosp L3
[2018-05-17] MEDS: Allopurinol 100 MG Tablet PO (09:54)
[2018-05-17] MEDS: Atenolol 25 MG Tablet PO (09:54)
[2018-05-17] MEDS: Ferrous Sulfate 325 MG Tablet PO (09:54)
[2018-05-17] MEDS: Insulin Lispro 100 UNIT/ML INSULN.PEN SC (11:18)
[2018-05-17 11:35] LABS: Bedside Glucose 202 mg/dL (70-110)
--- NOTE | 2018-05-17 12:44 | PN.RENAL_ITS ---
Patient Problems: Active and Suspected Problems Weakness (Acute) Chronic anticoagulation (Acute) Altered mental status (Acute) Subjective: breathing better, no edema. Appetite poor. Renal fxn same as yesterday. No urinary complaints. - Physical Exam General: Alert, Oriented x3, Cooperative, - - debilitated Oral: Dry Mucosa Neck: Supple Lungs: Clear to auscultation Cardiovascular: Irregular Rate Abdomen: Bowel Sounds Present, Soft, Non Tender, Non-Distended Extremities: No edema Skin: No rashes Neurological: - - tremor improved Psych/Mental Status: Depressed, Alert and oriented to time, place, person, mood and affect Vital Signs Temp Pulse Resp BP Pulse Ox 98.3 F 76 16 105/54 L 97 05/17/18 09:50 05/17/18 11:10 05/17/18 09:50 05/17/18 09:50 05/17/18 09:50 Oxygen Delivery Method Room Air Weight: 91.7 kg Body Mass Index (BMI) 27.3 Orthostatic Vital Signs Start: 05/16/18 10:14 Freq: q24h Status: Active Protocol: Activity Type Activity Date Activity User E-Sign Co-Sign Detail Recorded Client Recorded Date Recorded By Document 05/17/18 05:39 [facility] [id number] 05/17/18 05:39 [facility] 05/17/18 05:39 Orthostatic Vitals Standing -Blood Pressure (90/60-120/80) 103/51 L -Extremity Use Right Arm -Pulse Rate (60-100) 125 H Sitting -Blood Pressure (90/60-120/80) 105/57 L -Extremity Use Right Arm -Pulse Rate (60-100) 129 H Lying -Blood Pressure (90/60-120/80) 113/50 L -Extremity Use Right Arm -Pulse Rate (60-100) 81 Intake and Output for Last 24 Hours 05/15/18 05/16/18 05/17/18 23:59 23:59 23:59 Intake Total 4514 / 4514 415 / 415 Output Total 750 / 750 1560 / 1560 500 / 500 Balance -750 / -750 2954 / 2954 -85 / -85 Laboratory Tests Past 24 Hrs 05/16/18 05/16/18 05/17/18 04:55 13:35 04:55 WBC RBC Hgb Hct MCV MCH MCHC RDW RDW Differential Plt Count MPV Immature Gran % (Auto) Neut % (Auto) Lymph % (Auto) Refug[place] % (Auto) Eos % (Auto) Baso % (Auto) Absolute Neuts (auto) Absolute Lymphs (auto) Total Counted Haptoglobin Pending Sodium 147 H Potassium 3.5 Chloride 110 H Carbon Dioxide 28.0 BUN 52 H Creatinine 1.62 H Estim Creat Clear Calc 39.92 Est GFR (MDRD) Af Amer 53 L Est GFR (MDRD) Non-Af 44 L BUN/Creatinine Ratio 32.1 H Glucose 90 Calcium 8.6 Phosphorus 2.3 L Iron 27 L 50 L TIBC 144 L Iron Saturation 18.8 Ferritin 778 H 868 H Total Bilirubin 0.90 Direct Bilirubin 0.52 H AST 105 H ALT 87 H Alkaline Phosphatase 194 H Lactate Dehydrogenase 531 H Total Protein 7.2 Albumin 3.1 L 2.9 L Globulin 4.1 Folate 44.00 Hepatitis A IgM Ab Pending Hepatitis A Ab Total Pending Hep Bs Antigen Pending Hep Bs Antibody Pending Hep B Core Total Ab Pending Hep B Core IgM Ab Pending Hepatitis Be Antibody Pending Hepatitis Be Antigen Pending Hepatitis Interpret Pending 05/17/18 04:55 WBC 3.5 L RBC 2.27 L Hgb 7.6 L Hct 24.5 L MCV 107.9 H MCH 33.5 H MCHC 31.0 L RDW 16.2 H RDW Differential 61.2 H Plt Count 87 L MPV 11.3 Immature Gran % (Auto) 0.800 Neut % (Auto) 75.5 H Lymph % (Auto) 9.6 L Refugio % (Auto) 12.7 H Eos % (Auto) 1.1 Baso % (Auto) 0.3 Absolute Neuts (auto) 2.7 Absolute Lymphs (auto) 0.34 L Total Counted Not Reportable Haptoglobin Sodium Potassium Chloride Carbon Dioxide BUN Creatinine Estim Creat Clear Calc Est GFR (MDRD) Af Amer Est GFR (MDRD) Non-Af BUN/Creatinine Ratio Glucose Calcium Phosphorus Iron TIBC Iron Saturation Ferritin Total Bilirubin Direct Bilirubin AST ALT Alkaline Phosphatase Lactate Dehydrogenase Total Protein Albumin Globulin Folate Hepatitis A IgM Ab Hepatitis A Ab Total Hep Bs Antigen Hep Bs Antibody Hep B Core Total Ab Hep B Core IgM Ab Hepatitis Be Antibody Hepatitis Be Antigen Hepatitis Interpret POC Glucose 05/17/18 05/17/18 05/16/18 11:14 06:56 22:33 POC Glucose 202 H 96 137 H 05/16/18 16:20 POC Glucose 102 Medical Necessity - Tobacco Use Smoking Status: Former smoker Tobacco Use: Non-smoker Assessment/Plan All Active Problems Weakness (Acute) Chronic anticoagulation (Acute) Altered mental status (Acute) CHF exacerbation (Acute) 1. Acute on CKD stage 3 due to prerenal azotemia, dehydration from diuretics. baseline creatinine 1.4 in January 2018 increased to 2.55 on 05/14 improved to 1.6. Hx obstructive nephropathy s/p multiple PNT, ureteral stents rt kidney. 2. Weakness, frequent falls with tremor. Consider parkinsons in differential. Continue PT/OT 3. HTN stable 4. Afib stable rate, on anticoagulation 5. Anemia, pancytopenia consider hematology consult, Received iv/po iron 6. Pulmonary hypertension, mod-severe TR 7. DMT2
[2018-05-17 17:15] LABS: Bedside Glucose 110 mg/dL (70-110)
[2018-05-17] MEDS: 0.9% NaCl Peripheral Flush Adult/Peds IV (21:14)
[2018-05-17] MEDS: Atorvastatin Calcium 10 MG Tablet 5 MG PO (21:15)
[2018-05-17 22:36] LABS: Bedside Glucose 133 mg/dL (70-110)
[2018-05-18] VITALS (12 sets, daily range): BP systolic 95–126; BP diastolic 46–66; PULSE 68–137; RESP 14–16; TEMP 36.8–37.6; O2SAT 95–99
--- NOTE | 2018-05-18 00:14 | PCM.PN.BLA ---
Progress Note Called by nurses about an order for IV free water. He has hypernatremia and was admitted with dehydration. He also has pancytopenia. will DC the free water and treat with 1 Liter of D5W and DC. Encouraged increased water intake. recheck the lab in the AM. He has been taking colchicine for gout and he has stage 3 CRF. This makes him at increased risk for adverse reactions with colchicine and 1 of those adverse reactions is blood dyscrasias. Allopurinol is also associated with blood dyscrasias but he is on a low dose. Will DC the colchicine.
[2018-05-18 05:58] LABS: Hemoglobin 7.4 g/dl (13.0-16.5); Mean Corp Hgb Conc 30.8 g/gl (32-36); Mean Corpuscular Hgb 33.3 pg (27.0-32.0); Mean Corpuscular Volume 108.1 fL (80-94); Mean Platelet Vol. 11.3 fl (6.2-12.0); Platelet Count 92 K/mm3 (150-450); RBC Distribution Width CV 16.1 % (11.6-14.6); RBC Distribution Width SD 60.3 fl (35.1-43.9); Red Blood Count 2.22 M/mm3 (4.6-6.2); White Blood Count 4.4 K/mm3 (4.4-11.0)
[2018-05-18 06:05] LABS: Scan Indicated on CBC? Y/N NO
[2018-05-18 06:31] LABS: Albumin, Serum 2.8 g/dL (3.2-5.0); BUN 41 mg/dL (7-18); BUN/Creat Ratio 26.5 RATIO (10-20); Calcium,Total 8.3 mg/dL (8.5-10.1); Chloride 108 mmol/L (98-107); Creatinine, Serum 1.55 mg/dL (0.70-1.30); EST Glomerular Filtration Rate 46 mL/min (>60); Est Glom Filt Rate - Afr Amer 56 mL/min (>60); Estimated Creatinine Clearance 41.72 ml/min; Glucose 125 mg/dL (74-106); Phosphorus 2.5 mg/dL (2.5-4.9); Potassium 3.5 mmol/L (3.5-5.1); Sodium Level 142 mmol/L (136-145)
[2018-05-18 07:06] LABS: Bedside Glucose 113 mg/dL (70-110)
[2018-05-18] MEDS: Acetaminophen 325 MG Tablet 650 MG PO ×2 (07:53→20:27)
--- NOTE | 2018-05-18 08:55 | CASEMGMT ---
Addendum entered by Alicia Pascual 05/18/18 10:25: [facility] will now have a bed by Tuesday. SW spoke w/physician, pt will not be ready for discharge before Tuesday. SW spoke w/pt and son, they would like the placement to be changed to [facility]. SW explained will have [facility] start the precert process and stop the process w/[facility]. SW called [facility], asked Ivelisse to undo the precert process as pt has decided to go elsewhere. SW called [facility], message left for Gwen asking her to go ahead and and start precert for this pt once [facility] discontinues their precert process. SW will continue to follow. CELINE Weaver, HAND PLEATER Original Note: SW called [facility], spoke w/Skyler. He states they started the precert process w/pt's insurance and will let this SW know if they attain precert. SW faxed updates. SW spoke w/pt and son in room, let them both know that [facility] can take pt and they started precert. Pt and son state they both prefer [facility] and that pt will be here for a while yet. SW explained that [facility] is full, however SW can call and check about bed availability, plan could be changed to [facility] if there is bed availability as time allows. [facility] and left a message. SW will continue to follow. CELINE Weaver, HAND PLEATER
--- NOTE | 2018-05-18 09:00 | PCM.PN.REN ---
Patient Problems: Active and Suspected Problems Weakness (Acute) Chronic anticoagulation (Acute) Altered mental status (Acute) Subjective: renal fxn improved with iv fluids. No edema or SOB. Has abdominal pain, anemia with +guaiac stools. Dr. Munroe consulted. Hx hernia, rt ureteral stent. No gross hematuria. - Physical Exam General: Alert, Oriented x3, Cooperative Lungs: Clear to auscultation Cardiovascular: Regular rate Abdomen: Bowel Sounds Present, Soft, Non Tender, Non-Distended Extremities: No edema Skin: No rashes Musculoskeletal: No Muscle Wasting Psych/Mental Status: Normal Affect, Depressed, Alert and oriented to time, place, person, mood and affect Vital Signs Temp Pulse Resp BP Pulse Ox 99.7 F H 131 H 16 120/58 L 98 05/18/18 05:31 05/18/18 06:57 05/18/18 05:31 05/18/18 05:32 05/18/18 05:31 Oxygen Delivery Method Room Air Weight: 91.7 kg Body Mass Index (BMI) 27.3 Orthostatic Vital Signs Start: 05/16/18 10:14 Freq: q24h Status: Active Protocol: Activity Type Activity Date Activity User E-Sign Co-Sign Detail Recorded Client Recorded Date Recorded By Document 05/18/18 05:32 [facility] [id number] 05/18/18 05:35 [facility] [place] 05:32 Orthostatic Vitals Standing -Blood Pressure (90/60-120/80) 95/66 -Extremity Use Right Arm -Pulse Rate (60-100) 137 H Sitting -Blood Pressure (90/60-120/80) 126/63 H -Extremity Use Right Arm -Pulse Rate (60-100) 122 H Lying -Blood Pressure (90/60-120/80) 120/58 L -Extremity Use Right Arm -Pulse Rate (60-100) 90 Intake and Output for Last 24 Hours 05/16/18 05/17/18 05/18/18 23:59 23:59 23:59 Intake Total 4514 / 4514 1409 / 1409 421 / 421 Output Total 1560 / 1560 675 / 675 390 / 390 Balance 2954 / 2954 734 / 734 31 / 31 Microbiology Past 72 Hours 05/17/18 20:00 Stool Occult Blood (MIRANDA) - Final Stool Occult Blood Positive Laboratory Tests Past 24 Hrs 05/18/18 05/18/18 04:55 04:55 WBC 4.4 RBC 2.22 L Hgb 7.4 L Hct 24.0 L MCV 108.1 H MCH 33.3 H MCHC 30.8 L RDW 16.1 H RDW Differential 60.3 H Plt Count 92 L MPV 11.3 Sodium 142 Potassium 3.5 Chloride 108 H Carbon Dioxide 27.0 BUN 41 H Creatinine 1.55 H Estim Creat Clear Calc 41.72 Est GFR (MDRD) Af Amer 56 L Est GFR (MDRD) Non-Af 46 L BUN/Creatinine Ratio 26.5 H Glucose 125 H Calcium 8.3 L Phosphorus 2.5 Albumin 2.8 L POC Glucose 05/18/18 05/17/18 05/17/18 07:01 21:13 16:51 POC Glucose 113 H 133 H 110 05/17/18 11:14 POC Glucose 202 H Medical Necessity - Tobacco Use Smoking Status: Former smoker Tobacco Use: Non-smoker Assessment/Plan All Active Problems Weakness (Acute) Chronic anticoagulation (Acute) Altered mental status (Acute) CHF exacerbation (Acute) 1. Acute on CKD stage 3 due to prerenal azotemia, dehydration from diuretics. baseline creatinine 1.4 in January 2018 increased to 2.55 on 05/14 improved to 1.55 today. Stop iv fluids. 2. Weakness, frequent falls with tremor. Continue PT/OT 3. HTN stable 4. Afib stable rate, on anticoagulation 5. Anemia, pancytopenia Received iv/po iron. Dr Munroe consult 6. Pulmonary hypertension, mod-severe TR. No edema on exam 7. 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
--- NOTE | 2018-05-18 09:03 | PN.RENAL_ITS ---
Patient Problems: Active and Suspected Problems Weakness (Acute) Chronic anticoagulation (Acute) Altered mental status (Acute) Subjective: renal fxn improved with iv fluids. No edema or SOB. Has abdominal pain, anemia with +guaiac stools. Dr. Munroe consulted. Hx hernia, rt ureteral stent. No gross hematuria. - Physical Exam General: Alert, Oriented x3, Cooperative Lungs: Clear to auscultation Cardiovascular: Regular rate Abdomen: Bowel Sounds Present, Soft, Non Tender, Non-Distended Extremities: No edema Skin: No rashes Musculoskeletal: No Muscle Wasting Psych/Mental Status: Normal Affect, Depressed, Alert and oriented to time, place , person, mood and affect Vital Signs Temp Pulse Resp BP Pulse Ox 99.7 F H 131 H 16 120/58 L 98 05/18/18 05:31 05/18/18 06:57 05/18/18 05:31 05/18/18 05:32 05/18/18 05:31 Oxygen Delivery Method Room Air Weight: 91.7 kg Body Mass Index (BMI) 27.3 Orthostatic Vital Signs Start: 05/16/18 10:14 Freq: q24h Status: Active Protocol: Activity Type Activity Date Activity User E-Sign Co-Sign Detail Recorded Client Recorded Date Recorded By Document 05/18/18 05:32 [facility] [place] [id number] 05/18/18 05:35 [facility] [place]/18/18 05:32 Orthostatic Vitals Standing -Blood Pressure (90/60-120/80) 95/66 -Extremity Use Right Arm -Pulse Rate (60-100) 137 H Sitting -Blood Pressure (90/60-120/80) 126/63 H -Extremity Use Right Arm -Pulse Rate (60-100) 122 H Lying -Blood Pressure (90/60-120/80) 120/58 L -Extremity Use Right Arm -Pulse Rate (60-100) 90 Intake and Output for Last 24 Hours 05/16/18 05/17/18 05/18/18 23:59 23:59 23:59 Intake Total 4514 / 4514 1409 / 1409 421 / 421 Output Total 1560 / 1560 675 / 675 390 / 390 Balance 2954 / 2954 734 / 734 31 / 31 Microbiology Past 72 Hours 05/17/18 20:00 Stool Occult Blood (MIRANDA) - Final Stool Occult Blood Positive Laboratory Tests Past 24 Hrs 05/18/18 05/18/18 04:55 04:55 WBC 4.4 RBC 2.22 L Hgb 7.4 L Hct 24.0 L MCV 108.1 H MCH 33.3 H MCHC 30.8 L RDW 16.1 H RDW Differential 60.3 H Plt Count 92 L MPV 11.3 Sodium 142 Potassium 3.5 Chloride 108 H Carbon Dioxide 27.0 BUN 41 H Creatinine 1.55 H Estim Creat Clear Calc 41.72 Est GFR (MDRD) Af Amer 56 L Est GFR (MDRD) Non-Af 46 L BUN/Creatinine Ratio 26.5 H Glucose 125 H Calcium 8.3 L Phosphorus 2.5 Albumin 2.8 L POC Glucose 05/18/18 05/17/18 05/17/18 07:01 21:13 16:51 POC Glucose 113 H 133 H 110 05/17/18 11:14 POC Glucose 202 H Medical Necessity - Tobacco Use Smoking Status: Former smoker Tobacco Use: Non-smoker Assessment/Plan All Active Problems Weakness (Acute) Chronic anticoagulation (Acute) Altered mental status (Acute) CHF exacerbation (Acute) 1. Acute on CKD stage 3 due to prerenal azotemia, dehydration from diuretics. baseline creatinine 1.4 in January 2018 increased to 2.55 on 05/14 improved to 1.55 today. Stop iv fluids. 2. Weakness, frequent falls with tremor. Continue PT/OT 3. HTN stable 4. Afib stable rate, on anticoagulation 5. Anemia, pancytopenia Received iv/po iron. Dr Munroe consult 6. Pulmonary hypertension, mod-severe TR. No edema on exam 7. 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
[2018-05-18] MEDS: Ferrous Sulfate 325 MG Tablet PO (10:26)
[2018-05-18] MEDS: Atenolol 25 MG Tablet PO (10:26)
[2018-05-18] MEDS: Allopurinol 100 MG Tablet PO (10:26)
[2018-05-18] MEDS: Insulin Lispro 100 UNIT/ML INSULN.PEN SC (11:47)
[2018-05-18 11:56] LABS: Bedside Glucose 159 mg/dL (70-110)
--- NOTE | 2018-05-18 12:37 | CT_ITS ---
STUDY: CT LUMBAR SPINE WITHOUT CONTRAST REASON FOR EXAM: Male, 82 years old. Low back pain posttraumatic RADIATION DOSAGE (If Supplied By Facility): CTDIvol = ( 30.00 ) mGy, DLP = ( 892.14 ) mGycm TECHNIQUE: The patient was scanned in a multi detector CT scanner. High resolution transaxial imaging was performed. Images were obtained from to . Sagittal and coronal images were reconstructed. Individualized dose optimization techniques were used for this CT. COMPARISON: None FINDINGS: Normal lumbar lordosis. There is moderate dextroscoliosis deformity. Normal vertebrae of the lumbar spine. L1-2: Mild endplate spurring.. Normal disc height and morphology. Normal bilateral facet joints. Normal central canal and bilateral lateral recesses. Normal bilateral intervertebral neural foramina. L2-3: Mild endplate spurring.. Normal disc height and disc degeneration with minimal annular bulge. Bilateral facet arthropathy and thickening of ligamenta flava partially calcified. Mild narrowing of the central canal. Moderate bilateral recess and neuroforaminal encroachment L3-4: Status post bilateral laminectomy and posterior fusion.. Normal disc height and morphology. Bilateral facet arthropathy.. Normal central canal. Mild bilateral recess and neuroforaminal encroachment. L4-5: Status post bilateral laminectomy and posterior fusion. Normal disc height and minimal annular bulge. Mild facet arthropathy.. Normal central canal. Mild to moderate bilateral recess and neuroforaminal encroachment. L5-S1: Status post bilateral laminectomy and posterior fusion. Normal endplates. Normal disc height and morphology. Bilateral facet arthropathy. Normal central canal and bilateral lateral recesses. Normal bilateral intervertebral neural foramina. Normal visualized paraspinous soft tissue structures. CT/Spine Lumbar without Contrast IMPRESSION: Scoliosis and degenerative changes Multilevel spinal stenosis secondary to minor bulging of the annuli and facet arthropathy Status post bilateral laminectomy and posterior fusion spanning L3-4 through L5-S1.. No evidence for acute fracture or subluxation. No definitive evidence for loosening of the orthopedic hardware. Electronically Signed: Joseph Lamas MD at 18:17 EDT , Service support ,
--- NOTE | 2018-05-18 12:37 | CT_ITS ---
STUDY: CT CERVICAL SPINE WITHOUT CONTRAST REASON FOR EXAM: Male, 82 years old. Pain, recent falls RADIATION DOSAGE (If Supplied By Facility): CTDIvol = ( 26.25 ) mGy, DLP = ( 528.02 ) mGycm TECHNIQUE: High resolution transaxial imaging was performed without contrast material. Sagittal and coronal images were reconstructed. Individualized dose optimization techniques were used for this CT. COMPARISON: None FINDINGS: There are degenerative changes of the atlantoaxial articulation. The odontoid process is unremarkable. Normal cervical lordosis. There are osteophytes scattered in the cervical spine. C2-3: There is no disc space narrowing or canal narrowing. There is mild foraminal narrowing on the left. C3-4: There is no disc space narrowing or canal narrowing. There is mild foraminal narrowing on the right and marked foraminal narrowing on the left. C4-5: There is no disc space narrowing or canal narrowing. There is moderate foraminal narrowing on the right and marked foraminal narrowing on the left. C5-6: There is no disc space narrowing or canal narrowing. There is mild foraminal narrowing bilaterally. C6-7: There is moderate disc space narrowing with mild canal narrowing. There is mild foraminal narrowing on the right. C7-T1: There is no disc space narrowing, canal narrowing, or significant foraminal narrowing. The lung apices are unremarkable. The thyroid is within normal limits. There are moderate vascular calcifications in both carotid bulbs. CT/Spine Cervical without Contras IMPRESSION: No acute abnormalities are seen in the cervical spine. There are scattered degenerative changes, described above. Electronically Signed: Justine Vásquez MD at 17:01 EDT Tel Direct: [phone], Service support ,
--- NOTE | 2018-05-18 12:42 | PCM.PN.HOSP ---
Patient Problems: Active and Suspected Problems Weakness (Acute) Altered mental status (Acute) Subjective: Patient is an 82-year-old male was admitted after he fell at home. Patient stated that his leg simply got weak and gave out and he fell twice. Per history obtained from his sinus patient was a poor historian, he had recently been given a prescription for Tylenol with codeine and subsequently started falling. Vitals and labs done in the ED were only significant for platelet count of 87,000, white cell count of 3.4 and hemoglobin of 8. Thrombocytopenia was chronic since 714. CT done was negative for any acute findings. He was admitted and managed for general weakness and falls with mild altered mental status likely drug-induced from Tylenol with codeine. He remained stable. Hematology and nephrology are on board. Patient seen and examined. He complains of some mild lower abdominal pain today. He denies any fever or chills, any cough or chest pain, any abdominal pain, any diarrhea vomiting. He has not noticed any dark stools. Son was at his bedside. Review of systems otherwise negative. Vitals/I&O's: Vital Signs Temp Pulse Resp BP Pulse Ox 99 F 90 16 125/54 H 95 05/18/18 10:20 05/18/18 11:08 05/18/18 10:20 05/18/18 10:20 05/18/18 10:20 Oxygen Delivery Method Room Air Weight: 202 lb 2.622 oz Body Mass Index (BMI) 27.3 Orthostatic Vital Signs Start: 05/16/18 10:14 Freq: q24h Status: Active Protocol: Activity Type Activity Date Activity User E-Sign Co-Sign Detail Recorded Client Recorded Date Recorded By Document 05/18/18 05:32 [facility] [place] [id number] 05/18/18 05:35 [facility] [place] 05/18/18 05:32 Orthostatic Vitals Standing -Blood Pressure (90/60-120/80) 95/66 -Extremity Use Right Arm -Pulse Rate (60-100) 137 H Sitting -Blood Pressure (90/60-120/80) 126/63 H -Extremity Use Right Arm -Pulse Rate (60-100) 122 H Lying -Blood Pressure (90/60-120/80) 120/58 L -Extremity Use Right Arm -Pulse Rate (60-100) 90 Intake and Output for Last 24 Hours 05/16/18 05/17/18 05/18/18 23:59 23:59 23:59 Intake Total 4514 / 4514 1409 / 1409 1144 / 1144 Output Total 1560 / 1560 675 / 675 565 / 565 Balance 2954 / 2954 734 / 734 579 / 579 General: Alert, Oriented x3, Cooperative, Lethargic HEENT: Atraumatic, PERRLA, EOMI, Normocephalic Oral: Moist Mucosa Neck: Supple, No JVD, Negative Carotid Bruits Lungs: Clear to auscultation, Normal air movement Cardiovascular: Regular rate, Regular Rhythm, Normal S1, Normal S2, No murmurs Abdomen: Bowel Sounds Present, Soft, Non Tender, Non-Distended, - - Has reducible ventral and epigastric hernia which are nontender. Extremities: No clubbing, No cyanosis, No edema, Capillary Refill Less than 3 Seconds Skin: No rashes, No breakdown Musculoskeletal: No Tenderness to Palpation of Joints or Extremities Lymphatic: No Cervical, Supraclavicular, or Inguinal Adenopathy Neurological: Cranial nerves II-XII grossly intact, Motor Exam 5/5 strength throughout Psych/Mental Status: Normal Affect, Appropriate, Alert and oriented to time, place, person, mood and affect Microbiology Past 72 Hours 05/17/18 20:00 Stool Stool Occult Blood (MIRANDA) - Final Occult Blood Positive Laboratory Results 05/17/18 16:51: POC Glucose 110 05/17/18 21:13: POC Glucose 133 H 05/18/18 04:55: WBC 4.4, RBC 2.22 L, Hgb 7.4 L, Hct 24.0 L, MCV 108.1 H, MCH 33.3 H, MCHC 30.8 L, RDW 16.1 H, RDW Differential 60.3 H, Plt Count 92 L, MPV 11.3 05/18/18 04:55: Sodium 142, Potassium 3.5, Chloride 108 H, Carbon Dioxide 27.0, BUN 41 H, Creatinine 1.55 H, Estim Creat Clear Calc 41.72, Est GFR (MDRD) Af Amer 56 L, Est GFR (MDRD) Non-Af 46 L, BUN/Creatinine Ratio 26.5 H, Glucose 125 H, Calcium 8.3 L, Phosphorus 2.5, Albumin 2.8 L 05/18/18 07:01: POC Glucose 113 H 05/18/18 11:45: POC Glucose 159 H Current Medications Acetaminophen (Tylenol) 650 mg PO Q6H PRN PRN PRN Reason: PAIN Last Admin: 05/18/18 07:53 Dose: 650 mg Allopurinol (Zyloprim) 100 mg PO DAILY [facility] Last Admin: 05/18/18 10:26 Dose: 100 mg Atenolol (Tenormin (Beta Rajani)) 25 mg PO DAILY [facility] Last Admin: 05/18/18 10:26 Dose: 25 mg Atorvastatin Calcium (Lipitor) 5 mg PO QHS [facility] Last Admin: 05/17/18 21:15 Dose: 5 mg Ferrous Sulfate (Ferrous Sulfate) 325 mg PO DAILY@0800 [facility] Last Admin: 05/18/18 10:26 Dose: 325 mg Insulin Glargine (Lantus (Bk)) 15 units SC QHS [facility] Last Admin: 05/17/18 21:16 Dose: 15 u Insulin Human Lispro (Humalog Kwikpen ([facility])) 0 unit SC ACHS [facility] PRN Reason: Protocol Last Admin: 05/18/18 11:47 Dose: 1 unit Lorazepam (Ativan) 0.5 mg PO BID PRN PRN PRN Reason: ANXIETY Last Admin: 05/15/18 22:37 Dose: 0.5 mg Multivitamins/Minerals (Ocuvite) 1 tablet PO DAILY@0800 [facility] Last Admin: 05/18/18 10:26 Dose: 1 tablet Polyethylene Glycol (Miralax) 17 gm PO DAILY PRN PRN Reason: Constipation Sodium Chloride () 5 - 30 ml IV UD PRN PRN Reason: SALINE FLUSH Last Admin: 05/17/18 21:14 Dose: 10 ml Medical Necessity - Tobacco Use Smoking Status: Former smoker Tobacco Use: Non-smoker Assessment/Plan All Active Problems Weakness (Acute) Chronic anticoagulation (Acute) Altered mental status (Acute) CHF exacerbation (Acute) 10-year-old male with a history of heart failure, chronic atrial fibrillation, and pancytopenia was admitted with a complaint of falls. He also had slight altered mental status which was thought to be medication induced. 1. Metabolic encephalopathy medication induced, as well as Toni-on-CKD resolving. Patient is muc more alert and oriented. will continue to monitor 2.Recurrent falls due to tyelenol codeine which was recently prescribed, as well as orthostatic hypotension Stable. Finasteride on hold on account of orthostatic hypotension. Neurology on board and think this was due to medications. PT/OT on board. undergoing therapy CT head was negative will monitor 3. Hypernatremia: resolving. REceived IVF D5W overnight. Na down to 142. WIll monitor' 4. Pancytopenia Hb down to 7.4 today. Still a mild microcytic hypochromic anemia. Platelets 92 today. hematology on board FOBT is positive-patient was on coumadin, which is now on hold urine and serum electrophoresis pending will monitor;t ransfuse if Hb <7 general surgery (Dr Munroe) consulted o/a of positive FOBT. last had colonoscopy in 2013, and says he was told he had diverticulosis 5. hypokalemia: resolved 6. TONI on CKD: resolved. Cr was 2.2 on admission; is 1.55 today nephrology on board 7. Chronic AF s/p pacemaker insertion is rate controlled. Heart rate has remained in 70s. On Coumadin. Coumadin on hold on account of kidney stent removal on Tuesday. 8. Chronic HFpEF; stable. diuretics held on admission due to Toni-on-CKD. will monitor 9. Ureteral stricture s/p nephrostomy Nephrostomy tube placed in [facility]. Scheduled to be taken out by Dr. Aguero this Tuesday. coumadin on hold for procedure on Tuesday. Will consult Dr Aguero today will keep NPO for procedure tomorrow 10. Diabetes mellitus: on lantus 15IU qhs and ISS. 11. DVt prophylaxis: SCDs. coumadin on hold for stent removal on tuesday. Code status: Full code This note was generated with [employer] software. It may contain incorrect words, spelling, and punctuation that were not noted in checking the note before signing. Code Visit Inpatient E&M: 84341 Subs Hosp L3
--- NOTE | 2018-05-18 12:52 | PN_ITS ---
Patient Problems: Active and Suspected Problems Weakness (Acute) Altered mental status (Acute) Subjective: Patient is an 82-year-old male was admitted after he fell at home. Patient stated that his leg simply got weak and gave out and he fell twice. Per history obtained from his sinus patient was a poor historian, he had recently been given a prescription for Tylenol with codeine and subsequently started falling. Vitals and labs done in the ED were only significant for platelet count of 87,000, white cell count of 3.4 and hemoglobin of 8. Thrombocytopenia was chronic since 714. CT done was negative for any acute findings. He was admitted and managed for general weakness and falls with mild altered mental status likely drug-induced from Tylenol with codeine. He remained stable. Hematology and nephrology are on board. Patient seen and examined. He complains of some mild lower abdominal pain today. He denies any fever or chills, any cough or chest pain, any abdominal pain, any diarrhea vomiting. He has not noticed any dark stools. Son was at his bedside. Review of systems otherwise negative. Vitals/I&O's: Vital Signs Temp Pulse Resp BP Pulse Ox 99 F 90 16 125/54 H 95 05/18/18 10:20 05/18/18 11:08 05/18/18 10:20 05/18/18 10:20 05/18/18 10:20 Oxygen Delivery Method Room Air Weight: 202 lb 2.622 oz Body Mass Index (BMI) 27.3 Orthostatic Vital Signs Start: 05/16/18 10:14 Freq: q24h Status: Active Protocol: Activity Type Activity Date Activity User E-Sign Co-Sign Detail Recorded Client Recorded Date Recorded By Document 05/18/18 05:32 [facility] [place] [id number] 05/18/18 05:35 [facility] [place] 05/18/18 05:32 Orthostatic Vitals Standing -Blood Pressure (90/60-120/80) 95/66 -Extremity Use Right Arm -Pulse Rate (60-100) 137 H Sitting -Blood Pressure (90/60-120/80) 126/63 H -Extremity Use Right Arm -Pulse Rate (60-100) 122 H Lying -Blood Pressure (90/60-120/80) 120/58 L -Extremity Use Right Arm -Pulse Rate (60-100) 90 Intake and Output for Last 24 Hours 05/16/18 05/17/18 05/18/18 23:59 23:59 23:59 Intake Total 4514 / 4514 1409 / 1409 1144 / 1144 Output Total 1560 / 1560 675 / 675 565 / 565 Balance 2954 / 2954 734 / 734 579 / 579 General: Alert, Oriented x3, Cooperative, Lethargic HEENT: Atraumatic, PERRLA, EOMI, Normocephalic Oral: Moist Mucosa Neck: Supple, No JVD, Negative Carotid Bruits Lungs: Clear to auscultation, Normal air movement Cardiovascular: Regular rate, Regular Rhythm, Normal S1, Normal S2, No murmurs Abdomen: Bowel Sounds Present, Soft, Non Tender, Non-Distended, - - Has reducible ventral and epigastric hernia which are nontender. Extremities: No clubbing, No cyanosis, No edema, Capillary Refill Less than 3 Seconds Skin: No rashes, No breakdown Musculoskeletal: No Tenderness to Palpation of Joints or Extremities Lymphatic: No Cervical, Supraclavicular, or Inguinal Adenopathy Neurological: Cranial nerves II-XII grossly intact, Motor Exam 5/5 strength throughout Psych/Mental Status: Normal Affect, Appropriate, Alert and oriented to time, place, person, mood and affect Microbiology Past 72 Hours 05/17/18 20:00 Stool Stool Occult Blood (MIRANDA) - Final Occult Blood Positive Laboratory Results 05/17/18 16:51: POC Glucose 110 05/17/18 21:13: POC Glucose 133 H 05/18/18 04:55: WBC 4.4, RBC 2.22 L, Hgb 7.4 L, Hct 24.0 L, MCV 108.1 H, MCH 33.3 H, MCHC 30.8 L, RDW 16.1 H, RDW Differential 60.3 H, Plt Count 92 L, MPV 11.3 05/18/18 04:55: Sodium 142, Potassium 3.5, Chloride 108 H, Carbon Dioxide 27.0, BUN 41 H, Creatinine 1.55 H, Estim Creat Clear Calc 41.72, Est GFR (MDRD) Af Amer 56 L, Est GFR (MDRD) Non-Af 46 L, BUN/Creatinine Ratio 26.5 H, Glucose 125 H, Calcium 8.3 L, Phosphorus 2.5, Albumin 2.8 L 05/18/18 07:01: POC Glucose 113 H 05/18/18 11:45: POC Glucose 159 H Current Medications Acetaminophen (Tylenol) 650 mg PO Q6H PRN PRN PRN Reason: PAIN Last Admin: 05/18/18 07:53 Dose: 650 mg Allopurinol (Zyloprim) 100 mg PO DAILY [facility] Last Admin: 05/18/18 10:26 Dose: 100 mg Atenolol (Tenormin (Beta Rajani)) 25 mg PO DAILY [facility] Last Admin: 05/18/18 10:26 Dose: 25 mg Atorvastatin Calcium (Lipitor) 5 mg PO QHS [facility] Last Admin: 05/17/18 21:15 Dose: 5 mg Ferrous Sulfate (Ferrous Sulfate) 325 mg PO DAILY@0800 [facility] Last Admin: 05/18/18 10:26 Dose: 325 mg Insulin Glargine (Lantus (Bk)) 15 units SC QHS [facility] Last Admin: 05/17/18 21:16 Dose: 15 u Insulin Human Lispro (Humalog Kwikpen ([facility])) 0 unit SC ACHS [facility] PRN Reason: Protocol Last Admin: 05/18/18 11:47 Dose: 1 unit Lorazepam (Ativan) 0.5 mg PO BID PRN PRN PRN Reason: ANXIETY Last Admin: 05/15/18 22:37 Dose: 0.5 mg Multivitamins/Minerals (Ocuvite) 1 tablet PO DAILY@0800 [facility] Last Admin: 05/18/18 10:26 Dose: 1 tablet Polyethylene Glycol (Miralax) 17 gm PO DAILY PRN PRN Reason: Constipation Sodium Chloride () 5 - 30 ml IV UD PRN PRN Reason: SALINE FLUSH Last Admin: 05/17/18 21:14 Dose: 10 ml Medical Necessity - Tobacco Use Smoking Status: Former smoker Tobacco Use: Non-smoker Assessment/Plan All Active Problems Weakness (Acute) Chronic anticoagulation (Acute) Altered mental status (Acute) CHF exacerbation (Acute) 10-year-old male with a history of heart failure, chronic atrial fibrillation, and pancytopenia was admitted with a complaint of falls. He also had slight altered mental status which was thought to be medication induced. 1. Metabolic encephalopathy * medication induced, as well as Toni-on-CKD * resolving. Patient is muc more alert and oriented. * will continue to monitor * 2.Recurrent falls * due to tyelenol codeine which was recently prescribed, as well as orthostatic hypotension * Stable. Finasteride on hold on account of orthostatic hypotension. * Neurology on board and think this was due to medications. * PT/OT on board. undergoing therapy * CT head was negative * will monitor * 3. Hypernatremia: * resolving. REceived IVF D5W overnight. Na down to 142. WIll monitor' * * 4. Pancytopenia * Hb down to 7.4 today. Still a mild microcytic hypochromic anemia. Platelets 92 today. * hematology on board * FOBT is positive-patient was on coumadin, which is now on hold * urine and serum electrophoresis pending * will monitor;t ransfuse if Hb <7 * general surgery (Dr Munroe) consulted o/a of positive FOBT. * last had colonoscopy in 2013, and says he was told he had diverticulosis * * 5. hypokalemia: * resolved * 6. TONI on CKD: * resolved. * Cr was 2.2 on admission; is 1.55 today * nephrology on board * 7. Chronic AF s/p pacemaker insertion * is rate controlled. Heart rate has remained in 70s. * On Coumadin. Coumadin on hold on account of kidney stent removal on Tuesday. * 8. Chronic HFpEF; * stable. diuretics held on admission due to Toni-on-CKD. * will monitor * 9. Ureteral stricture s/p nephrostomy * Nephrostomy tube placed in [facility]. Scheduled to be taken out by Dr. Aguero this Tuesday. * coumadin on hold for procedure on Tuesday. Will consult Dr Aguero today * will keep NPO for procedure tomorrow 10. Diabetes mellitus: on lantus 15IU qhs and ISS. * 11. DVt prophylaxis: SCDs. coumadin on hold for stent removal on tuesday. Code status: Full code This note was generated with [employer] software. It may contain incorrect words, spelling, and punctuation that were not noted in checking the note before signing. Code Visit Inpatient E&M: 03721 [facility] Hosp L3
--- NOTE | 2018-05-18 13:08 | PCM.CONS.U ---
Reason for Consult Date of Consultation: 05/18/18 Reason for Consultation: Ureteral stent History of Present Illness: The patient is a 82 year old male with a chronic right stent and we have been planning the changes stent this coming Tuesday however this past weekend he fell was admitted to the hospital initially thought that he would be able to go home but then he stayed in the hospital for further workup. Stent been under quite some time and it is time for stent change if clinically stable and okay by hospitalist will proceed with stent change under [facility] local however if he is not stable we may delay stent change. 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) Constipation (Chronic) Hyperlipidemia (Chronic) Gout (Chronic) Allergies hydrocodone bitartrate [From Vicodin] Allergy (Verified 05/11/18 08:06) Unknown Iodinated Contrast- Oral and IV Dye [DYEE] Allergy (Verified 05/11/18 08:06) Unknown oxycodone HCl [From Percocet] Allergy (Verified 05/15/18 18:26) Itching Sulfa (Sulfonamide Antibiotics) Adverse Reaction (Verified 05/11/18 08:06) Unknown Home Medications: Ambulatory Orders Medication Instructions Recorded Finasteride [Proscar] 5 mg PO DAILY 05/14/14 Multivit-Min/FA/Lycopene/Lut 1 each PO DAILY 05/14/14 [Centrum Silver Tablet] Acetaminophen [Pain Reliever] 500 mg PO Q6H PRN PRN 09/25/16 Lorazepam [Ativan] 1 mg PO QHS 10/16/16 Simvastatin [Zocor] 5 mg PO QHS 10/16/16 Atenolol [Tenormin (beta yosef)] 25 mg PO DAILY 09/03/17 Bumetanide [Bumex] 2 mg PO BID 09/03/17 Metolazone [Zaroxolyn] 2.5 mg PO QODAY 09/03/17 Insulin Glargine [Lantus (BKC)] 15 units SC QHS 10/25/17 Polyethylene Glycol 3350 [Miralax] 17 gm PO DAILY 10/25/17 Warfarin [Coumadin] 7.5 mg PO MOWE 10/25/17 Allopurinol 100 mg PO DAILY 11/04/17 Glipizide [Glipizide ER] 2.5 mg PO BREAKFAST 11/04/17 Warfarin [Coumadin (PBKC)] 5 mg PO SUTUTHFRSA 11/04/17 Acetaminophen/Codeine #3 1 tablet PO DAILY 05/14/18 [Tylenol#3] Colchicine 0.6 mg PO DAILY 05/14/18 Ferrous Sulfate 325 mg PO DAILY@0800 05/14/18 Pregabalin [Lyrica] 50 mg PO TID 05/14/18 Vit C/E/Zn/Coppr/Lutein/Zeaxan 1 each PO DAILY 05/14/18 [Preservision Areds 2 Softgel] Surgical History: colectomy - S/P [place] COLOSTOMY, herniorrhaphy, pacemaker implantation, total hip arthroplasty, total knee arthroplasty, tonsillectomy, - Lives: Alone Smoking Status: Former smoker Tobacco Use: Non-smoker Alcohol: None Drugs: None - *Family History Maternal History Items: Diabetes Paternal History Items: Seizures Offspring History Items: Diabetes Review of Systems Constitutional: Reports: Chills. Denies: Weight Change HEENT: Denies: Head Aches, Sinus Congestion, Sinus Drainage Cardiovascular: Denies: Chest Pain, Palpitations Respiratory: Denies: Cough, Shortness of breath at rest, Sputum production Gastrointestinal: Denies: Abdominal Pain, Nausea, Vomiting Genitourinary: Reports: Frequency. Denies: Dysuria Musculoskeletal: Denies: Joint Pain, Joint Tenderness Skin: Denies: Rash, Wounds Neurological: Reports: Balance problems. Denies: Focal weakness, Numbness, Tingling Psychiatric: Reports: Anxiety, Depression. Denies: Homicidal Ideations, Suicidal Ideations Hematologic/ Lymphatic: Reports: Easy Bruising. Denies: Easy Bleeding Physical Exam - Physical Exam Vital Signs Temp 99 F 05/18/18 10:20 Pulse 90 05/18/18 11:08 Resp 16 05/18/18 10:20 BP 125/54 H 05/18/18 10:20 Pulse Ox 95 05/18/18 10:20 Intake & Output 05/16/18 05/17/18 05/18/18 23:59 23:59 23:59 Intake Total 4514 / 4514 1409 / 1409 1144 / 1144 Output Total 1560 / 1560 675 / 675 565 / 565 Balance 2954 / 2954 734 / 734 579 / 579 Weight: 91.7 kg Intake: Oral 1770 / 1770 1235 / 1235 360 / 360 IV fluid/meds 2744 / 2744 174 / 174 784 / 784 Output: Urine 1560 / 1560 675 / 675 565 / 565 Other: Number of Bowel Movements 1 1 General: Alert, Oriented x3 HEENT: Atraumatic Oral: Moist Mucosa Neck: Supple Lungs: Normal air movement Abdomen: Soft Microbiology Past 72 Hours 05/17/18 20:00 Stool Occult Blood (MIRANDA) - Final Stool Occult Blood Positive Laboratory Tests Past 24 Hrs 05/18/18 05/18/18 04:55 04:55 WBC 4.4 RBC 2.22 L Hgb 7.4 L Hct 24.0 L MCV 108.1 H MCH 33.3 H MCHC 30.8 L RDW 16.1 H RDW Differential 60.3 H Plt Count 92 L MPV 11.3 Sodium 142 Potassium 3.5 Chloride 108 H Carbon Dioxide 27.0 BUN 41 H Creatinine 1.55 H Estim Creat Clear Calc 41.72 Est GFR (MDRD) Af Amer 56 L Est GFR (MDRD) Non-Af 46 L BUN/Creatinine Ratio 26.5 H Glucose 125 H Calcium 8.3 L Phosphorus 2.5 Albumin 2.8 L Assessment/Plan All Active Problems Weakness (Acute) Chronic anticoagulation (Acute) Altered mental status (Acute) CHF exacerbation (Acute) 82-year-old male with multiple medical problems came in the hospital with falling also found to be pancytopenic he is undergoing CAT scan today we will review the CAT scan. Possibly we can do a stent change tomorrow if he is clinically stable and okay with anesthesia his blood counts are fairly low, will check in the morning with anesthesia. Stent change is not imperative at this point would just be like to do it if he is clinically stable but if he is not ready yet can always delay the stent change till next week. Will follow up in the CAT scan is having today we will review his blood work with Dr. aguilar and will decide whether the stent change tomorrow or if we need to delay until he is get stronger.
[2018-05-18 14:06] LABS: HEPATITIS B SURFACE AG Negative (Negative); Hepatitis A AB, Total Negative (Negative); Hepatitis A IgM Antibody Negative (Negative); Hepatitis B Core AB IgM Negative (Negative); Hepatitis B Core Ab Total Negative (Negative); Hepatitis Be Ab Negative (Negative); Hepatitis Be Ag Negative (Negative)
[2018-05-18 15:52] LABS: Haptoglobin 240 mg/dL (34-200)
[2018-05-18 16:10] LABS: Albumin 3.3 g/dL (2.9-4.4); Alpha-1-Globulins 0.3 g/dL (0.0-0.4); Alpha-2-Globulins 0.8 g/dL (0.4-1.0); Gamma Globulin 1.1 g/dL (0.4-1.8); Immunoglobulin A 260 mg/dL (61-437); Immunoglobulin G 967 mg/dL (700-1600); Immunoglobulin M 38 mg/dL (15-143); PROEL- TOTAL PROTEIN 6.4 g/dL (6.0-8.5)
[2018-05-18 16:31] LABS: Bedside Glucose 98 mg/dL (70-110)
--- NOTE | 2018-05-18 17:03 | CASEMGMT ---
SW spoke w/Gwen in TCU, pt was denied SNF by insurance. The number to call to appeal is [phone], reference number is [id number]. KRISTEN called the contact from [employer] [facility], at [phone], for clarification as to why pt was denied, message left. SW will speak w/physician tomorrow about appealing this decision. SW will speak w/pt and family about this tomorrow. CELINE Weaver, [employer] AP[employer]ENTICE
--- NOTE | 2018-05-18 18:37 | PCM.CONS.GEN ---
Problem List (1) Guaiac positive stools Status: Acute Reason for Consult Date of Consultation: 05/18/18 History of Present Illness: The patient is a 82 year old M who has guaiac positive stool. I have been asked to see the patient by Dr. Oscar and a written copy of my surgical consult recommendations will be returned to her. Patient is 82 years old. He was admitted to the [facility] on May 15, 2018 after having a fall. This apparently was 1 of several falls. The patient has been having trouble with low back pain felt to be renal and renal intervention related. He has been taking Tylenol with codeine. He has not been on ulcerogenic medications according to his account. He is chronically on Coumadin because of atrial fibrillation and cardiac valve intervention. It is note that the patient has had Hemoccult positive stool in the past. May 18, 2013 I performed a colonoscopy for him based upon that diagnosis. There is no evidence of GI bleeding. There was friability with contact of the ascending colon but otherwise was normal. Extensive diverticulosis of the sigmoid and descending colon was identified. More recently May 15, 2014 for preoperative assessment he had a flexible sigmoidoscopy. He had evidence of a patent end-to-end colocolonic anastomosis of the sigmoid with no stricture. Again severe diverticulosis identified. 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 The fistula then eventually healed he could have takedown of his transverse colostomy. The patient does not currently note any bright red blood per rectum. He notes that he has had Dr. Dion Gan adjusting his medications. Recently he states that he has been feeling very poorly extraordinarily fatigued.. He has had alternating swelling of his legs. Decreased appetite. 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) Constipation (Chronic) Hyperlipidemia (Chronic) Gout (Chronic) Allergies hydrocodone bitartrate [From Vicodin] Allergy (Verified 05/11/18 08:06) Unknown Iodinated Contrast- Oral and IV Dye [DYEE] Allergy (Verified 05/11/18 08:06) Unknown oxycodone HCl [From Percocet] Allergy (Verified 05/15/18 18:26) Itching Sulfa (Sulfonamide Antibiotics) Adverse Reaction (Verified 05/11/18 08:06) Unknown Home Medications: Ambulatory Orders Medication Instructions Recorded Finasteride [Proscar] 5 mg PO DAILY 05/14/14 Multivit-Min/FA/Lycopene/Lut 1 each PO DAILY 05/14/14 [Centrum Silver Tablet] Acetaminophen [Pain Reliever] 500 mg PO Q6H PRN PRN 09/25/16 Lorazepam [Ativan] 1 mg PO QHS 10/16/16 Simvastatin [Zocor] 5 mg PO QHS 10/16/16 Atenolol [Tenormin (beta yosef)] 25 mg PO DAILY 09/03/17 Bumetanide [Bumex] 2 mg PO BID 09/03/17 Metolazone [Zaroxolyn] 2.5 mg PO QODAY 09/03/17 Insulin Glargine [Lantus (BKC)] 15 units SC QHS 10/25/17 Polyethylene Glycol 3350 [Miralax] 17 gm PO DAILY 10/25/17 Warfarin [Coumadin] 7.5 mg PO MOWE 10/25/17 Allopurinol 100 mg PO DAILY 11/04/17 Glipizide [Glipizide ER] 2.5 mg PO BREAKFAST 11/04/17 Warfarin [Coumadin (PBKC)] 5 mg PO SUTUTHFRSA 11/04/17 Acetaminophen/Codeine #3 1 tablet PO DAILY 05/14/18 [Tylenol#3] Colchicine 0.6 mg PO DAILY 05/14/18 Ferrous Sulfate 325 mg PO DAILY@0800 05/14/18 Pregabalin [Lyrica] 50 mg PO TID 05/14/18 Vit C/E/Zn/Coppr/Lutein/Zeaxan 1 each PO DAILY 05/14/18 [Preservision Areds 2 Softgel] Surgical History: colectomy - S/P TAKEDOWN OF COLOSTOMY, herniorrhaphy, pacemaker implantation, total hip arthroplasty, total knee arthroplasty, tonsillectomy, - Lives: Alone Smoking Status: Former smoker Tobacco Use: Non-smoker Alcohol: None Drugs: None - *Family History Maternal History Items: Diabetes Paternal History Items: Seizures Offspring History Items: Diabetes Review of Systems Constitutional: Reports: Anorexia Eyes: Denies: Blurred vision HEENT: Reports: Difficulty Hearing Cardiovascular: Denies: Chest Pain Respiratory: Denies: Cough Gastrointestinal: Reports: Abdominal Pain, - - Client complains of increased low abdominal pain. Complains of his ventral hernia in the left upper quadrant and complex hernia in the infraumbilical midline Complaints of severe chronic low back pain. Denies: Vomiting Musculoskeletal: Reports: - - Complains of leg swelling Neurological: Reports: Balance problems, - - Balance problems with falls Psychiatric: Reports: Anxiety Endocrine: Reports: - - Patient has had anorexia and weight loss Hematologic/ Lymphatic: Reports: Anemia Patient Problems: Active and Suspected Problems Weakness (Acute) Guaiac positive stools (Acute) Altered mental status (Acute) - Physical Exam General: Alert, Oriented x3, Cooperative, - - Significant weight loss and disability noted HEENT: Atraumatic Oral: Moist Mucosa Neck: Supple Lungs: Clear to auscultation Cardiovascular: Irregular Rate Abdomen: Bowel Sounds Present, Soft, Non Tender, - - Left upper quadrant transverse incision with hernial defect, infraumbilical midline incision with multilobulated ventral incisional defect with bowel involvement Extremities: - - Mild bilateral extremity swelling Skin: Skin Tear Musculoskeletal: - - Bandages bilateral upper arms Neurological: - - Patient is aware of his situation Psych/Mental Status: Flat Affect Vital Signs Temp Pulse Resp BP Pulse Ox 99.1 F 68 16 120/46 L 99 05/18/18 16:20 05/18/18 16:20 05/18/18 16:20 05/18/18 16:20 05/18/18 16:20 Oxygen Delivery Method Room Air Weight: 202 lb 2.622 oz Body Mass Index (BMI) 27.3 Orthostatic Vital Signs Start: 05/16/18 10:14 Freq: q24h Status: Active Protocol: Activity Type Activity Date Activity User E-Sign Co-Sign Detail Recorded Client Recorded Date Recorded By Document 05/18/18 05:32 EE [id number] 05/18/18 05:35 EEJ 05/18/18 05:32 Orthostatic Vitals Standing -Blood Pressure (90/60-120/80) 95/66 -Extremity Use Right Arm -Pulse Rate (60-100) 137 H Sitting -Blood Pressure (90/60-120/80) 126/63 H -Extremity Use Right Arm -Pulse Rate (60-100) 122 H Lying -Blood Pressure (90/60-120/80) 120/58 L -Extremity Use Right Arm -Pulse Rate (60-100) 90 Intake and Output for Last 24 Hours 05/16/18 05/17/18 05/18/18 23:59 23:59 23:59 Intake Total 4514 / 4514 1409 / 1409 1504 / 1504 Output Total 1560 / 1560 675 / 675 840 / 840 Balance 2954 / 2954 734 / 734 664 / 664 Microbiology Past 72 Hours 05/17/18 20:00 Stool Occult Blood (MIRANDA) - Final Stool Occult Blood Positive Laboratory Tests Past 24 Hrs 05/16/18 05/18/18 05/18/18 13:35 04:55 04:55 WBC 4.4 RBC 2.22 L Hgb 7.4 L Hct 24.0 L MCV 108.1 H MCH 33.3 H MCHC 30.8 L RDW 16.1 H RDW Differential 60.3 H Plt Count 92 L MPV 11.3 Haptoglobin 240 H Sodium 142 Potassium 3.5 Chloride 108 H Carbon Dioxide 27.0 BUN 41 H Creatinine 1.55 H Estim Creat Clear Calc 41.72 Est GFR (MDRD) Af Amer 56 L Est GFR (MDRD) Non-Af 46 L BUN/Creatinine Ratio 26.5 H Glucose 125 H Calcium 8.3 L Phosphorus 2.5 Albumin 2.8 L Hepatitis A IgM Ab Negative Hepatitis A Ab Total Negative Hep Bs Antigen Negative Hep Bs Antibody Hep B Core Total Ab Negative Hep B Core IgM Ab Negative Hepatitis Be Antibody Negative Hepatitis Be Antigen Negative POC Glucose 05/18/18 05/18/18 05/18/18 16:16 11:45 07:01 POC Glucose 98 159 H 113 H 05/17/18 21:13 POC Glucose 133 H Assessment/Plan All Active Problems Weakness (Acute) Guaiac positive stools (Acute) Chronic anticoagulation (Acute) Altered mental status (Acute) CHF exacerbation (Acute) 82-year-old gentleman who appears much more chronically ill and debilitated since my previous interactions with him. I do not believe that he has clinically significant GI bleeding requiring emergency intervention at this moment. He has chronic dental ability chronic medical illnesses. He is on chronic Coumadin and is previously had endoscopy looking for a potential source because of Hemoccult positive findings. He has been seen at [facility] for consideration repair of his ventral hernias and is been declined. The patient is not a surgical candidate for further treatment of his abdomen. It may be reasonable to offer him a esophagogastroduodenoscopy with possible biopsy and colonoscopy with possible biopsy or polypectomy is indicated. He would have to be able to tolerate a bowel prep. The patient already is scheduled for surgical intervention tomorrow. Patient is having his Coumadin held. We will need to discuss with the hospitalist service as far as there plans of treatment. He does not require emergency endoscopy over the weekend. We could investigate scheduling for next week depending upon other treatment plans. It is not clear to me that the etiology to the patient's frequent falls has yet been determined. I appreciate the opportunity of assisting with his surgical care. He is clearly a much higher risk interventional candidate. We can proceed as indicated pending the request of his primary care service. Michael Munroe M.D., F.A.C.S.
[2018-05-18] MEDS: 0.9% NaCl Peripheral Flush Adult/Peds IV (20:28)
[2018-05-18] MEDS: Atorvastatin Calcium 10 MG Tablet 5 MG PO (22:45)
[2018-05-18 23:21] LABS: Bedside Glucose 111 mg/dL (70-110)
[2018-05-19] VITALS (11 sets, daily range): BP systolic 110–134; BP diastolic 53–71; PULSE 74–127; RESP 14–18; TEMP 36.9–37.7; O2SAT 97–98; BMI 27.4; BMI 27.3
[2018-05-19 05:27] LABS: Prothrombin Time (Protime)PT. 31.6 SECONDS (11.7-14.9)
[2018-05-19 05:28] LABS: Absolute Lymphocyte Count 0.27 X10^3/ul (0.83-4.51); Absolute Neutrophil Count 3.5 X10^3/uL (2.0-7.7); Basophil# 0.01 X10^3/uL; Basophil% 0.2 % (0-1); Eosinophil# 0.05 X10^3/uL; Eosinophils% 1.1 % (0-5); Hematocrit 23.4 % (40-54); Hemoglobin 7.2 g/dl (13.0-16.5); Lymphocyte # 0.27 X10^3/ul (4.0); Lymphocyte % 6.2 % (19-41); Mean Corp Hgb Conc 30.8 g/gl (32-36); Mean Corpuscular Volume 107.3 fL (80-94); Mean Platelet Vol. 10.4 fl (6.2-12.0); Monocyte% 11.4 % (0-10); Neutrophil % 80.2 % (47-70); Partial Thromboplast Time 63.8 Seconds (24.1-36.2); Platelet Count 92 K/mm3 (150-450); RBC Distribution Width CV 16.2 % (11.6-14.6); RBC Distribution Width SD 60.7 fl (35.1-43.9); Red Blood Count 2.18 M/mm3 (4.6-6.2); White Blood Count 4.4 K/mm3 (4.4-11.0)
[2018-05-19 05:29] LABS: Differential Indicated SCAN CRITERIA MET; POSITIVE COUNT NO; POSITIVE DIFFERENTIAL YES; POSITIVE MORPHOLOGY NO
[2018-05-19 05:36] LABS: Albumin, Serum 2.7 g/dL (3.2-5.0); BUN 38 mg/dL (7-18); BUN/Creat Ratio 24.8 RATIO (10-20); Calcium,Total 8.5 mg/dL (8.5-10.1); Chloride 109 mmol/L (98-107); Creatinine, Serum 1.53 mg/dL (0.70-1.30); EST Glomerular Filtration Rate 47 mL/min (>60); Est Glom Filt Rate - Afr Amer 57 mL/min (>60); Estimated Creatinine Clearance 14.92 ml/min; Glucose 98 mg/dL (74-106); Phosphorus 3.3 mg/dL (2.5-4.9); Potassium 3.9 mmol/L (3.5-5.1); Sodium Level 144 mmol/L (136-145)
--- NOTE | 2018-05-19 05:55 | EKG12_ITS ---
Test Reason : AM EKG Blood Pressure : / mmHG Vent. Rate : 083 BPM Atrial Rate : 091 BPM P-R Int : 000 ms QRS Dur : 106 ms QT Int : 404 ms P-R-T Axes : 000 071 078 degrees QTc Int : 474 ms Atrial fibrillation with occasional ventricular-paced complexes ST & T wave abnormality, consider anterior ischemia Prolonged QT Abnormal ECG Confirmed by LENKA MAGAÑA, VANESSA ([id number]), film editor supervisor SCOOTER KRAUS ([id number]) on 05/25/2018 2:15:21 PM Referred By: JENNIFER Confirmed By:VANESSA OG MD
--- NOTE | 2018-05-19 06:15 | PN.SURG_ITS ---
Patient Problems: Active and Suspected Problems Weakness (Acute) Guaiac positive stools (Acute) Altered mental status (Acute) Subjective: Pt resting soundly this am. States one stool last night, smaller - Physical Exam Abdomen: Bowel Sounds Present, Soft, Non Tender Vital Signs Temp Pulse Resp BP Pulse Ox 98.4 F 93 14 134/71 H 98 05/19/18 04:18 05/19/18 04:18 05/19/18 04:18 05/19/18 04:18 05/19/18 04:18 Oxygen Delivery Method Room Air Weight: 202 lb Body Mass Index (BMI) 27.3 Orthostatic Vital Signs Start: 05/16/18 10:14 Freq: q24h Status: Active Protocol: Activity Type Activity Date Activity User E-Sign Co-Sign Detail Recorded Client Recorded Date Recorded By Document 05/19/18 04:17 [facility] [id number] 05/19/18 04:26 [facility] 05/19/18 04:17 Orthostatic Vitals Standing -Blood Pressure (90/60-120/80) 129/57 H -Extremity Use Right Arm -Pulse Rate (60-100) 127 H Sitting -Blood Pressure (90/60-120/80) 126/69 H -Extremity Use Right Arm -Pulse Rate (60-100) 120 H Lying -Blood Pressure (90/60-120/80) 134/71 H -Extremity Use Right Arm -Pulse Rate (60-100) 93 Intake and Output for Last 24 Hours 05/17/18 05/18/18 05/19/18 23:59 23:59 23:59 Intake Total 1409 / 1409 1624 / 1624 Output Total 675 / 675 1015 / 1015 Balance 734 / 734 609 / 609 Microbiology Past 72 Hours 05/17/18 20:00 Stool Occult Blood (MIRANDA) - Final Stool Occult Blood Positive Laboratory Tests Past 24 Hrs 05/16/18 05/18/18 05/19/18 13:35 04:55 05:00 WBC RBC Hgb Hct MCV MCH MCHC RDW RDW Differential Plt Count MPV Immature Gran % (Auto) Neut % (Auto) Lymph % (Auto) [place] % (Auto) Eos % (Auto) Baso % (Auto) Absolute Neuts (auto) Absolute Lymphs (auto) Total Counted Haptoglobin 240 H PT INR APTT Sodium 142 144 Potassium 3.5 3.9 Chloride 108 H 109 H Carbon Dioxide 27.0 26.0 BUN 41 H 38 H Creatinine 1.55 H 1.53 H Estim Creat Clear Calc 41.72 14.92 Est GFR (MDRD) Af Amer 56 L 57 L Est GFR (MDRD) Non-Af 46 L 47 L BUN/Creatinine Ratio 26.5 H 24.8 H Glucose 125 H 98 Hemoglobin A1c Calcium 8.3 L 8.5 Phosphorus 2.5 3.3 Albumin 2.8 L 2.7 L Hepatitis A IgM Ab Negative Hepatitis A Ab Total Negative Hep Bs Antigen Negative Hep Bs Antibody Hep B Core Total Ab Negative Hep B Core IgM Ab Negative Hepatitis Be Antibody Negative Hepatitis Be Antigen Negative 05/19/18 05/19/18 05/19/18 05:00 05:00 05:00 WBC 4.4 RBC 2.18 L Hgb 7.2 L Hct 23.4 L MCV 107.3 H MCH 33.0 H MCHC 30.8 L RDW 16.2 H RDW Differential 60.7 H Plt Count 92 L MPV 10.4 Immature Gran % (Auto) 0.900 Neut % (Auto) 80.2 H Lymph % (Auto) 6.2 L [place] % (Auto) 11.4 H Eos % (Auto) 1.1 Baso % (Auto) 0.2 Absolute Neuts (auto) 3.5 Absolute Lymphs (auto) 0.27 L Total Counted Not Reportable Haptoglobin PT 31.6 H INR 3.0 APTT 63.8 H Sodium Potassium Chloride Carbon Dioxide BUN Creatinine Estim Creat Clear Calc Est GFR (MDRD) Af Amer Est GFR (MDRD) Non-Af BUN/Creatinine Ratio Glucose Hemoglobin A1c Pending Calcium Phosphorus Albumin Hepatitis A IgM Ab Hepatitis A Ab Total Hep Bs Antigen Hep Bs Antibody Hep B Core Total Ab Hep B Core IgM Ab Hepatitis Be Antibody Hepatitis Be Antigen POC Glucose 05/18/18 05/18/18 05/18/18 22:41 16:16 11:45 POC Glucose 111 H 98 159 H 05/18/18 07:01 POC Glucose 113 H Medical Necessity - Tobacco Use Smoking Status: Former smoker Tobacco Use: Non-smoker Assessment/Plan All Active Problems Weakness (Acute) Guaiac positive stools (Acute) Chronic anticoagulation (Acute) Altered mental status (Acute) CHF exacerbation (Acute) Hgb7.2 minimal change with ongoing IVF INR 3 I was considering and EGD/cscope on Tuesday. Pt at higher risk of bowel prep b/o CRF and now Dr Aguero may not be able to proceed with his procedure today b/o anticoagulation. I would prefer not to attempt scopes with an elevated INR Will need to await Dr Aguero's review to decide how I can schedule my procedures
[2018-05-19] MEDS: Acetaminophen 325 MG Tablet 650 MG PO ×3 (06:46→23:18)
[2018-05-19 07:05] LABS: Bedside Glucose 94 mg/dL (70-110)
[2018-05-19] MEDS: Atenolol 25 MG Tablet PO (09:57)
[2018-05-19] MEDS: Allopurinol 100 MG Tablet PO (09:57)
[2018-05-19] MEDS: Ferrous Sulfate 325 MG Tablet PO (09:57)
--- NOTE | 2018-05-19 09:59 | CASEMGMT ---
KRISTEN received a call back from pt's insurance, message left stating pt walked 60 feet with contact guard and minimum assist, and his needs could be met at a lower level of care or an extended care facility spoke w/physician, pt will be here through the weekend, his procedure w/Dr. Aguero and the tests with Dr. Munroe are all pending. KRISTEN spoke w/Gwen in TCU and the plan is to start the precert over on Tuesday once pt has had the needed procedures and testing completed, to see if they will consider authorizing pt. Gwen will call KRISTEN Guevara on Tuesday who will be on PCU Tuesday. KRISTEN spoke pt in the room, explained to pt that pt's insurance denied him to go to the TCU. KRISTEN explained that we will start the precert again on Tuesday, pt states understanding. KRISTEN inquired if he would like this SW to call his son to explain this, he would. KRISTEN called son Antonio, let him know that pt was denied by insurance for TCU. KRISTEN explained that we will try again however on Tuesday, once pt has completed the needed procedures, to see if they will reconsider authorizing pt. Son states understanding. Son states he and his brother, pt's son Cristopher, are co-POA's. KRISTEN will continue to follow, will follow up Tuesday candelaria/Gwen in TCU about starting a new precert. CELINE Weaver, SLEEVE MAKER
[2018-05-19 10:14] LABS: Hemoglobin A1c 5.3 % (4.2-6.3)
--- NOTE | 2018-05-19 10:29 | PCM.PN.HOSP ---
Patient Problems: Active and Suspected Problems Weakness (Acute) Guaiac positive stools (Acute) Altered mental status (Acute) Subjective: Patient is an 82-year-old male who was admitted after he fell at home. Patient stated that his leg simply got weak and gave out and he fell twice. Per history obtained from his sinus patient was a poor historian, he had recently been given a prescription for Tylenol with codeine and subsequently started falling. Vitals and labs done in the ED were only significant for platelet count of 87,000, white cell count of 3.4 and hemoglobin of 8. CT done was negative for any acute findings. He was admitted and managed for general weakness and falls with mild altered mental status likely drug-induced from Tylenol with codeine. He remained stable. Hematology and nephrology are on board. Patient noted to have anemia which is progressively worsening with hemoglobin falling to 7.4. General surgery consulted for possible EGD and colonoscopy. Urology also consulted for removal of patient's kidney stent. Patient has been off Coumadin. Vitals/I&O's: Vital Signs Temp Pulse Resp BP Pulse Ox 98.4 F 95 18 110/54 L 98 05/19/18 09:55 05/19/18 09:55 05/19/18 09:55 05/19/18 09:55 05/19/18 09:55 Oxygen Delivery Method Room Air Weight: 202 lb Body Mass Index (BMI) 27.3 Orthostatic Vital Signs Start: 05/16/18 10:14 Freq: q24h Status: Active Protocol: Activity Type Activity Date Activity User E-Sign Co-Sign Detail Recorded Client Recorded Date Recorded By Document 05/19/18 04:17 [facility] [id number] 05/19/18 04:26 [facility] 05/19/18 04:17 Orthostatic Vitals Standing -Blood Pressure (90/60-120/80) 129/57 H -Extremity Use Right Arm -Pulse Rate (60-100) 127 H Sitting -Blood Pressure (90/60-120/80) 126/69 H -Extremity Use Right Arm -Pulse Rate (60-100) 120 H Lying -Blood Pressure (90/60-120/80) 134/71 H -Extremity Use Right Arm -Pulse Rate (60-100) 93 Intake and Output for Last 24 Hours 05/17/18 05/18/18 05/19/18 23:59 23:59 23:59 Intake Total 1409 / 1409 1624 / 1624 Output Total 675 / 675 1015 / 1015 250 / 250 Balance 734 / 734 609 / 609 -250 / -250 General: Alert, Oriented x3, Cooperative, Lethargic HEENT: Atraumatic, PERRLA, EOMI, Normocephalic Oral: Moist Mucosa Neck: Supple, No JVD, Negative Carotid Bruits Lungs: Clear to auscultation, Normal air movement, No rhonchi, No wheeze Cardiovascular: Regular rate, Regular Rhythm, Normal S1, Normal S2, No murmurs Abdomen: Bowel Sounds Present, Soft, Non Tender, Non-Distended, No Hepato-splenomegaly, - - Has epigastric and ventral hernia which is reducible and nontender. Extremities: No clubbing, No cyanosis, No edema, Capillary Refill Less than 3 Seconds Skin: No rashes, No breakdown Musculoskeletal: No Tenderness to Palpation of Joints or Extremities, Muscle Wasting Lymphatic: No Cervical, Supraclavicular, or Inguinal Adenopathy Neurological: Cranial nerves II-XII grossly intact Psych/Mental Status: Normal Affect, Appropriate, Alert and oriented to time, place, person, mood and affect Microbiology Past 72 Hours 05/17/18 20:00 Stool Stool Occult Blood (MIRANDA) - Final Occult Blood Positive Laboratory Results 05/16/18 13:35: Haptoglobin 240 H, Hepatitis A IgM Ab Negative, Hepatitis A Ab Total Negative, Hep Bs Antigen Negative, Hep Bs Antibody , Hep B Core Total Ab Negative, Hep B Core IgM Ab Negative, Hepatitis Be Antibody Negative, Hepatitis Be Antigen Negative 05/18/18 11:45: POC Glucose 159 H 05/18/18 16:16: POC Glucose 98 05/18/18 22:41: POC Glucose 111 H 05/19/18 05:00: Sodium 144, Potassium 3.9, Chloride 109 H, Carbon Dioxide 26.0, BUN 38 H, Creatinine 1.53 H, Estim Creat Clear Calc 14.92, Est GFR (MDRD) Af Amer 57 L, Est GFR (MDRD) Non-Af 47 L, BUN/Creatinine Ratio 24.8 H, Glucose 98, Calcium 8.5, Phosphorus 3.3, Albumin 2.7 L 05/19/18 05:00: WBC 4.4, RBC 2.18 L, Hgb 7.2 L, Hct 23.4 L, MCV 107.3 H, MCH 33.0 H, MCHC 30.8 L, RDW 16.2 H, RDW Differential 60.7 H, Plt Count 92 L, MPV 10.4, Immature Gran % (Auto) 0.900, Neut % (Auto) 80.2 H, Lymph % (Auto) 6.2 L, [place] % (Auto) 11.4 H, Eos % (Auto) 1.1, Baso % (Auto) 0.2, Absolute Neuts (auto) 3.5, Absolute Lymphs (auto) 0.27 L, Total Counted Not Reportable 05/19/18 05:00: PT 31.6 H, INR 3.0, APTT 63.8 H 05/19/18 05:00: Hemoglobin A1c 5.3 05/19/18 06:43: POC Glucose 94 Current Medications Acetaminophen (Tylenol) 650 mg PO Q6H PRN PRN PRN Reason: PAIN Last Admin: 05/19/18 06:46 Dose: 650 mg Allopurinol (Zyloprim) 100 mg PO DAILY [facility] Last Admin: 05/19/18 09:57 Dose: 100 mg Atenolol (Tenormin (Beta Rajani)) 25 mg PO DAILY [facility] Last Admin: 05/19/18 09:57 Dose: 25 mg Atorvastatin Calcium (Lipitor) 5 mg PO QHS [facility] Last Admin: 05/18/18 22:45 Dose: 5 mg Ferrous Sulfate (Ferrous Sulfate) 325 mg PO DAILY@0800 [facility] Last Admin: 05/19/18 09:57 Dose: 325 mg Cefazolin Sodium 2 gm/ Sodium (Chloride) 120 mls @ 150 mls/hr IV PREOP ONE Stop: 05/19/18 15:43 Insulin Glargine (Lantus (Bkc)) 15 units SC QHS [facility] Last Admin: 05/18/18 23:02 Dose: Not Given Insulin Human Lispro (Humalog Kwikpen (Bkc)) 0 unit SC ACHS [facility] PRN Reason: Protocol Last Admin: 05/19/18 07:27 Dose: Not Given Lorazepam (Ativan) 0.5 mg PO BID PRN PRN PRN Reason: ANXIETY Last Admin: 05/15/18 22:37 Dose: 0.5 mg Multivitamins/Minerals (Ocuvite) 1 tablet PO DAILY@0800 [facility] Last Admin: 05/19/18 09:57 Dose: 1 tablet Polyethylene Glycol (Miralax) 17 gm PO DAILY PRN PRN Reason: Constipation Sodium Chloride () 5 - 30 ml IV UD PRN PRN Reason: SALINE FLUSH Last Admin: 05/18/18 20:28 Dose: 10 ml Medical Necessity - Tobacco Use Smoking Status: Former smoker Tobacco Use: Non-smoker Assessment/Plan All Active Problems Weakness (Acute) Guaiac positive stools (Acute) Chronic anticoagulation (Acute) Altered mental status (Acute) CHF exacerbation (Acute) 10-year-old male with a history of heart failure, chronic atrial fibrillation, and pancytopenia was admitted with a complaint of falls. He also had slight altered mental status which was thought to be medication induced. 1. Metabolic encephalopathy medication induced, as well as Omaira-on-CKD resolved. She still does appear lethargic, but this can also be attributed to his general debility and anemia. will continue to monitor 2.Recurrent falls and general debility due to tyelenol codeine which was recently prescribed, as well as orthostatic hypotension Stable. Finasteride on hold on account of orthostatic hypotension. Neurology on board and think this was due to medications. patient remains very debilitated, and will likely need placement. Insurance refused TCU placement. Per discussion with sr. social media & mobile manager, will send in precert again on Tuesday. 3. Hypernatremia: resolved. Na is 142. 4. Anemia and thrombocytopenia Hb down to 7.2. was 8 on admission. FOBT positive. Off coumadin, was supposed to have a kidney stent removed today General surgery consulted for possible EGD and colonoscopy. Discussed with Dr. Munroe. Patient is very lethargic and debilitated. Per Dr. Munroe, he does not think that the positive FOBT is much to worry about as he has seen patient in the past and worked him up for same complaints and EGD and colonoscopy were negative. Patient to have EGD and colonoscopy next week as he does not think patient is stable enough to be able to tolerate the procedure today. In addition INR is 3 today. If INR remains above 1.5 by tomorrow, will give patient vitamin K orally to bring down INR. Also spoke to Dr. Aguero. Due to patient's debility and INR of 3, will hold off on removal of kidney stent for now. Once patient is better optimized, he will consider bringing patient in to take it out. will hold off on transfusion of PRBC until Hb is <7. urine and serum electrophoresis still pending. hematology on board 5. Back pain: resolving. Lumbar and cervical pain CT done on 05/18/2018 showed scoliosis and degenerative changes with multilevel spinal stenosis and status post bilateral laminectomy and posterior fusion of L3-L4 through L5-S1. No evidence of fracture or subluxation and no evidence of loosening of orthopedic hardware. CT of the cervical spine was also negative. stable. WIll monitor 6. hypokalemia: resolved 7. OMAIRA on CKD: resolved. Cr down to 1.53 today, which is around his baseline. nephrology on board 8. Chronic AF s/p pacemaker insertion is rate controlled. Heart rate has remained in 70s. coumadin on hold o/a of kidney stent removal. 9. Chronic HFpEF; stable. diuretics held on admission due to Omaira-on-CKD. will monitor 10. Ureteral stricture s/p nephrostomy Nephrostomy tube placed in [facility]. coumadin on hold INR is 3 today. Due to patient's general debility, Dr Aguero will prefer to defer on procedure for now. to do procedure in ~ 2 weeks once patient is better optimised. 11. Diabetes mellitus: on lantus 15IU qhs and ISS. 12. DVt prophylaxis: SCDs. coumadin on hold for stent removal on tuesday. Code status: Full code This note was generated with [employer] software. It may contain incorrect words, spelling, and punctuation that were not noted in checking the note before signing. Code Visit Inpatient E&M: 84599 Subs Hosp L3
--- NOTE | 2018-05-19 10:49 | PN_ITS ---
Patient Problems: Active and Suspected Problems Weakness (Acute) Guaiac positive stools (Acute) Altered mental status (Acute) Subjective: Patient is an 82-year-old male who was admitted after he fell at home. Patient stated that his leg simply got weak and gave out and he fell twice. Per history obtained from his sinus patient was a poor historian, he had recently been given a prescription for Tylenol with codeine and subsequently started falling. Vitals and labs done in the ED were only significant for platelet count of 87,000, white cell count of 3.4 and hemoglobin of 8. CT done was negative for any acute findings. He was admitted and managed for general weakness and falls with mild altered mental status likely drug-induced from Tylenol with codeine. He remained stable. Hematology and nephrology are on board. Patient noted to have anemia which is progressively worsening with hemoglobin falling to 7.4. General surgery consulted for possible EGD and colonoscopy. Urology also consulted for removal of patient's kidney stent. Patient has been off Coumadin. Vitals/I&O's: Vital Signs Temp Pulse Resp BP Pulse Ox 98.4 F 95 18 110/54 L 98 05/19/18 09:55 05/19/18 09:55 05/19/18 09:55 05/19/18 09:55 05/19/18 09:55 Oxygen Delivery Method Room Air Weight: 202 lb Body Mass Index (BMI) 27.3 Orthostatic Vital Signs Start: 05/16/18 10:14 Freq: q24h Status: Active Protocol: Activity Type Activity Date Activity User E-Sign Co-Sign Detail Recorded Client Recorded Date Recorded By Document 05/19/18 04:17 [facility] [id number] 05/19/18 04:26 [facility] 05/19/18 04:17 Orthostatic Vitals Standing -Blood Pressure (90/60-120/80) 129/57 H -Extremity Use Right Arm -Pulse Rate (60-100) 127 H Sitting -Blood Pressure (90/60-120/80) 126/69 H -Extremity Use Right Arm -Pulse Rate (60-100) 120 H Lying -Blood Pressure (90/60-120/80) 134/71 H -Extremity Use Right Arm -Pulse Rate (60-100) 93 Intake and Output for Last 24 Hours 05/17/18 05/18/18 05/19/18 23:59 23:59 23:59 Intake Total 1409 / 1409 1624 / 1624 Output Total 675 / 675 1015 / 1015 250 / 250 Balance 734 / 734 609 / 609 -250 / -250 General: Alert, Oriented x3, Cooperative, Lethargic HEENT: Atraumatic, PERRLA, EOMI, Normocephalic Oral: Moist Mucosa Neck: Supple, No JVD, Negative Carotid Bruits Lungs: Clear to auscultation, Normal air movement, No rhonchi, No wheeze Cardiovascular: Regular rate, Regular Rhythm, Normal S1, Normal S2, No murmurs Abdomen: Bowel Sounds Present, Soft, Non Tender, Non-Distended, No Hepato- splenomegaly, - - Has epigastric and ventral hernia which is reducible and nontender. Extremities: No clubbing, No cyanosis, No edema, Capillary Refill Less than 3 Seconds Skin: No rashes, No breakdown Musculoskeletal: No Tenderness to Palpation of Joints or Extremities, Muscle Wasting Lymphatic: No Cervical, Supraclavicular, or Inguinal Adenopathy Neurological: Cranial nerves II-XII grossly intact Psych/Mental Status: Normal Affect, Appropriate, Alert and oriented to time, place, person, mood and affect Microbiology Past 72 Hours 05/17/18 20:00 Stool Stool Occult Blood (MIRANDA) - Final Occult Blood Positive Laboratory Results 05/16/18 13:35: Haptoglobin 240 H, Hepatitis A IgM Ab Negative, Hepatitis A Ab Total Negative, Hep Bs Antigen Negative, Hep Bs Antibody , Hep B Core Total Ab Negative, Hep B Core IgM Ab Negative, Hepatitis Be Antibody Negative, Hepatitis Be Antigen Negative 05/18/18 11:45: POC Glucose 159 H 05/18/18 16:16: POC Glucose 98 05/18/18 22:41: POC Glucose 111 H 05/19/18 05:00: Sodium 144, Potassium 3.9, Chloride 109 H, Carbon Dioxide 26.0, BUN 38 H, Creatinine 1.53 H, Estim Creat Clear Calc 14.92, Est GFR (MDRD) Af Amer 57 L, Est GFR (MDRD) Non-Af 47 L, BUN/Creatinine Ratio 24.8 H, Glucose 98, Calcium 8.5, Phosphorus 3.3, Albumin 2.7 L 05/19/18 05:00: WBC 4.4, RBC 2.18 L, Hgb 7.2 L, Hct 23.4 L, MCV 107.3 H, MCH 33.0 H, MCHC 30.8 L, RDW 16.2 H, RDW Differential 60.7 H, Plt Count 92 L, MPV 10.4, Immature Gran % (Auto) 0.900, Neut % (Auto) 80.2 H, Lymph % (Auto) 6.2 L, Kay % (Auto) 11.4 H, Eos % (Auto) 1.1, Baso % (Auto) 0.2, Absolute Neuts (auto ) 3.5, Absolute Lymphs (auto) 0.27 L, Total Counted Not Reportable 05/19/18 05:00: PT 31.6 H, INR 3.0, APTT 63.8 H 05/19/18 05:00: Hemoglobin A1c 5.3 05/19/18 06:43: POC Glucose 94 Current Medications Acetaminophen (Tylenol) 650 mg PO Q6H PRN PRN PRN Reason: PAIN Last Admin: 05/19/18 06:46 Dose: 650 mg Allopurinol (Zyloprim) 100 mg PO DAILY [facility] Last Admin: 05/19/18 09:57 Dose: 100 mg Atenolol (Tenormin (Beta Rajani)) 25 mg PO DAILY [facility] Last Admin: 05/19/18 09:57 Dose: 25 mg Atorvastatin Calcium (Lipitor) 5 mg PO QHS [facility] Last Admin: 05/18/18 22:45 Dose: 5 mg Ferrous Sulfate (Ferrous Sulfate) 325 mg PO DAILY@0800 [facility] Last Admin: 05/19/18 09:57 Dose: 325 mg Cefazolin Sodium 2 gm/ Sodium (Chloride) 120 mls @ 150 mls/hr IV PREOP ONE Stop: 05/19/18 15:43 Insulin Glargine (Lantus (Bkc)) 15 units SC QHS [facility] Last Admin: 05/18/18 23:02 Dose: Not Given Insulin Human Lispro (Humalog Kwikpen (Bkc)) 0 unit SC ACHS [facility] PRN Reason: Protocol Last Admin: 05/19/18 07:27 Dose: Not Given Lorazepam (Ativan) 0.5 mg PO BID PRN PRN PRN Reason: ANXIETY Last Admin: 05/15/18 22:37 Dose: 0.5 mg Multivitamins/Minerals (Ocuvite) 1 tablet PO DAILY@0800 AN[facility] Last Admin: 05/19/18 09:57 Dose: 1 tablet Polyethylene Glycol (Miralax) 17 gm PO DAILY PRN PRN Reason: Constipation Sodium Chloride () 5 - 30 ml IV UD PRN PRN Reason: SALINE FLUSH Last Admin: 05/18/18 20:28 Dose: 10 ml Medical Necessity - Tobacco Use Smoking Status: Former smoker Tobacco Use: Non-smoker Assessment/Plan All Active Problems Weakness (Acute) Guaiac positive stools (Acute) Chronic anticoagulation (Acute) Altered mental status (Acute) CHF exacerbation (Acute) 10-year-old male with a history of heart failure, chronic atrial fibrillation, and pancytopenia was admitted with a complaint of falls. He also had slight altered mental status which was thought to be medication induced. 1. Metabolic encephalopathy * medication induced, as well as Omaira-on-CKD * resolved. She still does appear lethargic, but this can also be attributed to his general debility and anemia. * will continue to monitor * 2.Recurrent falls and general debility * due to tyelenol codeine which was recently prescribed, as well as orthostatic hypotension * Stable. Finasteride on hold on account of orthostatic hypotension. * Neurology on board and think this was due to medications. * patient remains very debilitated, and will likely need placement. Insurance refused TCU placement. Per discussion with coffee plantation worker, will send in precert again on Tuesday. * * 3. Hypernatremia: * resolved. Na is 142. * * 4. Anemia and thrombocytopenia * Hb down to 7.2. was 8 on admission. * FOBT positive. Off coumadin, was supposed to have a kidney stent removed today * General surgery consulted for possible EGD and colonoscopy. Discussed with Dr. Munroe. Patient is very lethargic and debilitated. Per Dr. Munroe, he does not think that the positive FOBT is much to worry about as he has seen patient in the past and worked him up for same complaints and EGD and colonoscopy were negative. Patient to have EGD and colonoscopy next week as he does not think patient is stable enough to be able to tolerate the procedure today. In addition INR is 3 today. If INR remains above 1.5 by tomorrow, will give patient vitamin K orally to bring down INR. * Also spoke to Dr. Aguero. Due to patient's debility and INR of 3, will hold off on removal of kidney stent for now. Once patient is better optimized, he will consider bringing patient in to take it out. * will hold off on transfusion of PRBC until Hb is <7. * urine and serum electrophoresis still pending. * hematology on board * 5. Back pain: * resolving. Lumbar and cervical pain CT done on 05/18/2018 showed scoliosis and degenerative changes with multilevel spinal stenosis and status post bilateral laminectomy and posterior fusion of L3-L4 through L5-S1. No evidence of fracture or subluxation and no evidence of loosening of orthopedic hardware. * CT of the cervical spine was also negative. * stable. WIll monitor 6. hypokalemia: * resolved * 7. OMAIRA on CKD: * resolved. * Cr down to 1.53 today, which is around his baseline. * nephrology on board * 8. Chronic AF s/p pacemaker insertion * is rate controlled. Heart rate has remained in 70s. * coumadin on hold o/a of kidney stent removal. * 9. Chronic HFpEF; * stable. diuretics held on admission due to Omaira-on-CKD. * will monitor * 10. Ureteral stricture s/p nephrostomy * Nephrostomy tube placed in [facility]. coumadin on hold * INR is 3 today. Due to patient's general debility, Dr Aguero will prefer to defer on procedure for now. * to do procedure in ~ 2 weeks once patient is better optimised. 11. Diabetes mellitus: on lantus 15IU qhs and ISS. * 12. DVt prophylaxis: SCDs. coumadin on hold for stent removal on tuesday. Code status: Full code This note was generated with [employer] software. It may contain incorrect words, spelling, and punctuation that were not noted in checking the note before signing. Code Visit Inpatient E&M: 52889 Subs Hosp L3
[2018-05-19 11:40] LABS: Bedside Glucose 103 mg/dL (70-110)
--- NOTE | 2018-05-19 11:48 | PN.RENAL_ITS ---
Patient Problems: Active and Suspected Problems Weakness (Acute) Guaiac positive stools (Acute) Altered mental status (Acute) Subjective: elevated INR, hematuria, anemic with thrombocytopenia. Colonoscopy on hold. - Physical Exam General: Alert, Oriented x3, - - gen weakness Oral: Dry Mucosa Neck: Supple Lungs: Clear to auscultation Cardiovascular: Irregular Rate - afib Abdomen: Bowel Sounds Present, Soft Extremities: No edema Musculoskeletal: - - muscle weakness Psych/Mental Status: Depressed, Alert and oriented to time, place, person, mood and affect Vital Signs Temp Pulse Resp BP Pulse Ox 98.4 F 95 18 110/54 L 98 05/19/18 09:55 05/19/18 09:55 05/19/18 09:55 05/19/18 09:55 05/19/18 09:55 Oxygen Delivery Method Room Air Weight: 91.626 kg Body Mass Index (BMI) 27.3 Orthostatic Vital Signs Start: 05/16/18 10:14 Freq: q24h Status: Active Protocol: Activity Type Activity Date Activity User E-Sign Co-Sign Detail Recorded Client Recorded Date Recorded By Document 05/19/18 04:17 [facility] [id number] 05/19/18 04:26 [facility] 05/19/18 04:17 Orthostatic Vitals Standing -Blood Pressure (90/60-120/80) 129/57 H -Extremity Use Right Arm -Pulse Rate (60-100) 127 H Sitting -Blood Pressure (90/60-120/80) 126/69 H -Extremity Use Right Arm -Pulse Rate (60-100) 120 H Lying -Blood Pressure (90/60-120/80) 134/71 H -Extremity Use Right Arm -Pulse Rate (60-100) 93 Intake and Output for Last 24 Hours 05/17/18 05/18/18 05/19/18 23:59 23:59 23:59 Intake Total 1409 / 1409 1624 / 1624 Output Total 675 / 675 1015 / 1015 250 / 250 Balance 734 / 734 609 / 609 -250 / -250 Microbiology Past 72 Hours 05/17/18 20:00 Stool Occult Blood (MIRANDA) - Final Stool Occult Blood Positive Laboratory Tests Past 24 Hrs 05/16/18 05/19/18 05/19/18 13:35 05:00 05:00 WBC 4.4 RBC 2.18 L Hgb 7.2 L Hct 23.4 L MCV 107.3 H MCH 33.0 H MCHC 30.8 L RDW 16.2 H RDW Differential 60.7 H Plt Count 92 L MPV 10.4 Immature Gran % (Auto) 0.900 Neut % (Auto) 80.2 H Lymph % (Auto) 6.[address] [place] % (Auto) 11.4 H Eos % (Auto) 1.1 Baso % (Auto) 0.2 Absolute Neuts (auto) 3.5 Absolute Lymphs (auto) 0.27 L Total Counted Not Reportable Haptoglobin 240 H PT INR APTT Sodium 144 Potassium 3.9 Chloride 109 H Carbon Dioxide 26.0 BUN 38 H Creatinine 1.53 H Estim Creat Clear Calc 14.92 Est GFR (MDRD) Af Amer 57 L Est GFR (MDRD) Non-Af 47 L BUN/Creatinine Ratio 24.8 H Glucose 98 Hemoglobin A1c Calcium 8.5 Phosphorus 3.3 Albumin 2.7 L Hepatitis A IgM Ab Negative Hepatitis A Ab Total Negative Hep Bs Antigen Negative Hep Bs Antibody Hep B Core Total Ab Negative Hep B Core IgM Ab Negative Hepatitis Be Antibody Negative Hepatitis Be Antigen Negative 05/19/18 05/19/18 05:00 05:00 WBC RBC Hgb Hct MCV MCH MCHC RDW RDW Differential Plt Count MPV Immature Gran % (Auto) Neut % (Auto) Lymph % (Auto) [place] % (Auto) Eos % (Auto) Baso % (Auto) Absolute Neuts (auto) Absolute Lymphs (auto) Total Counted Haptoglobin PT 31.6 H INR 3.0 APTT 63.8 H Sodium Potassium Chloride Carbon Dioxide BUN Creatinine Estim Creat Clear Calc Est GFR (MDRD) Af Amer Est GFR (MDRD) Non-Af BUN/Creatinine Ratio Glucose Hemoglobin A1c 5.3 Calcium Phosphorus Albumin Hepatitis A IgM Ab Hepatitis A Ab Total Hep Bs Antigen Hep Bs Antibody Hep B Core Total Ab Hep B Core IgM Ab Hepatitis Be Antibody Hepatitis Be Antigen POC Glucose 05/19/18 05/19/18 05/18/18 11:27 06:43 22:41 POC Glucose 103 94 111 H 05/18/18 05/18/18 16:16 11:45 POC Glucose 98 159 H Medical Necessity - Tobacco Use Smoking Status: Former smoker Tobacco Use: Non-smoker Assessment/Plan All Active Problems Weakness (Acute) Guaiac positive stools (Acute) Chronic anticoagulation (Acute) Altered mental status (Acute) CHF exacerbation (Acute) 1. Acute on CKD stage 3 due to prerenal azotemia, dehydration from diuretics. baseline creatinine 1.4 in January 2018 increased to 2.55 on 05/14 improved to 1.53 today. 2. Weakness, frequent falls with tremor. Continue PT/OT 3. HTN stable 4. Afib stable rate, elevated INR, anticoag on hold 5. Anemia, pancytopenia. may need prbc, defer to primary care 6. Pulmonary hypertension, mod-severe TR. No edema on exam 7. DMT2 primary care mgmt 8. Hematuria with ureteral stent.
[2018-05-19 13:53] LABS: AST(SGOT) 131 U/L (15-37); Alanine Aminotransfer ALT/SGPT 96 U/L (16-61); Albumin, Serum 2.8 g/dL (3.2-5.0); Alkaline Phosphatase 320 U/L (45-117); Bilirubin, Direct 0.85 mg/dL (0.00-0.30); Globulin 4.2 g/dL (2.2-4.2)
[2018-05-19] MEDS: Phytonadione (Vit K) 10 MG/ML Ampul 2.5 MG PO (14:47)
--- NOTE | 2018-05-19 14:48 | PCM.PN.BLA ---
Progress Note 82 yo male fairly weak, INR too high, and Hct v low not likely the hematuria is cause of low H/H will change stent once clinica stabalized.
--- NOTE | 2018-05-19 14:56 | US_ITS ---
STUDY: ABDOMINAL ULTRASOUND - RIGHT UPPER QUADRANT REASON FOR VISIT: Male, 82 years old. Elevated liver function tests. TECHNIQUE: Ultrasound evaluation of the right upper quadrant was performed with real-time and static álvarez-scale imaging. TECHNICAL QUALITY: Adequate. COMPARISON: CT of the abdomen and pelvis dated October 18, 2017. FINDINGS: Liver: The liver measures 21.6 cm. There is a heterogeneous echogenicity of the liver. There appears to be some fluid within Morison's pouch. The bile ducts are within normal limits. There is hepatic color flow. The direction of portal flow is hepatopetal. There appear to be small hypoechoic nodules within the liver. The one nodule measures 1.9 x 1.7 x 2.5 cm. A second nodule measures 1.6 x 1.8 x 1.5 cm. Gallbladder: Normal distended gallbladder. The gallbladder wall measures 3.2 mm. There is a negative sonographic Garcia's sign. There is no pericholecystic fluid. There are no gallstones. Common Bile Duct (C.B.D.): The common bile duct measures 4.3 mm. Pancreas: Normal size of the head, body and tail of the pancreas. There is normal echogenicity of the pancreas. There is no demonstrated pancreatic mass or cyst. Right Kidney: Normal size of the right kidney. The right kidney measures 11.9 x 4.9 x 2.9 cm. Normal renal cortex. The right cortex measures 8 mm. There is no demonstrated renal mass or cyst. There is no right hydronephrosis. US/Gallbladder IMPRESSION: 1. Heterogeneous echogenicity of liver with two solid nodules. This apparently is new since the previous CT. 2. A small amount of ascites. 3. A small right-sided pleural effusion. Electronically Signed: Lynda Martinez MD at 0:34 EDT , Service support ,
[2018-05-19 16:31] LABS: Bedside Glucose 111 mg/dL (70-110)
[2018-05-19 18:07] LABS: Absolute Lymphocyte Count 0.24 X10^3/ul (0.83-4.51); Absolute Neutrophil Count 3.2 X10^3/uL (2.0-7.7); Eosinophil# 0.03 X10^3/uL; Eosinophils% 0.8 % (0-5); Hemoglobin 7.2 g/dl (13.0-16.5); Lymphocyte # 0.24 X10^3/ul (4.0); Lymphocyte % 6.1 % (19-41); Mean Corp Hgb Conc 31.3 g/gl (32-36); Mean Corpuscular Hgb 32.9 pg (27.0-32.0); Mean Platelet Vol. 10.8 fl (6.2-12.0); Monocyte# 0.44 X10^3/uL; Monocyte% 11.1 % (0-10); Neutrophil # 3.24 X10^3/uL (2.7-7.7); Neutrophil % 81.7 % (47-70); Platelet Count 98 K/mm3 (150-450); RBC Distribution Width CV 16.5 % (11.6-14.6); RBC Distribution Width SD 62.4 fl (35.1-43.9); Red Blood Count 2.19 M/mm3 (4.6-6.2)
[2018-05-19 18:08] LABS: Differential Indicated SCAN CRITERIA MET; POSITIVE COUNT NO; POSITIVE DIFFERENTIAL YES; POSITIVE MORPHOLOGY NO
--- NOTE | 2018-05-19 18:22 | PCM.PN.BLA ---
Progress Note Patient appears stable. Plan EGD and colonoscopy on Tuesday Michael Munroe M.D., F.A.C.S.
[2018-05-19] MEDS: Atorvastatin Calcium 10 MG Tablet 5 MG PO (22:14)
[2018-05-19] MEDS: MELATONIN 3 MG TABLET PO (22:14)
[2018-05-19 22:15] LABS: Bedside Glucose 133 mg/dL (70-110)
[2018-05-20] VITALS (16 sets, daily range): BP systolic 104–141; BP diastolic 46–76; PULSE 85–137; RESP 16; TEMP 36.6–37.1; O2SAT 96–100
--- NOTE | 2018-05-20 06:44 | PN.SURG_ITS ---
Patient Problems: Active and Suspected Problems Weakness (Acute) Guaiac positive stools (Acute) Altered mental status (Acute) Subjective: Pt has not had a stool all of yesterday according to him No abdominal pain - Physical Exam General: Alert Abdomen: Soft, Non Tender Vital Signs Temp Pulse Resp BP Pulse Ox 98.6 F 104 H 16 124/65 H 96 05/20/18 03:50 05/20/18 05:44 05/20/18 03:50 05/20/18 05:44 05/20/18 03:50 Oxygen Delivery Method Room Air Weight: 202 lb Body Mass Index (BMI) 27.3 Orthostatic Vital Signs Start: 05/16/18 10:14 Freq: q24h Status: Active Protocol: Activity Type Activity Date Activity User E-Sign Co-Sign Detail Recorded Client Recorded Date Recorded By Document 05/20/18 05:44 BMW [id number] 05/20/18 05:45 [employer] 05/20/18 05:44 Orthostatic Vitals Standing -Blood Pressure (90/60-120/80) 106/63 -Extremity Use Right Arm -Pulse Rate (60-100) 137 H Sitting -Blood Pressure (90/60-120/80) 104/74 -Extremity Use Right Arm -Pulse Rate (60-100) 129 H Lying -Blood Pressure (90/60-120/80) 124/65 H -Extremity Use Right Arm -Pulse Rate (60-100) 104 H Intake and Output for Last 24 Hours 05/18/18 05/19/18 05/20/18 23:59 23:59 23:59 Intake Total 1624 / 1624 480 / 480 360 / 360 Output Total 1015 / 1015 650 / 650 350 / 350 Balance 609 / 609 -170 / -170 10 Microbiology Past 72 Hours 05/17/18 20:00 Stool Occult Blood (MIRANDA) - Final Stool Occult Blood Positive Laboratory Tests Past 24 Hrs 05/16/18 05/19/18 05/19/18 04:55 05:00 05:00 WBC RBC Hgb Hct MCV MCH MCHC RDW RDW Differential Plt Count MPV Immature Gran % (Auto) Neut % (Auto) Lymph % (Auto) Cabell % (Auto) Eos % (Auto) Baso % (Auto) Absolute Neuts (auto) Absolute Lymphs (auto) Total Counted Differential Comment Sodium Potassium Chloride Carbon Dioxide Anion Gap BUN Creatinine Est GFR (MDRD) Af Amer Est GFR (MDRD) Non-Af BUN/Creatinine Ratio Glucose Hemoglobin A1c 5.3 Calcium Phosphorus Total Bilirubin 1.70 H Direct Bilirubin 0.85 H AST 131 H ALT 96 H Alkaline Phosphatase 320 H Total Protein 7.0 Total Protein (PEP) 6.4 Albumin 2.8 L Globulin 4.2 Urine Total Protein TNP Urine Albumin TNP U Mtfpy-3-Gnyibmqi TNP U Psqru-5-Idgedljj TNP U Beta Globulin TNP U Gamma Globulin TNP U PEP M-Baron TNP IgG 967 IgA 260 IgM 38 Immunofixation Screen Comment Albumin (SHEN) 3.3 Albumin/Globulin (SHEN) 1.1 Myjzd-7-Ocexwcvyr SHEN 0.3 Zteld-9-Gggzfzwzn SHEN 0.8 Beta-Globulins (SHEN) 0.8 Gamma Globulins (SHEN) 3.1 SHEN M-Baron SHEN Comments Comment Ur Immunofix PEP Note Comment Blood Type Antibody Screen 05/19/18 05/19/18 05/19/18 13:43 16:27 17:21 WBC 4.0 L RBC 2.19 L Hgb 7.2 L Hct 23.0 L MCV 105.0 H MCH 32.9 H MCHC 31.3 L RDW 16.5 H RDW Differential 62.4 H Plt Count 98 L MPV 10.8 Immature Gran % (Auto) 0.300 Neut % (Auto) 81.7 H Lymph % (Auto) 6.1 L Cabell % (Auto) 11.1 H Eos % (Auto) 0.8 Baso % (Auto) 0.0 Absolute Neuts (auto) 3.2 Absolute Lymphs (auto) 0.24 L Total Counted Not Reportable Differential Comment Sodium Potassium Chloride Carbon Dioxide Anion Gap BUN Creatinine Est GFR (MDRD) Af Amer Est GFR (MDRD) Non-Af BUN/Creatinine Ratio Glucose Hemoglobin A1c Calcium Phosphorus Total Bilirubin Direct Bilirubin AST ALT Alkaline Phosphatase Total Protein Total Protein (PEP) Albumin Globulin Urine Total Protein Pending Urine Albumin Pending U Xbeam-4-Llcgtdnx Pending U Ddypu-7-Kirxbziu Pending U Beta Globulin Pending U Gamma Globulin Pending U PEP M-Baron Pending IgG IgA IgM Immunofixation Screen Albumin (SHEN) Albumin/Globulin (SHEN) Tlpxg-4-Dclpawazo SHEN Jmthq-4-Teppiuhlq SHEN Beta-Globulins (SHEN) Gamma Globulins (SHEN) SHEN M-Baron SHEN Comments Ur Immunofix PEP Note Blood Type A POSITIVE Antibody Screen NEGATIVE 05/20/18 05/20/18 05:25 05:25 WBC Pending RBC Pending Hgb Pending Hct Pending MCV Pending MCH Pending MCHC Pending RDW Pending RDW Differential Pending Plt Count Pending MPV Immature Gran % (Auto) Neut % (Auto) Pending Lymph % (Auto) Cabell % (Auto) Eos % (Auto) Baso % (Auto) Absolute Neuts (auto) Pending Absolute Lymphs (auto) Total Counted Pending Differential Comment Sodium Pending Potassium Pending Chloride Pending Carbon Dioxide Pending Anion Gap Pending BUN Pending Creatinine Pending Est GFR (MDRD) Af Amer Pending Est GFR (MDRD) Non-Af Pending BUN/Creatinine Ratio Pending Glucose Pending Hemoglobin A1c Calcium Pending Phosphorus Pending Total Bilirubin Pending Direct Bilirubin AST Pending ALT Pending Alkaline Phosphatase Pending Total Protein Pending Total Protein (PEP) Albumin Pending Globulin Urine Total Protein Urine Albumin U Pxnry-5-Ctgsdkhx U Bmzdy-3-Cgrorpnn U Beta Globulin U Gamma Globulin U PEP M-Baron IgG IgA IgM Immunofixation Screen Albumin (SHEN) Albumin/Globulin (SHEN) Wqetw-6-Yffezfpkv SHEN Xaibj-9-Anwblekep SHEN Beta-Globulins (SHEN) Gamma Globulins (SHEN) SHEN M-Baron SHEN Comments Ur Immunofix PEP Note Blood Type Antibody Screen POC Glucose 05/19/18 05/19/18 05/19/18 22:10 16:24 11:27 POC Glucose 133 H 111 H 103 05/19/18 06:43 POC Glucose 94 Medical Necessity - Tobacco Use Smoking Status: Former smoker Tobacco Use: Non-smoker Assessment/Plan All Active Problems Weakness (Acute) Guaiac positive stools (Acute) Chronic anticoagulation (Acute) Altered mental status (Acute) CHF exacerbation (Acute) Pt notes his last colonoscopy had a poor bowel prep Will convert to clears today and start a 2 day prep Pt is not acting like a significant GI bleed
[2018-05-20 06:51] LABS: Absolute Lymphocyte Count 0.34 X10^3/ul (0.83-4.51); Absolute Neutrophil Count 3.8 X10^3/uL (2.0-7.7); Basophil# 0.01 X10^3/uL; Basophil% 0.2 % (0-1); Eosinophil# 0.04 X10^3/uL; Eosinophils% 0.9 % (0-5); Hematocrit 23.2 % (40-54); Hemoglobin 7.3 g/dl (13.0-16.5); Lymphocyte # 0.34 X10^3/ul (4.0); Lymphocyte % 7.2 % (19-41); Mean Corp Hgb Conc 31.5 g/gl (32-36); Mean Corpuscular Hgb 33.5 pg (27.0-32.0); Mean Corpuscular Volume 106.4 fL (80-94); Mean Platelet Vol. 10.7 fl (6.2-12.0); Monocyte# 0.52 X10^3/uL; Monocyte% 11.1 % (0-10); Neutrophil # 3.75 X10^3/uL (2.7-7.7); Platelet Count 101 K/mm3 (150-450); RBC Distribution Width CV 16.2 % (11.6-14.6); RBC Distribution Width SD 60.7 fl (35.1-43.9); Red Blood Count 2.18 M/mm3 (4.6-6.2); White Blood Count 4.7 K/mm3 (4.4-11.0)
[2018-05-20 07:00] LABS: Bedside Glucose 97 mg/dL (70-110)
[2018-05-20 07:08] LABS: Differential Indicated SCAN CRITERIA MET; POSITIVE COUNT NO; POSITIVE DIFFERENTIAL YES; POSITIVE MORPHOLOGY NO
[2018-05-20 07:11] LABS: ALB/GLOB Ratio 0.6 RATIO (0.9-2.4); AST(SGOT) 141 U/L (15-37); Alanine Aminotransfer ALT/SGPT 98 U/L (16-61); Albumin, Serum 2.6 g/dL (3.2-5.0); Alkaline Phosphatase 402 U/L (45-117); Anion Gap 10 (5-15); BUN 43 mg/dL (7-18); BUN/Creat Ratio 26.2 RATIO (10-20); Calcium,Total 8.3 mg/dL (8.5-10.1); Chloride 107 mmol/L (98-107); Creatinine, Serum 1.64 mg/dL (0.70-1.30); EST Glomerular Filtration Rate 43 mL/min (>60); Est Glom Filt Rate - Afr Amer 52 mL/min (>60); Estimated Creatinine Clearance 39.43 ml/min; Globulin 4.2 g/dL (2.2-4.2); Glucose 93 mg/dL (74-106); Phosphorus 3.1 mg/dL (2.5-4.9); Protein, Total 6.8 g/dL (6.4-8.2); Sodium Level 141 mmol/L (136-145)
[2018-05-20 07:29] LABS: Anisocytosis 1+; Platelet Estimate SLT DEC (ADEQ)
[2018-05-20 07:30] LABS: Macrocytosis 1+
[2018-05-20] MEDS: Bisacodyl 5 MG Tablet 10 MG PO (08:55)
[2018-05-20] MEDS: Acetaminophen 325 MG Tablet 650 MG PO ×2 (08:55→18:38)
[2018-05-20] MEDS: Ferrous Sulfate 325 MG Tablet PO (08:55)
[2018-05-20 09:16] LABS: International Normalized Ratio 1.5; Prothrombin Time (Protime)PT. 18.4 SECONDS (11.7-14.9)
[2018-05-20] MEDS: Polyethylene Glycol 3350 17 GM PACKET 120 GM PO (09:40)
[2018-05-20] MEDS: Atenolol 25 MG Tablet PO (09:45)
[2018-05-20] MEDS: Allopurinol 100 MG Tablet PO (09:45)
--- NOTE | 2018-05-20 10:32 | PCM.PN.HOSP ---
Patient Problems: Active and Suspected Problems Weakness (Acute) Guaiac positive stools (Acute) Altered mental status (Acute) Subjective: Patient is an 82-year-old male who was admitted after he fell at home. Patient stated that his leg simply got weak and gave out and he fell twice. Per history obtained from his sinus patient was a poor historian, he had recently been given a prescription for Tylenol with codeine and subsequently started falling. Vitals and labs done in the ED were only significant for platelet count of 87,000, white cell count of 3.4 and hemoglobin of 8. CT done was negative for any acute findings. He was admitted and managed for general weakness and falls with mild altered mental status likely drug-induced from Tylenol with codeine. He remained stable. Hematology and nephrology are on board. Patient noted to have anemia which is progressively worsening with hemoglobin falling to 7.4. General surgery consulted for possible EGD and colonoscopy. Urology also consulted for removal of patient's kidney stent. Patient has been off Coumadin. Patient seen and examined today. He still feels lethargic. He denies any fever or chills, any cough or chest pain, any shortness of breath, any abdominal pain, any diarrhea or vomiting. He is scheduled to have the EGD and colonoscopy on Tuesday at 10 AM. Kidney stent removal has been placed on hold now on account of patient's general debility and unstable state. Labs and vital signs reviewed. Vitals/I&O's: Vital Signs Temp Pulse Resp BP Pulse Ox 97.9 F 106 H 16 111/58 L 98 05/20/18 09:46 05/20/18 09:46 05/20/18 09:46 05/20/18 09:46 05/20/18 09:46 Oxygen Delivery Method Room Air Weight: 202 lb Body Mass Index (BMI) 27.3 Orthostatic Vital Signs Start: 05/16/18 10:14 Freq: q24h Status: Active Protocol: Activity Type Activity Date Activity User E-Sign Co-Sign Detail Recorded Client Recorded Date Recorded By Document 05/20/18 05:44 BMW [id number] 05/20/18 05:45 [employer] 05/20/18 05:44 Orthostatic Vitals Standing -Blood Pressure (90/60-120/80) 106/63 -Extremity Use Right Arm -Pulse Rate (60-100) 137 H Sitting -Blood Pressure (90/60-120/80) 104/74 -Extremity Use Right Arm -Pulse Rate (60-100) 129 H Lying -Blood Pressure (90/60-120/80) 124/65 H -Extremity Use Right Arm -Pulse Rate (60-100) 104 H Intake and Output for Last 24 Hours 05/18/18 05/19/18 05/20/18 23:59 23:59 23:59 Intake Total 1624 / 1624 480 / 480 360 / 360 Output Total 1015 / 1015 650 / 650 350 / 350 Balance 609 / 609 -170 / -170 General: Alert, Oriented x3, Cooperative, Lethargic HEENT: Atraumatic, PERRLA, EOMI, Normocephalic Oral: Dry Mucosa Neck: Supple, No JVD, Negative Carotid Bruits Lungs: Clear to auscultation, Normal air movement, No rhonchi, No wheeze, No rales Cardiovascular: Normal S1, Normal S2, No murmurs, Tachycardic Abdomen: Bowel Sounds Present, Soft, Non Tender, Non-Distended, No Hepato-splenomegaly Extremities: No cyanosis, No edema, Capillary Refill Less than 3 Seconds Skin: No rashes, No breakdown, - - venous stasis changes on both lower extremities Musculoskeletal: No Tenderness to Palpation of Joints or Extremities Lymphatic: No Cervical, Supraclavicular, or Inguinal Adenopathy Neurological: Cranial nerves II-XII grossly intact Psych/Mental Status: Normal Affect, Appropriate, Alert and oriented to time, place, person, mood and affect Microbiology Past 72 Hours 05/17/18 20:00 Stool Stool Occult Blood (MIRANDA) - Final Occult Blood Positive Laboratory Results 05/16/18 04:55: Total Protein (PEP) 6.4, Urine Total Protein TNP, Urine Albumin TNP, U Mxdnq-3-Tiedpicz TNP, U Axvmu-0-Tlgwknos TNP, U Beta Globulin TNP, U Gamma Globulin TNP, U PEP M-Baron TNP, IgG 967, IgA 260, IgM 38, Immunofixation Screen Comment, Albumin (SHEN) 3.3, Albumin/Globulin (SHEN) 1.1, Hbjyw-4-Joqbfnwus SHEN 0.3, Btxiw-4-Fcbcccocy SHEN 0.8, Beta-Globulins (SHEN) 0.8, Gamma Globulins (SHEN) 3.1, SHEN M-Baron , SHEN Comments Comment, Ur Immunofix PEP Note Comment 05/19/18 05:00: Total Bilirubin 1.70 H, Direct Bilirubin 0.85 H, AST 131 H, ALT 96 H, Alkaline Phosphatase 320 H, Total Protein 7.0, Albumin 2.8 L, Globulin 4.2 05/19/18 11:27: POC Glucose 103 05/19/18 13:43: Blood Type A POSITIVE, Antibody Screen NEGATIVE 05/19/18 16:24: POC Glucose 111 H 05/19/18 16:27: Urine Total Protein Pending, Urine Albumin Pending, U Azvyk-5-Idcmppie Pending, U Yovzc-2-Coqzvyhj Pending, U Beta Globulin Pending, U Gamma Globulin Pending, U PEP M-Baron Pending 05/19/18 17:21: WBC 4.0 L, RBC 2.19 L, Hgb 7.2 L, Hct 23.0 L, MCV 105.0 H, MCH 32.9 H, MCHC 31.3 L, RDW 16.5 H, RDW Differential 62.4 H, Plt Count 98 L, MPV 10.8, Immature Gran % (Auto) 0.300, Neut % (Auto) 81.7 H, Lymph % (Auto) 6.1 L, Carter % (Auto) 11.1 H, Eos % (Auto) 0.8, Baso % (Auto) 0.0, Absolute Neuts (auto) 3.2, Absolute Lymphs (auto) 0.24 L, Total Counted Not Reportable, Differential Comment 05/19/18 22:10: POC Glucose 133 H 05/20/18 05:25: Sodium 141, Potassium 4.0, Chloride 107, Carbon Dioxide 24.0, Anion Gap 10, BUN 43 H, Creatinine 1.64 H, Estim Creat Clear Calc 39.43, Est GFR (MDRD) Af Amer 52 L, Est GFR (MDRD) Non-Af 43 L, BUN/Creatinine Ratio 26.2 H, Glucose 93, Calcium 8.3 L, Phosphorus 3.1, Total Bilirubin 1.70 H, AST 141 H, ALT 98 H, Alkaline Phosphatase 402 H, Total Protein 6.8, Albumin 2.6 L, Globulin 4.2, Albumin/Globulin Ratio 0.6 L 05/20/18 05:25: WBC 4.7, RBC 2.18 L, Hgb 7.3 L, Hct 23.2 L, MCV 106.4 H, MCH 33.5 H, MCHC 31.5 L, RDW 16.2 H, RDW Differential 60.7 H, Plt Count 101 L, MPV 10.7, Immature Gran % (Auto) 0.600, Neut % (Auto) 80.0 H, Lymph % (Auto) 7.2 L, Carter % (Auto) 11.1 H, Eos % (Auto) 0.9, Baso % (Auto) 0.2, Absolute Neuts (auto) 3.8, Absolute Lymphs (auto) 0.34 L, Total Counted Not Reportable, Differential Comment SEE COMMENT, Platelet Estimate SLT DEC, Anisocytosis 1+, Macrocytosis 1+ 05/20/18 06:50: POC Glucose 97 05/20/18 08:50: PT 18.4 H, INR 1.5 Current Medications Acetaminophen (Tylenol) 650 mg PO Q6H PRN PRN PRN Reason: PAIN Last Admin: 05/20/18 08:55 Dose: 650 mg Allopurinol (Zyloprim) 100 mg PO DAILY [facility] Last Admin: 05/20/18 09:45 Dose: 100 mg Atenolol (Tenormin (Beta Rajani)) 25 mg PO DAILY [facility] Last Admin: 05/20/18 09:45 Dose: 25 mg Atorvastatin Calcium (Lipitor) 5 mg PO QHS [facility] Last Admin: 05/19/18 22:14 Dose: 5 mg Ferrous Sulfate (Ferrous Sulfate) 325 mg PO DAILY@0800 [facility] Last Admin: 05/20/18 08:55 Dose: 325 mg Cefazolin Sodium 2 gm/ Sodium (Chloride) 120 mls @ 150 mls/hr IV PREOP ONE Stop: 05/22/18 08:47 Insulin Glargine (Lantus (Bkc)) 15 units SC QHS [facility] Last Admin: 05/19/18 22:14 Dose: 15 u Insulin Human Lispro (Humalog Kwikpen (Bkc)) 0 unit SC ACHS [facility] PRN Reason: Protocol Last Admin: 05/20/18 08:18 Dose: Not Given Lorazepam (Ativan) 0.5 mg PO BID PRN PRN PRN Reason: ANXIETY Last Admin: 05/15/18 22:37 Dose: 0.5 mg Multivitamins/Minerals (Ocuvite) 1 tablet PO DAILY@0800 ANTH[facility] Last Admin: 05/20/18 08:55 Dose: 1 tablet Polyethylene Glycol (Miralax) 17 gm PO DAILY PRN PRN Reason: Constipation Sodium Chloride () 5 - 30 ml IV UD PRN PRN Reason: SALINE FLUSH Last Admin: 05/18/18 20:28 Dose: 10 ml Medical Necessity - Tobacco Use Smoking Status: Former smoker Tobacco Use: Non-smoker Assessment/Plan All Active Problems Weakness (Acute) Guaiac positive stools (Acute) Chronic anticoagulation (Acute) Altered mental status (Acute) CHF exacerbation (Acute) 10-year-old male with a history of heart failure, chronic atrial fibrillation, and pancytopenia was admitted with a complaint of falls. He also had slight altered mental status which was thought to be medication induced. 1. Metabolic encephalopathy medication induced, as well as Omaira-on-CKD resolved. will continue to monitor 2.Recurrent falls and general debility due to tyelenol codeine which was recently prescribed, as well as orthostatic hypotension Stable. Finasteride on hold on account of orthostatic hypotension. Neurology on board and think this was due to medications. orthostatics remain positive. WIll give IVF insurance denied SNF placement. Patient remains very debilitated. will try again with insurance approval on Tuesday 3. Liver nodules and elevated liver enzymes liver enzymes showed T cecily of 1.7, and direct bilirubinaemia AST/ALT -141/98, and ALP is 402 USG of liver showed 2 liver nodules ~ 2cm in size, which werent present on previous CT done in 10/30. To diagnose malignancy, he will need a 3 or 4 phase arterial washout MRI Or CT of the abdomen, which will involved use of contrast. In light of his CKD, use of contrast will best be avoided. Next best option is an ultrasound-guided biopsy of the nodules. Discussed with radiologist; patient will need contrast enhanced CT or MRI of liver to assess nodules. Discussed with seismic prospecting observer helper, best to hold off on contrast in light of kidney impairment. Will do usg guided biopsy Tuesday after discussing with Dr Arevalo. Will review with nephrology to see if contrast is feasible with administration of IV fluids after 2 without contrast. Check alpha-fetoprotein level as well. 4. Hypernatremia: resolved. Na is 142. 5. Anemia and thrombocytopenia Hb down to 7.2. was 8 on admission. off coumadin. INR was supratherapeutic at 3; had some hematuria yeserday which has improved. INR down to 1.5 after being given 2.5mg of oral vitamin K FOBT was positive. General surgery on board; to have EGD and colonoscopy on Tuesday at 10am urine and serum electrophoresis still pending. will transfuse one unit of PRBC today to help with optimisation as he cannot have the stent removal till he is much better. 6. Back pain: resolving. Lumbar and cervical pain CT done on 05/18/2018 showed scoliosis and degenerative changes with multilevel spinal stenosis and status post bilateral laminectomy and posterior fusion of L3-L4 through L5-S1. No evidence of fracture or subluxation and no evidence of loosening of orthopedic hardware. CT of the cervical spine was also negative. stable. WIll monitor 7. hypokalemia: resolved will monitor 8. OMAIRA on CKD: Cr up to 1.64 today. will give some IVF and monitor, as he remains persistently orthostatic positive. nephrology on board 9. Chronic AF s/p pacemaker insertion is rate controlled. coumadin on hold 10. Chronic HFpEF; stable. diuretics held on admission due to Omaira-on-CKD. Still on hold will monitor 11. Ureteral stricture s/p nephrostomy Nephrostomy tube placed in [facility]. coumadin on hold had hematuria yesterday; has improved now. States he has some tear with clots about [address] Aguero was informed. Discussed with DR Aguero. Says he is aware of hematuria. Hematuria much better today will monitor. For nephrostomy removal after patient's medical condition is optimised 12. Diabetes mellitus: on lantus 15IU qhs and ISS. 13. DVt prophylaxis: SCDs. coumadin on hold; Code status: Full code This note was generated with Mov[employer]ation software. It may contain incorrect words, spelling, and punctuation that were not noted in checking the note before signing. Code Visit Inpatient E&M: 55998 Subs Hosp L3
--- NOTE | 2018-05-20 10:55 | PN_ITS ---
Patient Problems: Active and Suspected Problems Weakness (Acute) Guaiac positive stools (Acute) Altered mental status (Acute) Subjective: Patient is an 82-year-old male who was admitted after he fell at home. Patient stated that his leg simply got weak and gave out and he fell twice. Per history obtained from his sinus patient was a poor historian, he had recently been given a prescription for Tylenol with codeine and subsequently started falling. Vitals and labs done in the ED were only significant for platelet count of 87,000, white cell count of 3.4 and hemoglobin of 8. CT done was negative for any acute findings. He was admitted and managed for general weakness and falls with mild altered mental status likely drug-induced from Tylenol with codeine. He remained stable. Hematology and nephrology are on board. Patient noted to have anemia which is progressively worsening with hemoglobin falling to 7.4. General surgery consulted for possible EGD and colonoscopy. Urology also consulted for removal of patient's kidney stent. Patient has been off Coumadin. Patient seen and examined today. He still feels lethargic. He denies any fever or chills, any cough or chest pain, any shortness of breath, any abdominal pain, any diarrhea or vomiting. He is scheduled to have the EGD and colonoscopy on Tuesday at 10 AM. Kidney stent removal has been placed on hold now on account of patient's general debility and unstable state. Labs and vital signs reviewed. Vitals/I&O's: Vital Signs Temp Pulse Resp BP Pulse Ox 97.9 F 106 H 16 111/58 L 98 05/20/18 09:46 05/20/18 09:46 05/20/18 09:46 05/20/18 09:46 05/20/18 09:46 Oxygen Delivery Method Room Air Weight: 202 lb Body Mass Index (BMI) 27.3 Orthostatic Vital Signs Start: 05/16/18 10:14 Freq: q24h Status: Active Protocol: Activity Type Activity Date Activity User E-Sign Co-Sign Detail Recorded Client Recorded Date Recorded By Document 05/20/18 05:44 BMW [id number] 05/20/18 05:45 BMW 05/20/18 05:44 Orthostatic Vitals Standing -Blood Pressure (90/60-120/80) 106/63 -Extremity Use Right Arm -Pulse Rate (60-100) 137 H Sitting -Blood Pressure (90/60-120/80) 104/74 -Extremity Use Right Arm -Pulse Rate (60-100) 129 H Lying -Blood Pressure (90/60-120/80) 124/65 H -Extremity Use Right Arm -Pulse Rate (60-100) 104 H Intake and Output for Last 24 Hours 05/18/18 05/19/18 05/20/18 23:59 23:59 23:59 Intake Total 1624 / 1624 480 / 480 360 / 360 Output Total 1015 / 1015 650 / 650 350 / 350 Balance 609 / 609 -170 / -170 General: Alert, Oriented x3, Cooperative, Lethargic HEENT: Atraumatic, PERRLA, EOMI, Normocephalic Oral: Dry Mucosa Neck: Supple, No JVD, Negative Carotid Bruits Lungs: Clear to auscultation, Normal air movement, No rhonchi, No wheeze, No rales Cardiovascular: Normal S1, Normal S2, No murmurs, Tachycardic Abdomen: Bowel Sounds Present, Soft, Non Tender, Non-Distended, No Hepato- splenomegaly Extremities: No cyanosis, No edema, Capillary Refill Less than 3 Seconds Skin: No rashes, No breakdown, - - venous stasis changes on both lower extremities Musculoskeletal: No Tenderness to Palpation of Joints or Extremities Lymphatic: No Cervical, Supraclavicular, or Inguinal Adenopathy Neurological: Cranial nerves II-XII grossly intact Psych/Mental Status: Normal Affect, Appropriate, Alert and oriented to time, place, person, mood and affect Microbiology Past 72 Hours 05/17/18 20:00 Stool Stool Occult Blood (MIRANDA) - Final Occult Blood Positive Laboratory Results 05/16/18 04:55: Total Protein (PEP) 6.4, Urine Total Protein TNP, Urine Albumin TNP, U Svyky-1-Lfmhgmve TNP, U Xvrqg-9-Fhfjpgcz TNP, U Beta Globulin TNP, U Gamma Globulin TNP, U PEP M-Baron TNP, IgG 967, IgA 260, IgM 38, Immunofixation Screen Comment, Albumin (SHEN) 3.3, Albumin/Globulin (SHEN) 1.1, Alpha-1- Globulins SHEN 0.3, Vdkzm-7-Gjcgqylnz SHEN 0.8, Beta-Globulins (SHEN) 0.8, Gamma Globulins (SHEN) 3.1, SHEN M-Baron , SHEN Comments Comment, Ur Immunofix PEP Note Comment 05/19/18 05:00: Total Bilirubin 1.70 H, Direct Bilirubin 0.85 H, AST 131 H, ALT 96 H, Alkaline Phosphatase 320 H, Total Protein 7.0, Albumin 2.8 L, Globulin 4.2 05/19/18 11:27: POC Glucose 103 05/19/18 13:43: Blood Type A POSITIVE, Antibody Screen NEGATIVE 05/19/18 16:24: POC Glucose 111 H 05/19/18 16:27: Urine Total Protein Pending, Urine Albumin Pending, U Alpha-1- Globulin Pending, U Cmxzv-0-Eijzloyg Pending, U Beta Globulin Pending, U Gamma Globulin Pending, U PEP M-Baron Pending 05/19/18 17:21: WBC 4.0 L, RBC 2.19 L, Hgb 7.2 L, Hct 23.0 L, MCV 105.0 H, MCH 32.9 H, MCHC 31.3 L, RDW 16.5 H, RDW Differential 62.4 H, Plt Count 98 L, MPV 10.8, Immature Gran % (Auto) 0.300, Neut % (Auto) 81.7 H, Lymph % (Auto) 6.1 L, Carbon % (Auto) 11.1 H, Eos % (Auto) 0.8, Baso % (Auto) 0.0, Absolute Neuts (auto ) 3.2, Absolute Lymphs (auto) 0.24 L, Total Counted Not Reportable, Differential Comment 05/19/18 22:10: POC Glucose 133 H 05/20/18 05:25: Sodium 141, Potassium 4.0, Chloride 107, Carbon Dioxide 24.0, Anion Gap 10, BUN 43 H, Creatinine 1.64 H, Estim Creat Clear Calc 39.43, Est GFR (MDRD) Af Amer 52 L, Est GFR (MDRD) Non-Af 43 L, BUN/Creatinine Ratio 26.2 H , Glucose 93, Calcium 8.3 L, Phosphorus 3.1, Total Bilirubin 1.70 H, AST 141 H, ALT 98 H, Alkaline Phosphatase 402 H, Total Protein 6.8, Albumin 2.6 L, Globulin 4.2, Albumin/Globulin Ratio 0.6 L 05/20/18 05:25: WBC 4.7, RBC 2.18 L, Hgb 7.3 L, Hct 23.2 L, MCV 106.4 H, MCH 33.5 H, MCHC 31.5 L, RDW 16.2 H, RDW Differential 60.7 H, Plt Count 101 L, MPV 10.7, Immature Gran % (Auto) 0.600, Neut % (Auto) 80.0 H, Lymph % (Auto) 7.2 L, Carbon % (Auto) 11.1 H, Eos % (Auto) 0.9, Baso % (Auto) 0.2, Absolute Neuts (auto ) 3.8, Absolute Lymphs (auto) 0.34 L, Total Counted Not Reportable, Differential Comment SEE COMMENT, Platelet Estimate SLT DEC, Anisocytosis 1+, Macrocytosis 1+ 05/20/18 06:50: POC Glucose 97 05/20/18 08:50: PT 18.4 H, INR 1.5 Current Medications Acetaminophen (Tylenol) 650 mg PO Q6H PRN PRN PRN Reason: PAIN Last Admin: 05/20/18 08:55 Dose: 650 mg Allopurinol (Zyloprim) 100 mg PO DAILY [facility] Last Admin: 05/20/18 09:45 Dose: 100 mg Atenolol (Tenormin (Beta Rajani)) 25 mg PO DAILY [facility] Last Admin: 05/20/18 09:45 Dose: 25 mg Atorvastatin Calcium (Lipitor) 5 mg PO QHS [facility] Last Admin: 05/19/18 22:14 Dose: 5 mg Ferrous Sulfate (Ferrous Sulfate) 325 mg PO DAILY@0800 [facility] Last Admin: 05/20/18 08:55 Dose: 325 mg Cefazolin Sodium 2 gm/ Sodium (Chloride) 120 mls @ 150 mls/hr IV PREOP ONE Stop: 05/22/18 08:47 Insulin Glargine (Lantus (Bkc)) 15 units SC QHS [facility] Last Admin: 05/19/18 22:14 Dose: 15 u Insulin Human Lispro (Humalog Kwikpen (Bkc)) 0 unit SC ACHS [facility] PRN Reason: Protocol Last Admin: 05/20/18 08:18 Dose: Not Given Lorazepam (Ativan) 0.5 mg PO BID PRN PRN PRN Reason: ANXIETY Last Admin: 05/15/18 22:37 Dose: 0.5 mg Multivitamins/Minerals (Ocuvite) 1 tablet PO DAILY@0800 [facility] Last Admin: 05/20/18 08:55 Dose: 1 tablet Polyethylene Glycol (Miralax) 17 gm PO DAILY PRN PRN Reason: Constipation Sodium Chloride () 5 - 30 ml IV UD PRN PRN Reason: SALINE FLUSH Last Admin: 05/18/18 20:28 Dose: 10 ml Medical Necessity - Tobacco Use Smoking Status: Former smoker Tobacco Use: Non-smoker Assessment/Plan All Active Problems Weakness (Acute) Guaiac positive stools (Acute) Chronic anticoagulation (Acute) Altered mental status (Acute) CHF exacerbation (Acute) 10-year-old male with a history of heart failure, chronic atrial fibrillation, and pancytopenia was admitted with a complaint of falls. He also had slight altered mental status which was thought to be medication induced. 1. Metabolic encephalopathy * medication induced, as well as Omaira-on-CKD * resolved. * will continue to monitor * 2.Recurrent falls and general debility * due to tyelenol codeine which was recently prescribed, as well as orthostatic hypotension * Stable. Finasteride on hold on account of orthostatic hypotension. * Neurology on board and think this was due to medications. * orthostatics remain positive. WIll give IVF * insurance denied SNF placement. Patient remains very debilitated. * will try again with insurance approval on Tuesday * 3. Liver nodules and elevated liver enzymes * liver enzymes showed T cecily of 1.7, and direct bilirubinaemia * AST/ALT -141/98, and ALP is 402 * USG of liver showed 2 liver nodules ~ 2cm in size, which werent present on previous CT done in 10/30. * To diagnose malignancy, he will need a 3 or 4 phase arterial washout MRI Or CT of the abdomen, which will involved use of contrast. In light of his CKD, use of contrast will best be avoided. Next best option is an ultrasound-guided biopsy of the nodules. * Discussed with radiologist; patient will need contrast enhanced CT or MRI of liver to assess nodules. Discussed with braille translator, best to hold off on contrast in light of kidney impairment. Will do usg guided biopsy Tuesday after discussing with Dr Arevalo. * Will review with nephrology to see if contrast is feasible with administration of IV fluids after 2 without contrast. * Check alpha-fetoprotein level as well. * 4. Hypernatremia: * resolved. Na is 142. * * 5. Anemia and thrombocytopenia * Hb down to 7.2. was 8 on admission. * off coumadin. INR was supratherapeutic at 3; had some hematuria yeserday which has improved. INR down to 1.5 after being given 2.5mg of oral vitamin K * FOBT was positive. General surgery on board; to have EGD and colonoscopy on Tuesday at 10am * urine and serum electrophoresis still pending. * will transfuse one unit of PRBC today to help with optimisation as he cannot have the stent removal till he is much better. * * 6. Back pain: * resolving. Lumbar and cervical pain CT done on 05/18/2018 showed scoliosis and degenerative changes with multilevel spinal stenosis and status post bilateral laminectomy and posterior fusion of L3-L4 through L5-S1. No evidence of fracture or subluxation and no evidence of loosening of orthopedic hardware. * CT of the cervical spine was also negative. * stable. WIll monitor 7. hypokalemia: * resolved * will monitor * 8. OMAIRA on CKD: * Cr up to 1.64 today. * will give some IVF and monitor, as he remains persistently orthostatic positive. * nephrology on board * 9. Chronic AF s/p pacemaker insertion * is rate controlled. coumadin on hold * 10. Chronic HFpEF; * stable. diuretics held on admission due to Omaira-on-CKD. Still on hold * will monitor * 11. Ureteral stricture s/p nephrostomy * Nephrostomy tube placed in [facility]. coumadin on hold * had hematuria yesterday; has improved now. States he has some tear with clots about [address] Aguero was informed. * Discussed with DR Aguero. Says he is aware of hematuria. * Hematuria much better today * will monitor. For nephrostomy removal after patient's medical condition is optimised 12. Diabetes mellitus: on lantus 15IU qhs and ISS. * 13. DVt prophylaxis: SCDs. coumadin on hold; Code status: Full code This note was generated with [employer] software. It may contain incorrect words, spelling, and punctuation that were not noted in checking the note before signing. Code Visit Inpatient E&M: 93138 Subs Hosp L3
[2018-05-20] MEDS: Insulin Lispro 100 UNIT/ML INSULN.PEN SC (12:12)
[2018-05-20 12:15] LABS: Bedside Glucose 177 mg/dL (70-110)
--- NOTE | 2018-05-20 15:29 | PCM.PN.REN ---
Patient Problems: Active and Suspected Problems Weakness (Acute) Guaiac positive stools (Acute) Altered mental status (Acute) Subjective: complains of loose stools from bowel prep. Denies SOB, edema. Appetite poor. Scheduled for colonoscopy Tuesday. INR improved with vit K. Family at bedside. - Physical Exam General: Alert, Oriented x3, Cooperative, No apparent distress Neck: Supple Lungs: Clear to auscultation Cardiovascular: Regular rate Abdomen: Bowel Sounds Present, Soft, Non Tender, Non-Distended Extremities: No edema Musculoskeletal: No Muscle Wasting Psych/Mental Status: Appropriate, Depressed, Alert and oriented to time, place, person, mood and affect Vital Signs Temp Pulse Resp BP Pulse Ox 97.9 F 99 16 111/58 L 98 05/20/18 09:46 05/20/18 10:58 05/20/18 09:46 05/20/18 09:46 05/20/18 09:46 Oxygen Delivery Method Room Air Weight: 91.626 kg Body Mass Index (BMI) 27.3 Orthostatic Vital Signs Start: 05/16/18 10:14 Freq: q24h Status: Active Protocol: Activity Type Activity Date Activity User E-Sign Co-Sign Detail Recorded Client Recorded Date Recorded By Document 05/20/18 05:44 BMW [id number] 05/20/18 05:45 BMW 05/20/18 05:44 Orthostatic Vitals Standing -Blood Pressure (90/60-120/80) 106/63 -Extremity Use Right Arm -Pulse Rate (60-100) 137 H Sitting -Blood Pressure (90/60-120/80) 104/74 -Extremity Use Right Arm -Pulse Rate (60-100) 129 H Lying -Blood Pressure (90/60-120/80) 124/65 H -Extremity Use Right Arm -Pulse Rate (60-100) 104 H Intake and Output for Last 24 Hours 05/18/18 05/19/18 05/20/18 23:59 23:59 23:59 Intake Total 1624 / 1624 480 / 480 660 / 660 Output Total 1015 / 1015 650 / 650 600 / 600 Balance 609 / 609 -170 / -170 60 / 60 Microbiology Past 72 Hours 05/17/18 20:00 Stool Occult Blood (MIRANDA) - Final Stool Occult Blood Positive Laboratory Tests Past 24 Hrs 05/19/18 05/19/18 05/20/18 16:27 17:21 05:25 WBC 4.0 L RBC 2.19 L Hgb 7.2 L Hct 23.0 L MCV 105.0 H MCH 32.9 H MCHC 31.3 L RDW 16.5 H RDW Differential 62.4 H Plt Count 98 L MPV 10.8 Immature Gran % (Auto) 0.300 Neut % (Auto) 81.7 H Lymph % (Auto) 6.1 L [place] % (Auto) 11.1 H Eos % (Auto) 0.8 Baso % (Auto) 0.0 Absolute Neuts (auto) 3.2 Absolute Lymphs (auto) 0.24 L Total Counted Not Reportable Differential Comment Platelet Estimate Anisocytosis Macrocytosis PT INR Sodium 141 Potassium 4.0 Chloride 107 Carbon Dioxide 24.0 Anion Gap 10 BUN 43 H Creatinine 1.64 H Estim Creat Clear Calc 39.43 Est GFR (MDRD) Af Amer 52 L Est GFR (MDRD) Non-Af 43 L BUN/Creatinine Ratio 26.2 H Glucose 93 Calcium 8.3 L Phosphorus 3.1 Total Bilirubin 1.70 H AST 141 H ALT 98 H Alkaline Phosphatase 402 H Total Protein 6.8 Albumin 2.6 L Globulin 4.2 Albumin/Globulin Ratio 0.6 L Tumor Marker AFP Urine Total Protein Pending Urine Albumin Pending U Pskdj-0-Zhgqezoj Pending U Diiyw-7-Ytbpsuan Pending U Beta Globulin Pending U Gamma Globulin Pending U PEP M-Baron Pending 05/20/18 05/20/18 05/20/18 05:25 08:50 12:24 WBC 4.7 RBC 2.18 L Hgb 7.3 L Hct 23.2 L MCV 106.4 H MCH 33.5 H MCHC 31.5 L RDW 16.2 H RDW Differential 60.7 H Plt Count 101 L MPV 10.7 Immature Gran % (Auto) 0.600 Neut % (Auto) 80.0 H Lymph % (Auto) 7.2 L [place] % (Auto) 11.1 H Eos % (Auto) 0.9 Baso % (Auto) 0.2 Absolute Neuts (auto) 3.8 Absolute Lymphs (auto) 0.34 L Total Counted Not Reportable Differential Comment SEE COMMENT Platelet Estimate SLT DEC Anisocytosis 1+ Macrocytosis 1+ PT 18.4 H INR 1.5 Sodium Potassium Chloride Carbon Dioxide Anion Gap BUN Creatinine Estim Creat Clear Calc Est GFR (MDRD) Af Amer Est GFR (MDRD) Non-Af BUN/Creatinine Ratio Glucose Calcium Phosphorus Total Bilirubin AST ALT Alkaline Phosphatase Total Protein Albumin Globulin Albumin/Globulin Ratio Tumor Marker AFP Pending Urine Total Protein Urine Albumin U Notms-0-Nfaderkd U Lafoy-2-Vibrhecb U Beta Globulin U Gamma Globulin U PEP M-Baron POC Glucose 05/20/18 05/20/18 05/19/18 12:07 06:50 22:10 POC Glucose 177 H 97 133 H 05/19/18 16:24 POC Glucose 111 H Medical Necessity - Tobacco Use Smoking Status: Former smoker Tobacco Use: Non-smoker Assessment/Plan All Active Problems Weakness (Acute) Guaiac positive stools (Acute) Chronic anticoagulation (Acute) Altered mental status (Acute) CHF exacerbation (Acute) 1. Acute on CKD stage 3 due to prerenal azotemia, dehydration from diuretics. baseline creatinine 1.4 in January 2018. Cr 1.6 today. Consider iv fluids or 1u prbc 2. Weakness, frequent falls with tremor. Continue PT/OT 3. HTN stable 4. Afib stable rate, elevated INR, anticoag on hold 5. Anemia, pancytopenia. may need prbc, defer to primary care 6. Pulmonary hypertension, mod-severe TR. No edema on exam. Continue to hold diuretics 7. DMT2 primary care mgmt 8. Hematuria with ureteral stent resolving with improved INR.
[2018-05-20 16:50] LABS: Bedside Glucose 108 mg/dL (70-110)
[2018-05-20] MEDS: 0.9% NaCl Peripheral Flush Adult/Peds IV (20:01)
[2018-05-20] MEDS: Atorvastatin Calcium 10 MG Tablet 5 MG PO (21:39)
[2018-05-20 21:45] LABS: Bedside Glucose 120 mg/dL (70-110)
[2018-05-21] VITALS (8 sets, daily range): BP systolic 103–119; BP diastolic 55–68; PULSE 88–136; RESP 16–18; TEMP 36.5–36.8; O2SAT 94–98
[2018-05-21] MEDS: Acetaminophen 325 MG Tablet 650 MG PO ×2 (03:11→10:45)
[2018-05-21 06:16] LABS: Absolute Lymphocyte Count 0.46 X10^3/ul (0.83-4.51); Absolute Neutrophil Count 6.1 X10^3/uL (2.0-7.7); Basophil# 0.01 X10^3/uL; Basophil% 0.1 % (0-1); Differential Indicated SCAN CRITERIA MET; Eosinophil# 0.03 X10^3/uL; Eosinophils% 0.4 % (0-5); Hematocrit 27.6 % (40-54); Hemoglobin 8.7 g/dl (13.0-16.5); Lymphocyte # 0.46 X10^3/ul (4.0); Lymphocyte % 6.3 % (19-41); Mean Corp Hgb Conc 31.5 g/gl (32-36); Mean Corpuscular Volume 104.5 fL (80-94); Mean Platelet Vol. 11.2 fl (6.2-12.0); Monocyte% 8.2 % (0-10); Neutrophil # 6.13 X10^3/uL (2.7-7.7); POSITIVE COUNT NO; POSITIVE DIFFERENTIAL YES; POSITIVE MORPHOLOGY NO; Platelet Count 126 K/mm3 (150-450); RBC Distribution Width CV 17.3 % (11.6-14.6); RBC Distribution Width SD 63.7 fl (35.1-43.9); Red Blood Count 2.64 M/mm3 (4.6-6.2); White Blood Count 7.3 K/mm3 (4.4-11.0)
[2018-05-21 06:37] LABS: Anisocytosis RARE; Macrocytosis RARE; Platelet Estimate SLT DEC (ADEQ)
[2018-05-21 06:44] LABS: ALB/GLOB Ratio 0.6 RATIO (0.9-2.4); AST(SGOT) 176 U/L (15-37); Alanine Aminotransfer ALT/SGPT 120 U/L (16-61); Albumin, Serum 2.8 g/dL (3.2-5.0); Alkaline Phosphatase 495 U/L (45-117); Anion Gap 12 (5-15); BUN 44 mg/dL (7-18); BUN/Creat Ratio 25.6 RATIO (10-20); Calcium,Total 8.8 mg/dL (8.5-10.1); Chloride 105 mmol/L (98-107); Creatinine, Serum 1.72 mg/dL (0.70-1.30); EST Glomerular Filtration Rate 41 mL/min (>60); Est Glom Filt Rate - Afr Amer 49 mL/min (>60); Globulin 4.6 g/dL (2.2-4.2); Glucose 95 mg/dL (74-106); Protein, Total 7.4 g/dL (6.4-8.2); Sodium Level 141 mmol/L (136-145)
[2018-05-21 06:51] LABS: Bedside Glucose 107 mg/dL (70-110)
--- NOTE | 2018-05-21 06:57 | PCM.PN.SRG ---
Patient Problems: Active and Suspected Problems Weakness (Acute) Guaiac positive stools (Acute) Altered mental status (Acute) Subjective: Pt without complaint Received unit PRBC yesterday - Physical Exam Abdomen: Bowel Sounds Present, Soft, Non Tender Vital Signs Temp Pulse Resp BP Pulse Ox 97.7 F L 136 H 16 103/55 L 97 05/21/18 03:45 05/21/18 05:53 05/21/18 03:45 05/21/18 05:53 05/21/18 03:45 Oxygen Delivery Method Room Air Weight: 202 lb Body Mass Index (BMI) 27.3 Orthostatic Vital Signs Start: 05/16/18 10:14 Freq: q24h Status: Active Protocol: Activity Type Activity Date Activity User E-Sign Co-Sign Detail Recorded Client Recorded Date Recorded By Document 05/21/18 05:53 KDB [id number] 05/21/18 06:01 KDB 05/21/18 05:53 Orthostatic Vitals Standing -Blood Pressure (90/60-120/80) 114/66 -Extremity Use Right Arm -Pulse Rate (60-100) 110 H Sitting -Blood Pressure (90/60-120/80) 106/60 -Extremity Use Right Arm -Pulse Rate (60-100) 98 Lying -Blood Pressure (90/60-120/80) 103/55 L -Extremity Use Right Arm -Pulse Rate (60-100) 136 H Intake and Output for Last 24 Hours 05/19/18 05/20/18 05/21/18 23:59 23:59 23:59 Intake Total 480 / 480 1467 / 1467 240 / 240 Output Total 650 / 650 800 / 800 575 / 575 Balance -170 / -170 667 / 667 -335 / -335 Laboratory Tests Past 24 Hrs 05/19/18 05/20/18 05/20/18 13:43 05:25 05:25 WBC 4.7 RBC 2.18 L Hgb 7.3 L Hct 23.2 L MCV 106.4 H MCH 33.5 H MCHC 31.5 L RDW 16.2 H RDW Differential 60.7 H Plt Count 101 L MPV 10.7 Immature Gran % (Auto) 0.600 Neut % (Auto) 80.0 H Lymph % (Auto) 7.[address] % (Auto) 11.1 H Eos % (Auto) 0.9 Baso % (Auto) 0.2 Absolute Neuts (auto) 3.8 Absolute Lymphs (auto) 0.34 L Total Counted Not Reportable Differential Comment SEE COMMENT Platelet Estimate SLT DEC Anisocytosis 1+ Macrocytosis 1+ PT INR Sodium 141 Potassium 4.0 Chloride 107 Carbon Dioxide 24.0 Anion Gap 10 BUN 43 H Creatinine 1.64 H Estim Creat Clear Calc 39.43 Est GFR (MDRD) Af Amer 52 L Est GFR (MDRD) Non-Af 43 L BUN/Creatinine Ratio 26.2 H Glucose 93 Calcium 8.3 L Phosphorus 3.1 Total Bilirubin 1.70 H AST 141 H ALT 98 H Alkaline Phosphatase 402 H Total Protein 6.8 Albumin 2.6 L Globulin 4.2 Albumin/Globulin Ratio 0.6 L Tumor Marker AFP Crossmatch See Detail 05/20/18 05/20/18 05/21/18 08:50 12:24 05:52 WBC 7.3 RBC 2.64 L Hgb 8.7 L Hct 27.6 L MCV 104.5 H MCH 33.0 H MCHC 31.5 L RDW 17.3 H RDW Differential 63.7 H Plt Count 126 L MPV 11.2 Immature Gran % (Auto) 1.000 H Neut % (Auto) 84.0 H Lymph % (Auto) 6.[address] % (Auto) 8.2 Eos % (Auto) 0.4 Baso % (Auto) 0.1 Absolute Neuts (auto) 6.1 Absolute Lymphs (auto) 0.46 L Total Counted Not Reportable Differential Comment SEE COMMENT Platelet Estimate SLT DEC Anisocytosis RARE Macrocytosis RARE PT 18.4 H INR 1.5 Sodium Potassium Chloride Carbon Dioxide Anion Gap BUN Creatinine Estim Creat Clear Calc Est GFR (MDRD) Af Amer Est GFR (MDRD) Non-Af BUN/Creatinine Ratio Glucose Calcium Phosphorus Total Bilirubin AST ALT Alkaline Phosphatase Total Protein Albumin Globulin Albumin/Globulin Ratio Tumor Marker AFP Pending Crossmatch 05/21/18 05:52 WBC RBC Hgb Hct MCV MCH MCHC RDW RDW Differential Plt Count MPV Immature Gran % (Auto) Neut % (Auto) Lymph % (Auto) [place] % (Auto) Eos % (Auto) Baso % (Auto) Absolute Neuts (auto) Absolute Lymphs (auto) Total Counted Differential Comment Platelet Estimate Anisocytosis Macrocytosis PT INR Sodium 141 Potassium 4.0 Chloride 105 Carbon Dioxide 24.0 Anion Gap 12 BUN 44 H Creatinine 1.72 H Estim Creat Clear Calc 37.60 Est GFR (MDRD) Af Amer 49 L Est GFR (MDRD) Non-Af 41 L BUN/Creatinine Ratio 25.6 H Glucose 95 Calcium 8.8 Phosphorus Total Bilirubin 2.20 H AST 176 H ALT 120 H Alkaline Phosphatase 495 H Total Protein 7.4 Albumin 2.8 L Globulin 4.6 H Albumin/Globulin Ratio 0.6 L Tumor Marker AFP Crossmatch POC Glucose 05/21/18 05/20/18 05/20/18 06:45 21:39 16:43 POC Glucose 107 120 H 108 05/20/18 05/20/18 12:07 06:50 POC Glucose 177 H 97 Medical Necessity - Tobacco Use Smoking Status: Former smoker Tobacco Use: Non-smoker Assessment/Plan All Active Problems Weakness (Acute) Guaiac positive stools (Acute) Chronic anticoagulation (Acute) Altered mental status (Acute) CHF exacerbation (Acute) Hgb 8.7 Will continue bowel prep today and plan EGD/cscope tomorrow
--- NOTE | 2018-05-21 09:11 | NURSING ---
Spoke with Cris in pharmacy regarding changing the start time on the Miralax. Dr. Munroe wants it changed to 1300.
[2018-05-21] MEDS: Allopurinol 100 MG Tablet PO (09:32)
[2018-05-21] MEDS: Ferrous Sulfate 325 MG Tablet PO (09:32)
[2018-05-21] MEDS: Atenolol 25 MG Tablet PO (09:32)
[2018-05-21] MEDS: 0.9% Normal Saline 1,000 ML 100 ML IV (09:34)
--- NOTE | 2018-05-21 10:56 | DS.PCM_ITS ---
Discharge Date and Diagnosis - Problem List Patient Problems: Active and Suspected Problems Weakness (Acute) Guaiac positive stools (Acute) Altered mental status (Acute) Date of Admission: 05/15/18 Date of Discharge: 05/21/18 - Primary Discharge Diagnosis Active and Suspected Problems Weakness (Acute) Guaiac positive stools (Acute) Altered mental status (Acute) liver nodules - Secondary Discharge Diagnosis Chronic Problems CHF (congestive heart failure) (Chronic) Debility (Chronic) Pancytopenia (Chronic) Sick sinus syndrome (Chronic) Presence of cardiac pacemaker (Chronic) Ureteral stricture, right (Chronic) Diabetes mellitus (Chronic) Hypertension (Chronic) Benign prostatic hypertrophy (Chronic) Diverticular disease (Chronic) Anemia (Chronic) Atrial fibrillation (Chronic) Anxiety (Chronic) GERD (gastroesophageal reflux disease) (Chronic) Peripheral neuropathy (Chronic) Thrombocytopenia (Chronic) 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) Constipation (Chronic) Hyperlipidemia (Chronic) Gout (Chronic) Hospital Course and Treatment Imaging Results: Laboratory Tests 05/15/18 05/15/18 05/15/18 14:55 14:55 14:55 WBC 3.4 L RBC 2.40 L Hgb 8.0 L Hct 25.9 L MCV 107.9 H MCH 33.3 H MCHC 30.9 L RDW 16.4 H RDW Differential 60.9 H Plt Count 87 L MPV 11.0 Immature Gran % (Auto) 0.900 Neut % (Auto) 77.4 H Lymph % (Auto) 11.0 L [place] % (Auto) 9.5 Eos % (Auto) 0.9 Baso % (Auto) 0.3 Absolute Neuts (auto) 2.6 Absolute Lymphs (auto) 0.37 L Total Counted Not Reportable Differential Comment SCANNED Platelet Estimate Immature Plt Fraction Anisocytosis Macrocytosis ESR Retic Count Immature Retic Fraction Retic Hgb Equivalent Haptoglobin PT 29.2 H INR 2.7 APTT Sodium 146 H Potassium 3.1 L Chloride 106 Carbon Dioxide 32.0 Anion Gap 8 BUN 87 H Creatinine 2.21 H Estim Creat Clear Calc 29.26 Est GFR (MDRD) Af Amer 37 L Est GFR (MDRD) Non-Af 31 L BUN/Creatinine Ratio 39.4 H Glucose 119 H Hemoglobin A1c Calcium 8.7 Phosphorus Iron TIBC Iron Saturation Ferritin Total Bilirubin Direct Bilirubin AST ALT Alkaline Phosphatase Lactate Dehydrogenase Total Protein Total Protein (PEP) Albumin Globulin Albumin/Globulin Ratio Vitamin B12 Folate TSH Urine Color Urine Clarity Urine pH Ur Specific [place] Urine Protein Urine Glucose (UA) Urine Ketones Urine Occult Blood Urine Nitrite Urine Bilirubin Urine Urobilinogen Ur Leukocyte Esterase Urine RBC Urine WBC Ur Squamous Epith Cells Urine Bacteria Urine Mucus Urine Total Protein Urine Albumin U Kdrew-8-Yojyxshw U Cphik-8-Bjqqfyui U Beta Globulin U Gamma Globulin U PEP M-Baron IgG IgA IgM Immunofixation Screen Albumin (SHEN) Albumin/Globulin (SHEN) Qvtmg-0-Bjogcifca SHEN Svasr-8-Dgegqoegu SHEN Beta-Globulins (SHEN) Gamma Globulins (SHEN) SHEN M-Baron SHEN Comments Ur Immunofix PEP Note Hepatitis A IgM Ab Hepatitis A Ab Total Hep Bs Antigen Hep Bs Antibody Hep B Core Total Ab Hep B Core IgM Ab Hepatitis Be Antibody Hepatitis Be Antigen POC Glucose Blood Type Antibody Screen Crossmatch 05/15/18 05/15/18 05/15/18 14:55 14:55 15:10 WBC RBC Hgb Hct MCV MCH MCHC RDW RDW Differential Plt Count MPV Immature Gran % (Auto) Neut % (Auto) Lymph % (Auto) [place] % (Auto) Eos % (Auto) Baso % (Auto) Absolute Neuts (auto) Absolute Lymphs (auto) Total Counted Differential Comment Platelet Estimate Immature Plt Fraction Anisocytosis Macrocytosis ESR Retic Count Immature Retic Fraction Retic Hgb Equivalent Haptoglobin PT INR APTT Sodium Potassium Chloride Carbon Dioxide Anion Gap BUN Creatinine Estim Creat Clear Calc Est GFR (MDRD) Af Amer Est GFR (MDRD) Non-Af BUN/Creatinine Ratio Glucose Hemoglobin A1c Calcium Phosphorus Iron TIBC Iron Saturation Ferritin Total Bilirubin Direct Bilirubin AST ALT Alkaline Phosphatase Lactate Dehydrogenase Total Protein Total Protein (PEP) Albumin Globulin Albumin/Globulin Ratio Vitamin B12 881 Folate TSH 1.14 Urine Color Yellow Urine Clarity Sl. Cloudy Urine pH 6.5 Ur Specific [place] 1.010 Urine Protein 30 H Urine Glucose (UA) Normal Urine Ketones Negative Urine Occult Blood 250 H Urine Nitrite Negative Urine Bilirubin Negative Urine Urobilinogen Normal Ur Leukocyte Esterase 500 H Urine RBC 5-10 SEEN Urine WBC 10-25 SEEN Ur Squamous Epith Cells 5-10 SEEN Urine Bacteria 0 SEEN Urine Mucus 0 SEEN Urine Total Protein Urine Albumin U Wfjdf-6-Rdbjeyva U Ahdbv-9-Xwmhlejy U Beta Globulin U Gamma Globulin U PEP M-Baron IgG IgA IgM Immunofixation Screen Albumin (SHEN) Albumin/Globulin (SHEN) Stlrh-5-Yobiadgno SHEN Phnkl-9-Ypjdcyvlr SHEN Beta-Globulins (SHEN) Gamma Globulins (SHEN) SHEN M-Baron SHEN Comments Ur Immunofix PEP Note Hepatitis A IgM Ab Hepatitis A Ab Total Hep Bs Antigen Hep Bs Antibody Hep B Core Total Ab Hep B Core IgM Ab Hepatitis Be Antibody Hepatitis Be Antigen POC Glucose Blood Type Antibody Screen Crossmatch 05/15/18 05/16/18 05/16/18 22:29 04:55 04:55 WBC 3.5 L RBC 2.41 L Hgb 7.9 L Hct 25.3 L MCV 105.0 H MCH 32.8 H MCHC 31.2 L RDW 16.6 H RDW Differential 63.5 H Plt Count 81 L MPV 10.1 Immature Gran % (Auto) 0.600 Neut % (Auto) 77.1 H Lymph % (Auto) 16.6 L [place] % (Auto) 4.3 Eos % (Auto) 1.4 Baso % (Auto) 0.0 Absolute Neuts (auto) 2.7 Absolute Lymphs (auto) 0.58 L Total Counted Not Reportable Differential Comment SEE COMMENT Platelet Estimate ADEQUATE Immature Plt Fraction Anisocytosis 1+ Macrocytosis 1+ ESR Retic Count Immature Retic Fraction Retic Hgb Equivalent Haptoglobin PT 30.1 H INR 2.9 APTT Sodium Potassium Chloride Carbon Dioxide Anion Gap BUN Creatinine Estim Creat Clear Calc Est GFR (MDRD) Af Amer Est GFR (MDRD) Non-Af BUN/Creatinine Ratio Glucose Hemoglobin A1c Calcium Phosphorus Iron TIBC Iron Saturation Ferritin Total Bilirubin Direct Bilirubin AST ALT Alkaline Phosphatase Lactate Dehydrogenase Total Protein Total Protein (PEP) Albumin Globulin Albumin/Globulin Ratio Vitamin B12 Folate TSH Urine Color Urine Clarity Urine pH Ur Specific [place] Urine Protein Urine Glucose (UA) Urine Ketones Urine Occult Blood Urine Nitrite Urine Bilirubin Urine Urobilinogen Ur Leukocyte Esterase Urine RBC Urine WBC Ur Squamous Epith Cells Urine Bacteria Urine Mucus Urine Total Protein Urine Albumin U Qrhht-5-Unwpabnz U Zcjsv-3-Lobxuxhu U Beta Globulin U Gamma Globulin U PEP M-Baron IgG IgA IgM Immunofixation Screen Albumin (SHEN) Albumin/Globulin (SHEN) Mwrza-6-Eahpzqcyr SHEN Rhjan-0-Dcmdzszba SHEN Beta-Globulins (SHEN) Gamma Globulins (SHEN) SHEN M-Baron SHEN Comments Ur Immunofix PEP Note Hepatitis A IgM Ab Hepatitis A Ab Total Hep Bs Antigen Hep Bs Antibody Hep B Core Total Ab Hep B Core IgM Ab Hepatitis Be Antibody Hepatitis Be Antigen POC Glucose 134 H Blood Type Antibody Screen Crossmatch 05/16/18 05/16/18 05/16/18 04:55 04:55 04:55 WBC RBC Hgb Hct MCV MCH MCHC RDW RDW Differential Plt Count MPV Immature Gran % (Auto) Neut % (Auto) Lymph % (Auto) [place] % (Auto) Eos % (Auto) Baso % (Auto) Absolute Neuts (auto) Absolute Lymphs (auto) Total Counted Differential Comment Platelet Estimate Immature Plt Fraction 4.5 Anisocytosis Macrocytosis ESR 68 H Retic Count 2.32 H Immature Retic Fraction 11.10 Retic Hgb Equivalent 28.2 L Haptoglobin PT INR APTT Sodium 146 H Potassium 3.4 L Chloride 109 H Carbon Dioxide 30.0 Anion Gap 7 BUN 66 H Creatinine 1.61 H Estim Creat Clear Calc 40.17 Est GFR (MDRD) Af Amer 53 L Est GFR (MDRD) Non-Af 44 L BUN/Creatinine Ratio 41.0 H Glucose 99 Hemoglobin A1c Calcium 8.6 Phosphorus Iron TIBC Iron Saturation Ferritin Total Bilirubin Direct Bilirubin AST ALT Alkaline Phosphatase Lactate Dehydrogenase Total Protein Total Protein (PEP) 6.4 Albumin Globulin Albumin/Globulin Ratio Vitamin B12 Folate TSH Urine Color Urine Clarity Urine pH Ur Specific [place] Urine Protein Urine Glucose (UA) Urine Ketones Urine Occult Blood Urine Nitrite Urine Bilirubin Urine Urobilinogen Ur Leukocyte Esterase Urine RBC Urine WBC Ur Squamous Epith Cells Urine Bacteria Urine Mucus Urine Total Protein TNP Urine Albumin TNP U Sdmzw-2-Kgcxstie TNP U Ctbgf-2-Lldxijve TNP U Beta Globulin TNP U Gamma Globulin TNP U PEP M-Baron TNP IgG 967 IgA 260 IgM 38 Immunofixation Screen Comment Albumin (SHEN) 3.3 Albumin/Globulin (SHEN) 1.1 Owslq-7-Grxjlvjbs SHEN 0.3 Oajkv-6-Fcgfnapbf SHEN 0.8 Beta-Globulins (SHEN) 0.8 Gamma Globulins (SHEN) 3.1 SHEN M-Baron SHEN Comments Comment Ur Immunofix PEP Note Comment Hepatitis A IgM Ab Hepatitis A Ab Total Hep Bs Antigen Hep Bs Antibody Hep B Core Total Ab Hep B Core IgM Ab Hepatitis Be Antibody Hepatitis Be Antigen POC Glucose Blood Type Antibody Screen Crossmatch 05/16/18 05/16/18 05/16/18 04:55 06:46 10:59 WBC RBC Hgb Hct MCV MCH MCHC RDW RDW Differential Plt Count MPV Immature Gran % (Auto) Neut % (Auto) Lymph % (Auto) [place] % (Auto) Eos % (Auto) Baso % (Auto) Absolute Neuts (auto) Absolute Lymphs (auto) Total Counted Differential Comment Platelet Estimate Immature Plt Fraction Anisocytosis Macrocytosis ESR Retic Count Immature Retic Fraction Retic Hgb Equivalent Haptoglobin PT INR APTT Sodium Potassium Chloride Carbon Dioxide Anion Gap BUN Creatinine Estim Creat Clear Calc Est GFR (MDRD) Af Amer Est GFR (MDRD) Non-Af BUN/Creatinine Ratio Glucose Hemoglobin A1c Calcium Phosphorus Iron 27 L TIBC 144 L Iron Saturation 18.8 Ferritin 778 H Total Bilirubin 0.90 Direct Bilirubin 0.52 H AST 105 H ALT 87 H Alkaline Phosphatase 194 H Lactate Dehydrogenase 531 H Total Protein 7.2 Total Protein (PEP) Albumin 3.1 L Globulin 4.1 Albumin/Globulin Ratio Vitamin B12 Folate 44.00 TSH Urine Color Urine Clarity Urine pH Ur Specific [place] Urine Protein Urine Glucose (UA) Urine Ketones Urine Occult Blood Urine Nitrite Urine Bilirubin Urine Urobilinogen Ur Leukocyte Esterase Urine RBC Urine WBC Ur Squamous Epith Cells Urine Bacteria Urine Mucus Urine Total Protein Urine Albumin U Vmpqk-3-Pbfwmmgo U Uvsex-8-Emvwcvcw U Beta Globulin U Gamma Globulin U PEP M-Baron IgG IgA IgM Immunofixation Screen Albumin (SHEN) Albumin/Globulin (SHEN) Ucher-2-Dosqqpeiw SHEN Kdxhc-3-Onqduinfo SHEN Beta-Globulins (SHEN) Gamma Globulins (SHEN) SHEN M-Baron SHEN Comments Ur Immunofix PEP Note Hepatitis A IgM Ab Hepatitis A Ab Total Hep Bs Antigen Hep Bs Antibody Hep B Core Total Ab Hep B Core IgM Ab Hepatitis Be Antibody Hepatitis Be Antigen POC Glucose 98 192 H Blood Type Antibody Screen Crossmatch 05/16/18 05/16/18 05/16/18 13:35 16:20 22:33 WBC RBC Hgb Hct MCV MCH MCHC RDW RDW Differential Plt Count MPV Immature Gran % (Auto) Neut % (Auto) Lymph % (Auto) [place] % (Auto) Eos % (Auto) Baso % (Auto) Absolute Neuts (auto) Absolute Lymphs (auto) Total Counted Differential Comment Platelet Estimate Immature Plt Fraction Anisocytosis Macrocytosis ESR Retic Count Immature Retic Fraction Retic Hgb Equivalent Haptoglobin 240 H PT INR APTT Sodium Potassium Chloride Carbon Dioxide Anion Gap BUN Creatinine Estim Creat Clear Calc Est GFR (MDRD) Af Amer Est GFR (MDRD) Non-Af BUN/Creatinine Ratio Glucose Hemoglobin A1c Calcium Phosphorus Iron TIBC Iron Saturation Ferritin Total Bilirubin Direct Bilirubin AST ALT Alkaline Phosphatase Lactate Dehydrogenase Total Protein Total Protein (PEP) Albumin Globulin Albumin/Globulin Ratio Vitamin B12 Folate TSH Urine Color Urine Clarity Urine pH Ur Specific [place] Urine Protein Urine Glucose (UA) Urine Ketones Urine Occult Blood Urine Nitrite Urine Bilirubin Urine Urobilinogen Ur Leukocyte Esterase Urine RBC Urine WBC Ur Squamous Epith Cells Urine Bacteria Urine Mucus Urine Total Protein Urine Albumin U Eanrj-6-Uqkxsuua U Kmykx-6-Lrtzfzhx U Beta Globulin U Gamma Globulin U PEP M-Baron IgG IgA IgM Immunofixation Screen Albumin (SHEN) Albumin/Globulin (SHEN) Dynzl-9-Lhgsnahmg SHEN Ixwop-9-Mmtelfsuq SHEN Beta-Globulins (SHEN) Gamma Globulins (SHEN) SHEN M-Baron SHEN Comments Ur Immunofix PEP Note Hepatitis A IgM Ab Negative Hepatitis A Ab Total Negative Hep Bs Antigen Negative Hep Bs Antibody Hep B Core Total Ab Negative Hep B Core IgM Ab Negative Hepatitis Be Antibody Negative Hepatitis Be Antigen Negative POC Glucose 102 137 H Blood Type Antibody Screen Crossmatch 05/17/18 05/17/18 05/17/18 04:55 04:55 06:56 WBC 3.5 L RBC 2.27 L Hgb 7.6 L Hct 24.5 L MCV 107.9 H MCH 33.5 H MCHC 31.0 L RDW 16.2 H RDW Differential 61.2 H Plt Count 87 L MPV 11.3 Immature Gran % (Auto) 0.800 Neut % (Auto) 75.5 H Lymph % (Auto) 9.6 L [place] % (Auto) 12.7 H Eos % (Auto) 1.1 Baso % (Auto) 0.3 Absolute Neuts (auto) 2.7 Absolute Lymphs (auto) 0.34 L Total Counted Not Reportable Differential Comment Platelet Estimate Immature Plt Fraction Anisocytosis Macrocytosis ESR Retic Count Immature Retic Fraction Retic Hgb Equivalent Haptoglobin PT INR APTT Sodium 147 H Potassium 3.5 Chloride 110 H Carbon Dioxide 28.0 Anion Gap BUN 52 H Creatinine 1.62 H Estim Creat Clear Calc 39.92 Est GFR (MDRD) Af Amer 53 L Est GFR (MDRD) Non-Af 44 L BUN/Creatinine Ratio 32.1 H Glucose 90 Hemoglobin A1c Calcium 8.6 Phosphorus 2.3 L Iron 50 L TIBC Iron Saturation Ferritin 868 H Total Bilirubin Direct Bilirubin AST ALT Alkaline Phosphatase Lactate Dehydrogenase Total Protein Total Protein (PEP) Albumin 2.9 L Globulin Albumin/Globulin Ratio Vitamin B12 Folate TSH Urine Color Urine Clarity Urine pH Ur Specific [place] Urine Protein Urine Glucose (UA) Urine Ketones Urine Occult Blood Urine Nitrite Urine Bilirubin Urine Urobilinogen Ur Leukocyte Esterase Urine RBC Urine WBC Ur Squamous Epith Cells Urine Bacteria Urine Mucus Urine Total Protein Urine Albumin U Zwiez-3-Wejbbqns U Dgcpg-4-Rnbsnody U Beta Globulin U Gamma Globulin U PEP M-Baron IgG IgA IgM Immunofixation Screen Albumin (SHEN) Albumin/Globulin (SHEN) Xwnjs-9-Serhxtohl SHEN Nmaah-7-Lmrfkfzql SHEN Beta-Globulins (SHEN) Gamma Globulins (SHEN) SHEN M-Baron SHEN Comments Ur Immunofix PEP Note Hepatitis A IgM Ab Hepatitis A Ab Total Hep Bs Antigen Hep Bs Antibody Hep B Core Total Ab Hep B Core IgM Ab Hepatitis Be Antibody Hepatitis Be Antigen POC Glucose 96 Blood Type Antibody Screen Crossmatch 05/17/18 05/17/18 05/17/18 11:14 16:51 21:13 WBC RBC Hgb Hct MCV MCH MCHC RDW RDW Differential Plt Count MPV Immature Gran % (Auto) Neut % (Auto) Lymph % (Auto) [place] % (Auto) Eos % (Auto) Baso % (Auto) Absolute Neuts (auto) Absolute Lymphs (auto) Total Counted Differential Comment Platelet Estimate Immature Plt Fraction Anisocytosis Macrocytosis ESR Retic Count Immature Retic Fraction Retic Hgb Equivalent Haptoglobin PT INR APTT Sodium Potassium Chloride Carbon Dioxide Anion Gap BUN Creatinine Estim Creat Clear Calc Est GFR (MDRD) Af Amer Est GFR (MDRD) Non-Af BUN/Creatinine Ratio Glucose Hemoglobin A1c Calcium Phosphorus Iron TIBC Iron Saturation Ferritin Total Bilirubin Direct Bilirubin AST ALT Alkaline Phosphatase Lactate Dehydrogenase Total Protein Total Protein (PEP) Albumin Globulin Albumin/Globulin Ratio Vitamin B12 Folate TSH Urine Color Urine Clarity Urine pH Ur Specific [place] Urine Protein Urine Glucose (UA) Urine Ketones Urine Occult Blood Urine Nitrite Urine Bilirubin Urine Urobilinogen Ur Leukocyte Esterase Urine RBC Urine WBC Ur Squamous Epith Cells Urine Bacteria Urine Mucus Urine Total Protein Urine Albumin U Evszl-0-Qhlqfzme U Zxrbp-0-Bayejtsw U Beta Globulin U Gamma Globulin U PEP M-Baron IgG IgA IgM Immunofixation Screen Albumin (SHEN) Albumin/Globulin (SHEN) Fzyqy-2-Hususvxrv SHEN Tsqmg-1-Acahxgzoi SHEN Beta-Globulins (SHEN) Gamma Globulins (SHEN) SHEN M-Baron SHEN Comments Ur Immunofix PEP Note Hepatitis A IgM Ab Hepatitis A Ab Total Hep Bs Antigen Hep Bs Antibody Hep B Core Total Ab Hep B Core IgM Ab Hepatitis Be Antibody Hepatitis Be Antigen POC Glucose 202 H 110 133 H Blood Type Antibody Screen Crossmatch 05/18/18 05/18/18 05/18/18 04:55 04:55 07:01 WBC 4.4 RBC 2.22 L Hgb 7.4 L Hct 24.0 L MCV 108.1 H MCH 33.3 H MCHC 30.8 L RDW 16.1 H RDW Differential 60.3 H Plt Count 92 L MPV 11.3 Immature Gran % (Auto) Neut % (Auto) Lymph % (Auto) [place] % (Auto) Eos % (Auto) Baso % (Auto) Absolute Neuts (auto) Absolute Lymphs (auto) Total Counted Differential Comment Platelet Estimate Immature Plt Fraction Anisocytosis Macrocytosis ESR Retic Count Immature Retic Fraction Retic Hgb Equivalent Haptoglobin PT INR APTT Sodium 142 Potassium 3.5 Chloride 108 H Carbon Dioxide 27.0 Anion Gap BUN 41 H Creatinine 1.55 H Estim Creat Clear Calc 41.72 Est GFR (MDRD) Af Amer 56 L Est GFR (MDRD) Non-Af 46 L BUN/Creatinine Ratio 26.5 H Glucose 125 H Hemoglobin A1c Calcium 8.3 L Phosphorus 2.5 Iron TIBC Iron Saturation Ferritin Total Bilirubin Direct Bilirubin AST ALT Alkaline Phosphatase Lactate Dehydrogenase Total Protein Total Protein (PEP) Albumin 2.8 L Globulin Albumin/Globulin Ratio Vitamin B12 Folate TSH Urine Color Urine Clarity Urine pH Ur Specific [place] Urine Protein Urine Glucose (UA) Urine Ketones Urine Occult Blood Urine Nitrite Urine Bilirubin Urine Urobilinogen Ur Leukocyte Esterase Urine RBC Urine WBC Ur Squamous Epith Cells Urine Bacteria Urine Mucus Urine Total Protein Urine Albumin U Ywmem-4-Oxcjkyuz U Vtwdh-6-Bqmlqqcx U Beta Globulin U Gamma Globulin U PEP M-Baron IgG IgA IgM Immunofixation Screen Albumin (SHEN) Albumin/Globulin (SHEN) Smkuf-4-Qhlfmuily SHEN Iuxap-7-Xipkpbldg SHEN Beta-Globulins (SHEN) Gamma Globulins (SHEN) SHEN M-Baron SHEN Comments Ur Immunofix PEP Note Hepatitis A IgM Ab Hepatitis A Ab Total Hep Bs Antigen Hep Bs Antibody Hep B Core Total Ab Hep B Core IgM Ab Hepatitis Be Antibody Hepatitis Be Antigen POC Glucose 113 H Blood Type Antibody Screen Crossmatch 05/18/18 05/18/18 05/18/18 11:45 16:16 22:41 WBC RBC Hgb Hct MCV MCH MCHC RDW RDW Differential Plt Count MPV Immature Gran % (Auto) Neut % (Auto) Lymph % (Auto) [place] % (Auto) Eos % (Auto) Baso % (Auto) Absolute Neuts (auto) Absolute Lymphs (auto) Total Counted Differential Comment Platelet Estimate Immature Plt Fraction Anisocytosis Macrocytosis ESR Retic Count Immature Retic Fraction Retic Hgb Equivalent Haptoglobin PT INR APTT Sodium Potassium Chloride Carbon Dioxide Anion Gap BUN Creatinine Estim Creat Clear Calc Est GFR (MDRD) Af Amer Est GFR (MDRD) Non-Af BUN/Creatinine Ratio Glucose Hemoglobin A1c Calcium Phosphorus Iron TIBC Iron Saturation Ferritin Total Bilirubin Direct Bilirubin AST ALT Alkaline Phosphatase Lactate Dehydrogenase Total Protein Total Protein (PEP) Albumin Globulin Albumin/Globulin Ratio Vitamin B12 Folate TSH Urine Color Urine Clarity Urine pH Ur Specific [place] Urine Protein Urine Glucose (UA) Urine Ketones Urine Occult Blood Urine Nitrite Urine Bilirubin Urine Urobilinogen Ur Leukocyte Esterase Urine RBC Urine WBC Ur Squamous Epith Cells Urine Bacteria Urine Mucus Urine Total Protein Urine Albumin U Kismu-0-Gqyzmbhm U Maafk-2-Vekqltvl U Beta Globulin U Gamma Globulin U PEP M-Baron IgG IgA IgM Immunofixation Screen Albumin (SHEN) Albumin/Globulin (SHEN) Xvagw-5-Jzbiynbys SHEN Pxduo-2-Hsisufdow SHEN Beta-Globulins (SHEN) Gamma Globulins (SHEN) SHEN M-Baron SHEN Comments Ur Immunofix PEP Note Hepatitis A IgM Ab Hepatitis A Ab Total Hep Bs Antigen Hep Bs Antibody Hep B Core Total Ab Hep B Core IgM Ab Hepatitis Be Antibody Hepatitis Be Antigen POC Glucose 159 H 98 111 H Blood Type Antibody Screen Crossmatch 05/19/18 05/19/18 05/19/18 05:00 05:00 05:00 WBC 4.4 RBC 2.18 L Hgb 7.2 L Hct 23.4 L MCV 107.3 H MCH 33.0 H MCHC 30.8 L RDW 16.2 H RDW Differential 60.7 H Plt Count 92 L MPV 10.4 Immature Gran % (Auto) 0.900 Neut % (Auto) 80.2 H Lymph % (Auto) 6.2 L [place] % (Auto) 11.4 H Eos % (Auto) 1.1 Baso % (Auto) 0.2 Absolute Neuts (auto) 3.5 Absolute Lymphs (auto) 0.27 L Total Counted Not Reportable Differential Comment Platelet Estimate Immature Plt Fraction Anisocytosis Macrocytosis ESR Retic Count Immature Retic Fraction Retic Hgb Equivalent Haptoglobin PT 31.6 H INR 3.0 APTT 63.8 H Sodium 144 Potassium 3.9 Chloride 109 H Carbon Dioxide 26.0 Anion Gap BUN 38 H Creatinine 1.53 H Estim Creat Clear Calc 14.92 Est GFR (MDRD) Af Amer 57 L Est GFR (MDRD) Non-Af 47 L BUN/Creatinine Ratio 24.8 H Glucose 98 Hemoglobin A1c Calcium 8.5 Phosphorus 3.3 Iron TIBC Iron Saturation Ferritin Total Bilirubin Direct Bilirubin AST ALT Alkaline Phosphatase Lactate Dehydrogenase Total Protein Total Protein (PEP) Albumin 2.7 L Globulin Albumin/Globulin Ratio Vitamin B12 Folate TSH Urine Color Urine Clarity Urine pH Ur Specific [place] Urine Protein Urine Glucose (UA) Urine Ketones Urine Occult Blood Urine Nitrite Urine Bilirubin Urine Urobilinogen Ur Leukocyte Esterase Urine RBC Urine WBC Ur Squamous Epith Cells Urine Bacteria Urine Mucus Urine Total Protein Urine Albumin U Vsmux-9-Lecvwjos U Mswhj-5-Gtakhmbh U Beta Globulin U Gamma Globulin U PEP M-Baron IgG IgA IgM Immunofixation Screen Albumin (SHEN) Albumin/Globulin (SHEN) Spfgr-9-Qwodffoul SHEN Lzgnm-6-Ilxvahiwm SHEN Beta-Globulins (SHEN) Gamma Globulins (SHEN) SHEN M-Baron SHEN Comments Ur Immunofix PEP Note Hepatitis A IgM Ab Hepatitis A Ab Total Hep Bs Antigen Hep Bs Antibody Hep B Core Total Ab Hep B Core IgM Ab Hepatitis Be Antibody Hepatitis Be Antigen POC Glucose Blood Type Antibody Screen Crossmatch 05/19/18 05/19/18 05/19/18 05:00 05:00 06:43 WBC RBC Hgb Hct MCV MCH MCHC RDW RDW Differential Plt Count MPV Immature Gran % (Auto) Neut % (Auto) Lymph % (Auto) [place] % (Auto) Eos % (Auto) Baso % (Auto) Absolute Neuts (auto) Absolute Lymphs (auto) Total Counted Differential Comment Platelet Estimate Immature Plt Fraction Anisocytosis Macrocytosis ESR Retic Count Immature Retic Fraction Retic Hgb Equivalent Haptoglobin PT INR APTT Sodium Potassium Chloride Carbon Dioxide Anion Gap BUN Creatinine Estim Creat Clear Calc Est GFR (MDRD) Af Amer Est GFR (MDRD) Non-Af BUN/Creatinine Ratio Glucose Hemoglobin A1c 5.3 Calcium Phosphorus Iron TIBC Iron Saturation Ferritin Total Bilirubin 1.70 H Direct Bilirubin 0.85 H AST 131 H ALT 96 H Alkaline Phosphatase 320 H Lactate Dehydrogenase Total Protein 7.0 Total Protein (PEP) Albumin 2.8 L Globulin 4.2 Albumin/Globulin Ratio Vitamin B12 Folate TSH Urine Color Urine Clarity Urine pH Ur Specific [place] Urine Protein Urine Glucose (UA) Urine Ketones Urine Occult Blood Urine Nitrite Urine Bilirubin Urine Urobilinogen Ur Leukocyte Esterase Urine RBC Urine WBC Ur Squamous Epith Cells Urine Bacteria Urine Mucus Urine Total Protein Urine Albumin U Xdhli-9-Meomeaip U Sterj-4-Svtjveax U Beta Globulin U Gamma Globulin U PEP M-Baron IgG IgA IgM Immunofixation Screen Albumin (SHEN) Albumin/Globulin (SHEN) Vzxzy-9-Fadkfwjct SHEN Vbozw-1-Ldlzuhhnp SHEN Beta-Globulins (SEHN) Gamma Globulins (HSEN) SHEN M-Baron SHEN Comments Ur Immunofix PEP Note Hepatitis A IgM Ab Hepatitis A Ab Total Hep Bs Antigen Hep Bs Antibody Hep B Core Total Ab Hep B Core IgM Ab Hepatitis Be Antibody Hepatitis Be Antigen POC Glucose 94 Blood Type Antibody Screen Crossmatch 05/19/18 05/19/18 05/19/18 11:27 13:43 13:43 WBC RBC Hgb Hct MCV MCH MCHC RDW RDW Differential Plt Count MPV Immature Gran % (Auto) Neut % (Auto) Lymph % (Auto) [place] % (Auto) Eos % (Auto) Baso % (Auto) Absolute Neuts (auto) Absolute Lymphs (auto) Total Counted Differential Comment Platelet Estimate Immature Plt Fraction Anisocytosis Macrocytosis ESR Retic Count Immature Retic Fraction Retic Hgb Equivalent Haptoglobin PT INR APTT Sodium Potassium Chloride Carbon Dioxide Anion Gap BUN Creatinine Estim Creat Clear Calc Est GFR (MDRD) Af Amer Est GFR (MDRD) Non-Af BUN/Creatinine Ratio Glucose Hemoglobin A1c Calcium Phosphorus Iron TIBC Iron Saturation Ferritin Total Bilirubin Direct Bilirubin AST ALT Alkaline Phosphatase Lactate Dehydrogenase Total Protein Total Protein (PEP) Albumin Globulin Albumin/Globulin Ratio Vitamin B12 Folate TSH Urine Color Urine Clarity Urine pH Ur Specific [place] Urine Protein Urine Glucose (UA) Urine Ketones Urine Occult Blood Urine Nitrite Urine Bilirubin Urine Urobilinogen Ur Leukocyte Esterase Urine RBC Urine WBC Ur Squamous Epith Cells Urine Bacteria Urine Mucus Urine Total Protein Urine Albumin U Ikiix-4-Rxshqoic U Figvi-9-Urjgrerg U Beta Globulin U Gamma Globulin U PEP M-Baron IgG IgA IgM Immunofixation Screen Albumin (SHEN) Albumin/Globulin (SHEN) Rwssu-4-Rienmymjx SHEN Exqtv-5-Xlqenpctv SHEN Beta-Globulins (SHEN) Gamma Globulins (SHEN) SHEN M-Baron SHEN Comments Ur Immunofix PEP Note Hepatitis A IgM Ab Hepatitis A Ab Total Hep Bs Antigen Hep Bs Antibody Hep B Core Total Ab Hep B Core IgM Ab Hepatitis Be Antibody Hepatitis Be Antigen POC Glucose 103 Blood Type A POSITIVE Antibody Screen NEGATIVE Crossmatch See Detail 05/19/18 05/19/18 05/19/18 16:24 17:21 22:10 WBC 4.0 L RBC 2.19 L Hgb 7.2 L Hct 23.0 L MCV 105.0 H MCH 32.9 H MCHC 31.3 L RDW 16.5 H RDW Differential 62.4 H Plt Count 98 L MPV 10.8 Immature Gran % (Auto) 0.300 Neut % (Auto) 81.7 H Lymph % (Auto) 6.1 L [place] % (Auto) 11.1 H Eos % (Auto) 0.8 Baso % (Auto) 0.0 Absolute Neuts (auto) 3.2 Absolute Lymphs (auto) 0.24 L Total Counted Not Reportable Differential Comment Platelet Estimate Immature Plt Fraction Anisocytosis Macrocytosis ESR Retic Count Immature Retic Fraction Retic Hgb Equivalent Haptoglobin PT INR APTT Sodium Potassium Chloride Carbon Dioxide Anion Gap BUN Creatinine Estim Creat Clear Calc Est GFR (MDRD) Af Amer Est GFR (MDRD) Non-Af BUN/Creatinine Ratio Glucose Hemoglobin A1c Calcium Phosphorus Iron TIBC Iron Saturation Ferritin Total Bilirubin Direct Bilirubin AST ALT Alkaline Phosphatase Lactate Dehydrogenase Total Protein Total Protein (PEP) Albumin Globulin Albumin/Globulin Ratio Vitamin B12 Folate TSH Urine Color Urine Clarity Urine pH Ur Specific [place] Urine Protein Urine Glucose (UA) Urine Ketones Urine Occult Blood Urine Nitrite Urine Bilirubin Urine Urobilinogen Ur Leukocyte Esterase Urine RBC Urine WBC Ur Squamous Epith Cells Urine Bacteria Urine Mucus Urine Total Protein Urine Albumin U Tdtii-5-Zxtyvvwd U Skzpx-3-Keclvlwp U Beta Globulin U Gamma Globulin U PEP M-Baron IgG IgA IgM Immunofixation Screen Albumin (SHEN) Albumin/Globulin (SHEN) Qyncr-0-Qjsvldyvj SHEN Damub-2-Btedhlmxq SHEN Beta-Globulins (SHEN) Gamma Globulins (SHEN) SHEN M-Baron SHEN Comments Ur Immunofix PEP Note Hepatitis A IgM Ab Hepatitis A Ab Total Hep Bs Antigen Hep Bs Antibody Hep B Core Total Ab Hep B Core IgM Ab Hepatitis Be Antibody Hepatitis Be Antigen POC Glucose 111 H 133 H Blood Type Antibody Screen Crossmatch 05/20/18 05/20/18 05/20/18 05:25 05:25 06:50 WBC 4.7 RBC 2.18 L Hgb 7.3 L Hct 23.2 L MCV 106.4 H MCH 33.5 H MCHC 31.5 L RDW 16.2 H RDW Differential 60.7 H Plt Count 101 L MPV 10.7 Immature Gran % (Auto) 0.600 Neut % (Auto) 80.0 H Lymph % (Auto) 7.2 L [place] % (Auto) 11.1 H Eos % (Auto) 0.9 Baso % (Auto) 0.2 Absolute Neuts (auto) 3.8 Absolute Lymphs (auto) 0.34 L Total Counted Not Reportable Differential Comment SEE COMMENT Platelet Estimate SLT DEC Immature Plt Fraction Anisocytosis 1+ Macrocytosis 1+ ESR Retic Count Immature Retic Fraction Retic Hgb Equivalent Haptoglobin PT INR APTT Sodium 141 Potassium 4.0 Chloride 107 Carbon Dioxide 24.0 Anion Gap 10 BUN 43 H Creatinine 1.64 H Estim Creat Clear Calc 39.43 Est GFR (MDRD) Af Amer 52 L Est GFR (MDRD) Non-Af 43 L BUN/Creatinine Ratio 26.2 H Glucose 93 Hemoglobin A1c Calcium 8.3 L Phosphorus 3.1 Iron TIBC Iron Saturation Ferritin Total Bilirubin 1.70 H Direct Bilirubin AST 141 H ALT 98 H Alkaline Phosphatase 402 H Lactate Dehydrogenase Total Protein 6.8 Total Protein (PEP) Albumin 2.6 L Globulin 4.2 Albumin/Globulin Ratio 0.6 L Vitamin B12 Folate TSH Urine Color Urine Clarity Urine pH Ur Specific [place] Urine Protein Urine Glucose (UA) Urine Ketones Urine Occult Blood Urine Nitrite Urine Bilirubin Urine Urobilinogen Ur Leukocyte Esterase Urine RBC Urine WBC Ur Squamous Epith Cells Urine Bacteria Urine Mucus Urine Total Protein Urine Albumin U Jmdrf-4-Qjaeguvj U Shisp-0-Blwlxinb U Beta Globulin U Gamma Globulin U PEP M-Baron IgG IgA IgM Immunofixation Screen Albumin (SHEN) Albumin/Globulin (SHEN) Fsdub-1-Cghegcbyc SHEN Gytbv-9-Vcefoansr SHEN Beta-Globulins (SHEN) Gamma Globulins (SHEN) SHEN M-Baron SHEN Comments Ur Immunofix PEP Note Hepatitis A IgM Ab Hepatitis A Ab Total Hep Bs Antigen Hep Bs Antibody Hep B Core Total Ab Hep B Core IgM Ab Hepatitis Be Antibody Hepatitis Be Antigen POC Glucose 97 Blood Type Antibody Screen Crossmatch 05/20/18 05/20/18 05/20/18 08:50 12:07 16:43 WBC RBC Hgb Hct MCV MCH MCHC RDW RDW Differential Plt Count MPV Immature Gran % (Auto) Neut % (Auto) Lymph % (Auto) [place] % (Auto) Eos % (Auto) Baso % (Auto) Absolute Neuts (auto) Absolute Lymphs (auto) Total Counted Differential Comment Platelet Estimate Immature Plt Fraction Anisocytosis Macrocytosis ESR Retic Count Immature Retic Fraction Retic Hgb Equivalent Haptoglobin PT 18.4 H INR 1.5 APTT Sodium Potassium Chloride Carbon Dioxide Anion Gap BUN Creatinine Estim Creat Clear Calc Est GFR (MDRD) Af Amer Est GFR (MDRD) Non-Af BUN/Creatinine Ratio Glucose Hemoglobin A1c Calcium Phosphorus Iron TIBC Iron Saturation Ferritin Total Bilirubin Direct Bilirubin AST ALT Alkaline Phosphatase Lactate Dehydrogenase Total Protein Total Protein (PEP) Albumin Globulin Albumin/Globulin Ratio Vitamin B12 Folate TSH Urine Color Urine Clarity Urine pH Ur Specific [place] Urine Protein Urine Glucose (UA) Urine Ketones Urine Occult Blood Urine Nitrite Urine Bilirubin Urine Urobilinogen Ur Leukocyte Esterase Urine RBC Urine WBC Ur Squamous Epith Cells Urine Bacteria Urine Mucus Urine Total Protein Urine Albumin U Jtsig-5-Jxjpvjav U Ieztr-0-Sfsgddim U Beta Globulin U Gamma Globulin U PEP M-Baron IgG IgA IgM Immunofixation Screen Albumin (SHEN) Albumin/Globulin (SHEN) Vqhmg-9-Xcbhenjga SHEN Bciiq-2-Bzwcjcdpq SHEN Beta-Globulins (SHEN) Gamma Globulins (SHEN) SHEN M-Baron SHEN Comments Ur Immunofix PEP Note Hepatitis A IgM Ab Hepatitis A Ab Total Hep Bs Antigen Hep Bs Antibody Hep B Core Total Ab Hep B Core IgM Ab Hepatitis Be Antibody Hepatitis Be Antigen POC Glucose 177 H 108 Blood Type Antibody Screen Crossmatch 05/20/18 05/21/18 05/21/18 21:39 05:52 05:52 WBC 7.3 RBC 2.64 L Hgb 8.7 L Hct 27.6 L MCV 104.5 H MCH 33.0 H MCHC 31.5 L RDW 17.3 H RDW Differential 63.7 H Plt Count 126 L MPV 11.2 Immature Gran % (Auto) 1.000 H Neut % (Auto) 84.0 H Lymph % (Auto) 6.3 L [place] % (Auto) 8.2 Eos % (Auto) 0.4 Baso % (Auto) 0.1 Absolute Neuts (auto) 6.1 Absolute Lymphs (auto) 0.46 L Total Counted Not Reportable Differential Comment SEE COMMENT Platelet Estimate SLT DEC Immature Plt Fraction Anisocytosis RARE Macrocytosis RARE ESR Retic Count Immature Retic Fraction Retic Hgb Equivalent Haptoglobin PT INR APTT Sodium 141 Potassium 4.0 Chloride 105 Carbon Dioxide 24.0 Anion Gap 12 BUN 44 H Creatinine 1.72 H Estim Creat Clear Calc 37.60 Est GFR (MDRD) Af Amer 49 L Est GFR (MDRD) Non-Af 41 L BUN/Creatinine Ratio 25.6 H Glucose 95 Hemoglobin A1c Calcium 8.8 Phosphorus Iron TIBC Iron Saturation Ferritin Total Bilirubin 2.20 H Direct Bilirubin AST 176 H ALT 120 H Alkaline Phosphatase 495 H Lactate Dehydrogenase Total Protein 7.4 Total Protein (PEP) Albumin 2.8 L Globulin 4.6 H Albumin/Globulin Ratio 0.6 L Vitamin B12 Folate TSH Urine Color Urine Clarity Urine pH Ur Specific [place] Urine Protein Urine Glucose (UA) Urine Ketones Urine Occult Blood Urine Nitrite Urine Bilirubin Urine Urobilinogen Ur Leukocyte Esterase Urine RBC Urine WBC Ur Squamous Epith Cells Urine Bacteria Urine Mucus Urine Total Protein Urine Albumin U Zzasq-6-Binpeatg U Rxqph-3-Kkexqsri U Beta Globulin U Gamma Globulin U PEP M-Baron IgG IgA IgM Immunofixation Screen Albumin (SHEN) Albumin/Globulin (SHEN) Vccqu-3-Yjyuuzwbz SHEN Olssg-2-Nllqkgltl SHEN Beta-Globulins (SHEN) Gamma Globulins (SHEN) SHEN M-Baron SHEN Comments Ur Immunofix PEP Note Hepatitis A IgM Ab Hepatitis A Ab Total Hep Bs Antigen Hep Bs Antibody Hep B Core Total Ab Hep B Core IgM Ab Hepatitis Be Antibody Hepatitis Be Antigen POC Glucose 120 H Blood Type Antibody Screen Crossmatch 05/21/18 06:45 WBC RBC Hgb Hct MCV MCH MCHC RDW RDW Differential Plt Count MPV Immature Gran % (Auto) Neut % (Auto) Lymph % (Auto) [place] % (Auto) Eos % (Auto) Baso % (Auto) Absolute Neuts (auto) Absolute Lymphs (auto) Total Counted Differential Comment Platelet Estimate Immature Plt Fraction Anisocytosis Macrocytosis ESR Retic Count Immature Retic Fraction Retic Hgb Equivalent Haptoglobin PT INR APTT Sodium Potassium Chloride Carbon Dioxide Anion Gap BUN Creatinine Estim Creat Clear Calc Est GFR (MDRD) Af Amer Est GFR (MDRD) Non-Af BUN/Creatinine Ratio Glucose Hemoglobin A1c Calcium Phosphorus Iron TIBC Iron Saturation Ferritin Total Bilirubin Direct Bilirubin AST ALT Alkaline Phosphatase Lactate Dehydrogenase Total Protein Total Protein (PEP) Albumin Globulin Albumin/Globulin Ratio Vitamin B12 Folate TSH Urine Color Urine Clarity Urine pH Ur Specific [place] Urine Protein Urine Glucose (UA) Urine Ketones Urine Occult Blood Urine Nitrite Urine Bilirubin Urine Urobilinogen Ur Leukocyte Esterase Urine RBC Urine WBC Ur Squamous Epith Cells Urine Bacteria Urine Mucus Urine Total Protein Urine Albumin U Yjwij-7-Wowrqswp U Gaajl-7-Gzmdravd U Beta Globulin U Gamma Globulin U PEP M-Baron IgG IgA IgM Immunofixation Screen Albumin (SHEN) Albumin/Globulin (SHEN) Jcbke-6-Jbwmmiees SHEN Ljhod-6-Trnfhnxmf SHEN Beta-Globulins (SHEN) Gamma Globulins (SHEN) SHEN M-Baron SHEN Comments Ur Immunofix PEP Note Hepatitis A IgM Ab Hepatitis A Ab Total Hep Bs Antigen Hep Bs Antibody Hep B Core Total Ab Hep B Core IgM Ab Hepatitis Be Antibody Hepatitis Be Antigen POC Glucose 107 Blood Type Antibody Screen Crossmatch Diagnostic Data Brain CT 05/15/18 14:16 IMPRESSION: Chronic involutional changes of the brain. Electronically Signed: Perez Arevalo MD at 15:45 EDT Tel [phone], Service support , Cervical Spine CT 05/18/18 12:37 IMPRESSION: No acute abnormalities are seen in the cervical spine. There are scattered degenerative changes, described above. Electronically Signed: Justine Vásquez MD at 17:01 EDT Tel Direct: [phone], Service support , Lumbar Spine CT 05/18/18 12:37 IMPRESSION: Scoliosis and degenerative changes Multilevel spinal stenosis secondary to minor bulging of the annuli and facet arthropathy Status post bilateral laminectomy and posterior fusion spanning L3-4 through L5-S1.. No evidence for acute fracture or subluxation. No definitive evidence for loosening of the orthopedic hardware. Electronically Signed: Joseph Lamas MD at 18:17 EDT , Service support , Gallbladder Ultrasound 05/19/18 14:56 IMPRESSION: 1. Heterogeneous echogenicity of liver with two solid nodules. This apparently is new since the previous CT. 2. A small amount of ascites. 3. A small right-sided pleural effusion. Electronically Signed: Lynda Martinez MD at 0:34 EDT , Service support , ADDENDUM: 05/20/18 1130 urology general surgery nephrology hematology Operations: None Procedures: None Summary of Care Provided: Patient is an 82-year-old male who was admitted on 05/15/18 after he fell at home. Patient stated that his leg simply got weak and gave out and he fell twice. Per history obtained from his sinus patient was a poor historian, he had recently been given a prescription for Tylenol with codeine and subsequently started falling. Vitals and labs done in the ED were only significant for platelet count of 87,000, white cell count of 3.4 and hemoglobin of 8. CT done was negative for any acute findings. He was admitted and initially managed for general weakness and falls with mild altered mental status likely drug-induced from Tylenol with codeine. He remained stable. Hematology and nephrology are on board. Patient noted to have anemia which is progressively worsening with hemoglobin falling to 7.4. General surgery consulted for possible EGD and colonoscopy after he had positive FOBT. Urology also consulted for removal of patient's kidney stent. Urology deferred removal of patient's kidney stent because he was medically unstable, and wanted him to be medically optimised before procedure could be done. Patient was taken off Coumadin. Was noted to have worsening jaundice and continuously felt lethargic and weak. LFTs were noted for increasing bilirubin level from 0.9 on admission to 1.7 and 2.2 on 05/21/2018. AST and ALT as well as ALP also trended upwards. Ultrasound of the gallbladder and liver revealed 2 solid nodules in the liver which had not been present per Abdominal CT done in October 2017. Liver nodules were ~ 2cm in size. CT of the abdomen no MRI of the liver with contrast could not be done on account of patient's HPI on CKD with creatinine being around 1.7. This was discussed with nephrology and radiology and decision was made for biopsy of the liver mass. However, patient's continued to deteriorate and felt more lethargic and bilirubin trended up to 2.2 with AST and ALT trending up as well as ALP trending up to about 495. On account of not having GI hepatology service at [facility], decision was made after discussing with patient, son and grandson to transfer him to a tertiary facility where he would have GI service available. [facility] and patient was transferred to [facility] on 2017. Patient seen and examined today. He still felt lethargic but was alert and oriented ?3. He had no complaints. He denied any fever or chills, any cough or chest pain, any shortness of breath, any abdominal pain, any diarrhea vomiting. Review of systems otherwise negative. O/E: elderly male, Alert and oriented x 3. HEENT: jaundiced, pale, pupils equal and reactive to light. Lungs: clear to auscultation CVS; normal first and second heart sounds, no murmurs. Abdomen; soft, nontender, large infraumbilical ventral hernia and small epigastric hernia Extremities: venous stasis hyperpigmented changes. No edema or tenderness. Neuro: Alert and oriented x 3. plan is to transfer patient to [facility], for Gi evaluation. metabolic encephalopathy has resolved. He received a unit of PRBC on 05/20/18, and Hb at time of discahrge was up to 8.7, from 7.3. Alpha fetoprotein was pending at time of discharge. He remains off coumadin. Cr is 1.72 at time of discharge, with baseline being ~ 1.5. Discussed with Dr Munroe, as patient was being prepped for EGD and colonoscopy tomorrow, until decision was made to transfer patient. [] Discharge Diet: 2000 mg Sodium Diet Discharge Activity: Return to Normal Activity - fall precautions Weight Bearing Status: Weight bearing as tolerated Home Medications: Medications to take at Discharge Finasteride [Proscar] 5 mg PO DAILY 05/14/14 Multivit-Min/FA/Lycopene/Lut [Centrum Silver Tablet] 1 each PO DAILY 05/14/14 Acetaminophen [Pain Reliever] 500 mg PO Q6H PRN PRN 09/25/16 Lorazepam [Ativan] 1 mg PO QHS 10/16/16 Simvastatin [Zocor] 5 mg PO QHS 10/16/16 Atenolol [Tenormin (beta yosef)] 25 mg PO DAILY 09/03/17 Bumetanide [Bumex] 2 mg PO BID 09/03/17 Metolazone [Zaroxolyn] 2.5 mg PO QODAY 09/03/17 Insulin Glargine [Lantus SoloStar Pen] 15 units SC QHS 10/25/17 Polyethylene Glycol 3350 [Miralax] 17 gm PO DAILY 10/25/17 Allopurinol 100 mg PO DAILY 11/04/17 Glipizide [Glipizide ER] 2.5 mg PO BREAKFAST 11/04/17 Acetaminophen/Codeine #3 [Tylenol#3] 1 tablet PO DAILY 05/14/18 Colchicine 0.6 mg PO DAILY 05/14/18 Ferrous Sulfate 325 mg PO DAILY@0800 05/14/18 Pregabalin [Lyrica] 50 mg PO TID 05/14/18 Vit C/E/Zn/Coppr/Lutein/Zeaxan [Preservision Areds 2 Softgel] 1 each PO DAILY Primary Care Physician: Bijan Zheng MD [Primary Care Provider] - Please follow up with your Primary Care Physician in: one week Disposition: Acute care [facility] Minutes spent on discharge:: 50 Patient Condition:: Fair Medical Necessity - Tobacco Use Smoking Status: Former smoker Tobacco Use: Non-smoker Meaningful Use Info Meaningful Use Diagnoses (Choose all that apply): None applicable Code Visit Inpatient E&M: 05439 Disch Hosp
--- NOTE | 2018-05-21 10:57 | PCM.TXEXTCAR ---
- Diet 05/21/18 00:05 Diet: Clear Liquid Is pt able to select menu?: Yes 05/21/18 23:55 NPO [Diet: Nothing Per Oral] Is pt able to select menu?: Yes - Routine Orders/Code Status Enema Type: Fleetz Enema Frequency: Daily PRN Code Status: Full Code - Wound(s) Above right elbow Wound Type: Skin Tear LFA Wound Type: Skin Tear Right Wrist Wound Type: Skin Tear - Therapies Weight Bearing: Full weight bearing - fall precautions Physical Therapy: Eval and Treat Occupational Therapy: Eval and Treat - Allergies/Procedures Done in Hospital Allergies/Adverse Reactions: Allergies hydrocodone bitartrate [From Vicodin] Allergy (Verified 05/11/18 08:06) Unknown Iodinated Contrast- Oral and IV Dye [DYEE] Allergy (Verified 05/11/18 08:06) Unknown oxycodone HCl [From Percocet] Allergy (Verified 05/15/18 18:26) Itching Sulfa (Sulfonamide Antibiotics) Adverse Reaction (Verified 05/11/18 08:06) Unknown Procedures: None - Type of Care/Length of Stay Estimated LOS: Convalescent Care Less Than 30 days Type of Care Needed: Skilled Rehab Potential: Fair Prognosis: Fair - Additional Orders/Day of Discharge H&P will serve as current which was dated: 05/15/18 Day of Discharge: 05/21/18 - Dietary and Speech Recommendations Dietitian Recommendations/Changes: Rec diet change to CHO controlled, low sodium. Will d/c Glucerna w/ medpass per pt request. Appetite appears good- pt just unsatisifed w/ foods at breakfast. Will provide Glucerna w/ breakfast. - Follow Up Care Primary Care Physician: Bijan Zheng MD [Primary Care Provider] - Please follow up with your Primary Care Physician in: one week
[2018-05-21 13:20] LABS: Bedside Glucose 90 mg/dL (70-110)
[2018-05-22 09:06] LABS: AFP, Tumor Marker 1.4 ng/mL (0.0-8.3)
[2018-05-22 16:10] LABS: PROELU- Alpha-1-Globulin,Ur 4.8 % (.); PROELU- Alpha-2-Globulin,Ur 19.3 % (.); PROELU- Gamma Globulin, Ur 18.8 % (.); PROELU- M-Spike, Ur 6.6 % (Not Observed); Total Protein, Ur 148.9 mg/dL (Not Estab.)
== END 2018-05-21 15:24 | disposition short-term general hospital (02) | DRG 809 ==
LOC: PCU 18:20
PROVIDERS: Anesthesiology; Internal Medicine Nephrology; Nurse Practitioner Family; Physician Assistant; Admitting Provider Internal Medicine; Emergency Provider Emergency Medicine; Family Provider Internal Medicine; PCP Internal Medicine; Visit Provider Student in an Organized Health Care Education/Training Program
DX: D61.818 Other pancytopenia (principal); I50.32 Chronic diastolic (congestive) heart failure; I13.0 Hypertensive heart and chronic kidney disease with heart failure and stage 1 through stage 4 chronic kidney disease, or unspecified chronic kidney disease; E87.0 Hyperosmolality and hypernatremia; Z95.0 Presence of cardiac pacemaker; I48.2 Chronic atrial fibrillation; E87.6 Hypokalemia; N18.3 Chronic kidney disease, stage 3 (moderate); K76.89 Other specified diseases of liver; E11.22 Type 2 diabetes mellitus with diabetic chronic kidney disease; R29.6 Repeated falls; Z93.6 Other artificial openings of urinary tract status; R53.1 Weakness; F41.9 Anxiety disorder, unspecified; K21.9 Gastro-esophageal reflux disease without esophagitis; N40.0 Benign prostatic hyperplasia without lower urinary tract symptoms; E78.5 Hyperlipidemia, unspecified; Z79.01 Long term (current) use of anticoagulants; Z79.4 Long term (current) use of insulin; G62.9 Polyneuropathy, unspecified; Z87.891 Personal history of nicotine dependence; I27.20 Pulmonary hypertension, unspecified; T40.2X5A Adverse effect of other opioids, initial encounter; T39.1X5A Adverse effect of 4-Aminophenol derivatives, initial encounter; M10.9 Gout, unspecified; R19.5 Other fecal abnormalities; N13.5 Crossing vessel and stricture of ureter without hydronephrosis; Y92.009 Unspecified place in unspecified non-institutional (private) residence as the place of occurrence of the external cause; W19.XXXA Unspecified fall, initial encounter; Z86.73 Personal history of transient ischemic attack (TIA), and cerebral infarction without residual deficits
CPT/HCPCS: 36415; 70450; 72125; 72131; 76705; 80048; 80053; 80069; 80076; 81001; 82105; 82274; 82607; 82728; 82746; 82784; 82962; 83010; 83036; 83540; 83550; 83615; 84100; 84165; 84166; 84443; 85025; 85027; 85045; 85610; 85652; 85730; 86334; 86704; 86705; 86706; 86707; 86708; 86709; 86850; 86900; 86920; 86922; 87340; 87350; 93005; 97110; 97116; 97162; 97166; 97530; 97802; 99283; 99285; J1756; J7030; J7040; P9016; A4216